=== PATIENT | female | born 1950 | race African-American/Black ===

== ENCOUNTER → 2016-09-21 | Outpatient (CLI) | payer OTHER ==
[2015-02-05 14:45] VITALS: BP 131/74
[~2016-09-21] MED LIST: AMIT75TA PO; AMLO10TA2 PO; ASPI-482 PO; CHOL10003 PO; CIPR250T30 PO; CYCL5TAB PO; DICL50TA4 PO; DICL75TA PO; ESTR1TAB5 PO; LOSA1TAB17 PO; MV,1TABL3 PO; POTA20TA12 PO; TAMS0.4C2 PO; TIZA4TAB PO; TRAM50TA PO; VALS80TA3 PO
--- NOTE | 2016-09-22 08:07 | KCIC ---
Bilateral digital screening mammograms with CAD: HISTORY Routine screening. COMPARISON Comparison is made to previous studies dated 11/26/2013 and 10/14/2009. FINDINGS Breast density category B. The skin and nipples show no abnormalities. No abnormal lymph nodes are seen in the axilla. The breast parenchyma shows scattered fibroglandular density. There are no dominant masses, suspicious calcifications or architectural distortions. IMPRESSION No evidence of malignancy. Recommend routine annual mammographic screening. This study was interpreted with the benefit of Computerized Aided Detection (CAD). Mammography is not 100% sensitive in detecting breast cancer. Therefore, a self breast exam and a clinical breast exam are very important. A negative mammogram does not negate a clinically suspicious finding and should not result in a delay in biopsying a clinically suspicious abnormality. BI-RADS category 1. Negative. This patient's information has been entered into a reminder system for the patient to be notified with the results of this examination and a target date for her next mammograms. Electronically signed by: Teresa Cordon MD (Sep 22, 2016 08:06:44)
== END | disposition home or self-care (01) ==
LOC: KCIC MAMMO 13:28
PROVIDERS: ATTEND Nurse Practitioner Family
DX: Z12.31 Encounter for screening mammogram for malignant neoplasm of breast (principal)
CPT/HCPCS: G0202; 77067

== ENCOUNTER → 2017-07-27 | Outpatient (CLI) | payer MEDICARE, OTHER | END | disposition home or self-care (01) | LOC: KCIC MRI 12:07 | DX: M48.02 Spinal stenosis, cervical region (principal); M47.896 Other spondylosis, lumbar region; M54.5 Low back pain; M40.292 Other kyphosis, cervical region; M25.511 Pain in right shoulder; M25.78 Osteophyte, vertebrae; R51 Headache; G89.29 Other chronic pain | CPT/HCPCS: 72141; 72148 ==

== ENCOUNTER 2017-09-05 01:51 | Emergency (ER) | payer MEDICARE ==
[2017-09-05] MEDS ORDERED: fentaNYL PF VIAL 100 MCG/2 ML VIAL IV (02:45)
[2017-09-05 03:01] LABS: ADD MAN DIFF? NO
[2017-09-05 03:06] LABS: BASO # 0.1 x10^3/uL (0.0-0.2); BASO % 1 % (0-3); EOS # 0.1 x10^3/uL (0.0-0.7); EOS % 2 % (0-3); HEMATOCRIT 35.1 % (36.0-47.0); HEMOGLOBIN 11.7 g/dL (12.0-15.5); LYMPH # 2.6 x10^3/uL (1.0-4.8); LYMPH % 49 % (24-48); MEAN CORPUSCULAR HEMOGLOBIN 29 pg (25-35); MEAN CORPUSCULAR HGB CONC 33 g/dL (31-37); MEAN CORPUSCULAR VOLUME 86 fL (79-100); MONO # 0.4 x10^3/uL (0.0-1.1); MONO % 7 % (0-9); NEUT # 2.2 x10^3uL (1.8-7.7); NEUT % 42 % (31-73); PLATELET COUNT 294 x10^3/uL (140-400); RED BLOOD COUNT 4.08 x10^6/uL (3.50-5.40); RED CELL DISTRIBUTION WIDTH 15.3 % (11.5-14.5); WHITE BLOOD COUNT 5.3 x10^3/uL (4.0-11.0)
[2017-09-05 03:20] LABS: ANION GAP 9 (6-14); BLOOD UREA NITROGEN 22 mg/dL (7-20); CALCIUM 8.7 mg/dL (8.5-10.1); CARBON DIOXIDE 28 mmol/L (21-32); CHLORIDE 103 mmol/L (98-107); CREATININE 1.1 mg/dL (0.6-1.0); GFR 60.1; GLUCOSE 101 mg/dL (70-99); POTASSIUM 3.4 mmol/L (3.5-5.1); SODIUM 140 mmol/L (136-145)
[2017-09-05 03:29] LABS: D-DIMER 0.39 ug/mlFEU (0.00-0.50)
[2017-09-05 03:30] LABS: TROPONINI < 0.017 ng/mL (0.000-0.055)
[2017-09-05 03:33] LABS: ALBUMIN 3.4 g/dL (3.4-5.0); ALK PHOS 65 U/L (46-116); ALT (SGPT) 24 U/L (14-59); AST (SGOT) 16 U/L (15-37); DIRECT BILIRUBIN 0.1 mg/dL (0.0-0.2); LIPASE 54 U/L (73-393); TOTAL BILIRUBIN 0.3 mg/dL (0.2-1.0); TOTAL PROTEIN 7.3 g/dL (6.4-8.2)
[2017-09-05] MEDS ORDERED: IPRATRPIUM/ALBUTEROL 0.5/2.5MG 3 ML NEBU. (04:17)
[2017-09-05] MEDS: IPRATRPIUM/ALBUTEROL 0.5/2.5MG 3 ML NEBU. NEB (04:19)
== END 2017-09-05 04:30 | disposition home or self-care (01) ==
LOC: ER 01:51
DX: M54.89 Other dorsalgia (principal); R05 Cough; I10 Essential (primary) hypertension; Z90.710 Acquired absence of both cervix and uterus; Z98.890 Other specified postprocedural states; Z87.891 Personal history of nicotine dependence
CPT/HCPCS: 36415; 71045; 80048; 80076; 83690; 84484; 85025; 85379; 93005; 94640; 99285-25; J7620

== ENCOUNTER → 2017-09-27 | Outpatient (CLI) | payer MEDICARE | END | disposition home or self-care (01) | LOC: KCIC MAMMO 13:00 | DX: Z12.31 Encounter for screening mammogram for malignant neoplasm of breast (principal); N63.10 Unspecified lump in the right breast, unspecified quadrant | CPT/HCPCS: 77063; 77067 ==

== ENCOUNTER → 2017-09-29 | Outpatient (CLI) | payer MEDICARE | END | disposition home or self-care (01) | LOC: KCIC US 13:08 | DX: R92.8 Other abnormal and inconclusive findings on diagnostic imaging of breast (principal) | CPT/HCPCS: 76641 ==

== ENCOUNTER 2018-06-19 23:26 | Emergency (ER) | payer MEDICARE ==
[~2018-06-19] VITALS: Ht 162.6 cm; Wt 69.9 kg
[~2018-06-19 23:26] MED LIST changes: -AMLO10TA2 PO; +AMLO10TA6 PO; -LOSA1TAB17 PO; +LOSA1TAB22 PO
[2018-06-19 23:55] LABS: BASO % 1 % (0-3); EOS # 0.1 x10^3/uL (0.0-0.7); EOS % 1 % (0-3); HEMATOCRIT 36.9 % (36.0-47.0); HEMOGLOBIN 12.7 g/dL (12.0-15.5); LYMPH # 2.5 x10^3/uL (1.0-4.8); LYMPH % 36 % (24-48); MEAN CORPUSCULAR HEMOGLOBIN 30 pg (25-35); MEAN CORPUSCULAR HGB CONC 34 g/dL (31-37); MEAN CORPUSCULAR VOLUME 88 fL (79-100); MONO # 0.5 x10^3/uL (0.0-1.1); MONO % 7 % (0-9); NEUT # 3.8 x10^3uL (1.8-7.7); NEUT % 56 % (31-73); PLATELET COUNT 296 x10^3/uL (140-400); RED BLOOD COUNT 4.17 x10^6/uL (3.50-5.40); RED CELL DISTRIBUTION WIDTH 14.9 % (11.5-14.5); WHITE BLOOD COUNT 6.9 x10^3/uL (4.0-11.0)
[2018-06-20] MEDS: ASPIRIN CHEWABLE 81 MG TABLET. PO ONE (00:01)
[2018-06-20 00:45] LABS: ALBUMIN 3.6 g/dL (3.4-5.0); CREATININE 0.9 mg/dL (0.6-1.0); GFR 75.6; MAGNESIUM 1.7 mg/dL (1.8-2.4); TOTAL BILIRUBIN 0.3 mg/dL (0.2-1.0); TOTAL PROTEIN 7.3 g/dL (6.4-8.2)
[2018-06-20 00:48] LABS: POTASSIUM 2.7 mmol/L (3.5-5.1)
[2018-06-20 01:03] LABS: BILIRUBIN,URINE NEGATIVE (NEG); CLARITY,URINE CLEAR; COLOR,URINE YELLOW; NITRITE,URINE NEGATIVE (NEG); PROTEIN,URINE NEGATIVE (NEG-TRACE); UROBILINOGEN,URINE 0.2 mg/dL (0.2 mg/dL)
[2018-06-20 01:10] LABS: BACTERIA,URINE MODERATE /HPF (0-FEW); RBC,URINE OCC /HPF (0-2); SQUAMOUS EPITHELIAL CELL,UR MOD /LPF
[2018-06-20] MEDS: POTASSIUM CHLORIDE 20 MEQ TABLET.ER. PO ONE (01:23)
--- NOTE | 2018-06-20 01:52 | PHYS DOC ---
Past Medical History Past Medical History: CAD, CVA, Hypertension, Other Additional Past Medical Histor: PLEURISY Past Surgical History: Hysterectomy, Tonsillectomy Additional Past Surgical Histo: rectocele, hernia repair Alcohol Use: None Drug Use: None Adult General Chief Complaint Chief Complaint: CHEST PAIN HPI HPI Patient is a 68-year-old female who presents with numerous complaints. Patient indicates that she has had some chest tightness and mild shortness of breath and dizziness that she states that started about 3 hours ago but admits that she has about a 2-3 year history of the symptoms that seem to be quite frequent. She rates her pain as being mild at this time at about a 3 out of 10. She describes the pain in her chest as tightness. She states that her symptoms of dizziness are worsened when she stands up and walks. She denies any headache. She also denies any nausea or vomiting. Patient states that nothing improves her symptoms. Review of Systems Review of Systems Constitutional: Denies fever or chills [] Respiratory: Denies cough. Complains of mild shortness of breath [] Cardiovascular: No additional information not addressed in HPI [] GI: Denies abdominal pain, nausea, vomiting or diarrhea [] Integument: Denies rash or skin lesions [] Neurologic: Denies headache. Complains of chronic dizziness [] All other systems were reviewed and found to be within normal limits, except as documented in this note. Current Medications Current Medications Current Medications Medications (Trade) Dose Ordered Sig/[facility] Start Time Stop Time Status Last Admin Dose Admin Aspirin (Children'S Aspirin) 324 mg 1X ONCE 06/20/18 00:30 06/20/18 00:31 DC 06/20/18 00:01 324 MG Potassium Chloride (Klor-Con) 40 meq 1X ONCE 06/20/18 01:30 06/20/18 01:31 DC 06/20/18 01:23 40 MEQ Allergies Allergies Allergies Coded Allergies Type Severity Reaction Last Updated Verified No Known Drug Allergies 02/05/15 No Physical Exam Physical Exam Constitutional: Well developed, well nourished, no acute distress, non-toxic appearance. [] HENT: Normocephalic, atraumatic, bilateral external ears normal, oropharynx moist, no oral exudates, nose normal. [] Eyes: PERRLA, EOMI, conjunctiva normal, no discharge. [] Neck: Normal range of motion, no tenderness, supple, no stridor. [] Cardiovascular: Regular rate and rhythm[] Lungs & Thorax: Bilateral breath sounds clear to auscultation [] Abdomen: Bowel sounds normal, soft, no tenderness. [] Skin: Warm, dry, no erythema, no rash. [] Extremities: No tenderness, no cyanosis, no clubbing, ROM intact, no edema. [] Neurologic: Alert and oriented X 3, normal motor function, normal sensory function, no focal deficits noted. [] Current Patient Data Vital Signs Vital Signs Date Time Temp Pulse Resp B/P (MAP) Pulse Ox O2 Delivery O2 Flow Rate FiO2 06/19/18 23:37 98.5 81 20 184/98 (126) 96 Room Air 98.5 Lab Values Laboratory Tests Test 06/19/18 23:40 06/20/18 00:00 06/20/18 00:17 06/20/18 00:50 White Blood Count 6.9 x10^3/uL (4.0-11.0) Red Blood Count 4.17 x10^6/uL (3.50-5.40) Hemoglobin 12.7 g/dL (12.0-15.5) Hematocrit 36.9 % (36.0-47.0) Mean Corpuscular Volume 88 fL (79-100) Mean Corpuscular Hemoglobin 30 pg (25-35) Mean Corpuscular Hemoglobin Concent 34 g/dL (31-37) Red Cell Distribution Width 14.9 % (11.5-14.5) H Platelet Count 296 x10^3/uL (140-400) Neutrophils (%) (Auto) 56 % (31-73) Lymphocytes (%) (Auto) 36 % (24-48) Monocytes (%) (Auto) 7 % (0-9) Eosinophils (%) (Auto) 1 % (0-3) Basophils (%) (Auto) 1 % (0-3) Neutrophils # (Auto) 3.8 x10^3uL (1.8-7.7) Lymphocytes # (Auto) 2.5 x10^3/uL (1.0-4.8) Monocytes # (Auto) 0.5 x10^3/uL (0.0-1.1) Eosinophils # (Auto) 0.1 x10^3/uL (0.0-0.7) Basophils # (Auto) 0.0 x10^3/uL (0.0-0.2) POC Troponin I 0.00 ng/ml (<0.08) Sodium Level 143 mmol/L (136-145) Potassium Level 2.7 mmol/L (3.5-5.1) *L Chloride Level 103 mmol/L (98-107) Carbon Dioxide Level 30 mmol/L (21-32) Anion Gap 10 (6-14) Blood Urea Nitrogen 17 mg/dL (7-20) Creatinine 0.9 mg/dL (0.6-1.0) Estimated GFR (Cockcroft-Gault) 75.6 BUN/Creatinine Ratio 19 (6-20) Glucose Level 110 mg/dL (70-99) H Calcium Level 9.0 mg/dL (8.5-10.1) Magnesium Level 1.7 mg/dL (1.8-2.4) L Total Bilirubin 0.3 mg/dL (0.2-1.0) Aspartate Amino Transferase (AST) 12 U/L (15-37) L Alanine Aminotransferase (ALT) 22 U/L (14-59) Alkaline Phosphatase 74 U/L (46-116) Troponin I Quantitative < 0.017 ng/mL (0.000-0.055) Total Protein 7.3 g/dL (6.4-8.2) Albumin 3.6 g/dL (3.4-5.0) Albumin/Globulin Ratio 1.0 (1.0-1.7) Thyroid Stimulating Hormone (TSH) 2.034 uIU/mL (0.358-3.74) Urine Collection Type Unknown Urine Color Yellow Urine Clarity Clear Urine pH 7.0 Urine Specific [place] 1.020 Urine Protein Negative mg/dL (NEG-TRACE) Urine Glucose (UA) Negative mg/dL (NEG) Urine Ketones (Stick) Negative mg/dL (NEG) Urine Blood Negative (NEG) Urine Nitrite Negative (NEG) Urine Bilirubin Negative (NEG) Urine Urobilinogen Dipstick 0.2 mg/dL (0.2 mg/dL) Urine Leukocyte Esterase Moderate (NEG) Urine RBC Occ /HPF (0-2) Urine WBC 11-20 /HPF (0-4) Urine Squamous Epithelial Cells Mod /LPF Urine Bacteria Moderate /HPF (0-FEW) Urine Mucus Slight /LPF Laboratory Tests 12/10/18 23:40 Laboratory Tests 06/20/18 00:17 EKG EKG [] Interpretation Time: EKG demonstrates normal sinus rhythm with rate of 81. Radiology/Procedures Radiology/Procedures [] Impressions: Chest x-ray demonstrates no acute process. Course & Med Decision Making Course & Med Decision Making Pertinent Labs and Imaging studies reviewed. (See chart for details) A cardiac workup has been completed on this patient which was essentially negative. Patient's potassium level was found to be low at 2.7. Patient does indicate that she has a history of low potassium and states that she has a prescription at home. I did discuss admission to further evaluate the ongoing dizziness in her chest pain but patient states that she has prior engagements and so does not wish to be admitted. Dragon Disclaimer Dragon Disclaimer This electronic medical record was generated, in whole or in part, using a voice recognition dictation system. Departure Departure Impression: Primary Impression: Atypical chest pain Additional Impressions: Dizziness Hypokalemia Disposition: 01 HOME, SELF-CARE Condition: STABLE Referrals: DISHA JACKSON MD (PCP) Patient Instructions: Chest Pain (Nonspecific), Dizziness, Hypokalemia Problem Qualifiers VALENTÍN NUNEZ Jr. DO Jun 20, 2018 01:52
[2018-06-20 01:53] VITALS: BP 161/84
--- NOTE | 2018-06-20 06:16 | EKG ---
[facility] [address] [place] [address] Test Date: 2018-06-19 Test Time: 23:33:40 Pat Name: AMOL CHRISTINA Department: Room: Gender: F [employer]inter Machine: : 1950 Requested By: VALENTÍN NUNEZ Order Number: [id number] Reading MD: Measurements Intervals [place] Rate: 81 P: 36 [place]: 142 QRS: -10 QRSD: 102 T: 23 QT: 360 QTc: 419 Interpretive Statements SINUS RHYTHM LEFTWARD AXIS QRS(T) CONTOUR ABNORMALITY CONSIDER INFERIOR MYOCARDIAL DAMAGE POSSIBLY ABNORMAL ECG RI6.01 No previous ECG available for comparison
--- NOTE | 2018-06-20 08:30 | RAD ---
PORTABLE CHEST 1V Clinical indications: DIZZINESS, CHEST PAIN HX OF COPD, ASTHMA COMPARISON: September 05, 2017. Findings: No acute lung infiltrate or pleural effusion or pulmonary edema or lung mass or pneumothorax is seen. The heart size, pulmonary vasculature, mediastinum and both steve are unremarkable. Impression: No acute radiographic abnormality is seen. Electronically signed by: Jeremy Reeves MD (06/20/2018 8:25 AM) [facility]
== END 2018-06-20 02:11 | disposition home or self-care (01) ==
LOC: ER 23:26
DX: R07.89 Other chest pain (principal); R42 Dizziness and giddiness; E87.6 Hypokalemia; I25.10 Atherosclerotic heart disease of native coronary artery without angina pectoris; I10 Essential (primary) hypertension; Z86.73 Personal history of transient ischemic attack (TIA), and cerebral infarction without residual deficits
CPT/HCPCS: 36415; 71045; 80053; 81001; 83735; 84443; 84484; 85025; 87086; 93005; 99284

== ENCOUNTER → 2018-07-26 | Outpatient (CLI) | payer MEDICARE ==
--- NOTE | 2018-07-31 15:12 | KCIC ---
BREAST RIGHT Clinical Indication: Six-month follow-up. Comparison: Right breast ultrasound September 29, 2017. Findings: Real-time ultrasound imaging of the right breast is performed. Prominent duct right breast 4:00 position is stable. There is a cyst at the 6:00 position 3 cm from the nipple that is now partially collapsed. Hyperechogenicity of the right breast 2:00 position 2 cm from the nipple is no longer seen. At the 3:00 position, 7 cm from the nipple there is a well-circumscribed hypoechoic lesion that measures up to 6 mm, stable. A complicated cyst or fibroadenoma are considerations. IMPRESSION: 1. 6 mm probable complicated cyst or fibroadenoma at the 3:00 position 7 cm from the nipple is stable. 2. Hyperechogenicity at the 2:00 position is no longer seen. 3. Cyst at the 6:00 position 3 cm from the nipple is now partially collapsed. 4. Recommend patient return to routine mammogram screening. 5. BI-RADS Category 2, benign findings. Electronically signed by: Juan Collazo MD (07/26/2018 1:55 PM) [id number]
== END | disposition home or self-care (01) ==
LOC: KCIC US 12:42
DX: N60.01 Solitary cyst of right breast (principal)
CPT/HCPCS: 76641

== ENCOUNTER 2018-10-25 07:17 | Day surgery (SDC) | payer MEDICARE ==
[~2018-10-25] VITALS: Ht 157.5 cm; Wt 70.3 kg
[~2018-10-25 07:17] MED LIST changes: -AMLO10TA6 PO; +AMLO10TA8 PO; +AMOX500T PO; +CHOL2000 PO; +CYAN10005 PO; +ESTR0.5T PO; +FERR325T14 PO; +FISH1CAP PO; +GUAI120L35 PO; +HYDROmorphone 2 MG/ML VIAL IV PRN; +LIDOCAINE 1% PF 2 ML VIAL. ID PRN; +MORPHINE SULFATE 2 MG/ML VIAL. IV PRN; +OMEG1CAP38 PO; +ONDANSETRON PF 4 MG/2 ML VIAL. IV PRN; +OSEL75CA PO; +POLY255P11 PO; +PROCHLORPERAZINE 10 MG/2 ML VIAL. IV PRN; +fentaNYL PF VIAL 100 MCG/2 ML VIAL IV PRN
[2018-10-25] MEDS ORDERED: ROPIVacaine 0.5% PF 20 ML VIAL. ONE ×2 (07:19→07:57)
[2018-10-25] MEDS ORDERED: MIDAZOLAM HCL/PF 2 MG/2 ML VIAL. ONE (07:35)
[2018-10-25] MEDS ORDERED: ALBU2.5V8 INH (07:53)
[2018-10-25] MEDS ORDERED: fentaNYL PF VIAL 100 MCG/2 ML VIAL ONE ×2 (07:57→08:27)
[2018-10-25] MEDS ORDERED: LIDOCAINE 2% PF 5 ML VIAL. ONE (07:57)
[2018-10-25] MEDS ORDERED: SUCCINYLCHOLINE 200 MG/10 ML VIAL. ONE (07:57)
[2018-10-25] MEDS ORDERED: ROCURONIUM 50 MG/5 ML VIAL. ONE (07:57)
[2018-10-25] MEDS ORDERED: PROPOFOL 20 ML IV ONE (07:57)
[2018-10-25] MEDS ORDERED: EPINEPHrine VIAL 30 MG/30 ML VIAL ONE (08:00)
[2018-10-25] MEDS ORDERED: LIDOCAINE 1% PF 30 ML VIAL. ONE (08:00)
[2018-10-25] MEDS ORDERED: BUPIVACAINE MPF 0.5% 30 ML VIAL. ONE (08:01)
[2018-10-25] MEDS: IV RINGERS,LACTATED 1000ML 1,000 ML IV SCH ×2 (08:04→11:19)
--- NOTE | 2018-10-25 08:41 | DISCH ---
DISCHARGE INSTRUCTIONS Condition on Discharge Condition on Discharge: Stable Activity After Discharge Activity Instructions for Disc: No restrictions, Other ROM activity Other activity instructions: arm to remain in sling Bathing Instructions: Shower-keep dressing dry Driving Instructions after Dis: Do not drive today Weight Bearing Status after Di: Non weight bearing Diet after Discharge Diet after Discharge: Regular Wound Incision Care Wound/Incision Care: Ice to area for comfort, Keep wound/cast CDI, Change dressing, No wound care needed Other wound/incision instructi: ok to change dressin [address] after DC Call your doctor for: If your condition worsens Follow-Up Follow up with: Abdoulaye in 2 wks ROGER DEGROOT II, MD Oct 25, 2018 08:41
[2018-10-25] MEDS ORDERED: fentaNYL PF VIAL 100 MCG/2 ML VIAL IV ONE (08:45)
[2018-10-25] MEDS ORDERED: DEXAMETHASONE SOD PHOS 20 MG/5 ML VIAL. ONE (09:26)
[2018-10-25] MEDS ORDERED: DESFLURANE 61 TO 120 MINUTES IH ONE (09:26)
[2018-10-25] MEDS ORDERED: ONDANSETRON PF 4 MG/2 ML VIAL. ONE (09:27)
[2018-10-25] MEDS ORDERED: PHENYLEPHRINE in 0.9% NACL PF 1 MG/10 ML SYRINGE. IV ONE (09:38)
[2018-10-25] MEDS ORDERED: ePHEDrine PF IN SALINE 50 MG/10 ML SYRINGE. IV ONE (09:46)
[2018-10-25] MEDS ORDERED: VASOPRESSIN 20 UNIT/ML VIAL. ONE (09:48)
[2018-10-25] MEDS ORDERED: NEOSTIGMINE METHYLSULFATE 5 MG/5 ML SYRINGE. ONE (09:53)
[2018-10-25] MEDS ORDERED: GLYCOPYRROLATE 1 MG/5 ML VIAL. ONE (09:53)
--- NOTE | 2018-10-25 10:24 | PDOC4 ---
Operative Note Operative Note Date of procedure: 10/25/2018 Surgeon: Vega Degroot Sales Representative Graphic Art: Preoperative diagnosis: #1 Right shoulder rotator cuff tear Postoperative diagnosis: Same Procedure performed: Arthroscopic right shoulder rotator cuff repair Anesthesia: Gen. plus regional nerve block Findings: #1 Complete supraspinatus and infraspinatus tears, retracted #2 fairly well-preserved glenohumeral cartilage, small area, less than a centimeter of full-thickness cartilage loss with overlying fibrotic tissue at its base next line #3 intact labrum circumferentially #3 some inflammation and biceps tendon, no tears #4 No loose bodies Blood loss: 10mL Components inserted: [employer] Helacoil anchors, 2, for rotator cuff repair , footprint for lateral row fixation Reason for procedure: Patient is a very pleasant female who has had long- standing shoulder pain and dysfunction. She had been seen and evaluated in my outpatient orthopedic surgery clinic, please see this note for full details. She had tried and failed conservative therapies. Clinical and radiographic examination, including MRI, were consistent with the preoperative diagnosis. We had a discussion of the risks, benefits, alternatives the above surgery and he wished to proceed. Description of procedure: Patient was greeted in the preoperative holding area where the correct extremity was verified and marked. They were taken to the preoperative holding area where the anesthesiology team placed a regional nerve block. The patient was then taken back to the operative suite and antibiotics were started as they were brought back. Once in the operative room, the patient was transferred gently supine to the operating room table after successful induction of a general anesthetic. After this, she was sat up in a beachchair position maintaining his C-spine in neutral position, large pad under her legs, she was secured to the bed. We then prepped and draped her right upper extremity and shoulder girdle in our usual sterile fashion, we conducted our standard preoperative timeout. I palpated and marked surface anatomy for my planned portal sites. I then used a spinal needle to localize a posterior superior portal and incised skin in accordance with this. After this, I introduced the blunt arthroscopic trocar into the glenohumeral joint followed by the camera. I used a spinal needle to localize an anterosuperior portal and incised skin in accordance with this. I then introduced my arthroscopic probe and conducted my diagnostic arthroscopy with the above-noted findings. I then inspected her rotator cuff and noted the retracted tear. I created a lateral portal and debrided the leading edge, the tissue was quite friable, I also debrided the footprint, taking care not to decorticate. I then used a grasper to test mobility, it was a little bit limited anteriorly and therefore I used my electrocautery device to work above and below the rotator cuff tendon to try to release it as much as I was able. After this, I repositioned the camera into the subacromial space and performed a bursectomy with combination of shaver and electrocautery device. I then screwed into position my cannula laterally. I then created an accessory anterolateral and posterolateral portals for suture management. I then placed my helacoil anchors and shuttled limbs through in a simple configuration. I tied these down with arthroscopic knot- tying techniques. I cut a single limb from each suture, I used the remaining limb through the footprint device which was inserted laterally using an awl to start. Overall her bone was quite soft at her proximal humerus. I then impacted the footprint into her proximal humerus after setting my tension on the suture. The tear was stable to probing and to gentle rotation of the arm. I then removed all loose bony debris and the excess arthroscopic fluid. I took my final pictures prior to this. After this, all the excess fluid and instrumentation was removed. The portals were closed with simple interrupted 3- 0 nylon. The axillary incision was closed with inverted interrupted 2-0 Vicryl followed by running 4-0 Monocryl. Steri-Strips were applied. Sterile dressing was applied followed by an abduction pillow sling. Patient tolerated surgery well. No complications. All counts correct 2 prior to wound closure. At the conclusion, she was laid supine and transferred gently supine to the recovery room cart and taken to the PACU in a stable and extubated condition. Postoperative plan is discharge him home, nonweightbearing for 6 weeks. Well get her started on physical therapy. She will follow up with me in 2 weeks, sooner should a problem arise. VEGA DEGROOT II, MD Oct 25, 2018 10:24
[2018-10-25] MEDS ORDERED: NALOXONE 0.4 MG/ML VIAL. ONE (10:33)
[2018-10-25] MEDS ORDERED: oxyCODONE/APAP 5/325 1 TAB TABLET PO ONE (11:30)
[2018-10-25] MEDS ORDERED: DOCU-109 PO (11:38)
[2018-10-25] MEDS ORDERED: ONDA8TAB9 SL (11:40)
[2018-10-25] MEDS ORDERED: OXYC-325 PO (11:40)
[2018-10-25 13:00] VITALS: BP 133/77
== END 2018-10-25 13:34 | disposition home or self-care (01) ==
LOC: SURG 07:17
PROVIDERS: ATTEND Orthopaedic Surgery Sports Medicine
DX: S46.011A Strain of muscle(s) and tendon(s) of the rotator cuff of right shoulder, initial encounter (principal); G47.30 Sleep apnea, unspecified; Z90.710 Acquired absence of both cervix and uterus; Z98.890 Other specified postprocedural states; Z79.899 Other long term (current) drug therapy; M65.811 Other synovitis and tenosynovitis, right shoulder; Z88.8 Allergy status to other drugs, medicaments and biological substances; X58.XXXA Exposure to other specified factors, initial encounter; Y93.89 Activity, other specified; Y92.89 Other specified places as the place of occurrence of the external cause; Y99.8 Other external cause status
CPT/HCPCS: 29827; A7015; C1713; C1782; J0171; J0330; J0780; J1100; J2001; J2250; J2310; J2370; J2405; J2704; J2710; J2795; J3010; J3490; J7120

== ENCOUNTER 2018-11-18 23:48 | Emergency (ER) | payer MEDICARE ==
[~2018-11-18] VITALS: Ht 157.5 cm; Wt 68.0 kg
[~2018-11-18 23:48] MED LIST changes: +ALBU2.5V8 INH; +DOCU-109 PO; -HYDROmorphone 2 MG/ML VIAL IV PRN; -LIDOCAINE 1% PF 2 ML VIAL. ID PRN; -MORPHINE SULFATE 2 MG/ML VIAL. IV PRN; +ONDA8TAB9 SL; -ONDANSETRON PF 4 MG/2 ML VIAL. IV PRN; +OXYC-325 PO; -PROCHLORPERAZINE 10 MG/2 ML VIAL. IV PRN; -fentaNYL PF VIAL 100 MCG/2 ML VIAL IV PRN
--- NOTE | 2018-11-19 00:52 | PHYS DOC ---
Past Medical History Past Medical History: CAD, CVA, Hypertension, Other Additional Past Medical Histor: PLEURISY Past Surgical History: Hysterectomy, Tonsillectomy Additional Past Surgical Histo: rectocele, hernia repair Alcohol Use: None Drug Use: None Adult General Chief Complaint Chief Complaint: HEADACHE HPI HPI Patient is a 68 year old female presents with multiple medical complaints. Patient presents with nasal congestion, rhinorrhea, persistent h eadache for the past 24 hours. Patient's currently taking prescription pain medication for treatment of right rotator cuff following surgery 3 weeks ago. Patient states headache started improve despite treatment. Patient also reports increased shortness breath, and wheezing. History of asthma, CHF and CAD. Patient noted be hypertensive 160s over 100. Denies increased leg pain or swelling. No history of DVT or PE. Denies fever chills, nausea vomiting or sweats. No chest pain or palpitations. No other acute symptoms or complaints.[] Review of Systems Review of Systems Review symptoms as per history of present illness. All other review symptoms are negative. All other systems were reviewed and found to be within normal limits, except as documented in this note. Current Medications Current Medications Current Medications Medications (Trade) Dose Ordered Sig/Carlos Start Time Stop Time Status Last Admin Dose Admin Albuterol/ Ipratropium (Duoneb) 3 ml 1X ONCE 11/19/18 01:00 11/19/18 01:01 DC 11/19/18 01:12 3 ML Methylprednisolone Sodium Succinate (SOLU-Medrol 40MG VIAL) 40 mg 1X ONCE 11/19/18 01:00 11/19/18 01:01 DC 11/19/18 01:10 40 MG Morphine Sulfate (Morphine Sulfate) 4 mg 1X ONCE 11/19/18 01:00 11/19/18 01:01 DC 11/19/18 01:11 4 MG Ondansetron HCl (Zofran) 4 mg 1X ONCE 11/19/18 01:00 11/19/18 01:01 DC 11/19/18 01:11 4 MG Allergies Allergies Allergies Coded Allergies Type Severity Reaction Last Updated Verified alendronate sodium Allergy Severe Swelling 10/25/18 Yes methocarbamol Allergy Intermediate 10/25/18 Yes Physical Exam Physical Exam Constitutional: Well developed, well nourished, moderate discomfort secondary to pain.. [] HENT: Normocephalic, maxillary sinus tenderness,, bilateral external ears normal, oropharynx moist, his of congestion with clear rhinorrhea[] Eyes: PERRLA, EOMI, conjunctiva normal, no discharge. [] Neck: Normal range of motion, supple, no stridor. [] Cardiovascular:Heart rate regular rhythm, no murmur, trace peripheral edema [] Lungs & Thorax: Respirations nonlabored, coarse expiratory and expiratory wheezes bilaterally.[] Abdomen: Bowel sounds normal, soft, no tenderness, no masses, no pulsatile masses. [] Skin: Warm, dry, no erythema, no rash. [] Back: No tenderness, no CVA tenderness. [] Extremities: Right upper extremity and shoulder immobilizer, distal pulses intact. [] Neurologic: Alert and oriented X 3, normal motor function, normal sensory function, no focal deficits noted. [] Psychologic: Affect, anxious.. [] Current Patient Data Vital Signs Vital Signs Date Time Temp Pulse Resp B/P (MAP) Pulse Ox O2 Delivery O2 Flow Rate FiO2 11/19/18 01:11 95 Room Air 11/19/18 00:30 98.8 88 21 156/103 (120) 98.8 Lab Values Laboratory Tests Test 11/19/18 01:10 White Blood Count 3.6 x10^3/uL (4.0-11.0) L Red Blood Count 4.41 x10^6/uL (3.50-5.40) Hemoglobin 12.4 g/dL (12.0-15.5) Hematocrit 38.4 % (36.0-47.0) Mean Corpuscular Volume 87 fL (79-100) Mean Corpuscular Hemoglobin 28 pg (25-35) Mean Corpuscular Hemoglobin Concent 32 g/dL (31-37) Red Cell Distribution Width 14.8 % (11.5-14.5) H Platelet Count 278 x10^3/uL (140-400) Neutrophils (%) (Auto) 56 % (31-73) Lymphocytes (%) (Auto) 30 % (24-48) Monocytes (%) (Auto) 10 % (0-9) H Eosinophils (%) (Auto) 2 % (0-3) Basophils (%) (Auto) 1 % (0-3) Neutrophils # (Auto) 2.0 x10^3uL (1.8-7.7) Lymphocytes # (Auto) 1.1 x10^3/uL (1.0-4.8) Monocytes # (Auto) 0.4 x10^3/uL (0.0-1.1) Eosinophils # (Auto) 0.1 x10^3/uL (0.0-0.7) Basophils # (Auto) 0.0 x10^3/uL (0.0-0.2) Sodium Level 140 mmol/L (136-145) Potassium Level 3.6 mmol/L (3.5-5.1) Chloride Level 103 mmol/L (98-107) Carbon Dioxide Level 24 mmol/L (21-32) Anion Gap 13 (6-14) Blood Urea Nitrogen 15 mg/dL (7-20) Creatinine 1.0 mg/dL (0.6-1.0) Estimated GFR (Cockcroft-Gault) 66.9 BUN/Creatinine Ratio 15 (6-20) Glucose Level 99 mg/dL (70-99) Calcium Level 9.1 mg/dL (8.5-10.1) Total Bilirubin 0.2 mg/dL (0.2-1.0) Aspartate Amino Transferase (AST) 21 U/L (15-37) Alanine Aminotransferase (ALT) 22 U/L (14-59) Alkaline Phosphatase 70 U/L (46-116) Troponin I Quantitative < 0.017 ng/mL (0.000-0.055) ZH-Rvt-G-Type Natriuretic Peptide 301 pg/mL (0-124) H Total Protein 7.3 g/dL (6.4-8.2) Albumin 3.6 g/dL (3.4-5.0) Albumin/Globulin Ratio 1.0 (1.0-1.7) Laboratory Tests 11/19/18 01:10 Laboratory Tests 11/19/18 01:10 EKG EKG [EKG: Reviewed] Radiology/Procedures Radiology/Procedures [Chest x-ray: No acute cardiopulmonary disease] Course & Med Decision Making Course & Med Decision Making Pertinent Labs and Imaging studies reviewed. (See chart for details) [Patient with sinus headache pain with asthma exacerbation. Breathing treatment given, pain addressed. The pressure improved with treatment. Chest x-ray, basic cardiac labs obtained and nondiagnostic. Will treat supportively with PCP follow-up. Return precautions reviewed.] Dragon Disclaimer Dragon Disclaimer This electronic medical record was generated, in whole or in part, using a voice recognition dictation system. Departure Departure Referrals: MELLY QUINONEZ MD (PCP) OZIEL JACKSON DO November 19, 2018 00:51
[2018-11-19] MEDS ORDERED: ONDANSETRON PF 4 MG/2 ML VIAL. IV ONE (01:00)
[2018-11-19] MEDS ORDERED: MORPHINE SULFATE 4 MG/ML VIAL. IV ONE (01:00)
[2018-11-19] MEDS ORDERED: methylPREDNISolone SOD SUCC PF 40 MG/ML VIAL. IV ONE (01:00)
[2018-11-19] MEDS ORDERED: IPRATRPIUM/ALBUTEROL 0.5/2.5MG 3 ML NEBU. NEB ONE (01:00)
[2018-11-19 01:20] LABS: BASO % 1 % (0-3); EOS # 0.1 x10^3/uL (0.0-0.7); EOS % 2 % (0-3); HEMATOCRIT 38.4 % (36.0-47.0); HEMOGLOBIN 12.4 g/dL (12.0-15.5); LYMPH # 1.1 x10^3/uL (1.0-4.8); LYMPH % 30 % (24-48); MEAN CORPUSCULAR HEMOGLOBIN 28 pg (25-35); MEAN CORPUSCULAR HGB CONC 32 g/dL (31-37); MEAN CORPUSCULAR VOLUME 87 fL (79-100); MONO # 0.4 x10^3/uL (0.0-1.1); MONO % 10 % (0-9); NEUT % 56 % (31-73); PLATELET COUNT 278 x10^3/uL (140-400); RED BLOOD COUNT 4.41 x10^6/uL (3.50-5.40); RED CELL DISTRIBUTION WIDTH 14.8 % (11.5-14.5); WHITE BLOOD COUNT 3.6 x10^3/uL (4.0-11.0)
[2018-11-19 01:26] LABS: CALCIUM 9.1 mg/dL (8.5-10.1); GFR 66.9; POTASSIUM 3.6 mmol/L (3.5-5.1)
[2018-11-19 01:32] LABS: ALBUMIN 3.6 g/dL (3.4-5.0); TOTAL BILIRUBIN 0.2 mg/dL (0.2-1.0); TOTAL PROTEIN 7.3 g/dL (6.4-8.2)
[2018-11-19] MEDS ORDERED: HYDR-2759 PO (02:37)
[2018-11-19] MEDS ORDERED: AMOX875T PO (02:37)
[2018-11-19] MEDS ORDERED: PRED50TA PO (02:37)
[2018-11-19] MEDS ORDERED: ALBU2.5V8 INH (02:37)
[2018-11-19 02:39] VITALS: BP 159/94
--- NOTE | 2018-11-19 08:39 | RAD ---
AP portable chest radiograph 11/19/2018 Clinical History: Shortness of breath. An AP erect portable digital radiograph of the chest was obtained. Comparison study is dated 08/28/2018. The cardiac silhouette is borderline enlarged. The thoracic aorta is tortuous. Atherosclerotic calcification of the thoracic aorta is seen. No acute pulmonary infiltrate is noted. No pneumothorax or pleural effusion is seen. The osseous structures are unchanged. Impression: No acute abnormality is seen. Electronically signed by: Allen Ryan MD (11/19/2018 8:37 AM) [facility]
--- NOTE | 2018-11-19 15:58 | EKG ---
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
== END 2018-11-19 03:07 | disposition home or self-care (01) ==
LOC: ER 23:48
DX: J45.901 Unspecified asthma with (acute) exacerbation (principal); I25.10 Atherosclerotic heart disease of native coronary artery without angina pectoris; I10 Essential (primary) hypertension; Z86.73 Personal history of transient ischemic attack (TIA), and cerebral infarction without residual deficits; Z88.8 Allergy status to other drugs, medicaments and biological substances
CPT/HCPCS: 36415; 71045; 80053; 83880; 84484; 85025; 93005; 94640; 96374; 96375; 99285; J2270; J2405; J2920; J7620

== ENCOUNTER 2019-08-16 11:01 | Emergency (ER) | payer MEDICARE ==
[~2019-08-16] VITALS: Ht 157.5 cm; Wt 72.0 kg
[~2019-08-16 11:01] MED LIST changes: +AMOX875T PO; +CYAN-25 PO; -CYAN10005 PO; +HYDR-2759 PO; +PRED50TA PO; -TIZA4TAB PO; +TIZA4TAB2 PO
--- NOTE | 2019-08-16 12:10 | RAD ---
EXAM: Right ankle, 3 views. HISTORY: Fall. Pain. COMPARISON: None. FINDINGS: 3 views of the right ankle are obtained. There is a mildly displaced oblique fracture of the distal fibular metaphysis with approximately 1 cortical width displacement along the main fracture line. There is a tiny ossicle inferior to the medial malleolus which may be due to a tiny avulsion fracture fragment of uncertain chronicity. The ankle mortise is intact. There is no osteochondral lesion. There is lateral ankle soft tissue swelling. IMPRESSION: 1. Mildly displaced distal fibular metaphyseal fracture with overlying soft tissue swelling. 2. Tiny ossicle inferior to the medial malleolus, possibly due to an avulsion fracture of uncertain chronicity. Electronically signed by: Jerri Granger MD (08/16/2019 12:07 PM) [facility]
--- NOTE | 2019-08-16 12:38 | RAD ---
EXAM: Head and cervical spine CT without contrast. HISTORY: Syncope. Fall. TECHNIQUE: Computed tomographic images of the head and cervical spine were obtained without contrast. *One or more of the following individualized dose reduction techniques were utilized for this examination: 1. Automated exposure control. 2. Adjustment of the mA and/or kV according to patient size. 3. Use of iterative reconstruction technique. COMPARISON: None. FINDINGS: Head: There is no hemorrhage. There is no mass effect or midline shift. There is no hydrocephalus. There is decreased attenuation within the cerebral white matter, likely due to chronic small vessel disease. There is mild age-appropriate cerebral volume loss. The orbits, paranasal sinuses mastoid air cells are unremarkable. No calvarial lesion is seen. Cervical spine: There is cervical kyphosis. There is mild anterolisthesis of C4 on C5 and C3 on C4. There is degenerative endplate remodeling with disc space narrowing and osteophytosis at C4-T1. There is chronic mild anterior wedging of C5 due to degenerative change. There are multiple endplate Schmorl's nodes. There is multilevel facet arthropathy. No displaced fracture is seen. The combination of degenerative changes results in mild right foraminal stenosis at C2-C3, severe bilateral foraminal and mild central canal stenosis at C3-C4, severe left foraminal and mild central canal stenosis at C4-C5, mild central canal stenosis at C5-C6, mild bilateral foraminal and moderate central canal stenosis at C6-C7, and moderate right and severe left foraminal stenosis at C7-T1. IMPRESSION: 1. No acute intracranial finding or evidence of acute cervical spine trauma. 2. Bilateral cerebral white matter changes, likely due to chronic small vessel disease. 3. Multilevel advanced degenerative change involving the cervical spine, resulting in significant stenosis at the aforementioned levels. Electronically signed by: Jerri Granger MD (08/16/2019 12:35 PM) [facility] [place]
--- NOTE | 2019-08-16 12:40 | PHYS DOC ---
Past Medical History Past Medical History: CAD, CVA, Hypertension, Other Additional Past Medical Histor: PLEURISY Past Surgical History: Hip Replacement, Hysterectomy, Oophorectomy, Tonsillectomy Additional Past Surgical Histo: rectocele, hernia repair, rt rotator, bilat hip rx Smoking Status: Never Smoker Alcohol Use: Rarely Drug Use: None Adult General Chief Complaint Chief Complaint: MECHANICAL FALL HPI HPI Patient is a 69 year old female with history of hypertension, coronary artery disease, CVA, bilateral hip replacement and walking with a walker who presents with complaint of a fall and right ankle pain. Patient states she became dizzy and lost her balance 3 days ago and had a fall from several stairs and hit her head and her found her awake after one or 2 minutes. Patient states she was able to ambulate with a walker but had more pain in right ankle. Patient states she has had episodes of syncope previously and was told that she had decrease of blood to her brain. Review of Systems Review of Systems Constitutional: Denies fever or chills [] Eyes: Denies change in visual acuity, redness, or eye pain [] HENT: Denies nasal congestion or sore throat [] Respiratory: Denies cough or shortness of breath [] Cardiovascular: No additional information not addressed in HPI [] GI: Denies abdominal pain, nausea, vomiting, bloody stools or diarrhea [] : Denies dysuria or hematuria [] Musculoskeletal: Denies back pain, reports joint pain [] Integument: Denies rash or skin lesions [] Neurologic: Denies headache, focal weakness or sensory changes [] Endocrine: Denies polyuria or polydipsia [] All other systems were reviewed and found to be within normal limits, except as documented in this note. Allergies Allergies Allergies Coded Allergies Type Severity Reaction Last Updated Verified alendronate sodium Allergy Severe Swelling 10/25/18 Yes methocarbamol Allergy Intermediate 10/25/18 Yes Physical Exam Physical Exam Constitutional: Well developed, well nourished, mild distress, non-toxic appearance. [] HENT: Normocephalic, atraumatic. Eyes: PERRLA, EOMI, conjunctiva normal, no discharge. [] Neck: Normal range of motion, no tenderness, supple, no stridor. [] Cardiovascular:Heart rate regular rhythm, no murmur [] Lungs & Thorax: Bilateral breath sounds clear to auscultation [] Abdomen: Bowel sounds normal, soft, no tenderness, no masses, no pulsatile masses. [] Skin: Warm, dry, no erythema, no rash. [] Back: No tenderness, no CVA tenderness. [] Extremities: Right ankle with moderate edema and mild tenderness in lateral malleolus, painful range of motion, no neurovascular deficit . Neurologic: Alert and oriented X 3, no focal deficits noted. [] Psychologic: Affect normal, judgement normal, mood normal. [] Current Patient Data Vital Signs Vital Signs Date Time Temp Pulse Resp B/P (MAP) Pulse Ox O2 Delivery O2 Flow Rate FiO2 08/16/19 13:13 76 14 95 08/16/19 11:16 98.1 112/65 (81) Room Air 98.1 EKG EKG [] Radiology/Procedures Radiology/Procedures [address] [place] [address] IMAGING REPORT Signed PATIENT: AMOL CHRISTINA JACCOUNT: [id number] : 1950 LOCATION: ER AGE: 69 SEX: F EXAM STATUS: REG ER ORD. PHYSICIAN: TOM JEROME MD REASON: fall and pain PROCEDURE: ANKLE RIGHT 3V EXAM: Right ankle, 3 views. HISTORY: Fall. Pain. COMPARISON: None. FINDINGS: 3 views of the right ankle are obtained. There is a mildly displaced oblique fracture of the distal fibular metaphysis with approximately 1 cortical width displacement along the main fracture line. There is a tiny ossicle inferior to the medial malleolus which may be due to a tiny avulsion fracture fragment of uncertain chronicity. The ankle mortise is intact. There is no osteochondral lesion. There is lateral ankle soft tissue swelling. IMPRESSION: 1. Mildly displaced distal fibular metaphyseal fracture with overlying soft tissue swelling. 2. Tiny ossicle inferior to the medial malleolus, possibly due to an avulsion fracture of uncertain chronicity. Electronically signed by: Jerri Arboleda MD (08/16/2019 12:07 PM) [facility] [place] DICTATED and SIGNED BY: JERRI ARBOLEDA MD DATE: 08/16/19 6505 Course & Med Decision Making Course & Med Decision Making Pertinent Imaging studies reviewed. (See chart for details) Evaluation of patient in ER showed 69-year-old female patient with a fall 3 days ago and injury to right ankle. Patient had history of chronic syncope and had a syncopal episode before her fall. Patient had unremarkable physical exam except for right ankle edema and tenderness. X-ray showed distal fibular fracture. Strap splint was applied with good neurovascular exam after splint physician. Patient has crutches and pain medication at home and was advised to follow-up with orthopedic physician. Dragon Disclaimer Dragon Disclaimer This electronic medical record was generated, in whole or in part, using a voice recognition dictation system. Departure Departure Impression: Primary Impression: Closed right ankle fracture Additional Impression: Fall down stairs Disposition: 01 HOME, SELF-CARE (at 1327) Condition: IMPROVED Referrals: MELLY QUINONEZ MD (PCP) JEFF ROMO MD Patient Instructions: Ankle Fracture, Fall Prevention and Home Safety Additional Instructions: Apply ice right ankle Use home crutches all the time Follow-up with your primary care physician in 3-5 days Return to ER if not getting better Follow-up with orthopedic physician in 2 or 3 days Continue home pain medication Problem Qualifiers Primary Impression: Closed right ankle fracture Encounter type: initial encounter Qualified Codes: S82.891A - Other fracture of right lower leg, initial encounter for closed fracture Additional Impression: Fall down stairs Encounter type: subsequent encounter Qualified Codes: W10.8XXD - Fall (on) (from) other stairs and steps, subsequent encounter TOM JEROME MD Aug 16, 2019 12:40
[2019-08-16 13:13] VITALS: BP 121/66
[2019-08-17] MEDS ORDERED: LEVO5TAB29 PO (19:58)
[2019-08-17] MEDS ORDERED: VALS1TAB14 PO (19:58)
[2019-08-17] MEDS ORDERED: POTA10TA12 PO (19:58)
[2019-08-17] MEDS ORDERED: CALC-178 PO (19:58)
[2019-08-17] MEDS ORDERED: PSEU120T9 PO (19:58)
[2019-08-17] MEDS ORDERED: PANT40TA77 PO (19:58)
[2019-08-17] MEDS ORDERED: ISOS60TA2 PO (19:58)
== END 2019-08-16 13:50 | disposition home or self-care (01) ==
LOC: ER 11:01
DX: S82.891A Other fracture of right lower leg, initial encounter for closed fracture (principal); I25.10 Atherosclerotic heart disease of native coronary artery without angina pectoris; R55 Syncope and collapse; I10 Essential (primary) hypertension; Z86.73 Personal history of transient ischemic attack (TIA), and cerebral infarction without residual deficits; Z88.8 Allergy status to other drugs, medicaments and biological substances; W10.8XXA Fall (on) (from) other stairs and steps, initial encounter; Y93.89 Activity, other specified; Y92.89 Other specified places as the place of occurrence of the external cause; Y99.8 Other external cause status
CPT/HCPCS: 29515; 70450; 72125; 73610; 99284-25

== ENCOUNTER 2019-08-17 10:06 | Observation (INO) | payer MEDICARE ==
[~2019-08-17] VITALS: Ht 157.5 cm; Wt 74.0 kg
[2019-08-17] MEDS ORDERED: NITROGLYCERIN SUBLINGUAL 0.4 MG BOTTLE OF 25. SL PRN ×2 (10:30→12:30)
[2019-08-17] MEDS ORDERED: ASPIRIN CHEWABLE 81 MG TABLET. PO ONE (10:30)
--- NOTE | 2019-08-17 10:38 | PHYS DOC ---
Past Medical History Past Medical History: CAD, CVA, Hypertension, Other Additional Past Medical Histor: PLEURISY Past Surgical History: Hip Replacement, Hysterectomy, Oophorectomy, Tonsillectomy Additional Past Surgical Histo: rectocele, hernia repair, rt rotator, bilat hip rx Smoking Status: Never Smoker Alcohol Use: Rarely Drug Use: None Adult General Chief Complaint Chief Complaint: CHEST PAIN HPI HPI Patient is a 69 year old with history of hypertension, coronary artery disease, CVA, syncope who presents with complaint of chest pain. Patient states she woke up around 0730 because of bilateral chest tightness with radiation to bilateral arms and her back and associated with shortness of breath and dizziness. Patient states she had a near syncope when she tried to get out of the bed. Patient rated her pain 10 over 10 and states her pain dropped to 7/10 after she took tramadol for her. Pain. Patient was seen in this emergency room yesterday because of a fall that happened 4 days ago and fracture of lateral malleolus of right foot with applying a splint. Patient states she had history of chest pain previously nose of coronary artery disease without angioplasty or CABG. Review of Systems Review of Systems Constitutional: Denies fever or chills [] Eyes: Denies change in visual acuity, redness, or eye pain [] HENT: Denies nasal congestion or sore throat [] Respiratory: Denies cough, reports shortness of breath [] Cardiovascular: No additional information not addressed in HPI [] GI: Denies abdominal pain, nausea, vomiting, bloody stools or diarrhea [] : Denies dysuria or hematuria [] Musculoskeletal: Denies back pain or joint pain [] Integument: Denies rash or skin lesions [] Neurologic: Denies headache, focal weakness or sensory changes [] Endocrine: Denies polyuria or polydipsia [] All other systems were reviewed and found to be within normal limits, except as documented in this note. Current Medications Current Medications Current Medications Medications (Trade) Dose Ordered Sig/Carlos Start Time Stop Time Status Last Admin Dose Admin Acetaminophen (Tylenol) 650 mg PRN Q6HRS PRN 08/17/19 12:30 Al Hydroxide/Mg Hydroxide (Mylanta Plus Xs) 30 ml PRN Q4HRS PRN 08/17/19 12:30 Aspirin (Children'S Aspirin) 324 mg 1X ONCE 08/17/19 10:30 08/17/19 10:32 DC 08/17/19 10:58 324 MG Lactulose (Lactulose) 20 gm PRN Q12HR PRN 08/17/19 12:30 Morphine Sulfate (Morphine Sulfate) 1 mg PRN Q10MIN PRN 08/17/19 12:30 Nitroglycerin (Nitrostat) 0.4 mg PRN Q5MIN PRN 08/17/19 12:30 Ondansetron HCl (Zofran) 4 mg PRN Q6HRS PRN 08/17/19 12:30 Sodium Chloride (Normal Saline Flush) 3 ml QSHIFT PRN 08/17/19 12:30 Allergies Allergies Allergies Coded Allergies Type Severity Reaction Last Updated Verified alendronate sodium Allergy Severe Swelling 10/25/18 Yes methocarbamol Allergy Intermediate 10/25/18 Yes Physical Exam Physical Exam Constitutional: Well nourished, mild distress, non-toxic appearance. [] HENT: Normocephalic, atraumatic. Eyes: PERRLA, EOMI, conjunctiva normal, no discharge. [] Neck: Normal range of motion, no tenderness, supple, no stridor. [] Cardiovascular:Heart rate regular rhythm, no murmur [] Lungs & Thorax: Bilateral breath sounds clear to auscultation [] Abdomen: Bowel sounds normal, soft, no tenderness, no masses, no pulsatile masses. [] Skin: Warm, dry, no erythema, no rash. [] Back: No tenderness, no CVA tenderness. [] Extremities: Right lower extremity in splint Neurologic: Alert and oriented X 3, no focal deficits noted. [] Psychologic: Affect normal, judgement normal, mood normal. [] Current Patient Data Vital Signs Vital Signs Date Time Temp Pulse Resp B/P (MAP) Pulse Ox O2 Delivery O2 Flow Rate FiO2 08/17/19 12:30 74 18 129/73 (91) 95 Room Air 08/17/19 10:25 98.2 98.2 Lab Values Laboratory Tests Test 08/17/19 10:34 White Blood Count 3.7 x10^3/uL (4.0-11.0) L Red Blood Count 4.40 x10^6/uL (3.50-5.40) Hemoglobin 12.4 g/dL (12.0-15.5) Hematocrit 37.9 % (36.0-47.0) Mean Corpuscular Volume 86 fL (79-100) Mean Corpuscular Hemoglobin 28 pg (25-35) Mean Corpuscular Hemoglobin Concent 33 g/dL (31-37) Red Cell Distribution Width 14.9 % (11.5-14.5) H Platelet Count 283 x10^3/uL (140-400) Neutrophils (%) (Auto) 43 % (31-73) Lymphocytes (%) (Auto) 47 % (24-48) Monocytes (%) (Auto) 7 % (0-9) Eosinophils (%) (Auto) 2 % (0-3) Basophils (%) (Auto) 1 % (0-3) Neutrophils # (Auto) 1.6 x10^3/uL (1.8-7.7) L Lymphocytes # (Auto) 1.8 x10^3/uL (1.0-4.8) Monocytes # (Auto) 0.3 x10^3/uL (0.0-1.1) Eosinophils # (Auto) 0.1 x10^3/uL (0.0-0.7) Basophils # (Auto) 0.0 x10^3/uL (0.0-0.2) Prothrombin Time 12.6 SEC (11.7-14.0) Prothrombin Time INR 1.0 (0.8-1.1) D-Dimer (Leslie) 0.68 ug/mlFEU (0.00-0.50) H Sodium Level 140 mmol/L (136-145) Potassium Level 3.5 mmol/L (3.5-5.1) Chloride Level 102 mmol/L (98-107) Carbon Dioxide Level 27 mmol/L (21-32) Anion Gap 11 (6-14) Blood Urea Nitrogen 16 mg/dL (7-20) Creatinine 1.0 mg/dL (0.6-1.0) Estimated GFR (Cockcroft-Gault) 66.7 BUN/Creatinine Ratio 16 (6-20) Glucose Level 107 mg/dL (70-99) H Calcium Level 9.1 mg/dL (8.5-10.1) Magnesium Level 1.8 mg/dL (1.8-2.4) Total Bilirubin 0.4 mg/dL (0.2-1.0) Aspartate Amino Transferase (AST) 13 U/L (15-37) L Alanine Aminotransferase (ALT) 14 U/L (14-59) Alkaline Phosphatase 65 U/L (46-116) Creatine Kinase 105 U/L (26-192) Troponin I Quantitative < 0.017 ng/mL (0.000-0.055) ZP-Pds-S-Type Natriuretic Peptide 101 pg/mL (0-124) Total Protein 7.3 g/dL (6.4-8.2) Albumin 3.3 g/dL (3.4-5.0) L Albumin/Globulin Ratio 0.8 (1.0-1.7) L Lipase 63 U/L (73-393) L Laboratory Tests 08/17/19 10:34 Laboratory Tests 08/17/19 10:34 EKG EKG EKG interpreted by me. EKG at 1019 showed normal sinus rhythm at rate of 86, left fourth axis, T-wave abnormality in lateral leads, prolonged QT at 434, no acute ST and T-wave elevation. Radiology/Procedures Radiology/Procedures [facility] [address] [place] [address] IMAGING REPORT Signed PATIENT: AMOL CHRISTINA JACCOUNT: [id number] : 1950 LOCATION: ER AGE: 69 SEX: F EXAM STATUS: PRE ER ORD. PHYSICIAN: TOM JEROME MD REASON: chest pain since this AM. PROCEDURE: PORTABLE CHEST 1V EXAM: PORTABLE CHEST 1V INDICATION: Chest pain since this morning.. TECHNIQUE: Portable upright AP single view chest COMPARISON: 11/19/2018 chest x-ray FINDINGS: The heart size is normal. The great vessels appear unremarkable. There is no hilar or mediastinal mass. The lungs are clear. There is no pleural effusion or pneumothorax. There are no significant osseous abnormalities. IMPRESSION: No active cardiopulmonary disease. Electronically signed by: Tomas Hammond MD (08/17/2019 10:58 AM) [facility] DICTATED and SIGNED BY: TOMAS HAMMOND MD DATE: 08/17/19 1058 Course & Med Decision Making Course & Med Decision Making Pertinent Labs and Imaging studies reviewed. (See chart for details) Evaluation of patient in ER showed 69-year-old female patient with heart score of 6 in complaining of chest pain since this morning. Cardiac enzymes was negative. Patient had a recent right distal fibula fracture. D-dimer was 0.68 with low concern for PE.Patient requiring admission for further evaluation and treatment. Discussed with Dr. Craft who is in agreement with admission. Discussed findings and plan with patient and family, who acknowledge understanding and agreement. Dragon Disclaimer Dragon Disclaimer This electronic medical record was generated, in whole or in part, using a voice recognition dictation system. Departure Departure Impression: Primary Impression: Acute chest pain Additional Impressions: Leukopenia Hypoalbuminemia Disposition: ADMITTED INPATIENT (at 1134) Admitting Physician: MARIELOS (Dr. Craft accepted admission at 1134) Condition: IMPROVED Referrals: MELLY QUINONEZ MD (PCP) The HEART Score for CP Pts HEART Score for Chest Pain: HEART Score for Chest Pain Response (Comments) Value History Moderately Suspicious 1 ECG Nonspecific Repolarizatio 1 Age > 65 2 Risk Factors >3 Risk Factors or Hx CAD 2 Troponin < Normal Limit 0 Total 6 Risk Factors: Risk Factors: DM, Current or recent (<one month) smoker, HTN, HLP, family history of CAD, obesity. Risk Scores: Score 0 - 3: 2.5% MACE over next 6 weeks - Discharge Home Score 4 - 6: 20.3% MACE over next 6 weeks - Admit for Clinical Observation Score 7 - 10: 72.7% MACE over next 6 weeks - Early Invasive Strategies Problem Qualifiers Additional Impressions: Leukopenia Leukopenia type: unspecified Qualified Codes: D72.819 - Decreased white blood cell count, unspecified TOM JEROME MD Aug 17, 2019 10:38
[2019-08-17 10:53] LABS: BASO % 1 % (0-3); EOS # 0.1 x10^3/uL (0.0-0.7); EOS % 2 % (0-3); HEMATOCRIT 37.9 % (36.0-47.0); HEMOGLOBIN 12.4 g/dL (12.0-15.5); LYMPH # 1.8 x10^3/uL (1.0-4.8); LYMPH % 47 % (24-48); MEAN CORPUSCULAR HEMOGLOBIN 28 pg (25-35); MEAN CORPUSCULAR HGB CONC 33 g/dL (31-37); MEAN CORPUSCULAR VOLUME 86 fL (79-100); MONO # 0.3 x10^3/uL (0.0-1.1); MONO % 7 % (0-9); NEUT # 1.6 x10^3/uL (1.8-7.7); NEUT % 43 % (31-73); PLATELET COUNT 283 x10^3/uL (140-400); RED CELL DISTRIBUTION WIDTH 14.9 % (11.5-14.5); WHITE BLOOD COUNT 3.7 x10^3/uL (4.0-11.0)
--- NOTE | 2019-08-17 11:01 | RAD ---
EXAM: PORTABLE CHEST 1V INDICATION: Chest pain since this morning.. TECHNIQUE: Portable upright AP single view chest COMPARISON: 11/19/2018 chest x-ray FINDINGS: The heart size is normal. The great vessels appear unremarkable. There is no hilar or mediastinal mass. The lungs are clear. There is no pleural effusion or pneumothorax. There are no significant osseous abnormalities. IMPRESSION: No active cardiopulmonary disease. Electronically signed by: Chelsea Hammond MD (08/17/2019 10:58 AM) [facility]
[2019-08-17 11:03] LABS: PROTHROMBIN TIME PATIENT 12.6 SEC (11.7-14.0)
[2019-08-17 11:11] LABS: CALCIUM 9.1 mg/dL (8.5-10.1); GFR 66.7; POTASSIUM 3.5 mmol/L (3.5-5.1)
[2019-08-17 11:17] LABS: ALBUMIN 3.3 g/dL (3.4-5.0); ALBUMIN/GLOBULIN RATIO 0.8 (1.0-1.7); MAGNESIUM 1.8 mg/dL (1.8-2.4); TOTAL BILIRUBIN 0.4 mg/dL (0.2-1.0); TOTAL PROTEIN 7.3 g/dL (6.4-8.2)
[2019-08-17 11:33] LABS: D-DIMER 0.68 ug/mlFEU (0.00-0.50)
[2019-08-17] MEDS ORDERED: 0.9 % SODIUM CHLORIDE 10 ML DISP.SYRIN. IV PRN (12:30)
[2019-08-17] MEDS ORDERED: ACETAMINOPHEN 325 MG TABLET. PO PRN (12:30)
[2019-08-17] MEDS ORDERED: LACTULOSE 20 GM/30 ML SOLUTION. PO PRN (12:30)
[2019-08-17] MEDS ORDERED: ONDANSETRON PF 4 MG/2 ML VIAL. IV PRN (12:30)
[2019-08-17] MEDS ORDERED: MORPHINE SULFATE 2 MG/ML VIAL. IV PRN (12:30)
[2019-08-17] MEDS ORDERED: MAG HYDROX/ALUMINUM HYD/SIMETH 30 ML ORAL.SUSP PO PRN (12:30)
[2019-08-17 14:20] VITALS: BP 114/76
--- NOTE | 2019-08-17 14:52 | EKG ---
[facility] [address] [place] [address] Test Date: 2019-08-17 Test Time: 10:19:26 Pat Name: AMOL CHRISTINA Department: Room: Gender: F [employer]: : 1950 Requested By: TOM JEROME Order Number: [id number] Reading MD: Measurements Intervals Kirk Rate: 86 P: 37 AK: 162 QRS: -13 QRSD: 100 T: -49 QT: 434 QTc: 522 Interpretive Statements SINUS RHYTHM LEFTWARD AXIS T ABNORMALITY IN HIGH LATERAL LEADS INFERIOR LEADS PROLONGED QT ABNORMAL ECG No previous ECG available for comparison
--- NOTE | 2019-08-17 14:58 | PDOC2 ---
CARDIAC CONSULT DATE OF CONSULT Date of Consult DATE: 08/17/19 TIME: 14:46 REASON FOR CONSULT Reason for Consult: Chest pain REFERRING PHYSICIAN Referring Physician: Nirmal SOURCE Source: Chart review, Patient HISTORY OF PRESENT ILLNESS HISTORY OF PRESENT ILLNESS This is a pleasant 69 yo female admitted for complains of passing out and chest pain. Reports that Tuesday she was at the top of the stairs on her way to let ting her dog out to pee but she passed out and fell down the stairs. Her right ankle was painful at that time but did not go to ED till yesterday with swelling and noted a fracture to her right ankle and was splinted. and sent home. When she p[assed out everything just went black. This occurred again this morning briefly to which she fell backwards in bed. Again she just felt likely dizzy. No vertigo. She did have some chest tightness with radiating sensation to her upper arms like someone was grabbing it. No nausea but did have some SOA. Presently denies any of these symptoms. She could not tell me if she was having palpitations. She sees Dr. Sierra as her billing and insurance coordinator. No definitive hx of CAD but told that one of her arteries may have been "straighten out" several yrs back but no stents. No statin and takes ASA PRN. Her dizziness and passing out have not happened for a long time. No past history of arrhythmia. No VTE. When she was having these symptoms this morning she actually took her BP meds and her tightness got better. PAST MEDICAL HISTORY Past Medical History Cardiovascular: HTN, CAD? Pulmonary: Asthma, COPD CENTRAL NERVOUS SYSTEM: CVA GI: GERD Heme/Onc: Anemia NOS Hepatobiliary: No pertinent hx Psych: Anxiety, Depression Musculoskeletal: low back pain, Osteoarthritis Rheumatologic: No pertinent hx, Rheumatoid arthritis Infectious disease: No pertinent hx ENT: No pertinent hx Renal/: Other (urinary retention) Endocrine: Osteoporosis Dermatology: No pertinent hx PAST SURGICAL HISTORY Past Surgical History Tonsillectomy, Hysterectomy, , RTC repair, rectocele repair. FAMILY HISTORY Family History: Hypertension SOCIAL HISTORY Smoke: No ALCOHOL: occassional Drugs: None Lives: with Family CURRENT MEDICATIONS CURRENT MEDICATIONS Current Medications Medications (Trade) Dose Ordered Sig/Carlos Route PRN Reason Start Time Stop Time Status Last Admin Dose Admin Aspirin (Children'S Aspirin) 324 mg 1X ONCE PO 08/17/19 10:30 2/7/20 10:32 DC 08/17/19 10:58 Nitroglycerin (Nitrostat) 0.4 mg PRN Q5MIN PRN SL CP RATING > 1/10 08/17/19 10:30 08/18/19 10:29 08/17/19 10:59 ALLERGIES ALLERGIES: Coded Allergies: alendronate sodium (Verified Allergy, Severe, Swelling, 10/25/18) methocarbamol (Verified Allergy, Intermediate, 10/25/18) ROS Review of System 14 point ROS evaluated with pertinent positives noted per HPI PHYSICAL EXAM General: Alert, Oriented X3, Cooperative, No acute distress HEENT: Atraumatic, Mucous membr. moist/pink Lungs: Clear to auscultation, Normal air movement Heart: Regular rate (SR), Normal S1, Normal S2, No murmurs Abdomen: Soft, No tenderness Extremities: No cyanosis, No edema Skin: No breakdown, No significant lesion Neuro: Normal speech, Sensation intact Psych/Mental Status: Mental status NL, Mood NL MUSCULOSKELETAL: Osteoarthritic changes both hands VITALS/I&O VITALS/I&O: Vital Signs Date Time Temp Pulse Resp B/P (MAP) Pulse Ox O2 Delivery O2 Flow Rate FiO2 08/17/19 14:00 86 13 115/72 (86) 94 Room Air 08/17/19 10:25 98.2 98.2 LABS Lab: Laboratory Tests Test 08/17/19 10:34 White Blood Count 3.7 x10^3/uL (4.0-11.0) L Red Blood Count 4.40 x10^6/uL (3.50-5.40) Hemoglobin 12.4 g/dL (12.0-15.5) Hematocrit 37.9 % (36.0-47.0) Mean Corpuscular Volume 86 fL (79-100) Mean Corpuscular Hemoglobin 28 pg (25-35) Mean Corpuscular Hemoglobin Concent 33 g/dL (31-37) Red Cell Distribution Width 14.9 % (11.5-14.5) H Platelet Count 283 x10^3/uL (140-400) Neutrophils (%) (Auto) 43 % (31-73) Lymphocytes (%) (Auto) 47 % (24-48) Monocytes (%) (Auto) 7 % (0-9) Eosinophils (%) (Auto) 2 % (0-3) Basophils (%) (Auto) 1 % (0-3) Neutrophils # (Auto) 1.6 x10^3/uL (1.8-7.7) L Lymphocytes # (Auto) 1.8 x10^3/uL (1.0-4.8) Monocytes # (Auto) 0.3 x10^3/uL (0.0-1.1) Eosinophils # (Auto) 0.1 x10^3/uL (0.0-0.7) Basophils # (Auto) 0.0 x10^3/uL (0.0-0.2) Prothrombin Time 12.6 SEC (11.7-14.0) Prothrombin Time INR 1.0 (0.8-1.1) D-Dimer (Leslie) 0.68 ug/mlFEU (0.00-0.50) H Sodium Level 140 mmol/L (136-145) Potassium Level 3.5 mmol/L (3.5-5.1) Chloride Level 102 mmol/L (98-107) Carbon Dioxide Level 27 mmol/L (21-32) Anion Gap 11 (6-14) Blood Urea Nitrogen 16 mg/dL (7-20) Creatinine 1.0 mg/dL (0.6-1.0) Estimated GFR (Cockcroft-Gault) 66.7 BUN/Creatinine Ratio 16 (6-20) Glucose Level 107 mg/dL (70-99) H Calcium Level 9.1 mg/dL (8.5-10.1) Magnesium Level 1.8 mg/dL (1.8-2.4) Total Bilirubin 0.4 mg/dL (0.2-1.0) Aspartate Amino Transferase (AST) 13 U/L (15-37) L Alanine Aminotransferase (ALT) 14 U/L (14-59) Alkaline Phosphatase 65 U/L (46-116) Creatine Kinase 105 U/L (26-192) Troponin I Quantitative < 0.017 ng/mL (0.000-0.055) XD-Awp-A-Type Natriuretic Peptide 101 pg/mL (0-124) Total Protein 7.3 g/dL (6.4-8.2) Albumin 3.3 g/dL (3.4-5.0) L Albumin/Globulin Ratio 0.8 (1.0-1.7) L Lipase 63 U/L (73-393) L Laboratory Tests 08/17/19 10:34 Laboratory Tests 08/17/19 10:34 ECHOCARDIOGRAM ECHOCARDIOGRAM <Conclusion> The left ventricular systolic function is low normal. The Ejection Fraction is 50-55% There is normal LV segmental wall motion. DATE: 08/29/18 1621 ASSESSMENT/PLAN ASSESSMENT/PLAN 1. Chest pain: with typical features occurred prior to syncope. 2. Syncope with traumatic fall with right ankle fracture: 4 days ago but syncope recurred briefly again this morning. Splint in place 3. HTN: controlled 4. Hx of COPD 5. Hx of CVA Recommendations 1. Trops nml EKG SR without acute changes. TTE, TSH and lipids 2. I would suspect that BP meds may have cause hypotensive episode leading to syncope but could not differentiate arrhythmia as well. Will obtain orthostatic readings with assist and will need outpt event monitor tele does not show any concerning arrhythmias. 3. She sees Dr. Sierra as her billing and insurance coordinator and event moniutor could be arrange through him. 4. ASA for secondary prevention. Will place on statin pending her lipids. 5. Her CP could potentially related to arrhythmia. Will consider for outpt stress test given her risk factors. 6. Given her elevated DDIMER, symptomatology with HRT will obtain CTA chest to rule out PE. RNEATO BOLANOS APRN Aug 17, 2019 14:58
[2019-08-17] MEDS: HEPARIN for SUB-Q USE 5,000 UNIT/ML VIAL. SQ SCH ×2 (15:14→21:23)
--- NOTE | 2019-08-17 15:55 | EKG ---
[facility] [address] [place] [address] Test Date: 2019-08-17 Test Time: 15:47:16 Pat Name: AMOL CHRISTINA Department: Room: 204 1 Gender: F [employer] Operator: MARU : 1950 Requested By: RENATO BOLANOS Order Number: [id number] Reading MD: Measurements Intervals [place] Rate: 74 P: 38 CT: 164 QRS: -16 QRSD: 104 T: 49 QT: 320 QTc: 356 Interpretive Statements SINUS RHYTHM LEFTWARD AXIS OTHERWISE NORMAL ECG RI6.02 Compared to ECG 11/19/2018 01:04:03 Left-axis deviation now present
[2019-08-17 16:00] VITALS: BP 121/83
[2019-08-17 16:05] VITALS: BP 127/80
[2019-08-17 16:10] VITALS: BP 112/80
[2019-08-17] MEDS ORDERED: CONTRAST GIVEN. MC PRN (17:15)
[2019-08-17] MEDS ORDERED: IOHEXOL 350 MG/ML 100 ML VIAL. IV ONE (17:15)
--- NOTE | 2019-08-17 17:31 | PDOC1 ---
History and Physical Identification/Chief Complaint Chief Complaint My chest hurts History of Present Illness History of Present Illness Patient is a 69-year-old female with past medical history of hypertension and COPD who was in her usual state of health until this morning when she woke up and she experienced lightheadedness during this is as per the patient without sensation of room spinning almost fainted she did not lose consciousness but she had to have stepped back and fell on to her bed. The patient subsequently developed chest discomfort that she described as a pressure sensation. The patient refers that the discomfort lasted 5-10 minutes. No radiation to the neck no radiation to the back no tingly sensation in her arms either. The patient tells me that a few days back the patient was trying to walk her dog and apparently she lost consciousness and fell down the stairs. She injured her right lower extremity and was diagnosed with a fracture of the right ankle on Tuesday. The patient denies fever no cough or sputum production no pleurisy no recent sick contacts have been reported. The patient denies nausea vomiting no sensation of impending doom with the event that led to her presyncopal episode. No palpitations no lower extremity edema no paroxysmal nocturnal dyspnea either. The patient is being admitted the request of the ER for chest pain rule out Past Medical History Cardiovascular: HTN Pulmonary: Asthma, COPD CENTRAL NERVOUS SYSTEM: CVA GI: GERD Heme/Onc: Anemia NOS Hepatobiliary: No pertinent hx Psych: Anxiety, Depression Rheumatologic: No pertinent hx, Rheumatoid arthritis Infectious disease: No pertinent hx Renal/: Other Endocrine: No pertinent hx Past Surgical History Past Surgical History: Tonsillectomy, Hysterectomy Family History Family History: Hypertension Social History Smoke: No ALCOHOL: occassional Drugs: None Current Problem List Problem List Problems Medical Problems: (1) Acute chest pain Status: Acute (2) Hypoalbuminemia Status: Acute (3) Leukopenia Status: Acute Current Medications Current Medications Current Medications Medications (Trade) Dose Ordered Sig/Carlos Start Time Stop Time Status Last Admin Dose Admin Acetaminophen (Tylenol) 650 mg PRN Q6HRS PRN 08/17/19 12:30 Al Hydroxide/Mg Hydroxide (Mylanta Plus Xs) 30 ml PRN Q4HRS PRN 08/17/19 12:30 Aspirin (Children'S Aspirin) 81 mg DAILYWBKFT 08/18/19 08:00 2/7/20 16:46 DC Aspirin (Ecotrin) 81 mg DAILYWBKFT 08/18/19 08:00 Heparin Sodium (Porcine) (Heparin Sodium) 5,000 unit Q8HRS 08/17/19 14:00 08/17/19 15:14 5,000 UNIT Info (CONTRAST GIVEN -- Rx MONITORING) 1 each PRN DAILY PRN 08/17/19 17:15 08/19/19 17:14 Iohexol (Omnipaque 350 Mg/ml) 90 ml 1X ONCE 08/17/19 17:15 08/17/19 17:16 DC Lactulose (Lactulose) 20 gm PRN Q12HR PRN 08/17/19 12:30 Morphine Sulfate (Morphine Sulfate) 1 mg PRN Q10MIN PRN 08/17/19 12:30 Nitroglycerin (Nitrostat) 0.4 mg PRN Q5MIN PRN 08/17/19 12:30 Ondansetron HCl (Zofran) 4 mg PRN Q6HRS PRN 08/17/19 12:30 Sodium Chloride (Normal Saline Flush) 3 ml QSHIFT PRN 08/17/19 12:30 Allergies Allergies Allergies Coded Allergies Type Severity Reaction Last Updated Verified alendronate sodium Allergy Severe Swelling 10/25/18 Yes methocarbamol Allergy Intermediate 10/25/18 Yes ROS Review of System CONSTITUTIONAL: No fever or chills EYES: No recent changes SKIN: No rash or itching CARDIOVASCULAR: No chest pain, syncope, palpitations, or edema RESPIRATORY: No SOB or cough GASTROINTESTINAL: No nausea, vomiting or abdominal pain NEUROLOGICAL: No headaches or weakness ENDOCRINE: No cold or heat intolerance GENITOURINARY: No urgency or frequency of urination MUSCULOSKELETAL: No back pain or joint pain LYMPHATICS: No enlarged lymph nodes PSYCHIATRIC: No anxiety or depression Physical Exam Physical Exam Gen.: well-developed well-nourished in no apparent distress Head: Normal shape atraumatic Eyes: Pupils equal reactive to light and accommodation, normal conjunctivae and lids Ears: Normal shape Nose: Normal shape no trauma Mouth: No exudates of the back of throat no thrush no lesions Neck: Supple no JVD no carotid bruit or lymphadenopathy no thyromegaly Chest: Lungs clear to auscultation with good inspiratory effort no crackles rales or rhonchi Cardiovascular: S1-S2 regular rhythm no murmurs gallops or rubs Abdomen: Bowel sounds present soft nontender no hepatosplenomegaly appreciated sign Extremities: No clubbing no cyanosis no edema peripheral pulses palpated bilaterally Neurological: Alert awake oriented in person time place and situation, cranial nerves II through XII intact, no motor or sensory deficits appreciated Psych: Appropriate mood, cooperative Vitals Vitals Vital Signs Date Time Temp Pulse Resp B/P (MAP) Pulse Ox O2 Delivery O2 Flow Rate FiO2 08/17/19 16:17 Room Air 08/17/19 16:10 74 112/80 (91) 08/17/19 14:20 97.7 16 99 97.7 Labs Labs Laboratory Tests Test 08/17/19 10:34 08/17/19 14:50 White Blood Count 3.7 x10^3/uL (4.0-11.0) Red Blood Count 4.40 x10^6/uL (3.50-5.40) Hemoglobin 12.4 g/dL (12.0-15.5) Hematocrit 37.9 % (36.0-47.0) Mean Corpuscular Volume 86 fL (79-100) Mean Corpuscular Hemoglobin 28 pg (25-35) Mean Corpuscular Hemoglobin Concent 33 g/dL (31-37) Red Cell Distribution Width 14.9 % (11.5-14.5) Platelet Count 283 x10^3/uL (140-400) Neutrophils (%) (Auto) 43 % (31-73) Lymphocytes (%) (Auto) 47 % (24-48) Monocytes (%) (Auto) 7 % (0-9) Eosinophils (%) (Auto) 2 % (0-3) Basophils (%) (Auto) 1 % (0-3) Neutrophils # (Auto) 1.6 x10^3/uL (1.8-7.7) Lymphocytes # (Auto) 1.8 x10^3/uL (1.0-4.8) Monocytes # (Auto) 0.3 x10^3/uL (0.0-1.1) Eosinophils # (Auto) 0.1 x10^3/uL (0.0-0.7) Basophils # (Auto) 0.0 x10^3/uL (0.0-0.2) Prothrombin Time 12.6 SEC (11.7-14.0) Prothromb Time International Ratio 1.0 (0.8-1.1) D-Dimer (Leslie) 0.68 ug/mlFEU (0.00-0.50) Sodium Level 140 mmol/L (136-145) Potassium Level 3.5 mmol/L (3.5-5.1) Chloride Level 102 mmol/L (98-107) Carbon Dioxide Level 27 mmol/L (21-32) Anion Gap 11 (6-14) Blood Urea Nitrogen 16 mg/dL (7-20) Creatinine 1.0 mg/dL (0.6-1.0) Estimated GFR (Cockcroft-Gault) 66.7 BUN/Creatinine Ratio 16 (6-20) Glucose Level 107 mg/dL (70-99) Calcium Level 9.1 mg/dL (8.5-10.1) Magnesium Level 1.8 mg/dL (1.8-2.4) Total Bilirubin 0.4 mg/dL (0.2-1.0) Aspartate Amino Transf (AST/SGOT) 13 U/L (15-37) Alanine Aminotransferase (ALT/SGPT) 14 U/L (14-59) Alkaline Phosphatase 65 U/L (46-116) Creatine Kinase 105 U/L (26-192) Troponin I Quantitative < 0.017 ng/mL (0.000-0.055) < 0.017 ng/mL (0.000-0.055) QG-Bvp-I-Type Natriuretic Peptide 101 pg/mL (0-124) Total Protein 7.3 g/dL (6.4-8.2) Albumin 3.3 g/dL (3.4-5.0) Albumin/Globulin Ratio 0.8 (1.0-1.7) Lipase 63 U/L (73-393) Thyroid Stimulating Hormone (TSH) 2.925 uIU/mL (0.358-3.74) Laboratory Tests Test 08/17/19 10:34 08/17/19 14:50 White Blood Count 3.7 x10^3/uL (4.0-11.0) Red Blood Count 4.40 x10^6/uL (3.50-5.40) Hemoglobin 12.4 g/dL (12.0-15.5) Hematocrit 37.9 % (36.0-47.0) Mean Corpuscular Volume 86 fL (79-100) Mean Corpuscular Hemoglobin 28 pg (25-35) Mean Corpuscular Hemoglobin Concent 33 g/dL (31-37) Red Cell Distribution Width 14.9 % (11.5-14.5) Platelet Count 283 x10^3/uL (140-400) Neutrophils (%) (Auto) 43 % (31-73) Lymphocytes (%) (Auto) 47 % (24-48) Monocytes (%) (Auto) 7 % (0-9) Eosinophils (%) (Auto) 2 % (0-3) Basophils (%) (Auto) 1 % (0-3) Neutrophils # (Auto) 1.6 x10^3/uL (1.8-7.7) Lymphocytes # (Auto) 1.8 x10^3/uL (1.0-4.8) Monocytes # (Auto) 0.3 x10^3/uL (0.0-1.1) Eosinophils # (Auto) 0.1 x10^3/uL (0.0-0.7) Basophils # (Auto) 0.0 x10^3/uL (0.0-0.2) Prothrombin Time 12.6 SEC (11.7-14.0) Prothromb Time International Ratio 1.0 (0.8-1.1) D-Dimer (Leslie) 0.68 ug/mlFEU (0.00-0.50) Sodium Level 140 mmol/L (136-145) Potassium Level 3.5 mmol/L (3.5-5.1) Chloride Level 102 mmol/L (98-107) Carbon Dioxide Level 27 mmol/L (21-32) Anion Gap 11 (6-14) Blood Urea Nitrogen 16 mg/dL (7-20) Creatinine 1.0 mg/dL (0.6-1.0) Estimated GFR (Cockcroft-Gault) 66.7 BUN/Creatinine Ratio 16 (6-20) Glucose Level 107 mg/dL (70-99) Calcium Level 9.1 mg/dL (8.5-10.1) Magnesium Level 1.8 mg/dL (1.8-2.4) Total Bilirubin 0.4 mg/dL (0.2-1.0) Aspartate Amino Transf (AST/SGOT) 13 U/L (15-37) Alanine Aminotransferase (ALT/SGPT) 14 U/L (14-59) Alkaline Phosphatase 65 U/L (46-116) Creatine Kinase 105 U/L (26-192) Troponin I Quantitative < 0.017 ng/mL (0.000-0.055) < 0.017 ng/mL (0.000-0.055) WP-Ayq-A-Type Natriuretic Peptide 101 pg/mL (0-124) Total Protein 7.3 g/dL (6.4-8.2) Albumin 3.3 g/dL (3.4-5.0) Albumin/Globulin Ratio 0.8 (1.0-1.7) Lipase 63 U/L (73-393) Thyroid Stimulating Hormone (TSH) 2.925 uIU/mL (0.358-3.74) VTE Prophylaxis Ordered VTE Prophylaxis Devices: Yes VTE Pharmacological Prophylaxi: No Assessment/Plan Assessment/Plan Presyncopal episode. Chest pain associated with the presyncopal episode History of syncopal episode 2 days prior to her admission with subsequent fall and fracture of her right ankle History of essential hypertension History of COPD History of CVA with no residual deficits as per the patient. Plan: Patient had a mildly elevated d-dimer adjusted for age seems to be normal but nevertheless with her symptoms of syncopal episodes and chest discomfort we will rule out PE with a CTA. We'll have cardiology evaluate the patient We'll trend the troponins Aspirin and has been given and will continue in the a.m. Nitroglycerin sublingual when necessary for pain DVT prophylaxis with heparin MARIBEL SHIELDS MD Aug 17, 2019 17:31
--- NOTE | 2019-08-17 17:49 | RAD ---
EXAM: CT chest with contrast - pulmonary embolus protocol CLINICAL HISTORY: Syncope, CP, dyspnea. rule out PE. COMPARISON: None. TECHNIQUE: CT of the chest following the administration of intravenous contrast during the pulmonary arterial phase. Axial, coronal and sagittal reformatted images were generated including MIP images. ---PQRS compliance statement - One or more of the following individualized dose reduction techniques were utilized for this study: 1. Automated exposure control 2. Adjustment of the mA and/or kV according to patient size 3. Use of iterative reconstruction technique--- FINDINGS: CHEST: Diagnostic quality: Adequate. Pulmonary emboli: None seen Right heart strain: None Pulmonary arteries: Normal in caliber. Heart is not enlarged. No pericardial effusion. No pleural effusion. No pneumothorax. Linear and patchy subpleural opacities likely atelectasis. No lobar consolidation. No suspicious lung nodule or mass is seen. No mediastinal or hilar lymphadenopathy. No axillary lymphadenopathy. Visualized Upper abdomen: Unremarkable Bones: Osseous structures are grossly unremarkable. IMPRESSION: No definite pulmonary embolus is identified. Electronically signed by: Cristopher Cohen MD (08/17/2019 5:46 PM) [id number]
[2019-08-17 19:25] VITALS: BP 141/89
[2019-08-17] MEDS ORDERED: CALC-178 PO (19:58)
[2019-08-17] MEDS ORDERED: ISOS60TA2 PO (19:58)
[2019-08-17] MEDS ORDERED: LEVO5TAB29 PO (19:58)
[2019-08-17] MEDS ORDERED: VALS1TAB14 PO (19:58)
[2019-08-17] MEDS ORDERED: PANT40TA77 PO (19:58)
[2019-08-17] MEDS ORDERED: POTA10TA12 PO (19:58)
[2019-08-17] MEDS ORDERED: PSEU120T9 PO (19:58)
[2019-08-17] MEDS ORDERED: PSEUDOEPHEDRINE ER 120 MG TABLET.ER. PO PRN (20:15)
[2019-08-17] MEDS ORDERED: AMITRIPTYLINE HCL 25 MG TABLET. PO SCH (21:00)
[2019-08-17] MEDS: FERROUS SULFATE 325 MG TABLET. PO SCH (21:00)
[2019-08-17] MEDS: POTASSIUM CHLORIDE 10 MEQ TABLET.ER. PO SCH (21:18)
[2019-08-17] MEDS: DICLOFENAC SODIUM 25 MG TABLET.DR PO SCH (21:21)
[2019-08-17] MEDS: traMADol 50 MG TABLET PO PRN (21:22)
[2019-08-17 23:49] VITALS: BP 157/94
[2019-08-18 03:25] VITALS: BP 139/81
[2019-08-18 05:06] LABS: CALCIUM 8.8 mg/dL (8.5-10.1); GFR 66.7; POTASSIUM 3.4 mmol/L (3.5-5.1)
[2019-08-18 05:12] LABS: CHOLESTEROL/HDL RATIO 3.3
[2019-08-18] MEDS: HEPARIN for SUB-Q USE 5,000 UNIT/ML VIAL. SQ SCH ×2 (06:39→14:00)
[2019-08-18 07:00] VITALS: BP 161/93
[2019-08-18] MEDS ORDERED: PANTOPRAZOLE 40 MG TABLET.DR. PO SCH (07:30)
[2019-08-18] MEDS ORDERED: CALCIUM CARB/VIT D3 500/200 TABLET. PO SCH (08:00)
[2019-08-18] MEDS ORDERED: ASPIRIN ENTERIC COATED 81 MG TABLET.DR. PO SCH (08:00)
[2019-08-18] MEDS ORDERED: ASPIRIN CHEWABLE 81 MG TABLET. PO SCH (08:00)
[2019-08-18] MEDS: POTASSIUM CHLORIDE 10 MEQ TABLET.ER. PO SCH (08:08)
[2019-08-18] MEDS: traMADol 50 MG TABLET PO PRN (08:08)
[2019-08-18] MEDS: DICLOFENAC SODIUM 25 MG TABLET.DR PO SCH (08:11)
[2019-08-18] MEDS: FERROUS SULFATE 325 MG TABLET. PO SCH (08:13)
[2019-08-18] MEDS ORDERED: TAMSULOSIN 0.4 MG CAP.ER.24H. PO SCH (09:00)
[2019-08-18] MEDS ORDERED: CYANOCOBALAMIN (VITAMIN B-12) 1,000 MCG TABLET. PO SCH (09:00)
[2019-08-18] MEDS ORDERED: LOSARTAN POTASSIUM 50 MG TABLET. PO SCH (09:00)
[2019-08-18] MEDS ORDERED: ISOSORBIDE MONONITRATE ER 30 MG TAB.ER.24H PO SCH (09:00)
[2019-08-18] MEDS ORDERED: hydroCHLOROthiazide 25 MG TABLET PO SCH (09:00)
[2019-08-18] MEDS ORDERED: CETIRIZINE HCL 10 MG TABLET. PO SCH (09:00)
[2019-08-18] MEDS ORDERED: ESTRADIOL 1 MG TABLET. PO SCH (09:00)
[2019-08-18] MEDS ORDERED: traMADol 50 MG TABLET PO ONE (10:30)
[2019-08-18 11:00] VITALS: BP 150/92
--- NOTE | 2019-08-18 12:41 | PDOC ---
PROGRESS NOTES Subjective Subjective Patient seen and examined Objective Objective Vital Signs Date Time Temp Pulse Resp B/P (MAP) Pulse Ox O2 Delivery O2 Flow Rate FiO2 08/18/19 11:14 16 Room Air 08/18/19 11:00 98.0 84 150/92 (111) 97 98.0 Intake and Output 08/18/19 07:00 Intake Total 580 ml Balance 580 ml Intake Oral 580 ml # Voids 2 Physical Exam Abdomen: Normal bowel sounds Heart: Regular rate General: mild distress Lungs: Clear to auscultation Assessment Assessment Problems Medical Problems: (1) Acute chest pain Status: Acute (2) Hypoalbuminemia Status: Acute (3) Leukopenia Status: Acute Chest discomfort. Resolved. Troponin normal 3. No acute EKG changes. Patient's chief complaint today is tooth pain. Continue treatment. We will follow-up as an outpatient. Syncope. Rhythm is stable. Chest discomfort. Ruled out. Feeling better. Outpt follow up. Elevated d-dimer. CTA with no evidence of a PE. Status post right ankle fracture secondary to syncopal episode 4 days ago. A splint is in place. Comment Review of Relevant I have reviewed the following items stephon (where applicable) has been applied. Labs Laboratory Tests Test 08/17/19 10:34 08/17/19 14:50 08/17/19 17:50 08/18/19 02:50 White Blood Count 3.7 x10^3/uL (4.0-11.0) Red Blood Count 4.40 x10^6/uL (3.50-5.40) Hemoglobin 12.4 g/dL (12.0-15.5) Hematocrit 37.9 % (36.0-47.0) Mean Corpuscular Volume 86 fL (79-100) Mean Corpuscular Hemoglobin 28 pg (25-35) Mean Corpuscular Hemoglobin Concent 33 g/dL (31-37) Red Cell Distribution Width 14.9 % (11.5-14.5) Platelet Count 283 x10^3/uL (140-400) Neutrophils (%) (Auto) 43 % (31-73) Lymphocytes (%) (Auto) 47 % (24-48) Monocytes (%) (Auto) 7 % (0-9) Eosinophils (%) (Auto) 2 % (0-3) Basophils (%) (Auto) 1 % (0-3) Neutrophils # (Auto) 1.6 x10^3/uL (1.8-7.7) Lymphocytes # (Auto) 1.8 x10^3/uL (1.0-4.8) Monocytes # (Auto) 0.3 x10^3/uL (0.0-1.1) Eosinophils # (Auto) 0.1 x10^3/uL (0.0-0.7) Basophils # (Auto) 0.0 x10^3/uL (0.0-0.2) Prothrombin Time 12.6 SEC (11.7-14.0) Prothromb Time International Ratio 1.0 (0.8-1.1) D-Dimer (Leslie) 0.68 ug/mlFEU (0.00-0.50) Sodium Level 140 mmol/L (136-145) 142 mmol/L (136-145) Potassium Level 3.5 mmol/L (3.5-5.1) 3.4 mmol/L (3.5-5.1) Chloride Level 102 mmol/L (98-107) 105 mmol/L (98-107) Carbon Dioxide Level 27 mmol/L (21-32) 26 mmol/L (21-32) Anion Gap 11 (6-14) 11 (6-14) Blood Urea Nitrogen 16 mg/dL (7-20) 16 mg/dL (7-20) Creatinine 1.0 mg/dL (0.6-1.0) 1.0 mg/dL (0.6-1.0) Estimated GFR (Cockcroft-Gault) 66.7 66.7 BUN/Creatinine Ratio 16 (6-20) Glucose Level 107 mg/dL (70-99) 89 mg/dL (70-99) Calcium Level 9.1 mg/dL (8.5-10.1) 8.8 mg/dL (8.5-10.1) Magnesium Level 1.8 mg/dL (1.8-2.4) Total Bilirubin 0.4 mg/dL (0.2-1.0) Aspartate Amino Transf (AST/SGOT) 13 U/L (15-37) Alanine Aminotransferase (ALT/SGPT) 14 U/L (14-59) Alkaline Phosphatase 65 U/L (46-116) Creatine Kinase 105 U/L (26-192) Troponin I Quantitative < 0.017 ng/mL (0.000-0.055) < 0.017 ng/mL (0.000-0.055) < 0.017 ng/mL (0.000-0.055) KP-Lwb-R-Type Natriuretic Peptide 101 pg/mL (0-124) Total Protein 7.3 g/dL (6.4-8.2) Albumin 3.3 g/dL (3.4-5.0) Albumin/Globulin Ratio 0.8 (1.0-1.7) Lipase 63 U/L (73-393) Thyroid Stimulating Hormone (TSH) 2.925 uIU/mL (0.358-3.74) Triglycerides Level 154 mg/dL (0-150) Cholesterol Level 161 mg/dL (0-200) LDL Cholesterol, Calculated 81 mg/dL (0-100) VLDL Cholesterol, Calculated 31 mg/dL (0-40) Non-HDL Cholesterol Calculated 112 mg/dL (0-129) HDL Cholesterol 49 mg/dL (40-60) Cholesterol/HDL Ratio 3.3 Laboratory Tests Test 08/17/19 14:50 08/17/19 17:50 08/18/19 02:50 Troponin I Quantitative < 0.017 ng/mL (0.000-0.055) < 0.017 ng/mL (0.000-0.055) Thyroid Stimulating Hormone (TSH) 2.925 uIU/mL (0.358-3.74) Sodium Level 142 mmol/L (136-145) Potassium Level 3.4 mmol/L (3.5-5.1) Chloride Level 105 mmol/L (98-107) Carbon Dioxide Level 26 mmol/L (21-32) Anion Gap 11 (6-14) Blood Urea Nitrogen 16 mg/dL (7-20) Creatinine 1.0 mg/dL (0.6-1.0) Estimated GFR (Cockcroft-Gault) 66.7 Glucose Level 89 mg/dL (70-99) Calcium Level 8.8 mg/dL (8.5-10.1) Triglycerides Level 154 mg/dL (0-150) Cholesterol Level 161 mg/dL (0-200) LDL Cholesterol, Calculated 81 mg/dL (0-100) VLDL Cholesterol, Calculated 31 mg/dL (0-40) Non-HDL Cholesterol Calculated 112 mg/dL (0-129) HDL Cholesterol 49 mg/dL (40-60) Cholesterol/HDL Ratio 3.3 Medications Current Medications Aspirin (Children'S Aspirin) 324 mg 1X ONCE PO Last administered on 08/17/19at 10:58; Start 08/17/19 at 10:30; Stop 08/17/19 at 10:32; Status DC Nitroglycerin (Nitrostat) 0.4 mg PRN Q5MIN PRN SL CP RATING > 1/10 Last administered on 08/17/19at 10:59; Start 08/17/19 at 10:30; Stop 08/18/19 at 07:43; Status DC Aspirin (Children'S Aspirin) 81 mg DAILYWBKFT PO ; Start 08/18/19 at 08:00; Stop 08/17/19 at 16:46; Status DC Nitroglycerin (Nitrostat) 0.4 mg PRN Q5MIN PRN SL CHEST PAIN; Start 08/17/19 at 12:30 Morphine Sulfate (Morphine Sulfate) 1 mg PRN Q10MIN PRN IV CHEST PAIN; Start 08/17/19 at 12:30 Acetaminophen (Tylenol) 650 mg PRN Q6HRS PRN PO MILD PAIN / TEMP; Start 08/17/19 at 12:30 Al Hydroxide/Mg Hydroxide (Mylanta Plus Xs) 30 ml PRN Q4HRS PRN PO HEARTBURN / GAS; Start 08/17/19 at 12:30 Ondansetron HCl (Zofran) 4 mg PRN Q6HRS PRN IV NAUSEA/VOMITING; Start 08/17/19 at 12:30 Heparin Sodium (Porcine) (Heparin Sodium) 5,000 unit Q8HRS SQ Last administered on 08/18/19at 06:39; Start 08/17/19 at 14:00 Sodium Chloride (Normal Saline Flush) 3 ml QSHIFT PRN IV AFTER MEDS AND BLOOD DRAWS; Start 08/17/19 at 12:30 Lactulose (Lactulose) 20 gm PRN Q12HR PRN PO CONSTIPATION; Start 08/17/19 at 12:30 Aspirin (Ecotrin) 81 mg DAILYWBKFT PO Last administered on 08/18/19at 08:12; Start 08/18/19 at 08:00 Iohexol (Omnipaque 350 Mg/ml) 90 ml 1X ONCE IV Last administered on 08/17/19 17:27; Start 08/17/19 at 17:15; Stop 08/17/19 at 17:16; Status DC Info (CONTRAST GIVEN -- Rx MONITORING) 1 each PRN DAILY PRN MC SEE COMMENTS; Start 08/17/19 at 17:15; Stop 08/19/19 at 17:14 Cyanocobalamin (Vitamin B-12) 1,000 mcg DAILY PO Last administered on 08/18/19at 08:13; Start 08/18/19 at 09:00 Ferrous Sulfate (Feosol) 325 mg BIDWMEALS PO Last administered on 08/18/19 08:13; Start 08/17/19 at 21:00 Pantoprazole Sodium (Protonix) 40 mg DAILYAC PO Last administered on 08/18/19at 08:13; Start 08/18/19 at 07:30 Potassium Chloride (Klor-Con) 20 meq BIDWMEALS PO Last administered on 08/18/19at 08:08; Start 08/17/19 at 21:00 Pseudoephedrine HCl (Sudafed 12-Hour) 120 mg PRN Q12HR PRN PO ; Start 08/17/19 at 20:15 Tamsulosin HCl (Flomax) 0.4 mg DAILY PO Last administered on 08/18/19 08:13; Start 08/18/19 at 09:00 Tramadol HCl (Ultram) 50 mg PRN Q12HR PRN PO MODERATE - SEVERE PAIN Last administered on 08/18/19 08:08; Start 08/17/19 at 20:15; Stop 08/18/19 at 10:02; Status DC Amitriptyline HCl (Elavil) 75 mg QHS PO Last administered on 08/17/19 21:18; Start 08/17/19 at 21:00 Calcium/Vitamin D (Oscal D 500mg/ 200uts) 1 tab DAILYWBKFT PO Last administered on 08/18/19at 08:12; Start 08/18/19 at 08:00 Diclofenac Sodium (Voltaren) 75 mg BID PO Last administered on 08/18/19 08:11; Start 08/17/19 at 21:00 Estradiol (Estrace) 0.5 mg DAILY PO Last administered on 2/8/20at 08:12; Start 08/18/19 at 09:00 Isosorbide Mononitrate (Imdur) 60 mg DAILY PO Last administered on 08/18/19at 08:14; Start 08/18/19 at 09:00 Cetirizine HCl (ZyrTEC) 10 mg DAILY PO Last administered on 08/18/19at 08:08; Start 08/18/19 at 09:00 Losartan Potassium (Cozaar) 100 mg DAILY PO Last administered on 08/18/19at 08:12; Start 08/18/19 at 09:00 Hydrochlorothiazide (Hydrodiuril) 25 mg DAILY PO Last administered on 08/18/19at 08:11; Start 08/18/19 at 09:00 Tramadol HCl (Ultram) 100 mg BID PO ; Start 08/18/19 at 21:00 Tramadol HCl (Ultram) 50 mg 1X ONCE PO Last administered on 08/18/19at 10:12; Start 08/18/19 at 10:30; Stop 08/18/19 at 10:31; Status DC Active Scripts Active Reported Sudafed 12-Hour (Pseudoephedrine Hcl) 120 Mg Tablet.er 120 Mg PO PRN Q12HR PRN Calcium 1,000 + D3 Caplet (Calcium Carbonate/Vitamin D3) 1 Each Tablet 1 Each PO DAILY Xyzal (Levocetirizine Dihydrochloride) 5 Mg Tablet 1 Tab PO DAILY 30 Days Isosorbide Mononitrate Er (Isosorbide Mononitrate) 60 Mg Tab.er.24h 60 Mg PO DAILY Protonix (Pantoprazole Sodium) 40 Mg Tablet.dr 40 Mg PO DAILYAC Diovan Hct 160-25 Mg Tablet (Valsartan/Hydrochlorothiazide) 1 Each Tablet 1 Tab PO DAILY Klor-Con 10 (Potassium Chloride) 10 Meq Tablet.er 20 Meq PO DAILY Ferrous Sulfate 325 Mg Tablet 1 Tab PO BID Estradiol 0.5 Mg Tablet 1 Tab PO DAILY Vitamin B-12 (Cyanocobalamin (Vitamin B-12)) 1,000 Mcg Tablet 1 Tab PO DAILY Diclofenac Sodium 75 Mg Tablet.dr 75 Mg PO BID Tramadol Hcl 50 Mg Tablet 50 Mg PO PRN Q12HR Amitriptyline Hcl 75 Mg Tablet 1 Tab PO QHS Tamsulosin Hcl 0.4 Mg Cap.er.24h 1 Cap PO DAILY Vitals/I & O Vital Sign - Last 24 Hours 08/17/19 08/17/19 08/17/19 08/17/19 13:30 14:00 14:20 16:00 Temp 97.7 97.7 Pulse 80 86 79 74 Resp 22 13 16 B/P (MAP) 119/80 (93) 115/72 (86) 114/76 (89) 121/83 (96) Pulse Ox 95 94 99 O2 Delivery Room Air Room Air Room Air 08/17/19 08/17/19 08/17/19 08/17/19 16:05 16:10 16:17 19:25 Temp 98.1 98.1 Pulse 72 74 80 Resp 20 B/P (MAP) 127/80 (96) 112/80 (91) 141/89 (106) Pulse Ox 97 O2 Delivery Room Air Room Air 08/17/19 08/17/19 08/17/19 08/17/19 20:00 21:22 22:22 23:49 Temp 98.0 98.0 Pulse 75 Resp 16 16 21 B/P (MAP) 157/94 (115) Pulse Ox 97 96 96 O2 Delivery Room Air Room Air Room Air Room Air 08/18/19 08/18/19 08/18/19 08/18/19 03:25 07:00 08:00 08:08 Temp 99.4 97.9 99.4 97.9 Pulse 64 63 Resp 22 18 16 B/P (MAP) 139/81 (100) 161/93 (115) Pulse Ox 99 98 O2 Delivery Room Air Room Air Room Air Room Air 08/18/19 08/18/19 08/18/19 08/18/19 08:12 08:14 09:08 10:12 Pulse 66 67 Resp 16 16 B/P (MAP) 161/93 161/93 O2 Delivery Room Air Room Air 08/18/19 08/18/19 11:00 11:14 Temp 98.0 98.0 Pulse 84 Resp 18 16 B/P (MAP) 150/92 (111) Pulse Ox 97 O2 Delivery Room Air Room Air Intake and Output 08/17/19 08/17/19 08/18/19 15:00 23:00 07:00 Intake Total 480 ml 100 ml Balance 480 ml 100 ml ESSENCE COX MD Aug 18, 2019 12:41
[2019-08-18 13:05] LABS: ALBUMIN 3.3 g/dL (3.4-5.0); ALBUMIN/GLOBULIN RATIO 0.8 (1.0-1.7); CALCIUM 8.8 mg/dL (8.5-10.1); CREATININE 0.9 mg/dL (0.6-1.0); GFR 75.3; POTASSIUM 3.5 mmol/L (3.5-5.1); TOTAL BILIRUBIN 0.5 mg/dL (0.2-1.0); TOTAL PROTEIN 7.6 g/dL (6.4-8.2)
[2019-08-18 15:00] VITALS: BP 105/82
--- NOTE | 2019-08-18 15:12 | PDOC3 ---
Discharge Summary Visit Information Date of Admission: Aug 17, 2019 Date of Discharge: Aug 18, 2019 Admitting Diagnosis Comment: Chest pain syncopal episode Final Diagnosis Problems Medical Problems: (1) Acute chest pain Status: Acute (2) Hypoalbuminemia Status: Acute (3) Leukopenia Status: Acute Brief Hospital Course Allergies Allergies Coded Allergies Type Severity Reaction Last Updated Verified alendronate sodium Allergy Severe Swelling 10/25/18 Yes methocarbamol Allergy Intermediate 10/25/18 Yes Vital Signs Vital Signs Date Time Temp Pulse Resp B/P (MAP) Pulse Ox O2 Delivery O2 Flow Rate FiO2 08/18/19 11:14 16 Room Air 08/18/19 11:00 98.0 84 150/92 (111) 97 98.0 Lab Results Laboratory Tests Test 08/17/19 10:34 08/17/19 14:50 08/17/19 17:50 08/18/19 02:50 White Blood Count 3.7 x10^3/uL (4.0-11.0) Red Blood Count 4.40 x10^6/uL (3.50-5.40) Hemoglobin 12.4 g/dL (12.0-15.5) Hematocrit 37.9 % (36.0-47.0) Mean Corpuscular Volume 86 fL (79-100) Mean Corpuscular Hemoglobin 28 pg (25-35) Mean Corpuscular Hemoglobin Concent 33 g/dL (31-37) Red Cell Distribution Width 14.9 % (11.5-14.5) Platelet Count 283 x10^3/uL (140-400) Neutrophils (%) (Auto) 43 % (31-73) Lymphocytes (%) (Auto) 47 % (24-48) Monocytes (%) (Auto) 7 % (0-9) Eosinophils (%) (Auto) 2 % (0-3) Basophils (%) (Auto) 1 % (0-3) Neutrophils # (Auto) 1.6 x10^3/uL (1.8-7.7) Lymphocytes # (Auto) 1.8 x10^3/uL (1.0-4.8) Monocytes # (Auto) 0.3 x10^3/uL (0.0-1.1) Eosinophils # (Auto) 0.1 x10^3/uL (0.0-0.7) Basophils # (Auto) 0.0 x10^3/uL (0.0-0.2) Prothrombin Time 12.6 SEC (11.7-14.0) Prothromb Time International Ratio 1.0 (0.8-1.1) D-Dimer (Leslie) 0.68 ug/mlFEU (0.00-0.50) Sodium Level 140 mmol/L (136-145) 142 mmol/L (136-145) Potassium Level 3.5 mmol/L (3.5-5.1) 3.4 mmol/L (3.5-5.1) Chloride Level 102 mmol/L (98-107) 105 mmol/L (98-107) Carbon Dioxide Level 27 mmol/L (21-32) 26 mmol/L (21-32) Anion Gap 11 (6-14) 11 (6-14) Blood Urea Nitrogen 16 mg/dL (7-20) 16 mg/dL (7-20) Creatinine 1.0 mg/dL (0.6-1.0) 1.0 mg/dL (0.6-1.0) Estimated GFR (Cockcroft-Gault) 66.7 66.7 BUN/Creatinine Ratio 16 (6-20) Glucose Level 107 mg/dL (70-99) 89 mg/dL (70-99) Calcium Level 9.1 mg/dL (8.5-10.1) 8.8 mg/dL (8.5-10.1) Magnesium Level 1.8 mg/dL (1.8-2.4) Total Bilirubin 0.4 mg/dL (0.2-1.0) Aspartate Amino Transf (AST/SGOT) 13 U/L (15-37) Alanine Aminotransferase (ALT/SGPT) 14 U/L (14-59) Alkaline Phosphatase 65 U/L (46-116) Creatine Kinase 105 U/L (26-192) Troponin I Quantitative < 0.017 ng/mL (0.000-0.055) < 0.017 ng/mL (0.000-0.055) < 0.017 ng/mL (0.000-0.055) CZ-Hyj-X-Type Natriuretic Peptide 101 pg/mL (0-124) Total Protein 7.3 g/dL (6.4-8.2) Albumin 3.3 g/dL (3.4-5.0) Albumin/Globulin Ratio 0.8 (1.0-1.7) Lipase 63 U/L (73-393) Thyroid Stimulating Hormone (TSH) 2.925 uIU/mL (0.358-3.74) Triglycerides Level 154 mg/dL (0-150) Cholesterol Level 161 mg/dL (0-200) LDL Cholesterol, Calculated 81 mg/dL (0-100) VLDL Cholesterol, Calculated 31 mg/dL (0-40) Non-HDL Cholesterol Calculated 112 mg/dL (0-129) HDL Cholesterol 49 mg/dL (40-60) Cholesterol/HDL Ratio 3.3 Test 08/18/19 12:25 Sodium Level 139 mmol/L (136-145) Potassium Level 3.5 mmol/L (3.5-5.1) Chloride Level 102 mmol/L (98-107) Carbon Dioxide Level 28 mmol/L (21-32) Anion Gap 9 (6-14) Blood Urea Nitrogen 14 mg/dL (7-20) Creatinine 0.9 mg/dL (0.6-1.0) Estimated GFR (Cockcroft-Gault) 75.3 BUN/Creatinine Ratio 16 (6-20) Glucose Level 111 mg/dL (70-99) Calcium Level 8.8 mg/dL (8.5-10.1) Total Bilirubin 0.5 mg/dL (0.2-1.0) Aspartate Amino Transf (AST/SGOT) 14 U/L (15-37) Alanine Aminotransferase (ALT/SGPT) 14 U/L (14-59) Alkaline Phosphatase 64 U/L (46-116) Total Protein 7.6 g/dL (6.4-8.2) Albumin 3.3 g/dL (3.4-5.0) Albumin/Globulin Ratio 0.8 (1.0-1.7) Laboratory Tests Test 08/17/19 17:50 08/18/19 02:50 08/18/19 12:25 Troponin I Quantitative < 0.017 ng/mL (0.000-0.055) Sodium Level 142 mmol/L (136-145) 139 mmol/L (136-145) Potassium Level 3.4 mmol/L (3.5-5.1) 3.5 mmol/L (3.5-5.1) Chloride Level 105 mmol/L (98-107) 102 mmol/L (98-107) Carbon Dioxide Level 26 mmol/L (21-32) 28 mmol/L (21-32) Anion Gap 11 (6-14) 9 (6-14) Blood Urea Nitrogen 16 mg/dL (7-20) 14 mg/dL (7-20) Creatinine 1.0 mg/dL (0.6-1.0) 0.9 mg/dL (0.6-1.0) Estimated GFR (Cockcroft-Gault) 66.7 75.3 Glucose Level 89 mg/dL (70-99) 111 mg/dL (70-99) Calcium Level 8.8 mg/dL (8.5-10.1) 8.8 mg/dL (8.5-10.1) Triglycerides Level 154 mg/dL (0-150) Cholesterol Level 161 mg/dL (0-200) LDL Cholesterol, Calculated 81 mg/dL (0-100) VLDL Cholesterol, Calculated 31 mg/dL (0-40) Non-HDL Cholesterol Calculated 112 mg/dL (0-129) HDL Cholesterol 49 mg/dL (40-60) Cholesterol/HDL Ratio 3.3 BUN/Creatinine Ratio 16 (6-20) Total Bilirubin 0.5 mg/dL (0.2-1.0) Aspartate Amino Transf (AST/SGOT) 14 U/L (15-37) Alanine Aminotransferase (ALT/SGPT) 14 U/L (14-59) Alkaline Phosphatase 64 U/L (46-116) Total Protein 7.6 g/dL (6.4-8.2) Albumin 3.3 g/dL (3.4-5.0) Albumin/Globulin Ratio 0.8 (1.0-1.7) Brief Hospital Course Mrs. Dale Garcia was admitted to the hospital for the presyncopal episode that she suffered on the day of admission and also because of a syncopal episode that happened several days before prompting a fracture off her right lower extremity. The patient had a elevated d-dimer which prompted a CT [place] for chest to be done. No evidence of pulmonary emboli were found on the imaging studies. 3 sets of cardiac enzymes were reviewed with negative findings no acute changes on telemetry nor on EKG. The patient was seen in consultation by cardiology who deemed the patient appropriate for dismissal on today's date. Her main complaint at the time of discharge was a crown that was placed recently and is giving her quite and exquisite pain. Advised to follow-up with her primary care physician and also with a dentist in the outpatient setting. Signs and symptoms of alarm were discussed with the patient prior to dismissal no changes were made to her medications either. Please send a copy of this report to her primary ground instructor basic and primary care physician Dr. Sierra and Dr. Rivera Thank you Assessment Assessment Gen.: well-developed well-nourished in no apparent distress Head: Normal shape atraumatic Eyes: Pupils equal reactive to light and accommodation, normal conjunctivae and lids Ears: Normal shape Nose: Normal shape no trauma Mouth: No exudates of the back of throat no thrush no lesions Neck: Supple no JVD no carotid bruit or lymphadenopathy no thyromegaly Chest: Lungs clear to auscultation with good inspiratory effort no crackles rales or rhonchi Cardiovascular: S1-S2 regular rhythm no murmurs gallops or rubs Abdomen: Bowel sounds present soft nontender no hepatosplenomegaly appreciated sign Extremities: No clubbing no cyanosis no edema peripheral pulses palpated bilaterally Neurological: Alert awake oriented in person time place and situation, cranial nerves II through XII intact, no motor or sensory deficits appreciated Psych: Appropriate mood, cooperative Discharge Information Condition at Discharge: Improved Follow Up: Weeks Disposition/Orders: D/C to Home Scheduled Amitriptyline Hcl (Amitriptyline Hcl) 75 Mg Tablet, 1 TAB PO QHS, #30 Ref 3 (Reported) Entered as Reported by: BARBI RICHARDSON on 02/05/15 1141 Last Action: Converted on 08/17/192008 by KIERRA AMES RN Calcium Carbonate/Vitamin D3 (Calcium 1,000 + D3 Caplet) 1 Each Tablet, 1 EACH PO DAILY for , (Reported) Entered as Reported by: KIERRA AMES RN on 08/17/191957 Last Action: Converted on 08/17/192009 by KIERRA AMES RN Cyanocobalamin (Vitamin B-12) (Vitamin B-12) 1,000 Mcg Tablet, 1 TAB PO DAILY for def, #30 Ref 2 (Reported) Entered as Reported by: WHITNEY BENITEZ on 08/28/181928 Last Action: Continued on 08/17/192008 by KIERRA AMES RN Diclofenac Sodium (Diclofenac Sodium) 75 Mg Tablet.dr, 75 MG PO BID, (Reported) Entered as Reported by: RUBEN MANSFIELD on 10/07/15 1207 Last Action: Converted on 08/17/192008 by KIERRA AMES RN Estradiol (Estradiol) 0.5 Mg Tablet, 1 TAB PO DAILY for na, #30 Ref 11 (Reported) Entered as Reported by: WHITNEY BENITEZ on 08/28/181929 Last Action: Converted on 08/17/192008 by KIERRA AMES RN Ferrous Sulfate (Ferrous Sulfate) 325 Mg Tablet, 1 TAB PO BID for na, #60 Ref 3 (Reported) Entered as Reported by: WHITNEY BENITEZ on 08/28/181930 Last Action: Continued on 08/17/192008 by KIERRA AMES RN Isosorbide Mononitrate (Isosorbide Mononitrate Er) 60 Mg Tab.er.24h, 60 MG PO DAILY for , (Reported) Entered as Reported by: KIERRA AMES RN on 08/17/191957 Last Action: Converted on 08/17/192009 by KIERRA AMES RN Levocetirizine Dihydrochloride (Xyzal) 5 Mg Tablet, 1 TAB PO DAILY for for 30 Days, #30 Ref 0 (Reported) Entered as Reported by: KIERRA AMES RN on 08/17/191957 Last Action: Converted on 08/17/192009 by KIERRA AMES RN Pantoprazole Sodium (Protonix ) 40 Mg Tablet.dr, 40 MG PO DAILYAC for GERD, (Reported) Entered as Reported by: KIERRA AMES RN on 08/17/191957 Last Action: Continued on 08/17/192009 by KIERRA AMES RN Potassium Chloride (Klor-Con 10) 10 Meq Tablet.er, 20 MEQ PO DAILY for , (Reported) Entered as Reported by: KIERRA AMES RN on 08/17/191957 Last Action: Continued on 08/17/192008 by KIERRA AMES RN Tamsulosin Hcl (Tamsulosin Hcl) 0.4 Mg Cap.er.24h, 1 CAP PO DAILY, #30 Ref 5 (Reported) Entered as Reported by: BARBI RICHARDSON on 02/05/15 1141 Last Action: Continued on 08/17/192008 by KIERRA AMES RN Tramadol Hcl (Tramadol Hcl) 50 Mg Tablet, 50 MG PO PRN Q12HR for , (Reported) Entered as Reported by: BARBI RICHARDSON on 02/05/15 1143 Last Action: Continued on 08/17/192008 by KIERRA AMES RN Valsartan/Hydrochlorothiazide (Diovan Hct 160-25 Mg Tablet) 1 Each Tablet, 1 TAB PO DAILY for , #30 Ref 5 (Reported) Entered as Reported by: KIERRA AMES RN on 08/17/191957 Last Action: Converted on 08/17/192009 by KIERRA AMES RN Scheduled PRN Pseudoephedrine Hcl (Sudafed 12-Hour) 120 Mg Tablet.er, 120 MG PO PRN Q12HR PRN for , (Reported) Entered as Reported by: KIERRA AMES RN on 08/17/191957 Last Action: Continued on 08/17/192009 by KIERRA AMES RN Discontinued Medications Potassium Chloride (Potassium Chloride) 20 Meq Tab.er.prt, 1 TAB PO BID for supplement, #30 Ref 5 (Reported) Discontinued Reason: Prescription changed Entered as Reported by: BARBI RICHARDSON on 02/05/15 114 MARIBEL SHIELDS MD Aug 18, 2019 15:12
--- NOTE | 2019-08-18 16:06 | NUR ---
Discharge Note: AMOL CHRISTINA Discharge instructions and discharge home medications reviewed with Patient and a copy given. All questions have been answered and understanding verbalized. Discontinued lines and drains: 20L AC Patient discharged to home with self care
[2019-08-18] MEDS ORDERED: traMADol 50 MG TABLET PO SCH (21:00)
== END 2019-08-18 16:07 | disposition home or self-care (01) ==
LOC: ER 10:06 → ED HOLD 12:55 → 2 NORTH 14:51
PROVIDERS: ADMIT Internal Medicine; ATTEND Internal Medicine
DX: R07.89 Other chest pain (principal); E88.09 Other disorders of plasma-protein metabolism, not elsewhere classified; D72.819 Decreased white blood cell count, unspecified; R42 Dizziness and giddiness; I25.10 Atherosclerotic heart disease of native coronary artery without angina pectoris; I10 Essential (primary) hypertension; J44.9 Chronic obstructive pulmonary disease, unspecified; D64.9 Anemia, unspecified; Z90.49 Acquired absence of other specified parts of digestive tract; Z90.710 Acquired absence of both cervix and uterus; Z86.73 Personal history of transient ischemic attack (TIA), and cerebral infarction without residual deficits; Z96.649 Presence of unspecified artificial hip joint
CPT/HCPCS: 36415; 71045; 71275; 80048; 80053; 80061; 82550; 83690; 83735; 83880; 84443; 84484; 85025; 85379; 85610; 93005; 96372; 99284; G0378; J1644; Q9967; G0379

== ENCOUNTER 2019-10-30 09:04 | Observation (INO) | payer MEDICARE ==
[~2019-10-30] VITALS: Ht 157.5 cm; Wt 68.0 kg
[2019-10-30] VITALS (12 sets, daily range): BP systolic 90–132; BP diastolic 56–71
[~2019-10-30 09:04] MED LIST changes: +ACET500T68 PO; +ALBU2.5V8 NEB; +AMLO5TAB10 PO; +AMOX1TAB11 PO; +ASPI-612 PO; +ATOR20TA58 PO; +BUDE10.2 IH; +CALC-178 PO; +CYAN500011 PO; +DOCU-153 PO; +DOXY100C2 PO; +GUAI100L12 PO; +ISOS60TA2 PO; +LACT1CAP19 PO; +LEVO5TAB29 PO; +NITR0.4T24 SL; +PANT40TA77 PO; +POTA10TA12 PO; +PSEU120T9 PO; +VALS1TAB14 PO
--- NOTE | 2019-10-30 09:58 | EKG ---
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
--- NOTE | 2019-10-30 10:06 | CARD ---
MR#: [id number] Date of Study: 10/30/2019 Ordering Physician: KIMMY MOMIN, Referring Physician: KIMMY MOMIN, Tech: Cristiane East [facility] APPROVED REPORT EXAM: Two-dimensional and M-mode echocardiogram with Doppler and color Doppler. Other Information Quality : Good INDICATION Pre-Op Pacemaker-Complete Heart Block 2D DIMENSIONS RVDd2.5 (2.9-3.5cm)Left Atrium(2D)3.3 (1.6-4.0cm) IVSd0.7 (0.7-1.1cm)Aortic Root(2D)2.9 (2.0-3.7cm) LVDd5.3 (3.9-5.9cm)LVOT Diameter2.2 (1.8-2.4cm) PWd0.8 (0.7-1.1cm)LVDs3.7 (2.5-4.0cm) FS (%) 30.4 %SV77.6 ml LVEF(%)57.3 (>50%) Aortic Valve AoV Peak Sanjay.141.0cm/sAoV VTI24.1cm AO Peak GR.8.0mmHgLVOT Peak Sanajy.90.1cm/s AO Mean GR.5mmHgAVA (VMAX)2.36cm2 IDANIA (VTI)2.70cm2 Mitral Valve MV E Ktlthuvi31.4cm/sMV DECEL PMRH523lt MV A Qanziuhp890.5cm/sE/A Ratio0.7 Tricuspid Valve TR P. Gorporgn407uj/sRAP [id number] TR Peak Gr.94uxCmTVPA02dsRb Pulmonary Vein S1 Mhqtfukt72.5cm/sD2 Iexdlbtv01.1cm/s LEFT VENTRICLE The left ventricle is normal size. There is normal left ventricular wall thickness. The left ventricu lar systolic function is normal and the ejection fraction is within normal range. The Ejection Fracti on is 55-60%. There is normal LV segmental wall motion. Transmitral Doppler flow pattern is Grade I-a bnormal relaxation pattern. RIGHT VENTRICLE The right ventricle is normal size. The right ventricular systolic function is normal. ATRIA The left atrium size is normal. The right atrium size is normal. The interatrial septum is intact wit h no evidence for an atrial septal defect or patent foramen ovale as noted on 2-D or Doppler imaging. AORTIC VALVE The aortic valve is calcified but opens well. Doppler and Color Flow revealed no significant aortic r egurgitation. There is no significant aortic valvular stenosis. MITRAL VALVE The mitral valve is calcified but opens well. Mitral annular calcification is mild. There is no evide nce of mitral valve prolapse. There is no mitral valve stenosis. Doppler and Color-flow revealed trac e to mild mitral regurgitation. TRICUSPID VALVE The tricuspid valve is normal in structure and function. Doppler and Color Flow revealed trace to mil d tricuspid regurgitation. The PA pressure was estimated at 32 mmHg. There is no tricuspid valve sten osis. PULMONIC VALVE Doppler and Color Flow revealed trace pulmonic valvular regurgitation. There is no pulmonic valvular stenosis. GREAT VESSELS The aortic root is normal in size. The ascending aorta is normal in size. The IVC is normal in size a nd collapses >50% with inspiration. PERICARDIAL EFFUSION There is no evidence of significant pericardial effusion. Critical Notification Critical Value: No <Conclusion> The left ventricular systolic function is normal and the ejection fraction is within normal range. Th e Ejection Fraction is 55-60%. There is normal LV segmental wall motion. Signed by : Kimmy Momin, Electronically Approved : 10/30/2019 10:05:49
[2019-10-30 10:19] LABS: HEMATOCRIT 35.3 % (36.0-47.0); HEMOGLOBIN 11.5 g/dL (12.0-15.5); RED BLOOD COUNT 4.14 x10^6/uL (3.50-5.40); RED CELL DISTRIBUTION WIDTH 14.9 % (11.5-14.5); WHITE BLOOD COUNT 4.1 x10^3/uL (4.0-11.0)
[2019-10-30 10:20] LABS: CALCIUM 9.2 mg/dL (8.5-10.1); CREATININE 0.9 mg/dL (0.6-1.0); GFR 75.3; POTASSIUM 3.9 mmol/L (3.5-5.1)
[2019-10-30] MEDS ORDERED: MIDAZOLAM HCL/PF 5 MG/5 ML VIAL. ONE (10:28)
[2019-10-30] MEDS ORDERED: fentaNYL PF VIAL 250 MCG/5 ML VIAL ONE (10:28)
[2019-10-30] MEDS ORDERED: LIDOCAINE 2%/EPI 1:100,000 20 ML VIAL. ONE (10:28)
[2019-10-30] MEDS ORDERED: ceFAZolin SODIUM IV Push 1 GM VIAL. IVP ONE ×2 (10:29→18:00)
[2019-10-30 10:32] LABS: PROTHROMBIN TIME PATIENT 13.1 SEC (11.7-14.0)
[2019-10-30] MEDS ORDERED: BACITRACIN 50,000 UNIT in IV NORMAL SALINE 250ML 250 ML IRR ONE (11:00)
[2019-10-30] MEDS ORDERED: IOHEXOL 300 MG/ML 100ML VIAL. ONE (11:10)
[2019-10-30] MEDS ORDERED: fentaNYL PF VIAL 250 MCG/5 ML VIAL IV ONE (11:30)
[2019-10-30] MEDS ORDERED: LIDOCAINE 2%/EPI 1:100,000 20 ML VIAL. IJ ONE (11:30)
[2019-10-30] MEDS ORDERED: CONTRAST GIVEN. MC PRN (11:30)
[2019-10-30] MEDS ORDERED: IOHEXOL 300 MG/ML 100ML VIAL. IART ONE (11:30)
[2019-10-30] MEDS ORDERED: MIDAZOLAM HCL/PF 5 MG/5 ML VIAL. IV ONE (11:30)
[2019-10-30] MEDS ORDERED: NO ANTICOAGULANT THERAPY. MC PRN (13:15)
[2019-10-30] MEDS ORDERED: ONDANSETRON PF 4 MG/2 ML VIAL. IVP PRN (13:15)
--- NOTE | 2019-10-30 13:25 | RAD ---
Study: CR PORTABLE CHEST 1V Indication: Status post pacemaker placement. Comparison: 09/04/2019 Findings: Dual-lead pacer device has been placed on the left. The leads are intact. Unchanged cardiomediastinal silhouette and steve. No pneumothorax is identified. No airspace consolidation or pleural effusion. Impression: Status post left chest wall dual-lead pacer device. No pneumothorax. Electronically signed by: ABDON OLIVAREZ MD (10/30/2019 1:21 PM) [id number]
--- NOTE | 2019-10-30 14:51 | CARD ---
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 A n incision was made over the left infraclavicular fossa and using blunt dissection and cautery a pock et was created. Venous access was obtained in the left subclavian vein and 6 Burkinan sheaths were ins erted. Subsequently, a Biotronik bipolar active fixation right ventricular lead model Solia S 53, SN [id number] was advanced under fluoroscopic guidance and the tip was positioned in the right ventricular apex. Following this, a Biotronik bipolar active fixation right atrial lead model Solia S 45, SN [id number] was placed in the right atrial appendage under fluoroscopy guidance. The leads were secured into verenice ce and were attached to a Biotronik dual-chamber permanent pacemaker generator model Edora 8 DR-T, SN [id number]. This was placed in the pocket that was subsequently closed in 3 layers. Hemostasis was se cured. At the end of procedure, the right ventricular lead showed sensing amplitude of 8 mV, impedance of 60 0 ohms and a threshold of 0.5 volts at 0.4 ms. The right atrial lead showed a sensing amplitude of 3 .0 millivolts, impedance of 505 ohms and a threshold of 0.6 volts at 0.4 ms. Patient tolerated the pr ocedure well. There were no immediate complications. DDD, 60-130 PROCEDURES FL TIME: 15.9 MINS DOSE: 31 GYCM2 CONTRAST: 25 ML MODERATE SEDATION: 84 MINS CONCLUSION 1. 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 Signed by : Kimmy Momin, Electronically Approved : 10/30/2019 14:50:30
[2019-10-30] MEDS: oxyCODONE/APAP 5/325 1 TAB TABLET PO PRN ×2 (15:28→21:37)
[2019-10-31] MEDS: oxyCODONE/APAP 5/325 1 TAB TABLET PO PRN (01:35)
[2019-10-31 03:26] VITALS: BP 127/71
[2019-10-31] MEDS ORDERED: ceFAZolin SODIUM IV Push 1 GM VIAL. IVP ONE (06:00)
[2019-10-31 07:15] VITALS: BP 113/64
[2019-10-31] MEDS ORDERED: traMADol 50 MG TABLET PO PRN (07:45)
[2019-10-31] MEDS ORDERED: DOCUSATE SODIUM 100 MG CAPSULE. PO PRN (07:45)
[2019-10-31] MEDS ORDERED: ASPIRIN ENTERIC COATED 81 MG TABLET.DR. PO SCH (08:00)
[2019-10-31] MEDS ORDERED: POTASSIUM CHLORIDE 20 MEQ TABLET.ER. PO SCH (08:00)
[2019-10-31] MEDS ORDERED: PANTOPRAZOLE 40 MG TABLET.DR. PO SCH (08:15)
[2019-10-31] MEDS ORDERED: LOSARTAN POTASSIUM 50 MG TABLET. PO SCH (09:00)
[2019-10-31] MEDS ORDERED: amLODIPine BESYLATE 5 MG TABLET PO SCH (09:00)
[2019-10-31] MEDS ORDERED: TAMSULOSIN 0.4 MG CAP.ER.24H. PO SCH (09:00)
[2019-10-31] MEDS ORDERED: FERROUS SULFATE 325 MG TABLET. PO SCH (09:00)
[2019-10-31] MEDS ORDERED: ISOSORBIDE MONONITRATE ER 30 MG TAB.ER.24H PO SCH (09:00)
[2019-10-31] MEDS ORDERED: hydroCHLOROthiazide 25 MG TABLET PO SCH (09:00)
[2019-10-31] MEDS ORDERED: CETIRIZINE HCL 10 MG TABLET. PO SCH (09:00)
[2019-10-31 10:50] VITALS: BP 108/60
--- NOTE | 2019-10-31 11:07 | RAD ---
PA and lateral views of the chest. Comparison: 10/30/2019. Indication: Postop pacemaker implantation Findings: Left subclavian pacemaker is unchanged. The heart size is normal. No pneumothorax or effusion. No air space or interstitial disease. The bony structures are intact. Impression: 1. No acute cardiopulmonary process. Electronically signed by: Joe Engel MD (10/31/2019 11:05 AM) [id number]
--- NOTE | 2019-10-31 11:33 | PDOC3 ---
RENATO BOLANOS RETAIL ATTENDANT 10/31/19 1133: Discharge Summary Visit Information Date of Admission: Oct 30, 2019 Date of Discharge: Oct 31, 2019 Admitting Diagnosis: Tachy laine syndrome, syncope Final Diagnosis Tachy laine syndrome, syncope, S/P PPM Brief Hospital Course Allergies Allergies Coded Allergies Type Severity Reaction Last Updated Verified alendronate sodium Allergy Severe Swelling 10/25/18 Yes methocarbamol Allergy Intermediate 10/25/18 Yes Vital Signs Vital Signs Date Time Temp Pulse Resp B/P (MAP) Pulse Ox O2 Delivery O2 Flow Rate FiO2 10/31/19 10:50 98.5 78 20 108/60 (76) 95 Room Air 98.5 10/31/19 08:00 4.0 Lab Results Laboratory Tests Test 10/30/19 10:05 White Blood Count 4.1 x10^3/uL (4.0-11.0) Red Blood Count 4.14 x10^6/uL (3.50-5.40) Hemoglobin 11.5 g/dL (12.0-15.5) Hematocrit 35.3 % (36.0-47.0) Mean Corpuscular Volume 85 fL (79-100) Mean Corpuscular Hemoglobin 28 pg (25-35) Mean Corpuscular Hemoglobin Concent 33 g/dL (31-37) Red Cell Distribution Width 14.9 % (11.5-14.5) Platelet Count 282 x10^3/uL (140-400) Prothrombin Time 13.1 SEC (11.7-14.0) Prothromb Time International Ratio 1.0 (0.8-1.1) Sodium Level 140 mmol/L (136-145) Potassium Level 3.9 mmol/L (3.5-5.1) Chloride Level 103 mmol/L (98-107) Carbon Dioxide Level 25 mmol/L (21-32) Anion Gap 12 (6-14) Blood Urea Nitrogen 18 mg/dL (7-20) Creatinine 0.9 mg/dL (0.6-1.0) Estimated GFR (Cockcroft-Gault) 75.3 Glucose Level 104 mg/dL (70-99) Calcium Level 9.2 mg/dL (8.5-10.1) Brief Hospital Course Ms. Mcdonnell is a 69 yo AA female admitted for planned PPM placement. She is significant for NICM, stressed induce type which has significantly improved with normalizing at 55% per TTE. She has been having persyncopal/syncopal spells and noted with high grade blocks, tachy-laine syndrome. Successful insertion of a Biotronik dual chamber pacemaker. Left chest surgical incision is intact without erythema, swelling without drain. 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 She tolerated procedure well. No chest pain, SOA, surgical pain is well controlled and no significant arrhythmias so far overnight. Neurovascular status to LUE intact, VSS, ambulatory with left arm on sling. No immediate complications and repeat interrogation revealed normal functioning device. Post op instructions reviewed and no changes to her home medications. Follow up in office in 2 weeks for wound check. Discharge Information Condition at Discharge: Stable Follow Up: Weeks (2) Disposition/Orders: D/C to Home Scheduled Amlodipine Besylate (Amlodipine Besylate) 5 Mg Tablet, 2.5 MG PO DAILY for BLOOD PRESSURE for 30 Days, #15 Prescribed by: RICKEY CASANOVA MD on 09/09/191547 Last Taken: 5mg on 10/30/19 Last Action: Continued on 10/31/19 0748 by Jesus Jennings Aspirin (Aspirin Ec) 81 Mg Tablet.dr, 81 MG PO DAILYWBK for HEART HEALTH for 30 Days, #30 Prescribed by: RICKEY CASANOVA MD on 09/09/191547 Last Taken: Unknown Dose on 10/29/19 Last Action: Continued on 10/31/19 0748 by Jesus Jennings Atorvastatin Calcium (Atorvastatin Calcium) 20 Mg Tablet, 20 MG PO QHS for HEART, CHOLESTEROL for 30 Days, #30 Prescribed by: RICKEY CASANOVA MD on 09/09/191547 Last Taken: Unknown Dose on 10/29/19 Last Action: Last Taken Edited on 10/30/19 100 by GILL RIVAS Budesonide/Formoterol Fumarate (Symbicort 160-4.5 Mcg Inhaler) 10.2 Gm Hfa.aer.ad, 2 PUFF IH BID for BREATHING, #10.6 Ref 3 (Reported) Entered as Reported by: DAYANA PALOMO on 09/04/191837 Last Taken: Unknown Dose on 10/29/19 Last Action: Last Taken Edited on 10/30/19 1004 by GILL RIVAS Calcium Carbonate/Vitamin D3 (Calcium 1,000 + D3 Caplet) 1 Each Tablet, 1 EACH PO DAILY for , (Reported) Entered as Reported by: KIERRA AMES RN on 08/17/191957 Last Taken: Unknown Dose on 10/30/19 Last Action: Last Taken Edited on 10/30/19 100 by GILL RIVAS Cyanocobalamin (Vitamin B-12) (Vitamin B-12) 5,000 Mcg Capsule, 5,000 MCG PO DAILY for SUPPLEMENT, (Reported) Entered as Reported by: DAYANA PALOMO on 09/04/191837 Last Taken: Unknown Dose on 10/30/19 Last Action: Last Taken Edited on 10/30/19 100 by GILL RIVAS Diclofenac Sodium (Diclofenac Sodium) 75 Mg Tablet.dr, 75 MG PO BID, (Reported) Entered as Reported by: RUBEN MANSFIELD on 10/07/15 1207 Last Taken: Unknown Dose on 10/29/19 Last Action: Last Taken Edited on 10/30/19 100 by GILL RIVAS Estradiol (Estradiol) 0.5 Mg Tablet, 1 TAB PO DAILY for na, #30 Ref 11 (Reported) Entered as Reported by: WHITNEY BENITEZ on 08/28/181929 Last Taken: Unknown Dose on 10/30/19 Last Action: Last Taken Edited on 10/30/191003 by GILL RIVAS Ferrous Sulfate (Ferrous Sulfate) 325 Mg Tablet, 1 TAB PO BID for na, #60 Ref 3 (Reported) Entered as Reported by: WHITNEY BENITEZ on 08/28/181930 Last Taken: Unknown Dose on 10/29/19 Last Action: Continued on 10/31/19 0748 by Jesus Jennings Isosorbide Mononitrate (Isosorbide Mononitrate Er) 60 Mg Tab.er.24h, 60 MG PO DAILY for , (Reported) Entered as Reported by: KIERRA AMES RN on 08/17/191957 Last Taken: Unknown Dose on 10/30/19 Last Action: Converted on 10/31/19 0748 by Jesus Jennings Levocetirizine Dihydrochloride (Xyzal) 5 Mg Tablet, 1 TAB PO DAILY for for 30 Days, #30 Ref 0 (Reported) Entered as Reported by: KIERRA AMES RN on 08/17/191957 Last Taken: Unknown Dose on 10/30/19 Last Action: Con[facility] on 10/31/1918 [facility] Pantoprazole Sodium (Protonix ) 40 Mg Tablet.dr, 40 MG PO DAILYAC for GERD, (Reported) Entered as Reported by: KIERRA AMES RN on 08/17/191957 Last Taken: Unknown Dose on 10/30/19 Last Action: Continued on 10/31/1948 [facility] Potassium Chloride (Klor-Con 10) 10 Meq Tablet.er, 20 MEQ PO DAILY for , (Reported) Entered as Reported by: KIERRA AMES RN on 08/17/191957 Last Taken: Unknown Dose on 10/30/19 Last Action: Continued on 10/31/19747 by Jesus Michaela Tamsulosin Hcl (Tamsulosin Hcl) 0.4 Mg Cap.er.24h, 1 CAP PO DAILY, #30 Ref 5 (Reported) Entered as Reported by: BARBI RICHARDSON on 02/05/15 1141 Last Taken: Unknown Dose on 10/30/19 Last Action: Continued on 10/31/1948 [facility] Tramadol Hcl (Tramadol Hcl) 50 Mg Tablet, 100 MG PO PRN Q12HR for , (Reported) Entered as Reported by: BARBI RICHARDSON on 02/05/15 1143 Last Taken: Unknown Dose on 10/30/19 Last Action: Continued on 10/31/1948 by Jesus Michaela Valsartan/Hydrochlorothiazide (Diovan Hct 160-25 Mg Tablet) 1 Each Tablet, 1 TAB PO DAILY for , #30 Ref 5 (Reported) Entered as Reported by: KIERRA AMES RN on 08/17/191957 Last Taken: Unknown Dose on 10/30/19 Last Action: Converted on 10/31/19747 by Jesus Jennings Scheduled PRN Acetaminophen (Acetaminophen) 500 Mg Tablet, 2 TAB PO PRN Q6HRS PRN for pain or fever for 15 Days, #60 Ref 0 (Reported) Entered as Reported by: DAYANA PALOMO on 09/04/191837 Last Taken: Unknown Dose on 10/29/19 Last Action: Last Taken Edited on 10/30/19 1004 by GILL RIVAS Albuterol Sulfate (Proair Hfa) 8.5 Gm Hfa.aer.ad, 2.5 MG NEB PRN Q4HRS PRN for SHORTNESS OF BREATH for 14 Days, #1 Prescribed by: RICKEY CASANOVA MD on 09/09/191547 Last Taken: Unknown Dose on 10/29/19 Last Action: Last Taken Edited on 10/30/19 1004 by GILL RIVAS Docusate Sodium (Dok) 100 Mg Capsule, 100 MG PO PRN BID PRN for CONSTIPATION for 30 Days, #60 Prescribed by: RICKEY CASANOVA MD on 09/09/191547 Last Taken: UNKNOWN on Unknown Date & Time Last Action: Continued on 10/31/19 0748 by Jesus Jennings Nitroglycerin (Nitrostat) 0.4 Mg Tab.subl, 0.4 MG SL PRN Q5MIN PRN for CHEST PAIN for 30 Days, #90 Prescribed by: RICKEY CASANOVA MD on 09/09/191547 Patient Instructions Patient Instructions Must know & what to expect after device implant: 1. Your surgical dressing should be removed prior to discharge from the hospital, but allow the steri- strips to fall off naturally. 2. Activity restrictions: DO NOT raise arm above shoulder level, lift anything heavier than a gallon of milk, and no push or pull motions such as vacuuming/lawn mowing, no swinging motions (golf), etc for 4 weeks. 3. It is OK to use a cell phone or other electronic devices just be sure you do not store it in a breast pocket on the side where the device was placed. 4. Device will be interrogated prior to your discharge from the hospital and then every 3 months for defibrillators and every 6 months for pacemakers. You may be asked to have your device checked remotely from home as well, but this will depend on your particular physicians preference. 5. You may remove the arm immobilizer the day after device placement. Wear the arm immobilizer/splint at night (during sleep times) for 2 week to prevent unintended arm movement that can cause lead dislodgement. 6. Do not drive for one week as the task of driving may lead to unintended arm motion that may cause lead dislodgement. The seatbelt will also rub against the incision site & cause irritation. 7. It is our recommendation that you utilize Tylenol at home for pain control. You need to call our office if you are having uncontrollable pain at the incision site. 8. Keep your incision clean and dry. It is OK to shower. DO NOT submerge in bath, pool, or hot tub, until cleared by your doctor, as this could lead to increase risk of infection.. It is OK to use regular soap just do not scrub the incision site. Water spray from shower should not directly hit the incision. Be sure to blot dry not rub. 9. Inspect your incision daily. If you notice any increased redness, swelling, or drainage, or if you start running a fever, call the office imme diately. The number is [phone]. 10. For women, if you need to protect against irritation from the bra straps, you can place a piece of gauze over the incision site for cushion. Please be sure to tape it loosely to allow air to the site & remove the gauze when you remove the bra. 11. Be sure to carry your device identification information card in your wallet/purse at all times. 12. It is OK to go through security at the airport with your device, but be sure to let the TSA know prior to proceeding as the security settings change depending on varying factors. Please do whatever is requested by security at that time. 13. Some of the newer devices may be MRI compatible but, currently, the use of these devices is not widespread, so you likely will not be able to have an MRI. Please clarify this with your physician. If at any time, you feel lightheaded or dizzy/faint, stop what you are doing & lie down immediately. If you are driving, get to the side of the road quickly, turn your car off & call 911 on your cell phone. DO NOT continue to drive as this may cause an accident that seriously injures yourself &/or others. Call the office at [phone] for any questions or concerns. KIMMY MOMIN MD 10/31/19 3558: Discharge Summary Brief Hospital Course Brief Hospital Course Patient seen and examined. Agree with above nurse practitioner note. Chest x-ray, device interrogation and wound site are looking appropriate. Agree was discharged to home today. Discharge Information Scheduled Amlodipine Besylate (Amlodipine Besylate) 5 Mg Tablet, 2.5 MG PO DAILY for BLOOD PRESSURE for 30 Days, #15 Prescribed by: RICKEY CASANOVA MD on 09/09/191547 Last Taken: 5mg on 10/30/19 Last Action: Continued on 10/31/19 0748 by Jesus Jennings Aspirin (Aspirin Ec) 81 Mg Tablet.dr, 81 MG PO DAILYWBKFT for HEART HEALTH for 30 Days, #30 Prescribed by: RICKEY CASANOVA MD on 09/09/191547 Last Taken: Unknown Dose on 10/29/19 Last Action: Continued on 10/31/19 0748 by Jesus Jennings Atorvastatin Calcium (Atorvastatin Calcium) 20 Mg Tablet, 20 MG PO QHS for HEART, CHOLESTEROL for 30 Days, #30 Prescribed by: RICKEY CASANOVA MD on 09/09/191547 Last Taken: Unknown Dose on 10/29/19 Last Action: Last Taken Edited on 10/30/191003 by GILL RIVAS Budesonide/Formoterol Fumarate (Symbicort 160-4.5 Mcg Inhaler) 10.2 Gm Hfa.aer.ad, 2 PUFF IH BID for BREATHING, #10.6 Ref 3 (Reported) Entered as Reported by: DAYANA PALOMO on 09/04/191837 Last Taken: Unknown Dose on 10/29/19 Last Action: Last Taken Edited on 10/30/191003 by GILL RIVAS Calcium Carbonate/Vitamin D3 (Calcium 1,000 + D3 Caplet) 1 Each Tablet, 1 EACH PO DAILY for , (Reported) Entered as Reported by: KIERRA AMES RN on 08/17/191957 Last Taken: Unknown Dose on 10/30/19 Last Action: Last Taken Edited on 10/30/191003 by GILL RIVAS Cyanocobalamin (Vitamin B-12) (Vitamin B-12) 5,000 Mcg Capsule, 5,000 MCG PO DAILY for SUPPLEMENT, (Reported) Entered as Reported by: DAYANA PALOMO on 09/04/191837 Last Taken: Unknown Dose on 10/30/19 Last Action: Last Taken Edited on 10/30/191003 by GILL RIVAS Diclofenac Sodium (Diclofenac Sodium) 75 Mg Tablet., 75 MG PO BID, (Reported) Entered as Reported by: RUBEN MANSFIELD on 10/07/15 1207 Last Taken: Unknown Dose on 10/29/19 Last Action: Last Taken Edited on 10/30/19 1004 by GILL RIVAS Estradiol (Estradiol) 0.5 Mg Tablet, 1 TAB PO DAILY for na, #30 Ref 11 (Reported) Entered as Reported by: WHITNEY BENITEZ on 08/28/181929 Last Taken: Unknown Dose on 10/30/19 Last Action: Last Taken Edited on 10/30/19 1004 by GILL RIVAS Ferrous Sulfate (Ferrous Sulfate) 325 Mg Tablet, 1 TAB PO BID for na, #60 Ref 3 (Reported) Entered as Reported by: WHITNEY BENITEZ on 08/28/181930 Last Taken: Unknown Dose on 10/29/19 Last Action: Continued on 10/31/19 0748 by Jesus Jennings Isosorbide Mononitrate (Isosorbide Mononitrate Er) 60 Mg Tab.er.24h, 60 MG PO DAILY for , (Reported) Entered as Reported by: KIERRA AMES RN on 08/17/191957 Last Taken: Unknown Dose on 10/30/19 Last Action: Converted on 10/31/1948 by Jesus Jennings Levocetirizine Dihydrochloride (Xyzal) 5 Mg Tablet, 1 TAB PO DAILY for for 30 Days, #30 Ref 0 (Reported) Entered as Reported by: KIERRA AMES RN on 08/17/191957 Last Taken: Unknown Dose on 10/30/19 Last Action: Converted on 10/31/19 0818 by Jesus Jennings Pantoprazole Sodium (Protonix ) 40 Mg Tablet.dr, 40 MG PO DAILYAC for GERD, (Reported) Entered as Reported by: KIERRA AMES RN on 08/17/191957 Last Taken: Unknown Dose on 10/30/19 Last Action: Continued on 10/31/19 0748 by Jesus Jennings Potassium Chloride (Klor-Con 10) 10 Meq Tablet.er, 20 MEQ PO DAILY for , (Reported) Entered as Reported by: KIERRA AMES RN on 08/17/191957 Last Taken: Unknown Dose on 10/30/19 Last Action: Continued on 10/31/19 0748 by Jesus Jennings Tamsulosin Hcl (Tamsulosin Hcl) 0.4 Mg Cap.er.24h, 1 CAP PO DAILY, #30 Ref 5 (Reported) Entered as Reported by: BARBI RICHARDSON on 02/05/15 1141 Last Taken: Unknown Dose on 10/30/19 Last Action: Continued on 10/31/1948 by Jesus Jennings Tramadol Hcl (Tramadol Hcl) 50 Mg Tablet, 100 MG PO PRN Q12HR for , (Reported) Entered as Reported by: BARBI RICHARDSON on 02/05/15 1143 Last Taken: Unknown Dose on 10/30/19 Last Action: Continued on 10/31/1948 by Jesus Jennings Valsartan/Hydrochlorothiazide (Diovan Hct 160-25 Mg Tablet) 1 Each Tablet, 1 TAB PO DAILY for , #30 Ref 5 (Reported) Entered as Reported by: KIERRA AMES RN on 08/17/191957 Last Taken: Unknown Dose on 10/30/19 Last Action: Converted on 10/31/19747 by Jesus Jennings Scheduled PRN Acetaminophen (Acetaminophen) 500 Mg Tablet, 2 TAB PO PRN Q6HRS PRN for pain or fever for 15 Days, #60 Ref 0 (Reported) Entered as Reported by: DAYANA PALOMO on 09/04/191837 Last Taken: Unknown Dose on 10/29/19 Last Action: Last Taken Edited on 10/30/191003 by GILL RIVAS Albuterol Sulfate (Proair Hfa) 8.5 Gm Hfa.aer.ad, 2.5 MG NEB PRN Q4HRS PRN for SHORTNESS OF BREATH for 14 Days, #1 Prescribed by: RICKEY CASANOVA MD on 09/09/191547 Last Taken: Unknown Dose on 10/29/19 Last Action: Last Taken Edited on 10/30/191003 by GILL RIVAS Docusate Sodium (Dok) 100 Mg Capsule, 100 MG PO PRN BID PRN for CONSTIPATION for 30 Days, #60 Prescribed by: RICKEY CASANOVA MD on 09/09/191547 Last Taken: UNKNOWN on Unknown Date & Time Last Action: Continued on 10/31/1948 by Jesus Jennings Nitroglycerin (Nitrostat) 0.4 Mg Tab.subl, 0.4 MG SL PRN Q5MIN PRN for CHEST PAIN for 30 Days, #90 Prescribed by: RICKEY CASANOVA MD on 09/09/191547 RENATO BOLANOS APRN Oct 31, 2019 11:33 KIMMY MOMIN MD Oct 31, 2019 17:25
--- NOTE | 2019-10-31 12:25 | NUR ---
Discharged patient to home. PIV and heart monitor removed. Escorted patient per wheelchair into a private vehicle.
--- NOTE | 2019-10-31 12:38 | NUR ---
SW following. Discussed with RN, pt from home, on services with [facility] (ph: [phone], fax: [phone]). KARIE contacted [facility] to determine if resumption of care orders needed as pt was on observation, not admitted. Beatrice advised they have orders, and only need a discharge summary. KARIE faxed discharge summary to [facility]. Pt has discharged home.
[2019-11-01] MEDS ORDERED: PANTOPRAZOLE 40 MG TABLET.DR. PO SCH (07:30)
== END 2019-10-31 12:20 | disposition home or self-care (01) ==
LOC: ECHO 09:04 → 2 NORTH 11:46
PROVIDERS: ADMIT Internal Medicine Cardiovascular Disease; ATTEND Internal Medicine Cardiovascular Disease
DX: I49.5 Sick sinus syndrome (principal); R55 Syncope and collapse; Z79.82 Long term (current) use of aspirin
CPT/HCPCS: 33208; 36415; 71045; 71046; 80048; 85027; 85610; 93005; 93306; 96374; 96375; 96376; C1785; C1898; G0378; G0379; J0690; J2250; J3010; J3490; J7050; Q9967; 99152; 99153; J7030

== ENCOUNTER 2019-11-21 17:51 | Emergency (ER) | payer MEDICARE ==
[~2019-11-21] VITALS: Ht 157.5 cm; Wt 68.0 kg
--- NOTE | 2019-11-21 18:35 | PHYS DOC ---
Past Medical History Past Medical History: CAD, CVA, Hypertension, Other Additional Past Medical Histor: PLEURISY Past Surgical History: Hip Replacement, Hysterectomy, Oophorectomy, Tonsillectomy Additional Past Surgical Histo: rectocele, hernia repair, rt rotator, bilat hip rx, PACEMAKER Smoking Status: Never Smoker Alcohol Use: None Drug Use: None General Adult EDM: Chief Complaint: DIZZY/LIGHT HEADED HPI: HPI: Patient is a 69 year old female who presents with dry cough for the last 2 days. Patient states that she had been treated for pneumonia back in August and when she woke up today, she had been sweating. She states that she became concerned, thinking that her pneumonia may have come back again. Patient denies any shortness of breath has had no chest pain, abdominal pain, nausea, vomiting or diarrhea. She also denies any fever. [] Review of Systems: Review of Systems: Constitutional: Denies fever or chills. [] Respiratory: Complains of cough without shortness of breath. [] Cardiovascular: Denies chest pain or edema. [] GI: Denies abdominal pain, nausea, vomiting, bloody stools or diarrhea. [] Neurologic: Denies headache, focal weakness or sensory changes. [] A full 10 point review of systems has been reviewed and is otherwise negative. Heart Score: Risk Factors: Risk Factors: DM, Current or recent (<one month) smoker, HTN, HLP, family history of CAD, obesity. Risk Scores: Score 0 - 3: 2.5% MACE over next 6 weeks - Discharge Home Score 4 - 6: 20.3% MACE over next 6 weeks - Admit for Clinical Observation Score 7 - 10: 72.7% MACE over next 6 weeks - Early Invasive Strategies Allergies: Allergies: Allergies Coded Allergies Type Severity Reaction Last Updated Verified alendronate sodium Allergy Severe Swelling 10/25/18 Yes methocarbamol Allergy Intermediate 10/25/18 Yes Physical Exam: PE: Constitutional: Well developed, well nourished, no acute distress, non-toxic appearance. [] HENT: Normocephalic, atraumatic, bilateral external ears normal, oropharynx moist, no oral exudates, nose normal. [] Eyes: PERRLA, EOMI, conjunctiva normal, no discharge. [] Neck: Normal range of motion, no tenderness, supple, no stridor. [] Cardiovascular: Regular rate and rhythm [] Lungs & Thorax: Bilateral breath sounds clear to auscultation [] Abdomen: Bowel sounds normal, soft, no tenderness. [] Skin: Warm, dry, no erythema, no rash. [] Extremities: No tenderness, no cyanosis, no clubbing, ROM intact. [] Neurologic: Alert and oriented X 3, no focal deficits noted. [] Current Patient Data: Vital Signs: Vital Signs Date Time Temp Pulse Resp B/P (MAP) Pulse Ox O2 Delivery O2 Flow Rate FiO2 11/21/19 17:55 98.6 72 18 148/65 (92) 96 Room Air 98.6 EKG: EKG: [] Radiology/Procedures: Radiology/Procedures: [] Impression: PROCEDURE: PORTABLE CHEST 1V INDICATION: Cough COMPARISON: October 31, 2019 FINDINGS: Single view of chest obtained. 2-lead pacemaker is again identified with cardiac silhouette similar to prior. No definite new region of focal airspace consolidation. Degenerative changes the right shoulder. IMPRESSION: * No focal airspace consolidation or edema. Electronically signed by: Reji Harris MD (11/21/2019 6:42 PM) [id number] Course & Med Decision Making: Course & Med Decision Making Pertinent Labs and Imaging studies reviewed. (See chart for details) [] Dragon Disclaimer: Dragon Disclaimer: This electronic medical record was generated, in whole or in part, using a voice recognition dictation system. Departure Departure Impression: Primary Impression: Bronchitis Disposition: 01 HOME, SELF-CARE Condition: STABLE Referrals: MELLY QUINONEZ MD (PCP) Patient Instructions: Bronchitis Scripts Azithromycin (ZITHROMAX) 250 Mg Tablet 1 PKG PO UD, #6 TAB Prov: VALENTÍN NUNEZ Jr. DO 11/21/19 VALENTÍN NUNEZ Jr. DO November 21, 2019 18:35
--- NOTE | 2019-11-21 18:45 | RAD ---
INDICATION: Cough COMPARISON: October 31, 2019 FINDINGS: Single view of chest obtained. 2-lead pacemaker is again identified with cardiac silhouette similar to prior. No definite new region of focal airspace consolidation. Degenerative changes the right shoulder. IMPRESSION: * No focal airspace consolidation or edema. Electronically signed by: Reji Harris MD (11/21/2019 6:42 PM) [id number]
[2019-11-21 19:45] LABS: CALCIUM 9.1 mg/dL (8.5-10.1); CREATININE 0.8 mg/dL (0.6-1.0); GFR 86.3; POTASSIUM 3.8 mmol/L (3.5-5.1)
[2019-11-21 19:48] LABS: BASO % 1 % (0-3); EOS # 0.1 x10^3/uL (0.0-0.7); EOS % 2 % (0-3); HEMATOCRIT 34.4 % (36.0-47.0); HEMOGLOBIN 11.1 g/dL (12.0-15.5); LYMPH % 58 % (24-48); MEAN CORPUSCULAR HEMOGLOBIN 27 pg (25-35); MEAN CORPUSCULAR HGB CONC 32 g/dL (31-37); MEAN CORPUSCULAR VOLUME 85 fL (79-100); MONO # 0.3 x10^3/uL (0.0-1.1); MONO % 7 % (0-9); NEUT # 1.1 x10^3/uL (1.8-7.7); NEUT % 32 % (31-73); PLATELET COUNT 289 x10^3/uL (140-400); RED BLOOD COUNT 4.06 x10^6/uL (3.50-5.40); RED CELL DISTRIBUTION WIDTH 14.8 % (11.5-14.5); WHITE BLOOD COUNT 3.5 x10^3/uL (4.0-11.0)
[2019-11-21 19:51] LABS: ALBUMIN 3.6 g/dL (3.4-5.0); ALBUMIN/GLOBULIN RATIO 0.9 (1.0-1.7); TOTAL BILIRUBIN 0.5 mg/dL (0.2-1.0); TOTAL PROTEIN 7.5 g/dL (6.4-8.2)
[2019-11-21 20:02] VITALS: BP 137/80
[2019-11-21] MEDS ORDERED: AZIT250T PO (20:05)
== END 2019-11-21 20:10 | disposition home or self-care (01) ==
LOC: ER 17:51
DX: J40 Bronchitis, not specified as acute or chronic (principal); R05 Cough; I11.9 Hypertensive heart disease without heart failure; I63.9 Cerebral infarction, unspecified; Z88.8 Allergy status to other drugs, medicaments and biological substances; Z90.710 Acquired absence of both cervix and uterus; Z90.89 Acquired absence of other organs; Z95.0 Presence of cardiac pacemaker; Z98.890 Other specified postprocedural states; Z86.73 Personal history of transient ischemic attack (TIA), and cerebral infarction without residual deficits
CPT/HCPCS: 36415; 71045; 80053; 83880; 84484; 85025; 99285

== ENCOUNTER 2020-01-10 11:10 | Inpatient (IN) | payer MEDICARE ==
[~2020-01-10] VITALS: Ht 157.5 cm; Wt 66.3 kg
[~2020-01-10 11:10] MED LIST changes: -ASPI-612 PO; +ASPI-886 PO; +AZIT250T PO
--- NOTE | 2020-01-10 12:14 | PHYS DOC ---
Past Medical History Past Medical History: CAD, CVA, Hypertension, Other Additional Past Medical Histor: PLEURISY Past Surgical History: Hip Replacement, Hysterectomy, Oophorectomy, Tonsillectomy Additional Past Surgical Histo: rectocele, hernia repair, rt rotator, bilat hip rx, PACEMAKER Smoking Status: Never Smoker Alcohol Use: None Drug Use: None General Adult EDM: Chief Complaint: MECHANICAL FALL HPI: HPI: Patient is a 69 year old female who presents with states she has been falling every day this week. She states that time she loses her balance for the left leg will not move when she goes to try to walk. States she has right sharp jacki oting side of the neck pain that goes up into her head. She states she has had this pain before she is on amitriptyline for it. States she has been diagnosed with a pinched nerve. Patient is ambulatory with a steady gait in the emergency room. Review of Systems: Review of Systems: Constitutional: Denies fever or chills. [] Eyes: Denies change in visual acuity. [] HENT: Denies nasal congestion or sore throat. [] Respiratory: Denies cough or shortness of breath. [] Cardiovascular: Denies chest pain or edema. [] GI: Denies abdominal pain, nausea, vomiting, bloody stools or diarrhea. [] : Denies dysuria. [] Musculoskeletal: Denies back pain or joint pain. [] Integument: Denies rash. [] Neurologic: Denies headache, focal weakness or sensory changes. [] Endocrine: Denies polyuria or polydipsia. [] Lymphatic: Denies swollen glands. [] Psychiatric: Denies depression or anxiety. [] Heart Score: Risk Factors: Risk Factors: DM, Current or recent (<one month) smoker, HTN, HLP, family history of CAD, obesity. Risk Scores: Score 0 - 3: 2.5% MACE over next 6 weeks - Discharge Home Score 4 - 6: 20.3% MACE over next 6 weeks - Admit for Clinical Observation Score 7 - 10: 72.7% MACE over next 6 weeks - Early Invasive Strategies Allergies: Allergies: Allergies Coded Allergies Type Severity Reaction Last Updated Verified alendronate sodium Allergy Severe Swelling 10/25/18 Yes methocarbamol Allergy Intermediate 10/25/18 Yes Physical Exam: PE: Constitutional: Well developed, well nourished, no acute distress, non-toxic appearance. [] HENT: Normocephalic, atraumatic, bilateral external ears normal, oropharynx moist, no oral exudates, nose normal. [] Eyes: PERRLA, EOMI, conjunctiva normal, no discharge. [] Neck: Normal range of motion, no tenderness, supple, no stridor. [] Cardiovascular:Heart rate regular rhythm, no murmur [] Lungs & Thorax: Bilateral breath sounds clear to auscultation [] Abdomen: Bowel sounds normal, soft, no tenderness, no masses, no pulsatile masses. [] Skin: Warm, dry, no erythema, no rash. [] Back: No tenderness, no CVA tenderness. [] Extremities: No tenderness, no cyanosis, no clubbing, ROM intact, no edema. [] Neurologic: Alert and oriented X 3, normal motor function, normal sensory function, no focal deficits noted. [] Psychologic: Affect normal, judgement normal, mood normal. [] EKG: EK and read by Dr Burton as Sinus Rhythm and no STEMI[] Radiology/Procedures: Radiology/Procedures: [] Impression: [facility] [address] [facility] [place], [place] [id number] IMAGING REPORT Signed PATIENT: AMOL CHRISTINA JACCOUNT: [id number] : 1950 LOCATION: ER AGE: 69 SEX: F EXAM STATUS: REG ER ORD. PHYSICIAN: RENNY BAILON APRN REASON: fall, HEAD AND NECK INJURY PROCEDURE: CT HEAD AND CERVICAL SPINE WO Examination: CT HEAD AND CERVICAL SPINE WO History: Reason: fall, HEAD AND NECK INJURY / Spl. Instructions: / History: Comparison/Correlation: 08/16/2019 CT head and cervical spine without contrast Findings: Axial images of the head and cervical spine were obtained without contrast. Sagittal and coronal reformatted images of the cervical spine were provided. Ventricles are normal size. Mild atrophy present. Chronic ischemic changes in white matter noted. No intracranial hemorrhage, midline shift, or mass effect. No depressed skull fracture. Patchy opacification of ethmoid air cells noted. There is cervical kyphosis again seen. There is mild anterolisthesis of C4 on C5 and C3 on C4. There is degenerative endplate remodeling with disc space narrowing and osteophytosis at C4-T1. There is chronic mild anterior wedging of C5 due to degenerative change. There are multiple endplate Schmorl's nodes. There is multilevel facet arthropathy. No displaced fracture is seen. The combination of degenerative changes results in mild right foraminal stenosis at C2-C3, severe bilateral foraminal and mild central canal stenosis at C3-C4, severe left foraminal and mild central canal stenosis at C4-C5, mild central canal stenosis at C5-C6, mild bilateral foraminal and moderate central canal stenosis at C6-C7, and moderate right and severe left foraminal stenosis at C7-T1. Impression: No intracranial hemorrhage. Severe degenerative changes including spinal canal stenoses and kyphosis of the cervical spine again noted. No change in alignment or fracture in the interval. PQRS Compliance Statement: One or more of the following individualized dose reduction techniques were utilized for this examination: 1. Automated exposure control 2. Adjustment of the mA and/or kV according to patient size 3. Use of iterative reconstruction technique Electronically signed by: Mateo Eid MD (01/10/2020 1:10 PM) [id number] DICTATED and SIGNED BY: MATEO EID MD DATE: 01/10/20 1310 [facility] [address] [place] [address] IMAGING REPORT Signed PATIENT: AMOL CHRISTINA JACCOUNT: [id number] : 1950 LOCATION: ER AGE: 69 SEX: F EXAM STATUS: REG ER ORD. PHYSICIAN: RENNY BAILON APRN REASON: fall, BACK INJURY PROCEDURE: CT LUMBAR SPINE WO CONTRAST Examination: CT LUMBAR SPINE WO CONTRAST History: Reason: fall, BACK INJURY / Spl. Instructions: / History: Comparison/Correlation: MRI lumbar spine 07/27/2017 Findings: Axial images of the lumbar spine obtained. Sagittal and coronal reformatted images were provided. Moderately exaggerated lordosis of lumbar spine is present. Alignment is normal. Vertebral body heights and disc spaces are adequate. No fracture or bone destruction. Slight L3-4 and L4-5 concentric disc bulge are present with thecal sac effacement. Neural foramina are patent. Partially visualized retroperitoneum is unremarkable. Impression: Slight concentric disc bulge at L3-4 and L4-5. No acute process. No significant degenerative change for the patient's age. PQRS Compliance Statement: One or more of the following individualized dose reduction techniques were utilized for this examination: 1. Automated exposure control 2. Adjustment of the mA and/or kV according to patient size 3. Use of iterative reconstruction technique Electronically signed by: Mateo Eid MD (01/10/2020 1:13 PM) [id number] DICTATED and SIGNED BY: MATEO EID MD DATE: 01/10/20 1313 Course & Med Decision Making: Course & Med Decision Making Pertinent Labs and Imaging studies reviewed. (See chart for details) Speaks in full complete sentences. She is ambulatory but unsteady. Denies any numbness or tingling. She has had a previous stroke in the past before. She denies any current dizziness. Lungs are clear to all lobes. CT head, cervical spine and lumbar show no acute findings. Patient likely has sciatic pain. The concern is why she continues to fall and why she keeps losing her balance. She states she is falling every day. Patient also complains that worsening of pain in the right side of her neck up into her head. I have spoken to Dr. Barcenas for admission he states to consult neurology. [] Magan Disclaimer: Magan Disclaimer: This electronic medical record was generated, in whole or in part, using a voice recognition dictation system. NIHSS Stroke Scale NIH Stroke Scale: NIH Stroke Scale Response (Comments) Value Level of Consciousness: 0 Alert/Responsive 0 LOC Questions: 0 Answers both correctly 0 LOC Commands: 0 Performs both tasks 0 Visual: 0 No visual loss 0 Facial Palsy: 0 Normal, symmetrical 0 Motor - Left Arm 0 No drift 0 Motor - Right Arm 0 No drift 0 Motor - Left Leg 0 No drift 0 Motor: Right Leg 0 No drift 0 Limb Ataxia: 0 Absent 0 Sensory: 0 No loss 0 Best Language: 0 Normal 0 Dysathria: 0 Normal 0 Extinction and Inattention: 0 Normal 0 Total 0 Departure Departure Impression: Primary Impression: Frequent falls Disposition: ADMITTED INPATIENT Admitting Physician: HIMS Condition: STABLE Referrals: MELLY QUINONEZ MD (PCP) Justicifation of Admission Dx: Justifications for Admission: Justification of Admission Dx: Yes Comments: frequent falls RENNY BAILON RUBBER MOULDING MACHINE OPERATOR Jan 10, 2020 12:14
[2020-01-10 13:02] LABS: BILIRUBIN,URINE NEGATIVE (NEG); CLARITY,URINE CLEAR; COLOR,URINE YELLOW; NITRITE,URINE NEGATIVE (NEG); PROTEIN,URINE NEGATIVE (NEG-TRACE); UROBILINOGEN,URINE 0.2 mg/dL (0.2 mg/dL)
[2020-01-10 13:10] LABS: BACTERIA,URINE 0 /HPF (0-FEW); RBC,URINE 0 /HPF (0-2); SQUAMOUS EPITHELIAL CELL,UR MOD /LPF; WBC,URINE 0 /HPF (0-4)
--- NOTE | 2020-01-10 13:13 | RAD ---
Examination: CT HEAD AND CERVICAL SPINE WO History: Reason: fall, HEAD AND NECK INJURY / Spl. Instructions: / History: Comparison/Correlation: 08/16/2019 CT head and cervical spine without contrast Findings: Axial images of the head and cervical spine were obtained without contrast. Sagittal and coronal reformatted images of the cervical spine were provided. Ventricles are normal size. Mild atrophy present. Chronic ischemic changes in white matter noted. No intracranial hemorrhage, midline shift, or mass effect. No depressed skull fracture. Patchy opacification of ethmoid air cells noted. There is cervical kyphosis again seen. There is mild anterolisthesis of C4 on C5 and C3 on C4. There is degenerative endplate remodeling with disc space narrowing and osteophytosis at C4-T1. There is chronic mild anterior wedging of C5 due to degenerative change. There are multiple endplate Schmorl's nodes. There is multilevel facet arthropathy. No displaced fracture is seen. The combination of degenerative changes results in mild right foraminal stenosis at C2-C3, severe bilateral foraminal and mild central canal stenosis at C3-C4, severe left foraminal and mild central canal stenosis at C4-C5, mild central canal stenosis at C5-C6, mild bilateral foraminal and moderate central canal stenosis at C6-C7, and moderate right and severe left foraminal stenosis at C7-T1. Impression: No intracranial hemorrhage. Severe degenerative changes including spinal canal stenoses and kyphosis of the cervical spine again noted. No change in alignment or fracture in the interval. PQRS Compliance Statement: One or more of the following individualized dose reduction techniques were utilized for this examination: 1. Automated exposure control 2. Adjustment of the mA and/or kV according to patient size 3. Use of iterative reconstruction technique Electronically signed by: Mateo Sanchez MD (01/10/2020 1:10 PM) [id number]
--- NOTE | 2020-01-10 13:16 | RAD ---
Examination: CT LUMBAR SPINE WO CONTRAST History: Reason: fall, BACK INJURY / Spl. Instructions: / History: Comparison/Correlation: MRI lumbar spine 07/27/2017 Findings: Axial images of the lumbar spine obtained. Sagittal and coronal reformatted images were provided. Moderately exaggerated lordosis of lumbar spine is present. Alignment is normal. Vertebral body heights and disc spaces are adequate. No fracture or bone destruction. Slight L3-4 and L4-5 concentric disc bulge are present with thecal sac effacement. Neural foramina are patent. Partially visualized retroperitoneum is unremarkable. Impression: Slight concentric disc bulge at L3-4 and L4-5. No acute process. No significant degenerative change for the patient's age. PQRS Compliance Statement: One or more of the following individualized dose reduction techniques were utilized for this examination: 1. Automated exposure control 2. Adjustment of the mA and/or kV according to patient size 3. Use of iterative reconstruction technique Electronically signed by: Mateo Sanchez MD (01/10/2020 1:13 PM) [id number]
[2020-01-10 13:29] LABS: BASO % 1 % (0-3); EOS # 0.1 x10^3/uL (0.0-0.7); EOS % 2 % (0-3); HEMATOCRIT 37.2 % (36.0-47.0); HEMOGLOBIN 12.2 g/dL (12.0-15.5); LYMPH # 1.4 x10^3/uL (1.0-4.8); LYMPH % 35 % (24-48); MEAN CORPUSCULAR HEMOGLOBIN 28 pg (25-35); MEAN CORPUSCULAR HGB CONC 33 g/dL (31-37); MEAN CORPUSCULAR VOLUME 84 fL (79-100); MONO # 0.3 x10^3/uL (0.0-1.1); MONO % 7 % (0-9); NEUT # 2.3 x10^3/uL (1.8-7.7); NEUT % 56 % (31-73); PLATELET COUNT 250 x10^3/uL (140-400); RED BLOOD COUNT 4.44 x10^6/uL (3.50-5.40); RED CELL DISTRIBUTION WIDTH 15.7 % (11.5-14.5); WHITE BLOOD COUNT 4.2 x10^3/uL (4.0-11.0)
[2020-01-10 13:35] LABS: PROTHROMBIN TIME PATIENT 12.7 SEC (11.7-14.0)
[2020-01-10 13:41] LABS: CALCIUM 9.3 mg/dL (8.5-10.1); CREATININE 1.1 mg/dL (0.6-1.0); GFR 59.8; POTASSIUM 4.3 mmol/L (3.5-5.1)
[2020-01-10 13:46] LABS: ALBUMIN/GLOBULIN RATIO 1.1 (1.0-1.7); TOTAL BILIRUBIN 0.4 mg/dL (0.2-1.0); TOTAL PROTEIN 7.8 g/dL (6.4-8.2)
[2020-01-10] MEDS ORDERED: methylPREDNISolone SOD SUCC PF 40 MG/ML VIAL. IV ONE (15:30)
[2020-01-10] MEDS: fentaNYL PF VIAL 100 MCG/2 ML VIAL IV PRN (16:49)
--- NOTE | 2020-01-10 18:05 | HP ---
ADMIT DATE: 01/10/2020 CHIEF COMPLAINT: Falls. HISTORY OF PRESENT ILLNESS: The patient is a pleasant 69-year-old female, who has been falling a lot. She has fallen every day this week. She states her balance is off and her left leg would not move when she tries to walk. She states she has sharp, shooting pain down her neck as well. I discussed the case with emergency room physician. We are going to admit the patient and consult Neurology and Neurosurgery. PAST MEDICAL/SURGICAL HISTORY: Coronary artery disease, stroke, hypertension, pleurisy, hip replacement, hysterectomy, oophorectomy, tonsillectomy, rectocele, hernia repair, right rotator cuff, bilateral hip surgeries, and pacemaker. ALLERGIES: ALENDRONATE AND METHOCARBAMOL. FAMILY HISTORY: Coronary artery disease. SOCIAL HISTORY: She does not drink, smoke, or take drugs. MEDICATIONS: Reviewed, please refer to the MRAD. REVIEW OF SYSTEMS: GENERAL: No history of weight change, weakness, or fever. SKIN: No bruising, hair changes, or rashes. EYES: No blurred, double, or loss of vision. NOSE AND THROAT: No history of nosebleeds, hoarseness, or sore throat. HEART: No history of palpitations, chest pain, or shortness of breath on exertion. LUNGS: Denies cough, hemoptysis, wheezing, or shortness of breath. GASTROINTESTINAL: Denies changes in appetite, nausea, vomiting, diarrhea, or constipation. GENITOURINARY: No history of frequency, urgency, hesitancy, or nocturia. NEUROLOGIC: She complains of weakness and falls. PSYCHIATRIC: No history of panic, anxiety, or depression. ENDOCRINE: No history of heat or cold intolerance, polyuria, or polydipsia. EXTREMITIES: Denies muscle weakness, joint pain, pain on walking, or stiffness. PHYSICAL EXAMINATION: VITALS: Within normal limits and are stable. GENERAL: No apparent distress; alert and oriented. HEENT: Normocephalic, atraumatic. External auditory canals are patent. EYES: Extraocular muscles are intact. Pupils are equally round and reactive to light and accommodation. MUSCULOSKELETAL: Well developed, well nourished, good range of motion. ENDOCRINE: No thyromegaly was palpated. LYMPHATICS: No cervical chain or axillary nodes were noted. HEMATOPOIETIC: No bruising. NECK: Supple, no JVD, no thyromegaly was noted. LUNGS: Clear to auscultation in all lung rae without rhonchi or wheezing. HEART: RRR, S1, S2 present. Peripheral pulses intact. No obvious murmurs were noted. ABDOMEN: Soft, nontender. Positive bowel sounds. No organomegaly. Normal bowel sounds. EXTREMITIES: Without any cyanosis, clubbing, or edema. Pedal pulses intact. Homans sign is negative. NEUROLOGIC: Normal speech, normal tone; A and O x3; moves all extremities; no obvious focal deficits. PSYCHIATRIC: Normal affect, normal mood, stable. SKIN: No ulcerations or rashes, good skin turgor, no jaundice. VASCULAR: Good capillary refill. Neurovascular bundle appears to be intact. IMAGING: CT of the head, no intracranial hemorrhage was noted. Lumbar spine CT, there is slight concentric disk bulge at L3, L4, and L5, no acute process. ASSESSMENT AND PLAN: Falls. The patient has been admitted. We will consult Neurology and Neurosurgery; home medications, deep vein thrombosis prophylaxis, physical therapy, occupational therapy, and intravenous fluids. ARLEN RENTERIA DO DR: SERGIO/les JOB#: [id number] / [id number]
--- NOTE | 2020-01-10 19:15 | NUR ---
The patient, AMOL CHRISTINA, 69 y/o, F admitted by ARLEN RENTERIA III, DO, was given written information regarding hospital policies, unit procedures and contact persons. Valuables were checked and refused to have anything locked up. Pt. denies any current needs. Notified pt she is a fall risk and a bed alarm would be placed for safety. Verbalized understanding. Consult to be called to Dr. Chavez.
[2020-01-10 20:06] VITALS: BP 125/85
[2020-01-10] MEDS ORDERED: POLY17PO29 PO (21:06)
[2020-01-10] MEDS ORDERED: HYDR28.337 TP (21:33)
[2020-01-10] MEDS ORDERED: AMIT75TA PO (21:33)
[2020-01-10 23:42] VITALS: BP 118/80
[2020-01-11] VITALS (7 sets, daily range): BP systolic 86–153; BP diastolic 52–87
[2020-01-11] MEDS: fentaNYL PF VIAL 100 MCG/2 ML VIAL IV PRN (00:09)
[2020-01-11] MEDS ORDERED: NITROGLYCERIN SUBLINGUAL 0.4 MG BOTTLE OF 25. SL PRN (06:00)
[2020-01-11] MEDS ORDERED: ACETAMINOPHEN 500 MG TABLET PO PRN (06:00)
[2020-01-11] MEDS ORDERED: traMADol 50 MG TABLET PO PRN (06:00)
[2020-01-11] MEDS ORDERED: HYDROCORTISONE 2.5% RECTAL CREAM 30GM TUBE. TP PRN (06:00)
[2020-01-11] MEDS ORDERED: ALBUTEROL SULFATE 2.5 MG/3 ML NEBU. NEB PRN (06:00)
[2020-01-11] MEDS ORDERED: DOCUSATE SODIUM 100 MG CAPSULE. PO PRN (06:00)
[2020-01-11] MEDS: ALBUTEROL SULFATE 2.5 MG/3 ML NEBU. NEB SCH ×4 (07:26→19:41)
[2020-01-11] MEDS: BUDESONIDE 0.5 MG/2 ML NEBU. NEB SCH ×2 (07:27→19:42)
[2020-01-11] MEDS: POLYETHYLENE GLYCOL 3350 17 GM PACKET. PO SCH (08:21)
[2020-01-11] MEDS: LOSARTAN POTASSIUM 50 MG TABLET. PO SCH (08:22)
[2020-01-11] MEDS: CYANOCOBALAMIN (VITAMIN B-12) 1,000 MCG TABLET. PO SCH (08:23)
[2020-01-11] MEDS: CALCIUM CARB/VIT D3 500/200 TABLET. PO SCH (08:24)
[2020-01-11] MEDS: TAMSULOSIN 0.4 MG CAP.ER.24H. PO SCH (08:24)
[2020-01-11] MEDS: ESTRADIOL 1 MG TABLET. PO SCH (08:24)
[2020-01-11] MEDS: ASPIRIN ENTERIC COATED 81 MG TABLET.DR. PO SCH (08:24)
[2020-01-11] MEDS: hydroCHLOROthiazide 25 MG TABLET PO SCH (08:24)
[2020-01-11] MEDS: FERROUS SULFATE 325 MG TABLET. PO SCH (08:25)
[2020-01-11] MEDS: POTASSIUM CHLORIDE 20 MEQ TABLET.ER. PO SCH (08:25)
[2020-01-11] MEDS: amLODIPine BESYLATE 5 MG TABLET PO SCH (08:25)
[2020-01-11] MEDS: CETIRIZINE HCL 10 MG TABLET. PO SCH (08:25)
[2020-01-11] MEDS: ISOSORBIDE MONONITRATE ER 30 MG TAB.ER.24H PO SCH (08:26)
--- NOTE | 2020-01-11 11:49 | PDOC ---
[facility] [facility] PROGRESS NOTE Chief Complaint Chief Complaint Falls History of asthma History of mild CHF Coronary artery disease, stroke, hypertension, pleurisy, hip replacement, hysterectomy, oophorectomy, tonsillectomy, rectocele, hernia repair, right rotator cuff, bilateral hip surgeries, and recent pacemaker. 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 Mariscal by phone Neurology and neurosurgery consults pending Discussed with RN Chart reviewed Vitals/I&O Vitals/I&O: Vital Signs Date Time Temp Pulse Resp B/P (MAP) Pulse Ox O2 Delivery O2 Flow Rate FiO2 01/11/20 11:01 98.5 105 16 115/70 (85) 95 Room Air 98.5 I & O 01/10/20 01/10/20 01/11/20 15:00 23:00 07:00 Intake Total 240 ml 240 ml Balance 240 ml 240 ml Physical Exam General: Alert, Other (Very anxious somewhat shaky) Heart: Regular rate Lungs: Wheezing Abdomen: Normal bowel sounds Extremities: No clubbing Skin: No rashes Labs Labs: Laboratory Tests Test 01/10/20 12:49 01/10/20 13:20 Urine Collection Type Unknown Urine Color Yellow Urine Clarity Clear Urine pH 7.0 (<5.0-8.0) Urine Specific [place] <=1.005 (1.000-1.030) Urine Protein Negative mg/dL (NEG-TRACE) Urine Glucose (UA) Negative mg/dL (NEG) Urine Ketones (Stick) Negative mg/dL (NEG) Urine Blood Negative (NEG) Urine Nitrite Negative (NEG) Urine Bilirubin Negative (NEG) Urine Urobilinogen Dipstick 0.2 mg/dL (0.2 mg/dL) Urine Leukocyte Esterase Negative (NEG) Urine RBC 0 /HPF (0-2) Urine WBC 0 /HPF (0-4) Urine Squamous Epithelial Cells Mod /LPF Urine Bacteria 0 /HPF (0-FEW) White Blood Count 4.2 x10^3/uL (4.0-11.0) Red Blood Count 4.44 x10^6/uL (3.50-5.40) Hemoglobin 12.2 g/dL (12.0-15.5) Hematocrit 37.2 % (36.0-47.0) Mean Corpuscular Volume 84 fL (79-100) Mean Corpuscular Hemoglobin 28 pg (25-35) Mean Corpuscular Hemoglobin Concent 33 g/dL (31-37) Red Cell Distribution Width 15.7 % (11.5-14.5) Platelet Count 250 x10^3/uL (140-400) Neutrophils (%) (Auto) 56 % (31-73) Lymphocytes (%) (Auto) 35 % (24-48) Monocytes (%) (Auto) 7 % (0-9) Eosinophils (%) (Auto) 2 % (0-3) Basophils (%) (Auto) 1 % (0-3) Neutrophils # (Auto) 2.3 x10^3/uL (1.8-7.7) Lymphocytes # (Auto) 1.4 x10^3/uL (1.0-4.8) Monocytes # (Auto) 0.3 x10^3/uL (0.0-1.1) Eosinophils # (Auto) 0.1 x10^3/uL (0.0-0.7) Basophils # (Auto) 0.0 x10^3/uL (0.0-0.2) Prothrombin Time 12.7 SEC (11.7-14.0) Prothromb Time International Ratio 1.0 (0.8-1.1) Sodium Level 139 mmol/L (136-145) Potassium Level 4.3 mmol/L (3.5-5.1) Chloride Level 102 mmol/L (98-107) Carbon Dioxide Level 29 mmol/L (21-32) Anion Gap 8 (6-14) Blood Urea Nitrogen 15 mg/dL (7-20) Creatinine 1.1 mg/dL (0.6-1.0) Estimated GFR (Cockcroft-Gault) 59.8 BUN/Creatinine Ratio 14 (6-20) Glucose Level 102 mg/dL (70-99) Calcium Level 9.3 mg/dL (8.5-10.1) Total Bilirubin 0.4 mg/dL (0.2-1.0) Aspartate Amino Transf (AST/SGOT) 30 U/L (15-37) Alanine Aminotransferase (ALT/SGPT) 41 U/L (14-59) Alkaline Phosphatase 81 U/L (46-116) Troponin I Quantitative < 0.017 ng/mL (0.000-0.055) Total Protein 7.8 g/dL (6.4-8.2) Albumin 4.0 g/dL (3.4-5.0) Albumin/Globulin Ratio 1.1 (1.0-1.7) Assessment and Plan Assessmemt and Plan Problems Medical Problems: (1) Frequent falls Status: Acute Falls History of asthma History of mild CHF Coronary artery disease, stroke, hypertension, pleurisy, hip replacement, hysterectomy, oophorectomy, tonsillectomy, rectocele, hernia repair, right rotator cuff, bilateral hip surgeries, and recent pacemaker. Plan Await neurology and neurosurgery input regarding the falls Home meds DVT prophylaxis Full code PT and OT She might need longterm? Comment Review of Relevant I have reviewed the following items stephon (where applicable) has been applied. Medications: Current Medications Medications (Trade) Dose Ordered Sig/Carlos Route PRN Reason Start Time Stop Time Status Last Admin Dose Admin Fentanyl Citrate (Fentanyl 2ml Vial) 50 mcg PRN Q1HR PRN IV PAIN 01/10/20 15:15 01/11/20 15:14 01/11/20 00:09 Methylprednisolone Sodium Succinate (SOLU-Medrol 40MG VIAL) 60 mg 1X ONCE IV 01/10/20 15:30 01/10/20 15:31 DC 01/10/20 16:49 Amlodipine Besylate (Norvasc) 2.5 mg DAILY PO 01/11/20 09:00 01/11/20 08:25 Aspirin (Ecotrin) 81 mg DAILYWBKFT PO 01/11/20 08:00 01/11/20 08:24 Ferrous Sulfate (Feosol) 325 mg DAILY PO 01/11/20 09:00 01/11/20 08:25 Polyethylene Glycol (miraLAX PACKET) 17 gm DAILY PO 01/11/20 09:00 01/11/20 08:21 Potassium Chloride (Klor-Con) 20 meq DAILYWBKFT PO 01/11/20 08:00 01/11/20 08:25 Tamsulosin HCl (Flomax) 0.4 mg DAILY PO 01/11/20 09:00 01/11/20 08:24 Budesonide (Pulmicort) 0.5 mg RTBID NEB 01/11/20 08:00 01/11/20 07:27 Calcium/Vitamin D (Oscal D 500mg/ 200uts) 1 tab DAILYWBKFT PO 01/11/20 08:00 01/11/20 08:24 Cyanocobalamin (Vitamin B-12) 5,000 mcg DAILY PO 01/11/20 09:00 01/11/20 08:23 Estradiol (Estrace) 0.5 mg DAILY PO 01/11/20 09:00 01/11/20 08:24 Isosorbide Mononitrate (Imdur) 60 mg DAILY PO 01/11/20 09:00 01/11/20 08:26 Cetirizine HCl (ZyrTEC) 10 mg DAILY PO 01/11/20 09:00 01/11/20 08:25 Losartan Potassium (Cozaar) 100 mg DAILY PO 01/11/20 09:00 01/11/20 08:22 Hydrochlorothiazide (Hydrodiuril) 25 mg DAILY PO 01/11/20 09:00 01/11/20 08:24 Albuterol Sulfate (Ventolin Neb Soln) 2.5 mg RTQID [facility] [place] 01/11/20 08:00 01/11/20 07:26 Justicifation of Admission Dx: Justifications for Admission: Justification of Admission Dx: Yes ARLEN RENTERIA III DO Jan 11, 2020 11:49
--- NOTE | 2020-01-11 16:23 | NUR ---
PT BEING TRANSFERRED TO ROOM 438. REPORT CALLED TO NURSE MERCHANT.
--- NOTE | 2020-01-11 17:19 | NUR ---
Patient transferred around 1630 from 6S. Report obtained from MEL Knight. Patient arrived with her . BP has been up and down today according to previous RN. BP low upon admission with no complaints of dizziness noted. MRI to be done per radiology. IV working properly. Oriented to new unit and staff. Will continue to monitor.
--- NOTE | 2020-01-11 20:41 | PDOC ---
Provider Note Provider Note patient seen and examined at 1245 consulted for spinal pain c/o left hip and some back pain, reports that left hip can give out and he can fall on exam rotation of hip is normal, strength in LE is normal recommend MRI and consult Dr. Brad Santosfation of Admission Dx: Justifications for Admission: Justification of Admission Dx: Yes SIMON DAVIES MD Jan 11, 2020 20:41
[2020-01-11] MEDS ORDERED: AMITRIPTYLINE HCL 25 MG TABLET. PO SCH (21:00)
[2020-01-11] MEDS ORDERED: ATORVASTATIN CALCIUM 20 MG TABLET PO SCH (21:00)
[2020-01-12 03:00] VITALS: BP 112/81
[2020-01-12] MEDS: BUDESONIDE 0.5 MG/2 ML NEBU. NEB SCH (07:28)
[2020-01-12] MEDS: ALBUTEROL SULFATE 2.5 MG/3 ML NEBU. NEB SCH ×2 (07:28→11:05)
[2020-01-12 07:59] VITALS: BP 140/74
[2020-01-12] MEDS: TAMSULOSIN 0.4 MG CAP.ER.24H. PO SCH (08:13)
[2020-01-12] MEDS: CALCIUM CARB/VIT D3 500/200 TABLET. PO SCH (08:13)
[2020-01-12] MEDS: hydroCHLOROthiazide 25 MG TABLET PO SCH (08:13)
[2020-01-12] MEDS: POLYETHYLENE GLYCOL 3350 17 GM PACKET. PO SCH (08:14)
[2020-01-12] MEDS: CETIRIZINE HCL 10 MG TABLET. PO SCH (08:15)
[2020-01-12] MEDS: ASPIRIN ENTERIC COATED 81 MG TABLET.DR. PO SCH (08:15)
[2020-01-12] MEDS: POTASSIUM CHLORIDE 20 MEQ TABLET.ER. PO SCH (08:15)
[2020-01-12] MEDS: amLODIPine BESYLATE 5 MG TABLET PO SCH (08:16)
[2020-01-12] MEDS: CYANOCOBALAMIN (VITAMIN B-12) 1,000 MCG TABLET. PO SCH (08:18)
[2020-01-12] MEDS: ISOSORBIDE MONONITRATE ER 30 MG TAB.ER.24H PO SCH (08:18)
[2020-01-12] MEDS: ESTRADIOL 1 MG TABLET. PO SCH (08:19)
[2020-01-12] MEDS: FERROUS SULFATE 325 MG TABLET. PO SCH (08:19)
[2020-01-12] MEDS: LOSARTAN POTASSIUM 50 MG TABLET. PO SCH (08:20)
--- NOTE | 2020-01-12 11:30 | PDOC2 ---
CONSULT Date of Consult Date of Consult DATE: 01/12/20 TIME: 11:30 Reason for Consult Reason for Consult: Back pain Identification/Chief Complaint Chief Complaint Back pain History of Present Illness Reason for Visit: This patient has past medical history of chronic neck back pain. Patient was having some worsening of low back pain. Denies any pain radiating to lower extremities denies any loss of better bowel control. Patient denies any complaint of headache nausea or vomiting chest pain shortness of breath.Images studies reviewed discussed with patient at length. Patient does not have any clinical worsening of radicular symptoms. Images results as noted abovePatient is being evaluated by neurosurgery,, physical therapy. Continue medical management plan discussed at lengthShe is interested in getting further workup as outpatient. Past Medical History Cardiovascular: HTN Pulmonary: Asthma, COPD CENTRAL NERVOUS SYSTEM: CVA GI: GERD Heme/Onc: Anemia NOS Hepatobiliary: No pertinent hx Psych: Anxiety, Depression Musculoskeletal: low back pain, Osteoarthritis Rheumatologic: No pertinent hx, Rheumatoid arthritis Infectious disease: No pertinent hx Renal/: Other Endocrine: No pertinent hx Past Surgical History Past Surgical History: Tonsillectomy, Hysterectomy Family History Family History: Hypertension Social History ALCOHOL: none Drugs: None Lives: with Family Current Problem List Problem List Problems Medical Problems: (1) Frequent falls Status: Acute Current Medications Current Medications Current Medications Fentanyl Citrate (Fentanyl 2ml Vial) 50 mcg PRN Q1HR PRN IV PAIN Last administered on 01/11/20at 00:09; Start 01/10/20 at 15:15; Stop 01/11/20 at 15:14; Status DC Methylprednisolone Sodium Succinate (SOLU-Medrol 40MG VIAL) 60 mg 1X ONCE IV Last administered on 01/10/20at 16:49; Start 01/10/20 at 15:30; Stop 01/10/20 at 15:31; Status DC Acetaminophen (Tylenol) 1,000 mg PRN Q6HRS PRN PO MILD pain or fever; Start 01/11/20 at 06:00 Albuterol Sulfate (Ventolin Neb Soln) 2.5 mg PRN Q4HRS PRN NEB SHORTNESS OF BREATH; Start 01/11/20 at 06:00 Amlodipine Besylate (Norvasc) 2.5 mg DAILY PO Last administered on 01/12/20at 08:16; Start 01/11/20 at 09:00 Aspirin (Ecotrin) 81 mg DAILYWBKFT PO Last administered on 01/12/20 08:15; Start 01/11/20 at 08:00 Atorvastatin Calcium (Lipitor) 20 mg QHS PO Last administered on 01/11/20 21:11; Start 01/11/20 at 21:00 Docusate Sodium (Colace) 100 mg PRN BID PRN PO CONSTIPATION 1ST CHOICE; Start 01/11/20 at 06:00 Ferrous Sulfate (Feosol) 325 mg DAILY PO Last administered on 01/12/20 08:19; Start 01/11/20 at 09:00 Hydrocortisone (Proctosol-Hc) 1 allyssa PRN BID PRN TP RECTAL PAIN; Start 01/11/20 at 06:00 Nitroglycerin (Nitrostat) 0.4 mg PRN Q5MIN PRN SL CHEST PAIN; Start 01/11/20 at 06:00 Polyethylene Glycol (miraLAX PACKET) 17 gm DAILY PO Last administered on 01/12/20 08:14; Start 01/11/20 at 09:00 Potassium Chloride (Klor-Con) 20 meq DAILYWBKFT PO Last administered on 01/12/20 08:15; Start 01/11/20 at 08:00 Tamsulosin HCl (Flomax) 0.4 mg DAILY PO Last administered on 01/12/20 08:13; Start 01/11/20 at 09:00 Tramadol HCl (Ultram) 100 mg PRN Q12HR PRN PO MODERATE PAIN 4-6; Start 01/11/20 at 06:00 Amitriptyline HCl (Elavil) 75 mg QHS PO Last administered on 01/11/20 21:11; Start 01/11/20 at 21:00 Budesonide (Pulmicort) 0.5 mg RTBID NEB Last administered on 01/12/20 07:28; Start 01/11/20 at 08:00 Calcium/Vitamin D (Oscal D 500mg/ 200uts) 1 tab DAILYWBKFT PO Last administered on 01/12/20 08:13; Start 01/11/20 at 08:00 Cyanocobalamin (Vitamin B-12) 5,000 mcg DAILY PO Last administered on 01/12/20 08:18; Start 01/11/20 at 09:00 Estradiol (Estrace) 0.5 mg DAILY PO Last administered on 01/12/20 08:19; Start 01/11/20 at 09:00 Isosorbide Mononitrate (Imdur) 60 mg DAILY PO Last administered on 01/12/20at 08:18; Start 01/11/20 at 09:00 Cetirizine HCl (ZyrTEC) 10 mg DAILY PO Last administered on 01/12/20 08:15; Start 01/11/20 at 09:00 Losartan Potassium (Cozaar) 100 mg DAILY PO Last administered on 01/12/20at 08:20; Start 01/11/20 at 09:00 Hydrochlorothiazide (Hydrodiuril) 25 mg DAILY PO Last administered on 01/12/20at 08:13; Start 01/11/20 at 09:00 Albuterol Sulfate (Ventolin Neb Soln) 2.5 mg RTQID NEB Last administered on 01/12/20at 07:28; Start 01/11/20 at 08:00 Active Scripts Active Dok (Docusate Sodium) 100 Mg Capsule 100 Mg PO PRN BID PRN 30 Days Aspirin Ec (Aspirin) 81 Mg Tablet.dr 81 Mg PO DAILYWBKFT 30 Days Amlodipine Besylate 5 Mg Tablet 2.5 Mg PO DAILY 30 Days Nitrostat (Nitroglycerin) 0.4 Mg Tab.subl 0.4 Mg SL PRN Q5MIN PRN 30 Days Atorvastatin Calcium 20 Mg Tablet 20 Mg PO QHS 30 Days Proair Hfa (Albuterol Sulfate) 8.5 Gm Hfa.aer.ad 2.5 Mg NEB PRN Q4HRS PRN 14 Days Reported Proctosol-Hc (Hydrocortisone) 28.35 Gm Cream..g. 1 Allysas TP BID PRN 15 Days Amitriptyline Hcl 75 Mg Tablet 1 Tab PO QHS Miralax (Polyethylene Glycol 3350) 17 Gm Powd.pack 1 Packet PO DAILY 2 Days dissolve in water Acetaminophen 500 Mg Tablet 2 Tab PO PRN Q6HRS PRN 15 Days Symbicort 160-4.5 Mcg Inhaler (Budesonide/Formoterol Fumarate) 10.2 Gm Hfa.aer.ad 2 Puff IH BID Vitamin B-12 (Cyanocobalamin (Vitamin B-12)) 5,000 Mcg Capsule 5,000 Mcg PO DAILY Calcium 1,000 + D3 Caplet (Calcium Carbonate/Vitamin D3) 1 Each Tablet 1 Each PO DAILY Xyzal (Levocetirizine Dihydrochloride) 5 Mg Tablet 1 Tab PO DAILY 30 Days Isosorbide Mononitrate Er (Isosorbide Mononitrate) 60 Mg Tab.er.24h 60 Mg PO DAILY Diovan Hct 160-25 Mg Tablet (Valsartan/Hydrochlorothiazide) 1 Each Tablet 1 Tab PO DAILY Klor-Con 10 (Potassium Chloride) 10 Meq Tablet.er 20 Meq PO DAILY Ferrous Sulfate 325 Mg Tablet 1 Tab PO DAILY Estradiol 0.5 Mg Tablet 1 Tab PO DAILY Tramadol Hcl 50 Mg Tablet 100 Mg PO PRN Q12HR Tamsulosin Hcl 0.4 Mg Cap.er.24h 1 Cap PO DAILY Allergies Allergies: Coded Allergies: alendronate sodium (Verified Allergy, Severe, Swelling, 10/25/18) methocarbamol (Verified Allergy, Intermediate, 10/25/18) Physical Exam Physical Exam General no acute distress. HEENT: Normocephalic and atraumatic. NECK: Supple without bruit Respiratory: Clear to auscultation bilaterally Heart: Regular rate and rhythm, S1S2 normal NEUROLOGIC: Mental status Alert oriented. Cranial nerve equally reactive pupils, and intact extraocular movements. No facial asymmetry. Palate elevates and tongue protrudes in midline. Reflexes are 1-2 with flexor plantar responses. Coordination no dysmetria Strength able to move all exts equally. Sensory exam is intact for light touch and pinprick. Gait in bed. Vitals VITALS Vital Signs Date Time Temp Pulse Resp B/P (MAP) Pulse Ox O2 Delivery O2 Flow Rate FiO2 01/12/20 08:20 78 140/74 01/12/20 08:00 Room Air 01/12/20 07:59 98.0 18 100 98.0 Labs Labs Laboratory Tests Test 01/10/20 12:49 01/10/20 13:20 Urine Collection Type Unknown Urine Color Yellow Urine Clarity Clear Urine pH 7.0 (<5.0-8.0) Urine Specific [place] <=1.005 (1.000-1.030) Urine Protein Negative mg/dL (NEG-TRACE) Urine Glucose (UA) Negative mg/dL (NEG) Urine Ketones (Stick) Negative mg/dL (NEG) Urine Blood Negative (NEG) Urine Nitrite Negative (NEG) Urine Bilirubin Negative (NEG) Urine Urobilinogen Dipstick 0.2 mg/dL (0.2 mg/dL) Urine Leukocyte Esterase Negative (NEG) Urine RBC 0 /HPF (0-2) Urine WBC 0 /HPF (0-4) Urine Squamous Epithelial Cells Mod /LPF Urine Bacteria 0 /HPF (0-FEW) White Blood Count 4.2 x10^3/uL (4.0-11.0) Red Blood Count 4.44 x10^6/uL (3.50-5.40) Hemoglobin 12.2 g/dL (12.0-15.5) Hematocrit 37.2 % (36.0-47.0) Mean Corpuscular Volume 84 fL (79-100) Mean Corpuscular Hemoglobin 28 pg (25-35) Mean Corpuscular Hemoglobin Concent 33 g/dL (31-37) Red Cell Distribution Width 15.7 % (11.5-14.5) Platelet Count 250 x10^3/uL (140-400) Neutrophils (%) (Auto) 56 % (31-73) Lymphocytes (%) (Auto) 35 % (24-48) Monocytes (%) (Auto) 7 % (0-9) Eosinophils (%) (Auto) 2 % (0-3) Basophils (%) (Auto) 1 % (0-3) Neutrophils # (Auto) 2.3 x10^3/uL (1.8-7.7) Lymphocytes # (Auto) 1.4 x10^3/uL (1.0-4.8) Monocytes # (Auto) 0.3 x10^3/uL (0.0-1.1) Eosinophils # (Auto) 0.1 x10^3/uL (0.0-0.7) Basophils # (Auto) 0.0 x10^3/uL (0.0-0.2) Prothrombin Time 12.7 SEC (11.7-14.0) Prothromb Time International Ratio 1.0 (0.8-1.1) Sodium Level 139 mmol/L (136-145) Potassium Level 4.3 mmol/L (3.5-5.1) Chloride Level 102 mmol/L (98-107) Carbon Dioxide Level 29 mmol/L (21-32) Anion Gap 8 (6-14) Blood Urea Nitrogen 15 mg/dL (7-20) Creatinine 1.1 mg/dL (0.6-1.0) Estimated GFR (Cockcroft-Gault) 59.8 BUN/Creatinine Ratio 14 (6-20) Glucose Level 102 mg/dL (70-99) Calcium Level 9.3 mg/dL (8.5-10.1) Total Bilirubin 0.4 mg/dL (0.2-1.0) Aspartate Amino Transf (AST/SGOT) 30 U/L (15-37) Alanine Aminotransferase (ALT/SGPT) 41 U/L (14-59) Alkaline Phosphatase 81 U/L (46-116) Troponin I Quantitative < 0.017 ng/mL (0.000-0.055) Total Protein 7.8 g/dL (6.4-8.2) Albumin 4.0 g/dL (3.4-5.0) Albumin/Globulin Ratio 1.1 (1.0-1.7) Assessment/Plan Assessment/Plan This patient has past medical history of chronic neck back pain. Patient was having some worsening of low back pain. Denies any pain radiating to lower extremities denies any loss of better bowel control. Patient denies any complaint of headache nausea or vomiting chest pain shortness of breath. Images studies reviewed discussed with patient at length. Patient does not have any clinical worsening of radicular symptoms. Images results as noted abovePatient is being evaluated by neurosurgery,, physical therapy. Continue medical management plan discussed at lengthShe is interested in getting further workup as outpatient. ZENIA JONES MD Jan 12, 2020 11:30
--- NOTE | 2020-01-12 11:39 | CONS ---
DATE OF CONSULTATION: 01/12/2020 ATTENDING PHYSICIAN: Dr. Barcenas. REASON FOR CONSULTATION: The patient was seen at the request of Dr. Chavez for rehab evaluation. HISTORY OF PRESENT ILLNESS: This is a 69-year-old female known to me in the past. The patient with chronic neck and lower back pain from degenerative disk disease and degenerative joint disease of cervical and lumbar vertebrae with cervical and lumbar radiculitis, but no clinical evidence of cervical or lumbar radiculopathy. The patient was admitted through the Emergency Room on 01/10/2020 with frequent falls. She admits her left leg gives away with pain. The patient also admits neck and upper back pain. The patient with known coronary artery disease, status post permanent pacemaker placement earlier this year at this medical center, also history of old cerebrovascular accident, hypertension, pleurisy, bilateral hip replacement, hysterectomy, oophorectomy, tonsillectomy, rectocele repair, hernia repair, right rotator cuff repair, bilateral, of course, hip arthroplasty , known allergic to METHOCARBAMOL AND ALENDRONATE, family history of coronary artery disease. The patient lives with her who also had some chronic pain problems and she had a cane and walker at home. She had stairs with railing on one side to manage. The patient had gone through epidural injections in the past without any lasting help. The patient admits no trouble with her bowel or bladder control. She had been taking tramadol for pain. The patient since admission had radiological studies including CT scan of the brain, cervical and lumbar spine, which revealed severe degenerative changes with cervical kyphosis in the cervical spine with severe bilateral neural foraminal and mild central canal stenosis at several levels and in the lumbar spine area, slight concentric disk bulge at L3-L4 and L4-L5, no significant change since MRI scan done of 07/[address] of brain failed to reveal any acute abnormalities. PHYSICAL EXAMINATION: The patient on physical examination today revealed a middle-aged female. She is alert and oriented to time, place, person and circumstance and follows commands appropriately, moves all 4 extremities voluntarily where she had 4+/5 grade muscle strength and she had equal perception of touch and pinprick sensation bilaterally. Deep tendon reflexes are 1-2+ and symmetrical. The patient had painful range of motion of both hip and knee joints. She had mild crepitus on range of motion of her knee joints with some laxity of knee joint collateral ligaments. She had significant tenderness to palpation over cervical and upper thoracic paraspinal and posterior shoulder girdle muscles and over left sacroiliac joint area and trochanteric bursa. Straight leg raising test is negative bilaterally. She is independent with bed mobility and transfers and up walking using a roller walker. Her skin is intact at this time. ASSESSMENT: A middle-aged female with chronic neck and lower back pain from degenerative disk disease and degenerative joint disease of cervical and lumbar vertebrae with cervical and lumbar radiculitis, but no clinical evidence of ongoing cervical or lumbar radiculopathy or cervical or lumbar spinal stenosis on clinical examination. She presents with cervical paraspinal, posterior shoulder girdle muscle strain and also left trochanteric bursitis, degenerative joint disease of both knees. The patient with known coronary artery disease, old cerebrovascular accident, hypertension, bilateral hip arthroplasty, right rotator cuff repair and permanent pacemaker placement. RECOMMENDATIONS: Home with outpatient physical therapy followup. I have instructed in a home program of physical modalities, trigger point massage and relax, stretching exercise to her neck and back muscles and reviewed with her proper body mechanics. I have arranged for outpatient physical therapy. Home when medically stable with outpatient followup. Dr. Barcenas, I appreciate asking me to participate in the care of this interesting patient. I will be glad to see her for followup with you on as needed basis. JENNIFER MACK MD DR: ARJUN/les JOB#: [id number] / [id number]
[2020-01-12 11:59] VITALS: BP 116/80
--- NOTE | 2020-01-12 13:49 | DS ---
DATE OF DISCHARGE: 01/12/2020 ADMISSION DIAGNOSES: Frequent falls. DISCHARGE DIAGNOSES: 1. Resolving frequent falls. 2. History of coronary artery disease. 3. Stroke. 4. Hypertension. 5. Pleurisy. 6. Hip pain. 7. Hysterectomy. 8. Oophorectomy. 9. Tonsillectomy. 10. Rectocele. 11. Hernia repair. 12. Rotator cuff repair. 13. Bilateral hip surgeries. 14. Pacemaker. CONSULTS: Dr. Salinas, Dr. Mccall and Dr. Chavez. PROCEDURES: None. HOSPITAL COURSE: The patient is a pleasant middle-aged female who presented with multiple falls. She has multiple issues too. The above consults were obtained and basically the workup was benign. She is doing better today. She was up walking. Heart tones are normal. Lungs are clear. I discussed the case with Dr. Salinas. we are going to discharge her to home with outpatient physical therapy. DISPOSITION: Home. ACTIVITY: As tolerated. DIET: Low sodium. MEDICATIONS: Please see the MRAD. TOTAL TIME: 31 minutes. ARLEN RENTERIA DO DR: SERGIO/les JOB#: [id number] / [id number]
--- NOTE | 2020-01-14 15:48 | EKG ---
[facility] [address] [place] [address] Test Date: 2020-01-10 Test Time: 12:21:47 Pat Name: AMOL CHRISTINA Department: Room: Gender: F Serology Teacher: : 1950 Requested By: RENNY BAILON Order Number: [id number] Reading MD: Measurements Intervals [place] Rate: 78 P: 30 WI: 172 QRS: -13 QRSD: 112 T: 11 QT: 390 QTc: 448 Interpretive Statements SINUS RHYTHM LEFTWARD AXIS OTHERWISE NORMAL ECG RI6.02 Compared to ECG 01/10/2020 12:20:39 Left-axis deviation now present
== END 2020-01-12 12:30 | disposition home or self-care (01) | DRG 552 ==
LOC: ER 11:10 → ED HOLD 15:09 → 6 SOUTH 19:02 → 4 NORTH 01-11 16:28
PROVIDERS: ADMIT Internal Medicine; ATTEND Internal Medicine
DX: M51.16 Intervertebral disc disorders with radiculopathy, lumbar region (principal); M47.812 Spondylosis without myelopathy or radiculopathy, cervical region; G58.9 Mononeuropathy, unspecified; G89.29 Other chronic pain; I11.0 Hypertensive heart disease with heart failure; I25.10 Atherosclerotic heart disease of native coronary artery without angina pectoris; I50.9 Heart failure, unspecified; J44.9 Chronic obstructive pulmonary disease, unspecified; M17.0 Bilateral primary osteoarthritis of knee; M40.202 Unspecified kyphosis, cervical region; M70.62 Trochanteric bursitis, left hip; N81.6 Rectocele; R09.1 Pleurisy; R29.6 Repeated falls; Z82.49 Family history of ischemic heart disease and other diseases of the circulatory system; Z86.73 Personal history of transient ischemic attack (TIA), and cerebral infarction without residual deficits; Z90.710 Acquired absence of both cervix and uterus; Z95.0 Presence of cardiac pacemaker; Z96.643 Presence of artificial hip joint, bilateral; F32.9 Major depressive disorder, single episode, unspecified; F41.9 Anxiety disorder, unspecified; K21.9 Gastro-esophageal reflux disease without esophagitis; W18.39XA Other fall on same level, initial encounter; Y93.89 Activity, other specified; Y92.89 Other specified places as the place of occurrence of the external cause; Y99.8 Other external cause status
CPT/HCPCS: 36415; 70450; 72125; 72131; 80053; 81001; 84484; 85025; 85610; 93005; 94640; 94760; 96374; 99285; J2920; J3010; G0378; J7613; J7626

== ENCOUNTER 2020-01-13 20:49 | Emergency (ER) | payer MEDICARE ==
[~2020-01-13] VITALS: Ht 157.5 cm; Wt 68.1 kg
[~2020-01-13 20:49] MED LIST changes: +ASPI-612 PO; -ASPI-886 PO; +HYDR28.337 TP; +POLY17PO29 PO
--- NOTE | 2020-01-13 21:30 | PHYS DOC ---
Past Medical History Past Medical History: CAD, CVA, Hypertension, Other Additional Past Medical Histor: PLEURISY Past Surgical History: Hip Replacement, Hysterectomy, Oophorectomy, Tonsillectomy Additional Past Surgical Histo: rectocele, hernia repair, rt rotator, bilat hip rx, PACEMAKER Smoking Status: Former Smoker Alcohol Use: None Drug Use: None General Adult EDM: Chief Complaint: SKIN PROBLEM HPI: HPI: Patient is a 69 year old female presenting to the ED with a chief complaint of small blister to her right hand. Patient states that she was in the hospital discharge yesterday and had a pacemaker placed. Patient states that her IV site has a small blister in place. There is no erythema or tenderness. Review of Systems: Review of Systems: Constitutional: Denies fever or chills. [] Eyes: Denies change in visual acuity. [] HENT: Denies nasal congestion or sore throat. [] Respiratory: Denies cough or shortness of breath. [] Cardiovascular: Denies chest pain or edema. [] Integument: Small blister on her right hand Heart Score: Risk Factors: Risk Factors: DM, Current or recent (<one month) smoker, HTN, HLP, family history of CAD, obesity. Risk Scores: Score 0 - 3: 2.5% MACE over next 6 weeks - Discharge Home Score 4 - 6: 20.3% MACE over next 6 weeks - Admit for Clinical Observation Score 7 - 10: 72.7% MACE over next 6 weeks - Early Invasive Strategies Allergies: Allergies: Allergies Coded Allergies Type Severity Reaction Last Updated Verified alendronate sodium Allergy Severe Swelling 10/25/18 Yes methocarbamol Allergy Intermediate 10/25/18 Yes Physical Exam: PE: Constitutional: Well developed, well nourished, no acute distress, non-toxic appearance. [] HENT: Normocephalic, atraumatic Eyes: EOMI Neck: Normal range of motion, Respiratory: No respiratory distress Extremities: Small pustule present on the right hand. No erythema or swelling. Neurologic: Alert and oriented X 3 EKG: EKG: [] Radiology/Procedures: Radiology/Procedures: [] Course & Med Decision Making: Course & Med Decision Making Wound cleaned out with alcohol wipes. No need for antibiotics currently. Patient be discharged home for outpatient follow-up with her PCP. Magan Disclaimer: Magan Disclaimer: This electronic medical record was generated, in whole or in part, using a voice recognition dictation system. Departure Departure Impression: Primary Impression: IV site infection Disposition: 01 HOME, SELF-CARE Condition: STABLE Referrals: MELLY QUINONEZ MD (PCP) Patient Instructions: Infiltration, IV, [id number] Additional Instructions: Discussed plan of care with patient. Patient is instructed to follow up with PCP in one to 2 days. Appropriate discharge instructions given to patient to return to the ED or to seek immediate medical evaluation. Patient is instructed to return to the ED if symptoms worsen or if any concerns. Justicifation of Admission Dx: Justifications for Admission: Justification of Admission Dx: ARIE Holley DO Jan 13, 2020 21:30
[2020-01-13 21:42] VITALS: BP 119/74
== END 2020-01-13 21:46 | disposition home or self-care (01) ==
LOC: ER 20:49
DX: T80.29XA Infection following other infusion, transfusion and therapeutic injection, initial encounter (principal); S60.521A Blister (nonthermal) of right hand, initial encounter; I10 Essential (primary) hypertension; I25.10 Atherosclerotic heart disease of native coronary artery without angina pectoris; Z86.73 Personal history of transient ischemic attack (TIA), and cerebral infarction without residual deficits; Z87.891 Personal history of nicotine dependence; Z95.0 Presence of cardiac pacemaker; Z88.8 Allergy status to other drugs, medicaments and biological substances; Y93.89 Activity, other specified; X58.XXXA Exposure to other specified factors, initial encounter; Y92.89 Other specified places as the place of occurrence of the external cause; Y99.8 Other external cause status
CPT/HCPCS: 99281

== ENCOUNTER → 2020-02-11 | Outpatient (CLI) | payer MEDICARE ==
[2020-01-13 21:42] VITALS: BP 119/74
[~2020-02-11] MED LIST changes: -ASPI-612 PO; +ASPI-886 PO
--- NOTE | 2020-02-11 14:24 | RAD ---
EXAM: CT Chest without IV contrast INDICATION: Reason: pulmonary infiltrates / Spl. Instructions: / History: TECHNIQUE: Multi-detector row CT images were acquired from the thoracic inlet through the upper abdomen without the use of IV contrast. Sagittal and coronal images were acquired from the transaxial data. All CT scans performed at this facility utilize dose optimization techniques as appropriate to the exam, including the following: Automated exposure control and adjustment of the mA and/or KV according to patient size (this includes techniques or standardized protocols for targeted exams where dose is indication/reason for exam). COMPARISON: Single view chest x-ray of 11/21/2019 FINDINGS: The absence of IV contrast limits evaluation of soft tissue pathology. CARDIOVASCULAR: Left chest dual-chamber pacemaker is again evident. MEDIASTINUM & JARED: No adenopathy or masses. LUNGS: No pulmonary infiltrate, nodule, or other focal abnormality. PLEURAL SPACE: No pleural effusions or pneumothorax. OSSEOUS & SOFT TISSUE: Mild levoscoliosis of the upper thoracic spine, apex at T2-T3. ABDOMEN: The visualized portions of the upper abdomen are unremarkable. IMPRESSION: Normal CT of the chest, status post left chest pacemaker.. No residual or recurrent pulmonary infiltrate. Electronically signed by: Chelsea Hammond MD (02/11/2020 2:20 PM) [id number]
== END | disposition home or self-care (01) ==
LOC: CT 08:54
PROVIDERS: ATTEND Internal Medicine Pulmonary Disease
DX: R91.8 Other nonspecific abnormal finding of lung field (principal); M41.84 Other forms of scoliosis, thoracic region; Z95.0 Presence of cardiac pacemaker
CPT/HCPCS: 71250

== ENCOUNTER → 2020-04-15 | Outpatient (CLI) | payer MEDICARE ==
--- NOTE | 2020-04-15 13:28 | CARD ---
MR#: [id number] Date of Study: 04/15/2020 Ordering Physician: ESSENCE COX, Referring Physician: ESSENCE COX, Tech: Cristiane East [facility] APPROVED REPORT EXAM: Two-dimensional and M-mode echocardiogram with Doppler and color Doppler. Other Information Quality : Good INDICATION Non-Ischemic Cardiomyopathy, History Tachy/Shashank Syndrome Surgery/Intervention Pacemaker: Date: 10/30/19 2D DIMENSIONS RVDd3.2 (2.9-3.5cm)Left Atrium(2D)3.7 (1.6-4.0cm) IVSd0.9 (0.7-1.1cm)Aortic Root(2D)3.1 (2.0-3.7cm) LVDd3.9 (3.9-5.9cm)LVOT Diameter2.2 (1.8-2.4cm) PWd0.9 (0.7-1.1cm)LVDs2.6 (2.5-4.0cm) FS (%) 32.1 %SV40.1 ml LVEF(%)60.9 (>50%) Aortic Valve AoV Peak Sanjay.146.4cm/sAoV VTI26.7cm AO Peak GR.8.6mmHgLVOT Peak Sanjay.100.6cm/s AO Mean GR.5mmHgAVA (VMAX)2.66cm2 IDANIA (VTI)2.80cm2 Mitral Valve MV E Meyigjln61.1cm/sMV DECEL FPWO392yf MV A Yivxqtrm522.1cm/sE/A Ratio0.8 Tricuspid Valve TR P. Qrfrycdi239po/sRAP MZURJOGF1zzZp TR Peak Gr.75dbRqBNZH76clNi Pulmonary Vein S1 Myedcher54.0cm/sD2 Pkmhoqcr28.7cm/s LEFT VENTRICLE The left ventricle is normal size. There is normal left ventricular wall thickness. The left ventricu lar systolic function is normal. The Ejection Fraction is 60%. Apical motion consistent with pacemake r activation. Transmitral Doppler flow pattern is Grade I-abnormal relaxation pattern. RIGHT VENTRICLE The right ventricle is normal size. The right ventricular systolic function is normal. There is a pac emaker lead in the right ventricle. ATRIA The left atrium size is normal. The right atrium size is normal. A pacemaker is seen in the right atr ium consistent with history. The interatrial septum is intact with no evidence for an atrial septal d efect or patent foramen ovale as noted on 2-D or Doppler imaging. AORTIC VALVE The aortic valve is calcified but opens well. Doppler and Color Flow revealed no significant aortic r egurgitation. There is no significant aortic valvular stenosis. MITRAL VALVE The mitral valve is calcified but opens well. Mitral annular calcification is mild. There is no evide nce of mitral valve prolapse. There is no mitral valve stenosis. Doppler and Color-flow revealed trac e mitral regurgitation. TRICUSPID VALVE The tricuspid valve is normal in structure and function. Doppler and Color Flow revealed mild to mode rate tricuspid regurgitation. There is mild to moderate pulmonary hypertension. The PA pressure was e stimated at 41 mmHg. There is no tricuspid valve stenosis. PULMONIC VALVE The pulmonic valve is not well visualized. Doppler and Color Flow revealed no pulmonic valvular regur gitation. There is no pulmonic valvular stenosis. GREAT VESSELS The aortic root is normal in size. The ascending aorta is normal in size. The IVC is normal in size a nd collapses >50% with inspiration. PERICARDIAL EFFUSION There is no evidence of significant pericardial effusion. Critical Notification Critical Value: No <Conclusion> The left ventricular systolic function is normal. The Ejection Fraction is 60%. Transmitral Doppler flow pattern is Grade I-abnormal relaxation pattern. Pacer lead noted RA/RV. Trace mitral regurgitation. Mild to moderate tricuspid regurgitation. The PA pressure was estimated at 41 mmHg. There is no evidence of significant pericardial effusion. Signed by : Víctor Alfonso, Electronically Approved : 04/15/2020 13:27:43
== END | disposition home or self-care (01) ==
LOC: ECHO 10:56
PROVIDERS: ATTEND Internal Medicine Cardiovascular Disease
DX: I08.3 Combined rheumatic disorders of mitral, aortic and tricuspid valves (principal); I27.20 Pulmonary hypertension, unspecified; I42.8 Other cardiomyopathies
CPT/HCPCS: 93306

== ENCOUNTER 2021-04-25 19:17 | Emergency (ER) | payer MEDICARE ==
[~2021-04-25] VITALS: Ht 157.5 cm; Wt 74.6 kg
[~2021-04-25 19:17] MED LIST changes: +AMLO-186 PO; +AMLO-187 PO; -AMLO10TA8 PO; -AMLO5TAB10 PO; +DOCU-148 PO; -DOCU-153 PO; -DOXY100C2 PO; +DOXY100C3 PO; -ISOS60TA2 PO; +ISOS60TA55 PO; +TIZA-75 PO; -TIZA4TAB2 PO
[2021-04-25 19:43] LABS: BASO # 0.1 x10^3/uL (0.0-0.2); BASO % 1 % (0-3); EOS # 0.1 x10^3/uL (0.0-0.7); EOS % 3 % (0-3); HEMATOCRIT 34.1 % (36.0-47.0); HEMOGLOBIN 11.2 g/dL (12.0-15.5); LYMPH # 2.3 x10^3/uL (1.0-4.8); LYMPH % 51 % (24-48); MEAN CORPUSCULAR HEMOGLOBIN 27 pg (25-35); MEAN CORPUSCULAR HGB CONC 33 g/dL (31-37); MEAN CORPUSCULAR VOLUME 82 fL (79-100); MONO # 0.4 x10^3/uL (0.0-1.1); MONO % 10 % (0-9); NEUT # 1.5 x10^3/uL (1.8-7.7); NEUT % 34 % (31-73); PLATELET COUNT 249 x10^3/uL (140-400); RED BLOOD COUNT 4.17 x10^6/uL (3.50-5.40); RED CELL DISTRIBUTION WIDTH 15.1 % (11.5-14.5); WHITE BLOOD COUNT 4.4 x10^3/uL (4.0-11.0)
[2021-04-25 19:54] LABS: CALCIUM 8.8 mg/dL (8.5-10.1); GFR 66.5; POTASSIUM 3.5 mmol/L (3.5-5.1)
[2021-04-25 20:01] LABS: ALBUMIN 3.5 g/dL (3.4-5.0); TOTAL BILIRUBIN 0.3 mg/dL (0.2-1.0); TOTAL PROTEIN 7.1 g/dL (6.4-8.2)
--- NOTE | 2021-04-25 20:02 | PHYS DOC ---
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 Patient states she has been trying to use xomh-fyg-[id number] remedies with no relief. Patient is also complaining of 8 out of 10 frontal headache that began 3 days ago. Patient states the headache is intermittent. Denies anything specifically exacerbating or relieving her headache. Denies any abdominal pain or diarrhea. Patient is vaccinated against COVID-19 (JOHNATHAN PATE [employer]ODUCTION WORKER) Review of Systems: Review of Systems: Constitutional: Denies fever or chills. [] Eyes: Denies change in visual acuity. [] HENT: Denies nasal congestion or sore throat. [] Respiratory: Reports cough and shortness of breath. [] Cardiovascular: Denies chest pain or edema. [] GI: Reports nausea and vomiting. Denies abdominal pain, bloody stools or diarrhea. [] : Denies dysuria. [] Musculoskeletal: Denies back pain or joint pain. [] Integument: Denies rash. [] Neurologic: Reports headache, denies focal weakness or sensory changes. [] Psychiatric: Denies depression or anxiety. [] (JOHNATHAN PATE Nona [employer]ODUCTION WORKER) Heart Score: C/O Chest Pain: N/A Risk Factors: Risk Factors: DM, Current or recent (<one month) smoker, HTN, HLP, family history of CAD, obesity. Risk Scores: Score 0 - 3: 2.5% MACE over next 6 weeks - Discharge Home Score 4 - 6: 20.3% MACE over next 6 weeks - Admit for Clinical Observation Score 7 - 10: 72.7% MACE over next 6 weeks - Early Invasive Strategies (JOHNATHAN PATE [employer] WORKER) Current Medications: Current Medications Medications (Trade) Dose Ordered Sig/Carlos Start Time Stop Time Status Last Admin Dose Admin Dexamethasone Sodium Phosphate (Decadron) 10 mg 1X ONCE 04/25/21 20:15 04/25/21 20:16 04/25/21 19:40 10 MG (JOHNATHAN PATE [employer]ODUCTION WORKER) Allergies: Allergies: Allergies Coded Allergies Type Severity Reaction Last Updated Verified alendronate sodium Allergy Severe Swelling 10/25/18 Yes methocarbamol Allergy Intermediate 10/25/18 Yes (JOHNATHAN PATE [employer] WORKER) Physical Exam: PE: Constitutional: Well developed, well nourished, no acute distress, non-toxic appearance. [] HENT: Normocephalic, atraumatic, bilateral external ears normal, oropharynx moist, no oral exudates, nose normal. [] Eyes: PERRLA, EOMI, conjunctiva normal, no discharge. [] Neck: Normal range of motion, no tenderness, supple, no stridor. [] Cardiovascular:Heart rate regular rhythm, pacemaker present Lungs & Thorax: Bilateral breath sounds clear to auscultation [] Abdomen: Bowel sounds normal, soft, no tenderness, no masses, no pulsatile masses. [] Skin: Warm, dry, no erythema, no rash. [] Back: No tenderness, no CVA tenderness. [] Extremities: No tenderness, no cyanosis, no clubbing, ROM intact, no edema. [] Neurologic: Alert and oriented X 3, normal motor function, normal sensory function, no focal deficits noted. [] Psychologic: Affect normal, judgement normal, mood normal. [] (JOHNATHAN PATE [employer] WORKER) Current Patient Data: Labs: Laboratory Tests Test 04/25/21 19:27 White Blood Count 4.4 x10^3/uL (4.0-11.0) Red Blood Count 4.17 x10^6/uL (3.50-5.40) Hemoglobin 11.2 g/dL (12.0-15.5) L Hematocrit 34.1 % (36.0-47.0) L Mean Corpuscular Volume 82 fL (79-100) Mean Corpuscular Hemoglobin 27 pg (25-35) Mean Corpuscular Hemoglobin Concent 33 g/dL (31-37) Red Cell Distribution Width 15.1 % (11.5-14.5) H Platelet Count 249 x10^3/uL (140-400) Neutrophils (%) (Auto) 34 % (31-73) Lymphocytes (%) (Auto) 51 % (24-48) H Monocytes (%) (Auto) 10 % (0-9) H Eosinophils (%) (Auto) 3 % (0-3) Basophils (%) (Auto) 1 % (0-3) Neutrophils # (Auto) 1.5 x10^3/uL (1.8-7.7) L Lymphocytes # (Auto) 2.3 x10^3/uL (1.0-4.8) Monocytes # (Auto) 0.4 x10^3/uL (0.0-1.1) Eosinophils # (Auto) 0.1 x10^3/uL (0.0-0.7) Basophils # (Auto) 0.1 x10^3/uL (0.0-0.2) Sodium Level 142 mmol/L (136-145) Potassium Level 3.5 mmol/L (3.5-5.1) Chloride Level 103 mmol/L (98-107) Carbon Dioxide Level 27 mmol/L (21-32) Anion Gap 12 (6-14) Blood Urea Nitrogen 10 mg/dL (7-20) Creatinine 1.0 mg/dL (0.6-1.0) Estimated GFR (Cockcroft-Gault) 66.5 BUN/Creatinine Ratio 10 (6-20) Glucose Level 95 mg/dL (70-99) Calcium Level 8.8 mg/dL (8.5-10.1) Magnesium Level Pending Total Bilirubin Pending Aspartate Amino Transferase (AST) Pending Alanine Aminotransferase (ALT) Pending Alkaline Phosphatase Pending Total Protein Pending Albumin Pending Albumin/Globulin Ratio Pending Laboratory Tests 04/25/21 19:27 Laboratory Tests 04/25/21 19:27 (JOHNATHAN PATE APRN) Vital Signs: Vital Signs Date Time Temp Pulse Resp B/P (MAP) Pulse Ox O2 Delivery O2 Flow Rate FiO2 04/25/21 21:09 82 21 132/87 (102) 98 Room Air 04/25/21 20:54 84 30 135/83 (100) 98 Room Air 04/25/21 20:39 78 21 134/79 (97) 95 Room Air 04/25/21 20:24 80 20 134/80 (98) 96 Room Air 04/25/21 20:09 84 23 135/82 (99) 97 Room Air 04/25/21 19:54 82 20 132/82 (99) 97 Room Air 04/25/21 19:39 86 20 127/78 (94) 98 Room Air 04/25/21 19:22 98.6 87 16 116/72 (87) 99 Room Air 98.6 (ANABEL EAST DO) EKG: EK interpreted by Dr. East sinus rhythm heart rate 81 no STEMI [] (JOHNATHAN PATE [employer]ODUCTION WORKER) Radiology/Procedures: Radiology/Procedures: []PROCEDURE: PORTABLE CHEST 1V EXAM: AP View of the chest DATE: 04/25/2021 8:42 PM INDICATION: Reason: cough COMPARISON: 09/09/2020 FINDINGS: Cardiac generator pack obscures a portion of the left chest with leads in stable position. The heart is not enlarged. Mediastinal and hilar contours are normal. Patchy opacities peripheral bilateral lung bases. No pleural effusion or pneumothorax. IMPRESSION: 1. Patchy opacities peripheral bilateral lung bases to represent atelectasis although atypical infectious or inflammatory process could have this appearance as well. Electronically signed by: Cristopher Ball MD (04/25/2021 9:00 PM) [facility] CENTERLIZZY DICTATED and SIGNED BY: CRISTOPHER BALL MD DATE: 04/25/[id number] 0 (JOHNATHAN PATE [employer]ODUCTION WORKER) Course & Med Decision Making: Course & Med Decision Making Pertinent Labs and Imaging studies reviewed. (See chart for details) This is a 70-year-old female patient presented to the ED today with cough, nausea, vomiting symptoms for 4 weeks, patient is also complaining of a h eadache intermittently for 3 days. Patient is actively coughing in the ED. Vitals on arrival to the ED temperature 98.6, heart rate 87, respirations 16 on room air, O2 sats 99%, blood pressure 116/72. CBC CMP troponin EKG with no acute findings. Negative rapid Covid test, negative influenza A or B. Chest x-ray noted for patchy opacities peripheral bilateral lung bases to represent atelectasis although atypical infectious or inflammatory process could have this appearance as well. Discharged on doxycycline, prednisone, albuterol inhaler, and guaifenesin with codeine. (JOHNATHAN PATE APRN) Course & Med Decision Making I have participated in the care of this patient and I have reviewed and agree with all pertinent clinical information above including history, exam, and recommendations. (ANABEL EAST DO) Dragon Disclaimer: Dragon Disclaimer: This electronic medical record was generated, in whole or in part, using a voice recognition dictation system. (JOHNATHAN PATE APRN) Departure Departure Impression: Primary Impression: Atypical pneumonia Additional Impressions: Headache Qualified Codes: R51.9 - Headache, unspecified Nausea and vomiting Qualified Codes: R11.2 - Nausea with vomiting, unspecified Disposition: 01 HOME / SELF CARE / HOMELESS Condition: STABLE Referrals: MELLY QUINONEZ MD (PCP) Follow-up with your doctor next Patient Instructions: Headache, FAQs, Pneumonia, Adult Additional Instructions: Your chest x-ray shows he could have possible pneumonia. We will put you on antibiotics, ensure you take them as prescribed. Please follow-up with your doctor next week. Come back to the ED at any point symptoms worsen Scripts Guaifenesin/Codeine Phosphate (GUAIFENESIN-CODEINE SYRUP) 118 Ml Liquid 5 ML PO Q6HRS, #120 ML Prov: JOHNATHAN PATE APRN 04/25/21 Promethazine Hcl (PROMETHAZINE HCL) 25 Mg Tablet 1 TAB PO PRN Q6HRS, #24 TAB Prov: JOHNATHAN PATE APRN 04/25/21 Doxycycline Hyclate (DOXYCYCLINE HYCLATE) 100 Mg Tablet 1 TAB PO BID, #14 TAB Prov: JOHNATHAN PATE APRN 04/25/21 JOHNATHAN PATE APRN Apr 25, 2021 20:02 ANABEL EAST DO Apr 25, 2021 21:54
[2021-04-25 20:13] LABS: INFLUENZA A PATIENT NEGATIVE (NEGATIVE); INFLUENZA B PATIENT NEGATIVE (NEGATIVE)
[2021-04-25] MEDS ORDERED: DEXAMETHASONE SOD PHOS 20 MG/5 ML VIAL. IV ONE (20:15)
[2021-04-25] MEDS ORDERED: guaiFENesin/CODEINE 100mg/10mg 5 ML LIQUID PO STA (20:55)
[2021-04-25] MEDS ORDERED: BENZONATATE 100 MG CAPSULE. PO ONE (21:00)
--- NOTE | 2021-04-25 21:02 | RAD ---
EXAM: AP View of the chest DATE: 04/25/2021 8:42 PM INDICATION: Reason: cough COMPARISON: 09/09/2020 FINDINGS: Cardiac generator pack obscures a portion of the left chest with leads in stable position. The heart is not enlarged. Mediastinal and hilar contours are normal. Patchy opacities peripheral bilateral lung bases. No pleural effusion or pneumothorax. IMPRESSION: 1. Patchy opacities peripheral bilateral lung bases to represent atelectasis although atypical infec tious or inflammatory process could have this appearance as well. Electronically signed by: Cristopher Cohen MD (04/25/2021 9:00 PM) JUAN PABLO
[2021-04-25] MEDS ORDERED: cefTRIAXone IV Push 1 GM VIAL. IVP ONE (21:15)
[2021-04-25] MEDS ORDERED: PROM25TA10 PO (21:22)
[2021-04-25] MEDS ORDERED: GUAI118L13 PO ×2 (21:22→21:25)
[2021-04-25] MEDS ORDERED: DOXY100T PO (21:22)
[2021-04-25 21:37] LABS: BILIRUBIN,URINE NEGATIVE (NEG); CLARITY,URINE CLEAR; COLOR,URINE YELLOW; NITRITE,URINE NEGATIVE (NEG); PH,URINE 6.5 (<5.0-8.0); PROTEIN,URINE NEGATIVE (NEG-TRACE); UROBILINOGEN,URINE 0.2 mg/dL (0.2 mg/dL)
[2021-04-25 21:46] VITALS: BP 131/66
[2021-04-25 21:47] LABS: BACTERIA,URINE 0 /HPF (0-FEW); RBC,URINE 0 /HPF (0-2); WBC,URINE RARE /HPF (0-4)
--- NOTE | 2021-04-27 10:03 | NUR ---
IP: Informed pt of negative covid test. Pt verbalized understanding.
== END 2021-04-25 22:00 | disposition home or self-care (01) ==
LOC: ER 19:17
DX: J18.9 Pneumonia, unspecified organism (principal); Z20.822 Contact with and (suspected) exposure to COVID-19; R51.9 Headache, unspecified; R11.2 Nausea with vomiting, unspecified; I10 Essential (primary) hypertension; Z86.73 Personal history of transient ischemic attack (TIA), and cerebral infarction without residual deficits; Z87.891 Personal history of nicotine dependence; Z95.0 Presence of cardiac pacemaker; I25.10 Atherosclerotic heart disease of native coronary artery without angina pectoris; Z88.8 Allergy status to other drugs, medicaments and biological substances
CPT/HCPCS: 36415; 71045; 80053; 81001; 83735; 83880; 84484; 85025; 87426; 87804; 96374; 96375; 99285; J0696; J1100; U0003; U0005

== ENCOUNTER 2021-05-24 10:35 | Inpatient (IN) | payer MEDICARE ==
[~2021-05-24] VITALS: Ht 160 cm; Wt 75.2 kg
[2021-05-24] VITALS (20 sets, daily range): BP systolic 76–181; BP diastolic 42–100
[~2021-05-24 10:35] MED LIST changes: +AMIODARONE 150 MG/3 ML VIAL ONE; +CALCIUM CHLORIDE 1,000 MG/10 ML DISP.SYRIN ONE; +DOXY100T PO; +EPINEPHrine SYRINGE 1 MG/10 ML SYRINGE ONE; +GUAI118L13 PO; +MIDAZOLAM HCL/PF 5 MG/5 ML VIAL. ONE; +PROM25TA10 PO; +SODIUM BICARB ADULT 8.4% 50 MEQ/50 ML DISP.SYRIN. ONE
[2021-05-24] MEDS ORDERED: PIPERACILLIN/TAZOBACTAM 4.5 GM in IV NORMAL SALINE 100ML 100 ML IV ONE (11:00)
[2021-05-24] MEDS ORDERED: VANCOMYCIN PER PHARMACY MC PRN (11:00)
[2021-05-24] MEDS ORDERED: NOREPINEPHRINE VIAL 8 MG in IV DEXTROSE 5% 250 ML IV ONE (11:00)
[2021-05-24] MEDS ORDERED: IV NORMAL SALINE 1000ML BAG 1,000 ML IV ONE ×2 (11:00→12:30)
[2021-05-24] MEDS ORDERED: AMIODARONE 450 MG in IV DEXTROSE 5% 250 ML IV ONE (11:00)
--- NOTE | 2021-05-24 11:11 | PHYS DOC ---
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 ATLS protocol started upon ED arrival. Per , pt c/o chest pain prior to ed arrival. 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 H/o cardiac cath August 2019 that showed 30% stenosis of RCA. CTA chest with no pe or aorta abnormalities in September 2019. Review of Systems: Review of Systems: ROS obtainable due to cardiac arrest with ROSC Heart Score: C/O Chest Pain: N/A Risk Factors: Risk Factors: DM, Current or recent (<one month) smoker, HTN, HLP, family hi story of CAD, obesity. Risk Scores: Score 0 - 3: 2.5% MACE over next 6 weeks - Discharge Home Score 4 - 6: 20.3% MACE over next 6 weeks - Admit for Clinical Observation Score 7 - 10: 72.7% MACE over next 6 weeks - Early Invasive Strategies Current Medications: Current Medications Medications (Trade) Dose Ordered Sig/Carlos Start Time Stop Time Status Last Admin Dose Admin Amiodarone HCl 450 mg/Dextrose 259 ml @ 33 mls/hr 1X ONCE 05/24/21 11:00 05/24/21 18:50 Norepinephrine Bitartrate 8 mg/ Dextrose 258 ml @ 14.435 mls/ hr 1X ONCE 05/24/21 11:00 05/24/21 11:01 DC Piperacillin Sod/ Tazobactam Sod 4.5 gm/Sodium Chloride 100 ml @ 200 mls/hr 1X ONCE 05/24/21 11:00 05/24/21 11:29 Sodium Chloride 1,000 ml @ 1,000 mls/hr 1X ONCE 05/24/21 11:00 05/24/21 11:59 Vancomycin HCl (Vanco Per Pharmacy) 1 each PRN DAILY PRN 05/24/21 11:00 Vancomycin HCl 1.75 gm/Sodium Chloride 500 ml @ 250 mls/hr 1X ONCE 05/24/21 11:15 05/24/21 13:14 Allergies: Allergies: Allergies Coded Allergies Type Severity Reaction Last Updated Verified alendronate sodium Allergy Severe Swelling 10/25/18 Yes methocarbamol Allergy Intermediate 10/25/18 Yes Physical Exam: PE: Constitutional: cpr started in waiting room/pulled from vehicle, afebrile HENT: Normocephalic, atraumatic, Eyes: conjunctiva normal, no discharge. Neck: Normal range of motion, supple, Cardiovascular: in vfib on monitor, pulseless on arrival Lungs & Thorax: Agonal respirations, bilateral breath sounds with Ambu bag and Abdomen: soft, no tenderness, Skin: Warm, dry, Extremities: no cyanosis, no lower extremity edema Neurologic: GCS3, unresponsive Current Patient Data: Labs: Laboratory Tests Test 05/24/21 10:51 Glucose (Fingerstick) 125 mg/dL (70-99) H EKG: EK sinus tachycardia, left axis deviation, normal intervals, no short affected EKG, cannot appreciate any obvious ST elevations 1102 sinus tach cardia 1 3 bpm, left axis deviation, QTC 463, no T wave inversion, no ST elevation or ST depression Radiology/Procedures: Radiology/Procedures: []Indication: Respiratory failure Consent: Unable to give consent due to emergent nature. Medications Used: see nursing note Procedure: The patient was placed in the appropriate position. Intubation was p erformed via MAC blade 3, 7-0 endotracheal tube secured with RT device, 20 at the lip. Initial confirmation of placement included adequate colorimetry bilateral breath sounds, tube fogging, adequate chest rise, adequate pulse oximetry reading. A chest x-ray to verify correct placement of the tube showed appropriate tube position. The patient tolerated the procedure well. Complications: none. Indication: Vascular access Consent: The patient provided consent for this procedure. Procedure: The patient was positioned appropriately and the skin over the left internal jugular vein was prepped and draped in a sterile fashion. Ultrasound guidance utilized. A large bore needle was used to identify the vein. A guide wire was then inserted into the vein through the needle but unable to advance guidewire. The patient tolerated the procedure well. Complications: Unable to advance guidewire Indication: Vascular access Consent: The patient provided consent for this procedure. Procedure: The patient was positioned appropriately and the skin over the right femoral vein was prepped and draped in a sterile fashion. Ultrasound guidance utilized. A large bore needle was used to identify the vein. A guide wire was then inserted into the vein through the needle. A triple lumen catheter was then inserted into the vessel over the guide wire using the Seldinger technique. All ports showed good, free flowing blood return and were flushed with saline solution. The catheter was then securely fastened to the skin with sutures and covered with a sterile dressing. A post procedure X-ray was ordered. The patient tolerated the procedure well. Complications: none IMAGING REPORT Signed PATIENT: AMOL CHRISTINACOUNT: [id number] : 1950 LOCATION: ER AGE: 71 SEX: F EXAM STATUS: REG ER ORD. PHYSICIAN: ANNA MARIE LOREDO DO REASON: cardaic arrest PROCEDURE: PORTABLE CHEST 1V AP chest. HISTORY: Cardiac arrest AP view was taken of the chest. Endotracheal tube extends to the top of the aortic arch. NG tube extends just into the stomach. Left pacemaker is unchanged. There is haziness in the lungs most consistent with pulmonary edema although aspiration could have this pattern. Heart is normal in size. IMPRESSION: 1. Haziness in the lungs most consistent with pulmonary edema. 2. Endotracheal tube in good position. 3. NG tube extends just into the stomach. Electronically signed by: Osmin Nunes MD (05/24/2021 11:23 AM) [facility] DICTATED and SIGNED BY: OSMIN NUNES MD DATE: 05/24/21 [id number] 0 IMAGING REPORT Signed PATIENT: AMOL CHRISTINA JACCOUNT: [id number] : 1950 LOCATION: ER AGE: 71 SEX: F EXAM STATUS: DEP ER ORD. PHYSICIAN: ANNA MARIE LOREDO DO REASON: Central line placement, OG tube adjustment PROCEDURE: PORTABLE CHEST 1V AP chest. HISTORY: Central line placement, G-tube adjustment AP view was taken of the chest. Comparison is made with a study from earlier this morning. Endotracheal tube is in good position. NG tube is better position in the stomach. There is increased right perihilar infiltrate from edema or aspiration. If there is a central line is in the neck and not in good position. IMPRESSION: 1. Central line may be identified in the neck at the top of the film not in good position. 2. Endotracheal tube and NG tube in good position. 3. Mild increased right parahilar edema or infiltrates. The nurse in the ICU was called and notified the findings at the time of the dictation. Electronically signed by: Osmin Nunes MD (05/24/2021 12:43 PM) [facility] DICTATED and SIGNED BY: OSMIN NUNES MD DATE: 05/24/21 [id number] IMAGING REPORT Signed PATIENT: AMOL CHRISTINA JACCOUNT: [id number] : 1950 LOCATION: ER AGE: 71 SEX: F EXAM STATUS: DEP ER ORD. PHYSICIAN: ANNA MARIE LOREDO DO REASON: cardiac arrest PROCEDURE: CT HEAD WO CONTRAST CT HEAD/BRAIN WO dated 05/24/2021 12:26 PM. Comparison: CT 01/10/2020. Clinical Indication: Reason: cardiac arrest / Spl. Instructions: / History: Technical factors: Contiguous 5 mm axial images of the head were obtained from the skullbase to the vertex. No contrast was administered. Findings: There is no apparent intracranial mass, hemorrhage or abnormal extra-axial fluid collection. No new area of abnormal density is seen. The ventricles and basilar cisterns are normally positioned. Impression: No evidence of acute intracranial abnormality. Electronically signed by: Essence Cutler Jr., MD (05/24/2021 12:44 PM) [id number] DICTATED and SIGNED BY: ESSENCE CUTLER Jr, MD DATE: 05/24/21 [id number] 0 Course & Med Decision Making: Course & Med Decision Making Pertinent Labs and Imaging studies reviewed. (See chart for details) Concern for cardiac arrest with refractory V. fib, started on amiodarone drip. ACLS protocol was initiated on arrival. Patient received multiple defibrillations, lidocaine, amiodarone, sodium bicarb, calcium gluconate and magnesium (see nursing documentation so specific of medications and dosing time.). RN palced right tibial IO, I placed 20G right EJ. Patient obtained ROSC. Code freeze initiated with central line placed. OG tube advanced and repeat chest x-ray after performed after left IJ central line placement was unsuccessful (radiologist commented about poor position of central line-I suspect he's referring to the right external jugular vein I placed). Tronic pacemaker interrogation initiated. I spoke to Dr. Adams regarding this patient's care-no STEMI on EKG. Will admit to ICU for further medical management. Patients' notified and in agreement with this plan. I have spoken with the patient and/or caregivers. I have explained the patient's condition, diagnosis and treatment plan based on the information available to me at this time. I have answered the patient's and/or caregivers questions and answered any concerns. The patient and/or caregivers have as good an understanding of the patient's diagnosis, condition and treatment plan as ca n be expected at this point. The patient has been stabilized within the capability of the emergency department. The patient will be transported for further care and management or will be moved to an observation or inpatient service. I have communicated with the staff or medical practitioner taking over this patient's care. Critical Care: Authorized and Performed by: Anna Marie Loredo DO Total critical care time: approximately 60 minutes Due to a high probability of clinically significant, life threatening d eterioration, the patient required my highest level of preparedness to intervene emergently and I personally spent this critical care time directly and personally managing the patient. This critical care time included obtaining a history; examining the patient; pulse oximetry; ventilator management if necessary; ordering and review of studies; arranging urgent treatment with development of a management plan; evaluation of patient's response to treatment; frequent reassessment; discussion with patient/family; and, discussions with other providers. This critical care time was performed to assess and manage the high probability of imminent, life-threatening deterioration that could result in multi-organ failure. It was exclusive of separately billable procedures and treating other patients and teaching time. Please see MDM section and the rest of the note for further information on harshil ent assessment and treatment. Dragon Disclaimer: Dragon Disclaimer: This electronic medical record was generated, in whole or in part, using a voice recognition dictation system. Departure Departure Impression: Primary Impression: Cardiac arrest with ventricular fibrillation Additional Impressions: Hypokalemia Hypermagnesemia Lactic acidosis Transaminitis Disposition: ADMITTED INPATIENT Admitting Physician: MARIELOS (Dr. Weaver) Condition: CRITICAL Referrals: MELLY QUINONEZ MD (PCP) ANNA MARIE HUYNH DO May 24, 2021 11:11
[2021-05-24] MEDS ORDERED: IV RINGERS,LACTATED 1000ML 1,000 ML IV ONE (11:15)
[2021-05-24] MEDS ORDERED: VANCOMYCIN 1.75 GM in IV NORMAL SALINE 500ML BAG 500 ML IV ONE (11:15)
[2021-05-24] MEDS ORDERED: PROPOFOL 100 ML IV PRN ×3 (11:15→12:45)
--- NOTE | 2021-05-24 11:26 | RAD ---
AP chest. HISTORY: Cardiac arrest AP view was taken of the chest. Endotracheal tube extends to the top of the aortic arch. NG tube exte nds just into the stomach. Left pacemaker is unchanged. There is haziness in the lungs most consisten t with pulmonary edema although aspiration could have this pattern. Heart is normal in size. IMPRESSION: 1. Haziness in the lungs most consistent with pulmonary edema. 2. Endotracheal tube in good position. 3. NG tube extends just into the stomach. Electronically signed by: Osmin Nunes MD (05/24/2021 11:23 AM) [facility]
[2021-05-24 11:27] LABS: BASO # 0.1 x10^3/uL (0.0-0.2); BASO % 1 % (0-3); EOS # 0.1 x10^3/uL (0.0-0.7); EOS % 1 % (0-3); HEMATOCRIT 37.3 % (36.0-47.0); HEMOGLOBIN 11.9 g/dL (12.0-15.5); LYMPH # 6.4 x10^3/uL (1.0-4.8); LYMPH % 74 % (24-48); MEAN CORPUSCULAR HEMOGLOBIN 26 pg (25-35); MEAN CORPUSCULAR HGB CONC 32 g/dL (31-37); MEAN CORPUSCULAR VOLUME 83 fL (79-100); MONO # 0.2 x10^3/uL (0.0-1.1); MONO % 2 % (0-9); NEUT # 1.9 x10^3/uL (1.8-7.7); NEUT % 22 % (31-73); PLATELET COUNT 188 x10^3/uL (140-400); RED BLOOD COUNT 4.51 x10^6/uL (3.50-5.40); RED CELL DISTRIBUTION WIDTH 16.6 % (11.5-14.5); WHITE BLOOD COUNT 8.6 x10^3/uL (4.0-11.0)
[2021-05-24 11:27] LABS: BASE EXCESS ABG -5 mmol/L (-3-3); HCO3 ABG 20 mmol/L (21-28); PCO2 ABG 40 mmHg (35-46); PO2 ABG 374 mmHg (65-108); SAT O2 ABG 99 % (92-99)
[2021-05-24 11:30] LABS: FIO2 ABG 100
[2021-05-24] MEDS ORDERED: MAGNESIUM SULFATE 1GM 100 ML IV ONE (11:30)
[2021-05-24] MEDS ORDERED: LIDOCAINE 2% 100 MG/5 ML SYRINGE. IV ONE (11:30)
[2021-05-24] MEDS ORDERED: MIDAZOLAM 100mg/100ml NS BAG 100 ML IV PRN ×2 (11:30→11:45)
[2021-05-24] MEDS ORDERED: MIDAZOLAM HCL/PF 5 MG/5 ML VIAL. NS ONE (11:30)
[2021-05-24 11:32] LABS: ACETAMIN 2.4 mcg/ml (10-30); ETHANOL < 10 mg/dL (0-10)
[2021-05-24 11:35] LABS: ALBUMIN 2.6 g/dL (3.4-5.0); CALCIUM 9.5 mg/dL (8.5-10.1); CREATININE 1.2 mg/dL (0.6-1.0); DIRECT BILIRUBIN 0.2 mg/dL (0.0-0.2); GFR 53.7; PHOSPHORUS 4.7 mg/dL (2.6-4.7); TOTAL BILIRUBIN 0.4 mg/dL (0.2-1.0); TOTAL PROTEIN 6.1 g/dL (6.4-8.2)
[2021-05-24 11:36] LABS: PROTHROMBIN TIME PATIENT 14.2 SEC (11.7-14.0)
[2021-05-24 11:38] LABS: POTASSIUM 2.3 mmol/L (3.5-5.1)
[2021-05-24] MEDS ORDERED: fentaNYL PF VIAL 100 MCG/2 ML VIAL ONE (11:43)
[2021-05-24] MEDS ORDERED: fentaNYL PF VIAL 100 MCG/2 ML VIAL IVP ONE (11:45)
[2021-05-24] MEDS ORDERED: fentaNYL PF VIAL 100 MCG/2 ML VIAL IV ONE (11:45)
[2021-05-24] MEDS ORDERED: POLYVINYL ALCOHOL 1.4% OPHTH SOLUTION 15ML BOTTLE. OU PRN (11:45)
[2021-05-24 11:46] LABS: BILIRUBIN,URINE NEGATIVE (NEG); CLARITY,URINE CLEAR; COLOR,URINE YELLOW; NITRITE,URINE NEGATIVE (NEG); PH,URINE 7.5 (<5.0-8.0); PROTEIN,URINE >=300 mg/dL (NEG-TRACE); UROBILINOGEN,URINE 0.2 mg/dL (0.2 mg/dL)
[2021-05-24 11:53] LABS: BARBITURATES NEG (NEG); BENZODIAZEPINES POS (NEG); CANNABINOIDS NEG (NEG); COCAINE NEG (NEG); METHADONE NEG (NEG); OPIATES NEG (NEG); PHENCYCLIDINE NEG (NEG)
[2021-05-24 11:54] LABS: BACTERIA,URINE 0 /HPF (0-FEW)
[2021-05-24 11:57] LABS: AMPHETAMINE/METHAMPHETAMINE NEG (NEG)
[2021-05-24] MEDS: MIDAZOLAM 100mg/100ml NS BAG 100 ML IV PRN ×2 (12:30→22:29)
[2021-05-24] MEDS: POTASSIUM CHLORIDE 20MEQ 100 ML IV SCH ×5 (12:45→17:36)
--- NOTE | 2021-05-24 12:45 | RAD ---
AP chest. HISTORY: Central line placement, G-tube adjustment AP view was taken of the chest. Comparison is made with a study from earlier this morning. Endotrache al tube is in good position. NG tube is better position in the stomach. There is increased right ant hilar infiltrate from edema or aspiration. If there is a central line is in the neck and not in good position. IMPRESSION: 1. Central line may be identified in the neck at the top of the film not in good position. 2. Endotracheal tube and NG tube in good position. 3. Mild increased right parahilar edema or infiltrates. The nurse in the ICU was called and notified the findings at the time of the dictation. Electronically signed by: Osmin Nunes MD (05/24/2021 12:43 PM) [facility]
--- NOTE | 2021-05-24 12:46 | RAD ---
CT HEAD/BRAIN WO dated 05/24/2021 12:26 PM. Comparison: CT 01/10/2020. Clinical Indication: Reason: cardiac arrest / Spl. Instructions: / History: Technical factors: Contiguous 5 mm axial images of the head were obtained from the skullbase to the vertex. No contrast was administered. Findings: There is no apparent intracranial mass, hemorrhage or abnormal extra-axial fluid collection. No new a michelle of abnormal density is seen. The ventricles and basilar cisterns are normally positioned. Impression: No evidence of acute intracranial abnormality. Electronically signed by: Alexis Cutler Jr., MD (05/24/2021 12:44 PM) [id number]
[2021-05-24] MEDS: VECURONIUM BOLUS 10 MG VIAL. IV PRN ×2 (13:48→18:38)
[2021-05-24] MEDS: PANTOPRAZOLE IV PUSH 40 MG VIAL. IVP SCH (14:21)
[2021-05-24] MEDS: ACETAMINOPHEN 650 MG/20.3 ML SOLUTION. NG SCH ×4 (14:21→23:37)
[2021-05-24] MEDS: busPIRone 10 MG TABLET. NG SCH ×2 (14:22→19:53)
[2021-05-24] MEDS: HEPARIN for SUB-Q USE 5,000 UNIT/ML VIAL. SQ SCH ×2 (14:22→19:54)
[2021-05-24] MEDS: POLYVINYL ALCOHOL 1.4% OPHTH SOLUTION 15ML BOTTLE. OU SCH ×3 (14:23→23:38)
--- NOTE | 2021-05-24 14:26 | PDOC2 ---
CONSULT Date of Consult Date of Consult DATE: 05/24/21 TIME: 14:15 Reason for Consult Reason for Consult: Ventricular fibrillation, cardiac arrest Referring Physician Referring Physician: Dr. Weaver Identification/Chief Complaint Chief Complaint Shortness of breath Source Source: Caregiver, Chart review History of Present Illness Reason for Visit: The patient is a 71-year-old female who reported episodes of shortness of breath and some chest pressure earlier today. Paramedics were called and in route to the hospital the patient had a cardiac arrest. As per the ER doctor's note above the patient is found to be in ventricular fibrillation. She received multiple rounds of ACLS resuscitation efforts. This included multiple attempts at defibrillation as well as IV amiodarone. The patient did resume a sinus rhythm and has remained in it since the time of her cardiac arrest. Additionally she required intubation during the arrest and is now sedated on a ventilator. Initial labs showed a troponin of 15, a lactic acid of 8.1, creatinine of 1.1 and potassium of 2.3. Of note the patient had a potassium level of 3.5 on 04/25/2021. EKG showed no acute ST segment elevation. Chest x- ray showed pulmonary edema. CT head scan showed no acute intracranial abnormalities. The patient is now sedated on a ventilator. Previous cardiac history included a CODE BLUE on 09/05/2019. The patient was successfully resuscitated. A catheterization the following day showed no significant coronary artery disease with the tightest lesion being a 30% right coronary artery lesion as well as a ejection fraction of 55%. An echocardiogram following this showed some apical hypokinesis but after treatment her ejection fraction and LV function normalized by 04/15/2020 with an ejection fraction of 60%, mild to moderate tricuspid vegetation with a pulmonary artery pressure 41 mmHg. She had a Biotronik dual-chamber pacemaker placed on 10/30/2019. Routine follow-up of her device is shown normal function and no significant arrhythmias. Past Medical History Cardiovascular: CAD, CHF, HTN Pulmonary: Asthma, COPD CENTRAL NERVOUS SYSTEM: CVA GI: GERD Heme/Onc: Anemia NOS Hepatobiliary: No pertinent hx Psych: Anxiety, Depression Musculoskeletal: low back pain, Osteoarthritis Rheumatologic: No pertinent hx, Rheumatoid arthritis Infectious disease: No pertinent hx Renal/: Other Endocrine: No pertinent hx Past Surgical History Past Surgical History: Pacemaker, Total hip replacement, Tonsillectomy, Hysterectomy Family History Family History: Hypertension Social History Quit ALCOHOL: none Drugs: None Lives: with Family Current Problem List Problem List Problems Medical Problems: (1) Cardiac arrest with ventricular fibrillation Status: Acute (2) Cardiac arrest with ventricular fibrillation Status: Acute (3) Hypermagnesemia Status: Acute (4) Hypermagnesemia Status: Acute (5) Hypokalemia Status: Acute (6) Lactic acidosis Status: Acute (7) Transaminitis Status: Acute Current Medications Current Medications Current Medications Amiodarone HCl 450 mg/Dextrose 259 ml @ 33 mls/hr 1X ONCE IV Last administered on 05/24/21at 10:53; Start 05/24/21 at 11:00; Stop 05/24/21 at 18:50 Norepinephrine Bitartrate 8 mg/ Dextrose 258 ml @ 14.435 mls/ hr 1X ONCE IV Last administered on 05/24/21at 11:03; Start 05/24/21 at 11:00; Stop 05/24/21 at 11:01; Status DC Sodium Chloride 1,000 ml @ 1,000 mls/hr 1X ONCE IV Last administered on 05/24/21at 10:45; Start 05/24/21 at 11:00; Stop 05/24/21 at 12:05; Status DC Piperacillin Sod/ Tazobactam Sod 4.5 gm/Sodium Chloride 100 ml @ 200 mls/hr 1X ONCE IV Last administered on 05/24/21at 11:58; Start 05/24/21 at 11:00; Stop 05/24/21 at 11:29; Status DC Vancomycin HCl (Vanco Per Pharmacy) 1 each PRN DAILY PRN MC SEE COMMENTS; St art 05/24/21 at 11:00 Vancomycin HCl 1.75 gm/Sodium Chloride 500 ml @ 250 mls/hr 1X ONCE IV Last administered on 05/24/21at 13:00; Start 05/24/21 at 11:15; Stop 05/24/21 at 13:34; Status DC Fentanyl Citrate 30 ml @ 0 mls/hr CONT PRN IV SEE PROTOCOL; Start 05/24/21 at 11:15; Stop 05/24/21 at 13:36; Status DC Propofol 100 ml @ 2.22 mls/hr CONT PRN IV PER PROTOCOL; Start 05/24/21 at 11:15; Stop 05/24/21 at 13:37; Status DC Ringer's Solution 1,000 ml @ 75 mls/hr 1X ONCE IV ; Start 05/24/21 at 11:15; Stop 05/25/21 at 00:34 Midazolam HCl 100 ml @ 1 mls/hr CONT PRN IV SEE PROTOCOL Last administered on 05/24/21at 11:37; Start 05/24/21 at 11:30; Stop 05/24/21 at 13:37; Status DC Midazolam HCl (Versed) 5 mg 1X ONCE NS Last administered on 05/24/21at 11:03; Start 05/24/21 at 11:30; Stop 05/24/21 at 11:34; Status DC Lidocaine HCl (Lidocaine HCl 2% Abboject) 100 mg 1X ONCE IV Last administered on 05/24/21at 10:46; Start 05/24/21 at 11:30; Stop 05/24/21 at 11:34; Status DC Magnesium Sulfate/ Dextrose 100 ml @ 100 mls/hr 1X ONCE IV Last administered on 05/24/21at 10:48; Start 05/24/21 at 11:30; Stop 05/24/21 at 12:29; Status DC Fentanyl Citrate (Fentanyl 2ml Vial) 100 mcg STK-MED ONCE .ROUTE ; Start 05/24/21 at 11:43; Stop 05/24/21 at 11:43; Status DC Fentanyl Citrate (Fentanyl 2ml Vial) 100 mcg 1X ONCE IVP Last administered on 05/24/21at 11:49; Start 05/24/21 at 11:45; Stop 05/24/21 at 11:47; Status DC Potassium Chloride/Water 100 ml @ 100 mls/hr Q1H IV Last administered on at 13:46; Start 05/24/21 at 12:00; Stop 05/24/21 at 14:59 Fentanyl Citrate (Fentanyl 2ml Vial) 100 mcg 1X ONCE IV ; Start 05/24/21 at 11:45; Stop 05/24/21 at 12:05; Status DC Buspirone HCl (Buspar) 30 mg Q8H NG ; Start 05/24/21 at 12:00; Stop 05/26/21 at 04:01 Acetaminophen (Tylenol) 650 mg Q4H NG ; Start 05/24/21 at 11:45 Glycerin/ Hypromellose/ Polyethylene (Artificial Tears) 1 drop Q6HRS OU ; Start 05/24/21 at 12:00 Glycerin/ Hypromellose/ Polyethylene (Artificial Tears) 1 drop PRN Q15MIN PRN OU DRY EYE; Start 05/24/21 at 11:45 Heparin Sodium (Porcine) (Heparin Sodium) 5,000 unit BID SQ ; Start 05/24/21 at 12:00 Pantoprazole Sodium (PROTONIX VIAL for IV PUSH) 40 mg DAILY IVP ; Start 05/24/21 at 12:00 Fentanyl Citrate 30 ml @ 0 mls/hr CONT PRN IV PER PROTOCOL.; Start 05/24/21 at 11:45; Stop 05/24/21 at 12:38; Status DC Propofol 100 ml @ 0 mls/hr CONT PRN IV PER PROTOCOL; Start 05/24/21 at 11:45; Stop 05/24/21 at 12:38; Status DC Midazolam HCl 100 ml @ 0 mls/hr CONT PRN IV PER PROTOCOL; Start 05/24/21 at 11:45; Stop 05/24/21 at 12:38; Status DC Vecuronium Sumas (Norcuron Bolus) 10 mg PRN Q1HR PRN IV VENTILATOR COMPLIANCE Last administered on 05/24/21at 13:48; Start 05/24/21 at 11:45 Sodium Chloride 1,000 ml @ 1,000 mls/hr 1X ONCE IV Last administered on 05/24/21at 12:00; Start 05/24/21 at 12:30; Stop 05/24/21 at 13:34; Status DC Propofol 100 ml @ 2.22 mls/hr CONT PRN IV PER PROTOCOL; Start 05/24/21 at 12:45 Midazolam HCl 100 ml @ 1 mls/hr CONT PRN IV PER PROTOCOL Last administered on 05/24/21at 12:30; Start 05/24/21 at 12:45 Fentanyl Citrate 30 ml @ 2.5 mls/hr CONT PRN IV PER PROTOCOL. Last administered on 05/24/21at 13:51; Start 05/24/21 at 12:45 Active Scripts Active Guaifenesin-Codeine Syrup (Guaifenesin/Codeine Phosphate) 118 Ml Liquid 5 Ml PO Q6HRS Promethazine Hcl 25 Mg Tablet 1 Tab PO PRN Q6HRS Doxycycline Hyclate 100 Mg Tablet 1 Tab PO BID Dok (Docusate Sodium) 100 Mg Capsule 100 Mg PO PRN BID PRN 30 Days Aspirin Ec (Aspirin) 81 Mg Tablet.dr 81 Mg PO DAILYWBKFT 30 Days Amlodipine Besylate 5 Mg Tablet 2.5 Mg PO DAILY 30 Days Nitrostat (Nitroglycerin) 0.4 Mg Tab.subl 0.4 Mg SL PRN Q5MIN PRN 30 Days Atorvastatin Calcium 20 Mg Tablet 20 Mg PO QHS 30 Days Proair Hfa (Albuterol Sulfate) 8.5 Gm Hfa.aer.ad 2.5 Mg NEB PRN Q4HRS PRN 14 Days Reported Proctosol-Hc (Hydrocortisone) 28.35 Gm Cream..g. 1 Allyssa TP BID PRN 15 Days Amitriptyline Hcl 75 Mg Tablet 1 Tab PO QHS last dose 09/10 8:38pm next dose 09/11 9:00pm Miralax (Polyethylene Glycol 3350) 17 Gm Powd.pack 1 Packet PO DAILY 2 Days dissolve in water Acetaminophen 500 Mg Tablet 2 Tab PO PRN Q6HRS PRN 15 Days last dose 09/11 9:19am Symbicort 160-4.5 Mcg Inhaler (Budesonide/Formoterol Fumarate) 10.2 Gm Hfa.aer.ad 2 Puff IH BID Vitamin B-12 (Cyanocobalamin (Vitamin B-12)) 5,000 Mcg Capsule 5,000 Mcg PO DAILY Calcium 1,000 + D3 Caplet (Calcium Carbonate/Vitamin D3) 1 Each Tablet 1 Each PO DAILY Xyzal (Levocetirizine Dihydrochloride) 5 Mg Tablet 1 Tab PO DAILY 30 Days Isosorbide Mononitrate Er (Isosorbide Mononitrate) 60 Mg Tab.er.24h 60 Mg PO DAILY Klor-Con 10 (Potassium Chloride) 10 Meq Tablet.er 20 Meq PO DAILY Ferrous Sulfate 325 Mg Tablet 1 Tab PO DAILY Estradiol 0.5 Mg Tablet 1 Tab PO DAILY Tramadol Hcl 50 Mg Tablet 100 Mg PO PRN Q12HR Tamsulosin Hcl 0.4 Mg Cap.er.24h 1 Cap PO DAILY Allergies Allergies: Coded Allergies: alendronate sodium (Verified Allergy, Severe, Swelling, 10/25/18) methocarbamol (Verified Allergy, Intermediate, 10/25/18) ROS Review of System The patient is on a ventilator. Physical Exam General: Other (Sedated on a ventilator) Lungs: Other (Mildly decreased breath sounds) Heart: Other (Regular rhythm rate 110) Abdomen: Normal bowel sounds Vitals VITALS Vital Signs Date Time Temp Pulse Resp B/P (MAP) Pulse Ox O2 Delivery O2 Flow Rate FiO2 05/24/21 13:23 97 Ventilator 05/24/21 12:17 94 144/92 (109) Labs Labs Laboratory Tests Test 05/24/21 10:51 05/24/21 11:10 05/24/21 11:25 05/24/21 11:40 Glucose (Fingerstick) 125 mg/dL (70-99) White Blood Count 8.6 x10^3/uL (4.0-11.0) Red Blood Count 4.51 x10^6/uL (3.50-5.40) Hemoglobin 11.9 g/dL (12.0-15.5) Hematocrit 37.3 % (36.0-47.0) Mean Corpuscular Volume 83 fL (79-100) Mean Corpuscular Hemoglobin 26 pg (25-35) Mean Corpuscular Hemoglobin Concent 32 g/dL (31-37) Red Cell Distribution Width 16.6 % (11.5-14.5) Platelet Count 188 x10^3/uL (140-400) Neutrophils (%) (Auto) 22 % (31-73) Lymphocytes (%) (Auto) 74 % (24-48) Monocytes (%) (Auto) 2 % (0-9) Eosinophils (%) (Auto) 1 % (0-3) Basophils (%) (Auto) 1 % (0-3) Neutrophils # (Auto) 1.9 x10^3/uL (1.8-7.7) Lymphocytes # (Auto) 6.4 x10^3/uL (1.0-4.8) Monocytes # (Auto) 0.2 x10^3/uL (0.0-1.1) Eosinophils # (Auto) 0.1 x10^3/uL (0.0-0.7) Basophils # (Auto) 0.1 x10^3/uL (0.0-0.2) Prothrombin Time 14.2 SEC (11.7-14.0) Prothromb Time International Ratio 1.1 (0.8-1.1) Activated Partial Thromboplast Time 35 SEC (24-38) Sodium Level 145 mmol/L (136-145) Potassium Level 2.3 mmol/L (3.5-5.1) Chloride Level 107 mmol/L (98-107) Carbon Dioxide Level 25 mmol/L (21-32) Anion Gap 13 (6-14) Blood Urea Nitrogen 13 mg/dL (7-20) Creatinine 1.2 mg/dL (0.6-1.0) Estimated GFR (Cockcroft-Gault) 53.7 Glucose Level 275 mg/dL (70-99) Lactic Acid Level 8.1 mmol/L (0.4-2.0) Calcium Level 9.5 mg/dL (8.5-10.1) Phosphorus Level 4.7 mg/dL (2.6-4.7) Magnesium Level 3.0 mg/dL (1.8-2.4) Total Bilirubin 0.4 mg/dL (0.2-1.0) Direct Bilirubin 0.2 mg/dL (0.0-0.2) Aspartate Amino Transf (AST/SGOT) 667 U/L (15-37) Alanine Aminotransferase (ALT/SGPT) 560 U/L (14-59) Alkaline Phosphatase 71 U/L (46-116) Creatine Kinase 112 U/L (26-192) Troponin I High Sensitivity 15 ng/L (4-50) GE-Bpy-M-Type Natriuretic Peptide 113 pg/mL (0-124) Total Protein 6.1 g/dL (6.4-8.2) Albumin 2.6 g/dL (3.4-5.0) Salicylates Level 1.0 mg/dL (2.8-20.0) Salicylate Last Dose Date Unknown Salicylate Last Dose Time Unknown Acetaminophen Level 2.4 mcg/ml (10-30) Acetaminophen Last Dose Date Unknown Acetaminophen Last Dose Time Unknown Ethyl Alcohol Level < 10 mg/dL (0-10) O2 Saturation 99 % (92-99) Arterial Blood pH 7.32 (7.35-7.45) Arterial Blood pCO2 at Patient Temp 40 mmHg (35-46) Arterial Blood pO2 at Patient Temp 374 mmHg (65-108) Arterial Blood HCO3 20 mmol/L (21-28) Arterial Blood Base Excess -5 mmol/L (-3-3) FiO2 100 Urine Collection Type U cath Urine Color Yellow Urine Clarity Clear Urine pH 7.5 (<5.0-8.0) Urine Specific Randolph 1.015 (1.000-1.030) Urine Protein >=300 mg/dL (NEG-TRACE) Urine Glucose (UA) 500 mg/dL (NEG) Urine Ketones (Stick) Negative mg/dL (NEG) Urine Blood Moderate (NEG) Urine Nitrite Negative (NEG) Urine Bilirubin Negative (NEG) Urine Urobilinogen Dipstick 0.2 mg/dL (0.2 mg/dL) Urine Leukocyte Esterase Negative (NEG) Urine RBC 3-5 /HPF (0-2) Urine WBC 1-4 /HPF (0-4) Urine Squamous Epithelial Cells Occ /LPF Urine Bacteria 0 /HPF (0-FEW) Urine Mucus Slight /LPF Urine Opiates Screen Neg (NEG) Urine Methadone Screen Neg (NEG) Urine Barbiturates Neg (NEG) Urine Phencyclidine Screen Neg (NEG) Urine Amphetamine/Methamphetamine Neg (NEG) Urine Benzodiazepines Screen Pos (NEG) Urine Cocaine Screen Neg (NEG) Urine Cannabinoids Screen Neg (NEG) Urine Ethyl Alcohol Neg (NEG) Test 05/24/21 14:03 Glucose (Fingerstick) 252 mg/dL (70-99) Laboratory Tests Test 05/24/21 10:51 05/24/21 11:10 05/24/21 11:25 05/24/21 11:40 Glucose (Fingerstick) 125 mg/dL (70-99) White Blood Count 8.6 x10^3/uL (4.0-11.0) Red Blood Count 4.51 x10^6/uL (3.50-5.40) Hemoglobin 11.9 g/dL (12.0-15.5) Hematocrit 37.3 % (36.0-47.0) Mean Corpuscular Volume 83 fL (79-100) Mean Corpuscular Hemoglobin 26 pg (25-35) Mean Corpuscular Hemoglobin Concent 32 g/dL (31-37) Red Cell Distribution Width 16.6 % (11.5-14.5) Platelet Count 188 x10^3/uL (140-400) Neutrophils (%) (Auto) 22 % (31-73) Lymphocytes (%) (Auto) 74 % (24-48) Monocytes (%) (Auto) 2 % (0-9) Eosinophils (%) (Auto) 1 % (0-3) Basophils (%) (Auto) 1 % (0-3) Neutrophils # (Auto) 1.9 x10^3/uL (1.8-7.7) Lymphocytes # (Auto) 6.4 x10^3/uL (1.0-4.8) Monocytes # (Auto) 0.2 x10^3/uL (0.0-1.1) Eosinophils # (Auto) 0.1 x10^3/uL (0.0-0.7) Basophils # (Auto) 0.1 x10^3/uL (0.0-0.2) Prothrombin Time 14.2 SEC (11.7-14.0) Prothromb Time International Ratio 1.1 (0.8-1.1) Activated Partial Thromboplast Time 35 SEC (24-38) Sodium Level 145 mmol/L (136-145) Potassium Level 2.3 mmol/L (3.5-5.1) Chloride Level 107 mmol/L (98-107) Carbon Dioxide Level 25 mmol/L (21-32) Anion Gap 13 (6-14) Blood Urea Nitrogen 13 mg/dL (7-20) Creatinine 1.2 mg/dL (0.6-1.0) Estimated GFR (Cockcroft-Gault) 53.7 Glucose Level 275 mg/dL (70-99) Lactic Acid Level 8.1 mmol/L (0.4-2.0) Calcium Level 9.5 mg/dL (8.5-10.1) Phosphorus Level 4.7 mg/dL (2.6-4.7) Magnesium Level 3.0 mg/dL (1.8-2.4) Total Bilirubin 0.4 mg/dL (0.2-1.0) Direct Bilirubin 0.2 mg/dL (0.0-0.2) Aspartate Amino Transf (AST/SGOT) 667 U/L (15-37) Alanine Aminotransferase (ALT/SGPT) 560 U/L (14-59) Alkaline Phosphatase 71 U/L (46-116) Creatine Kinase 112 U/L (26-192) Troponin I High Sensitivity 15 ng/L (4-50) JT-Aub-J-Type Natriuretic Peptide 113 pg/mL (0-124) Total Protein 6.1 g/dL (6.4-8.2) Albumin 2.6 g/dL (3.4-5.0) Salicylates Level 1.0 mg/dL (2.8-20.0) Salicylate Last Dose Date Unknown Salicylate Last Dose Time Unknown Acetaminophen Level 2.4 mcg/ml (10-30) Acetaminophen Last Dose Date Unknown Acetaminophen Last Dose Time Unknown Ethyl Alcohol Level < 10 mg/dL (0-10) O2 Saturation 99 % (92-99) Arterial Blood pH 7.32 (7.35-7.45) Arterial Blood pCO2 at Patient Temp 40 mmHg (35-46) Arterial Blood pO2 at Patient Temp 374 mmHg (65-108) Arterial Blood HCO3 20 mmol/L (21-28) Arterial Blood Base Excess -5 mmol/L (-3-3) FiO2 100 Urine Collection Type U cath Urine Color Yellow Urine Clarity Clear Urine pH 7.5 (<5.0-8.0) Urine Specific Randolph 1.015 (1.000-1.030) Urine Protein >=300 mg/dL (NEG-TRACE) Urine Glucose (UA) 500 mg/dL (NEG) Urine Ketones (Stick) Negative mg/dL (NEG) Urine Blood Moderate (NEG) Urine Nitrite Negative (NEG) Urine Bilirubin Negative (NEG) Urine Urobilinogen Dipstick 0.2 mg/dL (0.2 mg/dL) Urine Leukocyte Esterase Negative (NEG) Urine RBC 3-5 /HPF (0-2) Urine WBC 1-4 /HPF (0-4) Urine Squamous Epithelial Cells Occ /LPF Urine Bacteria 0 /HPF (0-FEW) Urine Mucus Slight /LPF Urine Opiates Screen Neg (NEG) Urine Methadone Screen Neg (NEG) Urine Barbiturates Neg (NEG) Urine Phencyclidine Screen Neg (NEG) Urine Amphetamine/Methamphetamine Neg (NEG) Urine Benzodiazepines Screen Pos (NEG) Urine Cocaine Screen Neg (NEG) Urine Cannabinoids Screen Neg (NEG) Urine Ethyl Alcohol Neg (NEG) Test 05/24/21 14:03 Glucose (Fingerstick) 252 mg/dL (70-99) Images Images Chest x-ray consistent with pulmonary edema. CT head scan with no acute intracranial abnormalities. Assessment/Plan Assessment/Plan 1. Ventricular fibrillation arrest. Code as above. Patient is now in a sinus rhythm on IV amiodarone. We will recheck baseline lab. We will check an echocardiogram today. No evidence of acute ST elevated myocardial infarction. Continue baseline treatment as per protocols. 2. Acute respiratory failure secondary to cardiac arrest. Continue on a ventilator. Will request a pulmonary consult. 3. History of mild coronary disease as noted above. Will rule out for infarction. 4. Permanent pacemaker. Previous interrogations have normal functioning. We will have the device interrogated today. 5. Potassium level at initially at 2.3. It has been replaced. Will monitor and recheck. Of note a potassium level on 04/25/2021 was 3.5. I discussed the patient's status with her family while still in the emergency room. ESSENCE COX MD May 24, 2021 14:26
[2021-05-24] MEDS: INSULIN REGULAR VIAL 100 UNIT in IV NORMAL SALINE 100ML 100 ML IV PRN ×2 (14:35→22:30)
--- NOTE | 2021-05-24 15:08 | CARD ---
MR#: [id number] Date of Study: 05/24/2021 Ordering Physician: ESSENCE ALLEN, Referring Physician: ESSENCE ALLEN, Tech: Vanessa Guo Luigifelicity, [facility] APPROVED REPORT EXAM: Two-dimensional and M-mode echocardiogram with Doppler and color Doppler. Other Information Quality : AverageHR: 80bpm INDICATION Dizziness and Vertigo Dyspnea Chest Pain Cardiac Arrest 2D DIMENSIONS Left Atrium(2D)2.3 (1.6-4.0cm)IVSd1.0 (0.7-1.1cm) Aortic Root(2D)3.2 (2.0-3.7cm)LVDd4.4 (3.9-5.9cm) LVOT Diameter2.1 (1.8-2.4cm)PWd0.8 (0.7-1.1cm) LVDs2.8 (2.5-4.0cm)FS (%) 36.9 % SV58.0 ml Aortic Valve AoV Peak Sanjay.106.4cm/sAoV VTI23.6cm AO Peak GR.4.5mmHgLVOT VTI 17.76cm AO Mean GR.3mmHg Mitral Valve MV E Jakfozdc13.0cm/sMV E Peak Gr.134mmHg MV DECEL [id number] A Dpcmjpmq58.8cm/s MV E Mean Gr.2mmHgE/A Ratio0.8 TDI Lateral E' P. V10.17cm/sMedial E' P. V6.50cm/s E/Lateral E'7.3E/Medial E'11.4 Tricuspid Valve TR P. Jfcoakkr729oj/sRAP [id number] TR Peak Gr.13qkAbIXND83cqQi Pulmonary Vein S1 Okkihfcc31.3cm/sS2 Pucriowv06.40cm/s D2 Lvidnndj48.4cm/s LEFT VENTRICLE The left ventricle is normal size. There is normal left ventricular wall thickness. The left ventricu lar systolic function intact with an ejection fraction of 50 to 55%. A small area of mild apical hyp okinesis is present. Transmitral Doppler flow pattern is Grade I-abnormal relaxation pattern. RIGHT VENTRICLE The right ventricle is normal size. There is normal right ventricular wall thickness. The right ventr icular systolic function is normal. There is a pacemaker lead in the right ventricle. ATRIA The left atrium size is normal. The right atrium size is normal. The interatrial septum is intact wit h no evidence for an atrial septal defect or patent foramen ovale as noted on 2-D or Doppler imaging. AORTIC VALVE The aortic valve is normal in structure and function. Doppler and Color Flow revealed no significant aortic regurgitation. There is no significant aortic valvular stenosis. Calculated aortic valve area is 2.73 cm2 with maximum pressure gradient of 6 mmHg and mean pressure gradient of 3 mmHg. MITRAL VALVE The mitral valve is normal in structure and function. There is no evidence of mitral valve prolapse. There is no mitral valve stenosis. Doppler and Color-flow revealed trace to mild mitral regurgitation . TRICUSPID VALVE The tricuspid valve is normal in structure and function. Doppler and Color Flow revealed mild tricusp id regurgitation with an estimated PAP of 39 mmHg. There is no tricuspid valve stenosis. PULMONIC VALVE The pulmonic valve is not well visualized. Doppler and Color Flow revealed trace pulmonic valvular re gurgitation. GREAT VESSELS The aortic root is normal in size. The IVC is normal in size and collapses >50% with inspiration. PERICARDIAL EFFUSION There is no evidence of significant pericardial effusion. Critical Notification Critical Value: No <Conclusion> The left ventricle is normal size. The left ventricular systolic function intact with an ejection fraction of 50 to 55%. A small area of mild apical hypokinesis is present. There is a pacemaker lead in the right ventricle. Doppler and Color Flow revealed no significant aortic regurgitation. There is no significant aortic valvular stenosis. Doppler and Color-flow revealed trace to mild mitral regurgitation. Doppler and Color Flow revealed mild tricuspid regurgitation with an estimated PAP of 39 mmHg. Signed by : Essence Allen MD Electronically Approved : 05/24/2021 15:07:57
[2021-05-24] MEDS ORDERED: PIP/TAZO PER PHARMACY MC PRN (15:30)
[2021-05-24] MEDS: VANCOMYCIN PER PHARMACY MC PRN (15:32)
--- NOTE | 2021-05-24 15:34 | NUR ---
Pharmacy Vancomycin Dosing Note S:Consulted to monitor and dose vancomycin started 05/24/21. O:AMOL CHRISTINA is a 71 year old F with empiric antibiotic coverage. Height: 5 feet, 3 inches Weight: 80.0 kg Dosing Weight: Actual Other Antibiotics: ZOSYN 3.375G IV Q6HRS LABS: Last BUN: 13 Last Creatinine: 1.2 Creatinine Clearance: 43 mL/min Last WBC: 8.6 Tmax (past 24 hours): hypothermia protocol Microbiology: BLOOD CX IN PROCESS I/O: -/1300 A: Patient requires vancomycin as empiric coverage, goal trough 15-20 mcg/ml. Her SCr is 1.2 with an eCrCl of 43 ml/min. Will watch renal function closely given VFib arrest this morning. Initiate the following: P: 1. Initiate Vancomycin 1750 mg IV x 1 dose, then 1250 mg IV q24h 2. Follow up Trough level on 05/26/21 at 1230 3. Pharmacy will continue to monitor, follow and adjust therapy as needed. ABBY SINHA FORMERLY [facility] [place], 05/24/21 [id number]
--- NOTE | 2021-05-24 15:41 | NUR ---
Patient arrived on unit at 1255. Patient sedated on the ventilator, VSS. Hypothermia protocol initiated. Patient's came to bedside, able to answer admission questions. He said last night the patient felt more tired than normal, woke up like usual this morning, was going to go to the store but was sitting on the side of the bed and felt like she was going to pass out. Patient's then took her to the ED, and upon arrival to the ED went unresponsive in the passenger seat of the vehicle. CPR was then initiated in the passenger seat of the car, was able to transport patient safely to the ED gurney and into the ED where ACLS protocol was initiated (see code blue sheet). Patient has received both Pfizer vaccines and a couple weeks ago got the booster vaccine as well as the flu shot. Patient not in isolation at this time.
[2021-05-24 16:10] LABS: CALCIUM 8.8 mg/dL (8.5-10.1); CREATININE 1.3 mg/dL (0.6-1.0); POTASSIUM 3.2 mmol/L (3.5-5.1)
--- NOTE | 2021-05-24 16:10 | PDOC1 ---
History and Physical Date of Admission Date of Admission DATE: 05/24/21 TIME: 16:04 Source Source: Chart review, Patient History of Present Illness History of Present Illness 71 yo Female that was brought to ER in private car for acute chest pain, worsened on the way, because less responsive, was pulseless when the ride stopped, was brought in and CPR started in the ER waiting room. Agressvie chest compression and shock, Vib, and PEA cardiac arrest. ATLS protocol started upon ED arrival. return of circulation was attained and pt intubated, and central line placed in the ER, i eval there and the ICU. Past Medical History Past Medical History has PACER, tachybrady syndrome, HTN, CVA, HTN, asthma, COPD, GERD, and RA Cardiovascular: CAD, CHF, HTN Pulmonary: Asthma, COPD CENTRAL NERVOUS SYSTEM: CVA GI: GERD Heme/Onc: Anemia NOS Hepatobiliary: No pertinent hx Psych: Anxiety, Depression Musculoskeletal: low back pain, Osteoarthritis Rheumatologic: No pertinent hx, Rheumatoid arthritis Infectious disease: No pertinent hx Renal/: Other Endocrine: No pertinent hx Past Surgical History Past Surgical History: Pacemaker, Total hip replacement, Tonsillectomy, Hysterectomy Family History Family History: Hypertension Social History Smoke: Quit ALCOHOL: none Drugs: None Current Problem List Problem List Problems Medical Problems: (1) Cardiac arrest with ventricular fibrillation Status: Acute (2) Cardiac arrest with ventricular fibrillation Status: Acute (3) Hypermagnesemia Status: Acute (4) Hypermagnesemia Status: Acute (5) Hypokalemia Status: Acute (6) Lactic acidosis Status: Acute (7) Transaminitis Status: Acute Current Medications Current Medications Current Medications Amiodarone HCl 450 mg/Dextrose 259 ml @ 33 mls/hr 1X ONCE IV Last administered on 05/24/21at 10:53; Start 05/24/21 at 11:00; Stop 05/24/21 at 18:50 Norepinephrine Bitartrate 8 mg/ Dextrose 258 ml @ 14.435 mls/ hr 1X ONCE IV Last administered on 05/24/21at 11:03; Start 05/24/21 at 11:00; Stop 05/24/21 at 11:01; Status DC Sodium Chloride 1,000 ml @ 1,000 mls/hr 1X ONCE IV Last administered on 05/24/21at 10:45; Start 05/24/21 at 11:00; Stop 05/24/21 at 12:05; Status DC Piperacillin Sod/ Tazobactam Sod 4.5 gm/Sodium Chloride 100 ml @ 200 mls/hr 1X ONCE IV Last administered on 05/24/21at 11:58; Start 05/24/21 at 11:00; Stop 05/24/21 at 11:29; Status DC Vancomycin HCl (Vanco Per Pharmacy) 1 each PRN DAILY PRN [facility] SEE COMMENTS; Start 05/24/21 at 11:00; Status Cancel Vancomycin HCl 1.75 gm/Sodium Chloride 500 ml @ 250 mls/hr 1X ONCE IV Last administered on 05/24/21at 13:00; Start 05/24/21 at 11:15; Stop 05/24/21 at 13:34; Status DC Fentanyl Citrate 30 ml @ 0 mls/hr CONT PRN IV SEE PROTOCOL; Start 05/24/21 at 11:15; Stop 05/24/21 at 13:36; Status DC Propofol 100 ml @ 2.22 mls/hr CONT PRN IV PER PROTOCOL; Start 05/24/21 at 11:15; Stop 05/24/21 at 13:37; Status DC Ringer's Solution 1,000 ml @ 75 mls/hr 1X ONCE IV ; Start 05/24/21 at 11:15; Stop 05/25/21 at 00:34 Midazolam HCl 100 ml @ 1 mls/hr CONT PRN IV SEE PROTOCOL Last administered on 05/24/21at 11:37; Start 05/24/21 at 11:30; Stop 05/24/21 at 13:37; Status DC Midazolam HCl (Versed) 5 mg 1X ONCE NS Last administered on 05/24/21at 11:03; Start 05/24/21 at 11:30; Stop 05/24/21 at 11:34; Status DC Lidocaine HCl (Lidocaine HCl 2% Abboject) 100 mg 1X ONCE IV Last administered on 05/24/21at 10:46; Start 05/24/21 at 11:30; Stop 05/24/21 at 11:34; Status DC Magnesium Sulfate/ Dextrose 100 ml @ 100 mls/hr 1X ONCE IV Last administered on 05/24/21at 10:48; Start 05/24/21 at 11:30; Stop 05/24/21 at 12:29; Status DC Fentanyl Citrate (Fentanyl 2ml Vial) 100 mcg STK-MED ONCE .ROUTE ; Start 05/24/21 at 11:43; Stop 05/24/21 at 11:43; Status DC Fentanyl Citrate (Fentanyl 2ml Vial) 100 mcg 1X ONCE IVP Last administered on 05/24/21at 11:49; Start 05/24/21 at 11:45; Stop 05/24/21 at 11:47; Status DC Potassium Chloride/Water 100 ml @ 100 mls/hr Q1H IV Last administered on 05/24/21at 14:44; Start 05/24/21 at 12:00; Stop 05/24/21 at 14:59; Status DC Fentanyl Citrate (Fentanyl 2ml Vial) 100 mcg 1X ONCE IV ; Start 05/24/21 at 11:45; Stop 05/24/21 at 12:05; Status DC Buspirone HCl (Buspar) 30 mg Q8H NG Last administered on 05/24/21at 14:22; Start 05/24/21 at 12:00; Stop 05/26/21 at 04:01 Acetaminophen (Tylenol) 650 mg Q4H NG Last administered on 05/24/21at 14:21; Start 05/24/21 at 11:45 Glycerin/ Hypromellose/ Polyethylene (Artificial Tears) 1 drop Q6HRS OU Last administered on 05/24/21at 14:23; Start 05/24/21 at 12:00 Glycerin/ Hypromellose/ Polyethylene (Artificial Tears) 1 drop PRN Q15MIN PRN OU DRY EYE; Start 05/24/21 at 11:45 Heparin Sodium (Porcine) (Heparin Sodium) 5,000 unit BID SQ Last administered on 05/24/21at 14:22; Start 05/24/21 at 12:00 Pantoprazole Sodium (PROTONIX VIAL for IV PUSH) 40 mg DAILY IVP Last administered on 05/24/21at 14:21; Start 05/24/21 at 12:00 Fentanyl Citrate 30 ml @ 0 mls/hr CONT PRN IV PER PROTOCOL.; Start 05/24/21 at 11:45; Stop 05/24/21 at 12:38; Status DC Propofol 100 ml @ 0 mls/hr CONT PRN IV PER PROTOCOL; Start 05/24/21 at 11:45; Stop 05/24/21 at 12:38; Status DC Midazolam HCl 100 ml @ 0 mls/hr CONT PRN IV PER PROTOCOL; Start 05/24/21 at 11:45; Stop 05/24/21 at 12:38; Status DC Vecuronium [place] (Norcuron Bolus) 10 mg PRN Q1HR PRN IV VENTILATOR COMPLIANCE Last administered on 05/24/21at 13:48; Start 05/24/21 at 11:45 Sodium Chloride 1,000 ml @ 1,000 mls/hr 1X ONCE IV Last administered on 05/24/21at 12:00; Start 05/24/21 at 12:30; Stop 05/24/21 at 13:34; Status DC Propofol 100 ml @ 2.22 mls/hr CONT PRN IV PER PROTOCOL; Start 05/24/21 at 12:45 Midazolam HCl 100 ml @ 1 mls/hr CONT PRN IV PER PROTOCOL Last administered on 05/24/21at 12:30; Start 05/24/21 at 12:45 Fentanyl Citrate 30 ml @ 2.5 mls/hr CONT PRN IV PER PROTOCOL. Last administered on 05/24/21at 13:51; Start 05/24/21 at 12:45 Insulin Human Regular 100 unit/ Sodium Chloride 101 ml @ 0 mls/hr CONT PRN IV PER PROTOCOL Last administered on 05/24/21at 14:35; Start 05/24/21 at 14:30 Vancomycin HCl (Vanco Per Pharmacy) 1 each PRN DAILY PRN [facility] SEE COMMENTS Last administered on 05/24/21at 15:32; Start 05/24/21 at 15:30 Piperacillin Sod/ Tazobactam Sod (Zosyn Per Pharmacy) 1 each PRN DAILY PRN MC SEE COMMENTS; Start 05/24/21 at 15:30 Vancomycin HCl 1.25 gm/Sodium Chloride 250 ml @ 167 mls/hr Q24H IV ; Start 05/25/21 at 13:00 Vancomycin HCl (Vancomycin Trough Level) 1 each 1X ONCE MC ; Start 05/26/21 at 12:30; Stop 05/26/21 at 12:31 Piperacillin Sod/ Tazobactam Sod 3.375 gm/Sodium Chloride 50 ml @ 100 mls/hr Q6HRS IV ; Start 05/24/21 at 18:00 Active Scripts Active Guaifenesin-Codeine Syrup (Guaifenesin/Codeine Phosphate) 118 Ml Liquid 5 Ml PO Q6HRS Promethazine Hcl 25 Mg Tablet 1 Tab PO PRN Q6HRS Doxycycline Hyclate 100 Mg Tablet 1 Tab PO BID Dok (Docusate Sodium) 100 Mg Capsule 100 Mg PO PRN BID PRN 30 Days Aspirin Ec (Aspirin) 81 Mg Tablet.dr 81 Mg PO DAILYWBKFT 30 Days Amlodipine Besylate 5 Mg Tablet 2.5 Mg PO DAILY 30 Days Nitrostat (Nitroglycerin) 0.4 Mg Tab.subl 0.4 Mg SL PRN Q5MIN PRN 30 Days Atorvastatin Calcium 20 Mg Tablet 20 Mg PO QHS 30 Days Proair Hfa (Albuterol Sulfate) 8.5 Gm Hfa.aer.ad 2.5 Mg NEB PRN Q4HRS PRN 14 Days Reported Proctosol-Hc (Hydrocortisone) 28.35 Gm Cream..g. 1 Allyssa TP BID PRN 15 Days Amitriptyline Hcl 75 Mg Tablet 1 Tab PO QHS last dose 09/10 8:38pm next dose 09/11 9:00pm Miralax (Polyethylene Glycol 3350) 17 Gm Powd.pack 1 Packet PO DAILY 2 Days dissolve in water Acetaminophen 500 Mg Tablet 2 Tab PO PRN Q6HRS PRN 15 Days last dose 09/11 9:19am Symbicort 160-4.5 Mcg Inhaler (Budesonide/Formoterol Fumarate) 10.2 Gm Hfa.aer.ad 2 Puff IH BID Vitamin B-12 (Cyanocobalamin (Vitamin B-12)) 5,000 Mcg Capsule 5,000 Mcg PO DAILY Calcium 1,000 + D3 Caplet (Calcium Carbonate/Vitamin D3) 1 Each Tablet 1 Each PO DAILY Xyzal (Levocetirizine Dihydrochloride) 5 Mg Tablet 1 Tab PO DAILY 30 Days Isosorbide Mononitrate Er (Isosorbide Mononitrate) 60 Mg Tab.er.24h 60 Mg PO DAILY Klor-Con 10 (Potassium Chloride) 10 Meq Tablet.er 20 Meq PO DAILY Ferrous Sulfate 325 Mg Tablet 1 Tab PO DAILY Estradiol 0.5 Mg Tablet 1 Tab PO DAILY Tramadol Hcl 50 Mg Tablet 100 Mg PO PRN Q12HR Tamsulosin Hcl 0.4 Mg Cap.er.24h 1 Cap PO DAILY Allergies Allergies: Coded Allergies: alendronate sodium (Verified Allergy, Severe, Swelling, 10/25/18) methocarbamol (Verified Allergy, Intermediate, 10/25/18) ROS Review of System unable before chest pain Physical Exam Physical Exam intubated, sedated HEENT: Atraumatic, PERRLA Lungs: Other (mech sounds, vent, no wheeze, ) Heart: no murmurs, irregularly irregular Abdomen: Soft Rectal Exam: not examined Extremities: No clubbing, Normal pulses Skin: No rashes, No breakdown, No significant lesion Neuro: Normal tone, Other Vitals Vitals Vital Signs Date Time Temp Pulse Resp B/P (MAP) Pulse Ox O2 Delivery O2 Flow Rate FiO2 05/24/21 15:46 Mechanical Ventilator 05/24/21 15:00 05/24/21 15:00 91.2 71 20 100 Labs Labs Laboratory Tests Test 05/24/21 10:51 05/24/21 11:10 05/24/21 11:25 05/24/21 11:40 Glucose (Fingerstick) 125 mg/dL (70-99) White Blood Count 8.6 x10^3/uL (4.0-11.0) Red Blood Count 4.51 x10^6/uL (3.50-5.40) Hemoglobin 11.9 g/dL (12.0-15.5) Hematocrit 37.3 % (36.0-47.0) Mean Corpuscular Volume 83 fL (79-100) Mean Corpuscular Hemoglobin 26 pg (25-35) Mean Corpuscular Hemoglobin Concent 32 g/dL (31-37) Red Cell Distribution Width 16.6 % (11.5-14.5) Platelet Count 188 x10^3/uL (140-400) Neutrophils (%) (Auto) 22 % (31-73) Lymphocytes (%) (Auto) 74 % (24-48) Monocytes (%) (Auto) 2 % (0-9) Eosinophils (%) (Auto) 1 % (0-3) Basophils (%) (Auto) 1 % (0-3) Neutrophils # (Auto) 1.9 x10^3/uL (1.8-7.7) Lymphocytes # (Auto) 6.4 x10^3/uL (1.0-4.8) Monocytes # (Auto) 0.2 x10^3/uL (0.0-1.1) Eosinophils # (Auto) 0.1 x10^3/uL (0.0-0.7) Basophils # (Auto) 0.1 x10^3/uL (0.0-0.2) Prothrombin Time 14.2 SEC (11.7-14.0) Prothromb Time International Ratio 1.1 (0.8-1.1) Activated Partial Thromboplast Time 35 SEC (24-38) Sodium Level 145 mmol/L (136-145) Potassium Level 2.3 mmol/L (3.5-5.1) Chloride Level 107 mmol/L (98-107) Carbon Dioxide Level 25 mmol/L (21-32) Anion Gap 13 (6-14) Blood Urea Nitrogen 13 mg/dL (7-20) Creatinine 1.2 mg/dL (0.6-1.0) Estimated GFR (Cockcroft-Gault) 53.7 Glucose Level 275 mg/dL (70-99) Lactic Acid Level 8.1 mmol/L (0.4-2.0) Calcium Level 9.5 mg/dL (8.5-10.1) Phosphorus Level 4.7 mg/dL (2.6-4.7) Magnesium Level 3.0 mg/dL (1.8-2.4) Total Bilirubin 0.4 mg/dL (0.2-1.0) Direct Bilirubin 0.2 mg/dL (0.0-0.2) Aspartate Amino Transf (AST/SGOT) 667 U/L (15-37) Alanine Aminotransferase (ALT/SGPT) 560 U/L (14-59) Alkaline Phosphatase 71 U/L (46-116) Creatine Kinase 112 U/L (26-192) Troponin I High Sensitivity 15 ng/L (4-50) BB-Lqt-[id number]-Type Natriuretic Peptide 113 pg/mL (0-124) Total Protein 6.1 g/dL (6.4-8.2) Albumin 2.6 g/dL (3.4-5.0) Salicylates Level 1.0 mg/dL (2.8-20.0) Salicylate Last Dose Date Unknown Salicylate Last Dose Time Unknown Acetaminophen Level 2.4 mcg/ml (10-30) Acetaminophen Last Dose Date Unknown Acetaminophen Last Dose Time Unknown Ethyl Alcohol Level < 10 mg/dL (0-10) O2 Saturation 99 % (92-99) Arterial Blood pH 7.32 (7.35-7.45) Arterial Blood pCO2 at Patient Temp 40 mmHg (35-46) Arterial Blood pO2 at Patient Temp 374 mmHg (65-108) Arterial Blood HCO3 20 mmol/L (21-28) Arterial Blood Base Excess -5 mmol/L (-3-3) FiO2 100 Urine Collection Type U cath Urine Color Yellow Urine Clarity Clear Urine pH 7.5 (<5.0-8.0) Urine Specific [place] 1.015 (1.000-1.030) Urine Protein >=300 mg/dL (NEG-TRACE) Urine Glucose (UA) 500 mg/dL (NEG) Urine Ketones (Stick) Negative mg/dL (NEG) Urine Blood Moderate (NEG) Urine Nitrite Negative (NEG) Urine Bilirubin Negative (NEG) Urine Urobilinogen Dipstick 0.2 mg/dL (0.2 mg/dL) Urine Leukocyte Esterase Negative (NEG) Urine RBC 3-5 /HPF (0-2) Urine WBC 1-4 /HPF (0-4) Urine Squamous Epithelial Cells Occ /LPF Urine Bacteria 0 /HPF (0-FEW) Urine Mucus Slight /LPF Urine Opiates Screen Neg (NEG) Urine Methadone Screen Neg (NEG) Urine Barbiturates Neg (NEG) Urine Phencyclidine Screen Neg (NEG) Urine Amphetamine/Methamphetamine Neg (NEG) Urine Benzodiazepines Screen Pos (NEG) Urine Cocaine Screen Neg (NEG) Urine Cannabinoids Screen Neg (NEG) Urine Ethyl Alcohol Neg (NEG) Test 05/24/21 14:03 05/24/21 14:13 05/24/21 15:57 Glucose (Fingerstick) 252 mg/dL (70-99) 260 mg/dL (70-99) Lactic Acid Level 4.5 mmol/L (0.4-2.0) Laboratory Tests Test 05/24/21 10:51 05/24/21 11:10 05/24/21 11:25 05/24/21 11:40 Glucose (Fingerstick) 125 mg/dL (70-99) White Blood Count 8.6 x10^3/uL (4.0-11.0) Red Blood Count 4.51 x10^6/uL (3.50-5.40) Hemoglobin 11.9 g/dL (12.0-15.5) Hematocrit 37.3 % (36.0-47.0) Mean Corpuscular Volume 83 fL (79-100) Mean Corpuscular Hemoglobin 26 pg (25-35) Mean Corpuscular Hemoglobin Concent 32 g/dL (31-37) Red Cell Distribution Width 16.6 % (11.5-14.5) Platelet Count 188 x10^3/uL (140-400) Neutrophils (%) (Auto) 22 % (31-73) Lymphocytes (%) (Auto) 74 % (24-48) Monocytes (%) (Auto) 2 % (0-9) Eosinophils (%) (Auto) 1 % (0-3) Basophils (%) (Auto) 1 % (0-3) Neutrophils # (Auto) 1.9 x10^3/uL (1.8-7.7) Lymphocytes # (Auto) 6.4 x10^3/uL (1.0-4.8) Monocytes # (Auto) 0.2 x10^3/uL (0.0-1.1) Eosinophils # (Auto) 0.1 x10^3/uL (0.0-0.7) Basophils # (Auto) 0.1 x10^3/uL (0.0-0.2) Prothrombin Time 14.2 SEC (11.7-14.0) Prothromb Time International Ratio 1.1 (0.8-1.1) Activated Partial Thromboplast Time 35 SEC (24-38) Sodium Level 145 mmol/L (136-145) Potassium Level 2.3 mmol/L (3.5-5.1) Chloride Level 107 mmol/L (98-107) Carbon Dioxide Level 25 mmol/L (21-32) Anion Gap 13 (6-14) Blood Urea Nitrogen 13 mg/dL (7-20) Creatinine 1.2 mg/dL (0.6-1.0) Estimated GFR (Cockcroft-Gault) 53.7 Glucose Level 275 mg/dL (70-99) Lactic Acid Level 8.1 mmol/L (0.4-2.0) Calcium Level 9.5 mg/dL (8.5-10.1) Phosphorus Level 4.7 mg/dL (2.6-4.7) Magnesium Level 3.0 mg/dL (1.8-2.4) Total Bilirubin 0.4 mg/dL (0.2-1.0) Direct Bilirubin 0.2 mg/dL (0.0-0.2) Aspartate Amino Transf (AST/SGOT) 667 U/L (15-37) Alanine Aminotransferase (ALT/SGPT) 560 U/L (14-59) Alkaline Phosphatase 71 U/L (46-116) Creatine Kinase 112 U/L (26-192) Troponin I High Sensitivity 15 ng/L (4-50) HO-Ttm-M-Type Natriuretic Peptide 113 pg/mL (0-124) Total Protein 6.1 g/dL (6.4-8.2) Albumin 2.6 g/dL (3.4-5.0) Salicylates Level 1.0 mg/dL (2.8-20.0) Salicylate Last Dose Date Unknown Salicylate Last Dose Time Unknown Acetaminophen Level 2.4 mcg/ml (10-30) Acetaminophen Last Dose Date Unknown Acetaminophen Last Dose Time Unknown Ethyl Alcohol Level < 10 mg/dL (0-10) O2 Saturation 99 % (92-99) Arterial Blood pH 7.32 (7.35-7.45) Arterial Blood pCO2 at Patient Temp 40 mmHg (35-46) Arterial Blood pO2 at Patient Temp 374 mmHg (65-108) Arterial Blood HCO3 20 mmol/L (21-28) Arterial Blood Base Excess -5 mmol/L (-3-3) FiO2 100 Urine Collection Type U cath Urine Color Yellow Urine Clarity Clear Urine pH 7.5 (<5.0-8.0) Urine Specific [place] 1.015 (1.000-1.030) Urine Protein >=300 mg/dL (NEG-TRACE) Urine Glucose (UA) 500 mg/dL (NEG) Urine Ketones (Stick) Negative mg/dL (NEG) Urine Blood Moderate (NEG) Urine Nitrite Negative (NEG) Urine Bilirubin Negative (NEG) Urine Urobilinogen Dipstick 0.2 mg/dL (0.2 mg/dL) Urine Leukocyte Esterase Negative (NEG) Urine RBC 3-5 /HPF (0-2) Urine WBC 1-4 /HPF (0-4) Urine Squamous Epithelial Cells Occ /LPF Urine Bacteria 0 /HPF (0-FEW) Urine Mucus Slight /LPF Urine Opiates Screen Neg (NEG) Urine Methadone Screen Neg (NEG) Urine Barbiturates Neg (NEG) Urine Phencyclidine Screen Neg (NEG) Urine Amphetamine/Methamphetamine Neg (NEG) Urine Benzodiazepines Screen Pos (NEG) Urine Cocaine Screen Neg (NEG) Urine Cannabinoids Screen Neg (NEG) Urine Ethyl Alcohol Neg (NEG) Test 05/24/21 14:03 05/24/21 14:13 05/24/21 15:57 Glucose (Fingerstick) 252 mg/dL (70-99) 260 mg/dL (70-99) Lactic Acid Level 4.5 mmol/L (0.4-2.0) VTE Prophylaxis Ordered VTE Prophylaxis Devices: No VTE Pharmacological Prophylaxi: Yes Assessment/Plan Assessment/Plan Cardiac arrest chest pain r/o ACS PEA arrest critical hypokalemia, replace acute hypoxia from arrest hx tachybrady syndrome, has pacer, HTN, CVA, HTN, asthma, COPD , GERD, rheumatoid arthritis, admit to ICU, 35 min 3 visits Justifications for Admission Other Justification VALENTINE TOWNSEND MD May 24, 2021 16:10
[2021-05-24] MEDS ORDERED: INSULIN GLARGINE SYRINGE. SQ SCH (16:15)
[2021-05-24] MEDS ORDERED: DEXTROSE 50% 25 GM / 50ML DISP.SYRIN. IV PRN (16:15)
[2021-05-24] MEDS ORDERED: POTASSIUM CHLORIDE 20MEQ 100 ML IV PRN (16:15)
--- NOTE | 2021-05-24 16:54 | PDOC ---
Provider Note Date of Service: DATE: 05/24/21 TIME: 16:50 Provider Note Anesthesia note: Requested for arterial line placement on pt s/p cardiopulmonary arrest placed in hypothermia protocol. #20 ga Arrow cath placed in left radial artery sterile technique chlorhexidene prep. Secured with tape, covered with op-site dressing. Good wave forms on monitor. Justifications for Admission Other Justification WILDA DELGADILLO CRNA May 24, 2021 16:54
[2021-05-24] MEDS: INSULIN LISPRO 300 UNITS/3 ML VIAL. SQ SCH (17:00)
[2021-05-24] MEDS: PIPERACILLIN/TAZOBACTAM 3.375 GM in IV NORMAL SALINE 50ML 50 ML IV SCH ×2 (17:36→23:37)
--- NOTE | 2021-05-24 18:22 | PDOC2 ---
CONSULT Date of Consult Date of Consult DATE: 05/24/21 TIME: 18:19 Reason for Consult Reason for Consult: AMS Identification/Chief Complaint Chief Complaint AMS History of Present Illness Reason for Visit: This patient is 71-year-old woman with past medical history of multiple medical problems patient presented to emergency room was less responsive. Patient was pulseless, patient had CPR, chest compressions, V. fib, pulseless electrical activity cardiac arrest, patient was intubated patient is currently intubated sedated. CT brain did not show any evidence of acute intracranial W no evidence of acute hemorrhage or mass. Past Medical History Cardiovascular: CAD, CHF, HTN Pulmonary: Asthma, COPD CENTRAL NERVOUS SYSTEM: CVA GI: GERD Heme/Onc: Anemia NOS Hepatobiliary: No pertinent hx Psych: Anxiety, Depression Musculoskeletal: low back pain, Osteoarthritis Rheumatologic: No pertinent hx, Rheumatoid arthritis Infectious disease: No pertinent hx Renal/: Other Endocrine: No pertinent hx Past Surgical History Past Surgical History: Pacemaker, Total hip replacement, Tonsillectomy, Hysterectomy Family History Family History: Hypertension Social History Quit ALCOHOL: none Drugs: None Lives: with Family Current Problem List Problem List Problems Medical Problems: (1) Cardiac arrest with ventricular fibrillation Status: Acute (2) Cardiac arrest with ventricular fibrillation Status: Acute (3) Hypermagnesemia Status: Acute (4) Hypermagnesemia Status: Acute (5) Hypokalemia Status: Acute (6) Lactic acidosis Status: Acute (7) Transaminitis Status: Acute Current Medications Current Medications Current Medications Amiodarone HCl 450 mg/Dextrose 259 ml @ 33 mls/hr 1X ONCE IV Last administered on 05/24/21at 10:53; Start 05/24/21 at 11:00; Stop 05/24/21 at 17:50; Status DC Norepinephrine Bitartrate 8 mg/ Dextrose 258 ml @ 14.435 mls/ hr 1X ONCE IV Last administered on 05/24/21at 11:03; Start 05/24/21 at 11:00; Stop 05/24/21 at 11:01; Status DC Sodium Chloride 1,000 ml @ 1,000 mls/hr 1X ONCE IV Last administered on 05/24/21at 10:45; Start 05/24/21 at 11:00; Stop 05/24/21 at 12:05; Status DC Piperacillin Sod/ Tazobactam Sod 4.5 gm/Sodium Chloride 100 ml @ 200 mls/hr 1X ONCE IV Last administered on 05/24/21at 11:58; Start 05/24/21 at 11:00; Stop 05/24/21 at 11:29; Status DC Vancomycin HCl (Vanco Per Pharmacy) 1 each PRN DAILY PRN MC SEE COMMENTS; Start 05/24/21 at 11:00; Status Cancel Vancomycin HCl 1.75 gm/Sodium Chloride 500 ml @ 250 mls/hr 1X ONCE IV Last administered on 05/24/21at 13:00; Start 05/24/21 at 11:15; Stop 05/24/21 at 13:34; Status DC Fentanyl Citrate 30 ml @ 0 mls/hr CONT PRN IV SEE PROTOCOL; Start 05/24/21 at 11:15; Stop 05/24/21 at 13:36; Status DC Propofol 100 ml @ 2.22 mls/hr CONT PRN IV PER PROTOCOL; Start 05/24/21 at 11:15; Stop 05/24/21 at 13:37; Status DC Ringer's Solution 1,000 ml @ 75 mls/hr 1X ONCE IV ; Start 05/24/21 at 11:15; Stop 05/25/21 at 00:34 Midazolam HCl 100 ml @ 1 mls/hr CONT PRN IV SEE PROTOCOL Last administered on 05/24/21at 11:37; Start 05/24/21 at 11:30; Stop 05/24/21 at 13:37; Status DC Midazolam HCl (Versed) 5 mg 1X ONCE NS Last administered on 05/24/21at 11:03; Start 05/24/21 at 11:30; Stop 05/24/21 at 11:34; Status DC Lidocaine HCl (Lidocaine HCl 2% Abboject) 100 mg 1X ONCE IV Last administered on 05/24/21at 10:46; Start 05/24/21 at 11:30; Stop 05/24/21 at 11:34; Status DC Magnesium Sulfate/ Dextrose 100 ml @ 100 mls/hr 1X ONCE IV Last administered on 05/24/21at 10:48; Start 05/24/21 at 11:30; Stop 05/24/21 at 12:29; Status DC Fentanyl Citrate (Fentanyl 2ml Vial) 100 mcg STK-MED ONCE .ROUTE ; Start 05/24/21 at 11:43; Stop 05/24/21 at 11:43; Status DC Fentanyl Citrate (Fentanyl 2ml Vial) 100 mcg 1X ONCE IVP Last administered on 05/24/21at 11:49; Start 05/24/21 at 11:45; Stop 05/24/21 at 11:47; Status DC Potassium Chloride/Water 100 ml @ 100 mls/hr Q1H IV Last administered on 05/24/21at 12:45; Start 05/24/21 at 12:00; Stop 05/24/21 at 14:59; Status DC Fentanyl Citrate (Fentanyl 2ml Vial) 100 mcg 1X ONCE IV ; Start 05/24/21 at 11:45; Stop 05/24/21 at 12:05; Status DC Buspirone HCl (Buspar) 30 mg Q8H NG Last administered on 05/24/21at 14:22; Start 05/24/21 at 12:00; Stop 05/26/21 at 04:01 Acetaminophen (Tylenol) 650 mg Q4H NG Last administered on 05/24/21at 14:21; Start 05/24/21 at 11:45 Glycerin/ Hypromellose/ Polyethylene (Artificial Tears) 1 drop Q6HRS OU Last administered on 05/24/21at 17:37; Start 05/24/21 at 12:00 Glycerin/ Hypromellose/ Polyethylene (Artificial Tears) 1 drop PRN Q15MIN PRN OU DRY EYE; Start 05/24/21 at 11:45 Heparin Sodium (Porcine) (Heparin Sodium) 5,000 unit BID SQ Last administered on 05/24/21at 14:22; Start 05/24/21 at 12:00 Pantoprazole Sodium (PROTONIX VIAL for IV PUSH) 40 mg DAILY IVP Last administered on 05/24/21at 14:21; Start 05/24/21 at 12:00 Fentanyl Citrate 30 ml @ 0 mls/hr CONT PRN IV PER PROTOCOL.; Start 05/24/21 at 11:45; Stop 05/24/21 at 12:38; Status DC Propofol 100 ml @ 0 mls/hr CONT PRN IV PER PROTOCOL; Start 05/24/21 at 11:45; Stop 05/24/21 at 12:38; Status DC Midazolam HCl 100 ml @ 0 mls/hr CONT PRN IV PER PROTOCOL; Start 05/24/21 at 11:45; Stop 05/24/21 at 12:38; Status DC Vecuronium [place] (Norcuron Bolus) 10 mg PRN Q1HR PRN IV VENTILATOR COMPLIANCE Last administered on 05/24/21at 13:48; Start 05/24/21 at 11:45 Sodium Chloride 1,000 ml @ 1,000 mls/hr 1X ONCE IV Last administered on 05/24/21at 12:00; Start 05/24/21 at 12:30; Stop 05/24/21 at 13:34; Status DC Propofol 100 ml @ 2.22 mls/hr CONT PRN IV PER PROTOCOL; Start 05/24/21 at 12:45 Midazolam HCl 100 ml @ 1 mls/hr CONT PRN IV PER PROTOCOL Last administered on 05/24/21at 12:30; Start 05/24/21 at 12:45 Fentanyl Citrate 30 ml @ 2.5 mls/hr CONT PRN IV PER PROTOCOL. Last administered on 05/24/21at 13:51; Start 05/24/21 at 12:45 Insulin Human Regular 100 unit/ Sodium Chloride 101 ml @ 0 mls/hr CONT PRN IV PER PROTOCOL Last administered on 05/24/21at 14:35; Start 05/24/21 at 14:30 Vancomycin HCl (Vanco Per Pharmacy) 1 each PRN DAILY PRN MC SEE COMMENTS Last administered on 05/24/21at 15:32; Start 05/24/21 at 15:30 Piperacillin Sod/ Tazobactam Sod (Zosyn Per Pharmacy) 1 each PRN DAILY PRN MC SEE COMMENTS; Start 05/24/21 at 15:30 Vancomycin HCl 1.25 gm/Sodium Chloride 250 ml @ 167 mls/hr Q24H IV ; Start 05/25/21 at 13:00 Vancomycin HCl (Vancomycin Trough Level) 1 each 1X ONCE MC ; Start 05/26/21 at 12:30; Stop 05/26/21 at 12:31 Piperacillin Sod/ Tazobactam Sod 3.375 gm/Sodium Chloride 50 ml @ 100 mls/hr Q6HRS IV Last administered on 05/24/21at 17:36; Start 05/24/21 at 18:00 Potassium Chloride/Water 100 ml @ 50 mls/hr Q2H IV Last administered on 05/24/21at 17:36; Start 05/24/21 at 17:00; Stop 05/24/21 at 20:59 Insulin Human Lispro (HumaLOG) 0-7 UNITS TIDWMEALS SQ ; Start 05/24/21 at 17:00 Dextrose (Dextrose 50%-Water Syringe) 12.5 gm PRN Q15MIN PRN IV SEE COMMENTS; Start 05/24/21 at 16:15 Potassium Chloride/Water 100 ml @ 100 mls/hr PRN Q1HR PRN IV SEE PROTOCOL; Start 05/24/21 at 16:15 Potassium Chloride/Water 100 ml @ 100 mls/hr PRN Q1HR PRN IV SEE PROTOCOL; Start 05/24/21 at 16:15 Insulin Glargine (Lantus Syringe) 6 unit DAILY16 SQ Last administered on 05/24/21at 16:34; Start 05/24/21 at 16:15 Amiodarone HCl 450 mg/Dextrose 259 ml @ 17 mls/hr CONT PRN IV SEE I/O RECORD; Start 05/24/21 at 18:00 Active Scripts Active Guaifenesin-Codeine Syrup (Guaifenesin/Codeine Phosphate) 118 Ml Liquid 5 Ml PO Q6HRS Promethazine Hcl 25 Mg Tablet 1 Tab PO PRN Q6HRS Doxycycline Hyclate 100 Mg Tablet 1 Tab PO BID Dok (Docusate Sodium) 100 Mg Capsule 100 Mg PO PRN BID PRN 30 Days Aspirin Ec (Aspirin) 81 Mg Tablet.dr 81 Mg PO DAILYWBKFT 30 Days Amlodipine Besylate 5 Mg Tablet 2.5 Mg PO DAILY 30 Days Nitrostat (Nitroglycerin) 0.4 Mg Tab.subl 0.4 Mg SL PRN Q5MIN PRN 30 Days Atorvastatin Calcium 20 Mg Tablet 20 Mg PO QHS 30 Days Proair Hfa (Albuterol Sulfate) 8.5 Gm Hfa.aer.ad 2.5 Mg NEB PRN Q4HRS PRN 14 Days Reported Proctosol-Hc (Hydrocortisone) 28.35 Gm Cream..g. 1 Allyssa TP BID PRN 15 Days Amitriptyline Hcl 75 Mg Tablet 1 Tab PO QHS last dose 09/10 8:38pm next dose 09/11 9:00pm Miralax (Polyethylene Glycol 3350) 17 Gm Powd.pack 1 Packet PO DAILY 2 Days dissolve in water Acetaminophen 500 Mg Tablet 2 Tab PO PRN Q6HRS PRN 15 Days last dose 09/11 9:19am Symbicort 160-4.5 Mcg Inhaler (Budesonide/Formoterol Fumarate) 10.2 Gm Hfa.aer.ad 2 Puff IH BID Vitamin B-12 (Cyanocobalamin (Vitamin B-12)) 5,000 Mcg Capsule 5,000 Mcg PO DAILY Calcium 1,000 + D3 Caplet (Calcium Carbonate/Vitamin D3) 1 Each Tablet 1 Each PO DAILY Xyzal (Levocetirizine Dihydrochloride) 5 Mg Tablet 1 Tab PO DAILY 30 Days Isosorbide Mononitrate Er (Isosorbide Mononitrate) 60 Mg Tab.er.24h 60 Mg PO DAILY Klor-Con 10 (Potassium Chloride) 10 Meq Tablet.er 20 Meq PO DAILY Ferrous Sulfate 325 Mg Tablet 1 Tab PO DAILY Estradiol 0.5 Mg Tablet 1 Tab PO DAILY Tramadol Hcl 50 Mg Tablet 100 Mg PO PRN Q12HR Tamsulosin Hcl 0.4 Mg Cap.er.24h 1 Cap PO DAILY Allergies Allergies: Coded Allergies: alendronate sodium (Verified Allergy, Severe, Swelling, 10/25/18) methocarbamol (Verified Allergy, Intermediate, 10/25/18) ROS Review of System Per HPI due to current medical condition Physical Exam Physical Exam PHYSICAL EXAMINATION: General: On vent. Unresponsive HEENT: Normal cephalic and non traumatic. Neck: No lymphadenopathy. No resistance. Cardiac: S1, S2, regular rate and rhythm. Pulmonary: On vent. Abdomen: Bowel sounds soft NEUROLOGICAL EXAMINATION: On vent. Unresponsive Sedation Pupils decreased reaction to light stimuli. EOMI not elicited. CN: No acute findings. Neck: No resistance Muscle Tone: decreased. Sensory Muscle Strength: no movements noted to stimuli sedationDTR: 0-1 Plantar Reflex: No response bilaterally Cerebellar Signs: Not able Gait: Not able Vitals VITALS Vital Signs Date Time Temp Pulse Resp B/P (MAP) Pulse Ox O2 Delivery O2 Flow Rate FiO2 05/24/21 17:36 100 Ventilator 05/24/21 17:00 90.8 67 20 113/64 Labs Labs Laboratory Tests Test 05/24/21 10:51 05/24/21 11:10 05/24/21 11:25 05/24/21 11:40 Glucose (Fingerstick) 125 mg/dL (70-99) White Blood Count 8.6 x10^3/uL (4.0-11.0) Red Blood Count 4.51 x10^6/uL (3.50-5.40) Hemoglobin 11.9 g/dL (12.0-15.5) Hematocrit 37.3 % (36.0-47.0) Mean Corpuscular Volume 83 fL (79-100) Mean Corpuscular Hemoglobin 26 pg (25-35) Mean Corpuscular Hemoglobin Concent 32 g/dL (31-37) Red Cell Distribution Width 16.6 % (11.5-14.5) Platelet Count 188 x10^3/uL (140-400) Neutrophils (%) (Auto) 22 % (31-73) Lymphocytes (%) (Auto) 74 % (24-48) Monocytes (%) (Auto) 2 % (0-9) Eosinophils (%) (Auto) 1 % (0-3) Basophils (%) (Auto) 1 % (0-3) Neutrophils # (Auto) 1.9 x10^3/uL (1.8-7.7) Lymphocytes # (Auto) 6.4 x10^3/uL (1.0-4.8) Monocytes # (Auto) 0.2 x10^3/uL (0.0-1.1) Eosinophils # (Auto) 0.1 x10^3/uL (0.0-0.7) Basophils # (Auto) 0.1 x10^3/uL (0.0-0.2) Prothrombin Time 14.2 SEC (11.7-14.0) Prothromb Time International Ratio 1.1 (0.8-1.1) Activated Partial Thromboplast Time 35 SEC (24-38) Sodium Level 145 mmol/L (136-145) Potassium Level 2.3 mmol/L (3.5-5.1) Chloride Level 107 mmol/L (98-107) Carbon Dioxide Level 25 mmol/L (21-32) Anion Gap 13 (6-14) Blood Urea Nitrogen 13 mg/dL (7-20) Creatinine 1.2 mg/dL (0.6-1.0) Estimated GFR (Cockcroft-Gault) 53.7 Glucose Level 275 mg/dL (70-99) Lactic Acid Level 8.1 mmol/L (0.4-2.0) Calcium Level 9.5 mg/dL (8.5-10.1) Phosphorus Level 4.7 mg/dL (2.6-4.7) Magnesium Level 3.0 mg/dL (1.8-2.4) Total Bilirubin 0.4 mg/dL (0.2-1.0) Direct Bilirubin 0.2 mg/dL (0.0-0.2) Aspartate Amino Transf (AST/SGOT) 667 U/L (15-37) Alanine Aminotransferase (ALT/SGPT) 560 U/L (14-59) Alkaline Phosphatase 71 U/L (46-116) Creatine Kinase 112 U/L (26-192) Troponin I High Sensitivity 15 ng/L (4-50) DP-Djb-L-Type Natriuretic Peptide 113 pg/mL (0-124) Total Protein 6.1 g/dL (6.4-8.2) Albumin 2.6 g/dL (3.4-5.0) Salicylates Level 1.0 mg/dL (2.8-20.0) Salicylate Last Dose Date Unknown Salicylate Last Dose Time Unknown Acetaminophen Level 2.4 mcg/ml (10-30) Acetaminophen Last Dose Date Unknown Acetaminophen Last Dose Time Unknown Ethyl Alcohol Level < 10 mg/dL (0-10) O2 Saturation 99 % (92-99) Arterial Blood pH 7.32 (7.35-7.45) Arterial Blood pCO2 at Patient Temp 40 mmHg (35-46) Arterial Blood pO2 at Patient Temp 374 mmHg (65-108) Arterial Blood HCO3 20 mmol/L (21-28) Arterial Blood Base Excess -5 mmol/L (-3-3) FiO2 100 Urine Collection Type U cath Urine Color Yellow Urine Clarity Clear Urine pH 7.5 (<5.0-8.0) Urine Specific [place] 1.015 (1.000-1.030) Urine Protein >=300 mg/dL (NEG-TRACE) Urine Glucose (UA) 500 mg/dL (NEG) Urine Ketones (Stick) Negative mg/dL (NEG) Urine Blood Moderate (NEG) Urine Nitrite Negative (NEG) Urine Bilirubin Negative (NEG) Urine Urobilinogen Dipstick 0.2 mg/dL (0.2 mg/dL) Urine Leukocyte Esterase Negative (NEG) Urine RBC 3-5 /HPF (0-2) Urine WBC 1-4 /HPF (0-4) Urine Squamous Epithelial Cells Occ /LPF Urine Bacteria 0 /HPF (0-FEW) Urine Mucus Slight /LPF Urine Opiates Screen Neg (NEG) Urine Methadone Screen Neg (NEG) Urine Barbiturates Neg (NEG) Urine Phencyclidine Screen Neg (NEG) Urine Amphetamine/Methamphetamine Neg (NEG) Urine Benzodiazepines Screen Pos (NEG) Urine Cocaine Screen Neg (NEG) Urine Cannabinoids Screen Neg (NEG) Urine Ethyl Alcohol Neg (NEG) Test 05/24/21 14:03 05/24/21 14:13 05/24/21 15:55 05/24/21 15:57 Glucose (Fingerstick) 252 mg/dL (70-99) 260 mg/dL (70-99) Lactic Acid Level 4.5 mmol/L (0.4-2.0) Sodium Level 142 mmol/L (136-145) Potassium Level 3.2 mmol/L (3.5-5.1) Chloride Level 104 mmol/L (98-107) Carbon Dioxide Level 23 mmol/L (21-32) Anion Gap 15 (6-14) Blood Urea Nitrogen 15 mg/dL (7-20) Creatinine 1.3 mg/dL (0.6-1.0) Estimated GFR (Cockcroft-Gault) 49.0 Glucose Level 267 mg/dL (70-99) Calcium Level 8.8 mg/dL (8.5-10.1) Test 05/24/21 17:05 05/24/21 18:06 Glucose (Fingerstick) 234 mg/dL (70-99) 187 mg/dL (70-99) Laboratory Tests Test 05/24/21 10:51 05/24/21 11:10 05/24/21 11:25 05/24/21 11:40 Glucose (Fingerstick) 125 mg/dL (70-99) White Blood Count 8.6 x10^3/uL (4.0-11.0) Red Blood Count 4.51 x10^6/uL (3.50-5.40) Hemoglobin 11.9 g/dL (12.0-15.5) Hematocrit 37.3 % (36.0-47.0) Mean Corpuscular Volume 83 fL (79-100) Mean Corpuscular Hemoglobin 26 pg (25-35) Mean Corpuscular Hemoglobin Concent 32 g/dL (31-37) Red Cell Distribution Width 16.6 % (11.5-14.5) Platelet Count 188 x10^3/uL (140-400) Neutrophils (%) (Auto) 22 % (31-73) Lymphocytes (%) (Auto) 74 % (24-48) Monocytes (%) (Auto) 2 % (0-9) Eosinophils (%) (Auto) 1 % (0-3) Basophils (%) (Auto) 1 % (0-3) Neutrophils # (Auto) 1.9 x10^3/uL (1.8-7.7) Lymphocytes # (Auto) 6.4 x10^3/uL (1.0-4.8) Monocytes # (Auto) 0.2 x10^3/uL (0.0-1.1) Eosinophils # (Auto) 0.1 x10^3/uL (0.0-0.7) Basophils # (Auto) 0.1 x10^3/uL (0.0-0.2) Prothrombin Time 14.2 SEC (11.7-14.0) Prothromb Time International Ratio 1.1 (0.8-1.1) Activated Partial Thromboplast Time 35 SEC (24-38) Sodium Level 145 mmol/L (136-145) Potassium Level 2.3 mmol/L (3.5-5.1) Chloride Level 107 mmol/L (98-107) Carbon Dioxide Level 25 mmol/L (21-32) Anion Gap 13 (6-14) Blood Urea Nitrogen 13 mg/dL (7-20) Creatinine 1.2 mg/dL (0.6-1.0) Estimated GFR (Cockcroft-Gault) 53.7 Glucose Level 275 mg/dL (70-99) Lactic Acid Level 8.1 mmol/L (0.4-2.0) Calcium Level 9.5 mg/dL (8.5-10.1) Phosphorus Level 4.7 mg/dL (2.6-4.7) Magnesium Level 3.0 mg/dL (1.8-2.4) Total Bilirubin 0.4 mg/dL (0.2-1.0) Direct Bilirubin 0.2 mg/dL (0.0-0.2) Aspartate Amino Transf (AST/SGOT) 667 U/L (15-37) Alanine Aminotransferase (ALT/SGPT) 560 U/L (14-59) Alkaline Phosphatase 71 U/L (46-116) Creatine Kinase 112 U/L (26-192) Troponin I High Sensitivity 15 ng/L (4-50) TF-Mjk-E-Type Natriuretic Peptide 113 pg/mL (0-124) Total Protein 6.1 g/dL (6.4-8.2) Albumin 2.6 g/dL (3.4-5.0) Salicylates Level 1.0 mg/dL (2.8-20.0) Salicylate Last Dose Date Unknown Salicylate Last Dose Time Unknown Acetaminophen Level 2.4 mcg/ml (10-30) Acetaminophen Last Dose Date Unknown Acetaminophen Last Dose Time Unknown Ethyl Alcohol Level < 10 mg/dL (0-10) O2 Saturation 99 % (92-99) Arterial Blood pH 7.32 (7.35-7.45) Arterial Blood pCO2 at Patient Temp 40 mmHg (35-46) Arterial Blood pO2 at Patient Temp 374 mmHg (65-108) Arterial Blood HCO3 20 mmol/L (21-28) Arterial Blood Base Excess -5 mmol/L (-3-3) FiO2 100 Urine Collection Type U cath Urine Color Yellow Urine Clarity Clear Urine pH 7.5 (<5.0-8.0) Urine Specific [place] 1.015 (1.000-1.030) Urine Protein >=300 mg/dL (NEG-TRACE) Urine Glucose (UA) 500 mg/dL (NEG) Urine Ketones (Stick) Negative mg/dL (NEG) Urine Blood Moderate (NEG) Urine Nitrite Negative (NEG) Urine Bilirubin Negative (NEG) Urine Urobilinogen Dipstick 0.2 mg/dL (0.2 mg/dL) Urine Leukocyte Esterase Negative (NEG) Urine RBC 3-5 /HPF (0-2) Urine WBC 1-4 /HPF (0-4) Urine Squamous Epithelial Cells Occ /LPF Urine Bacteria 0 /HPF (0-FEW) Urine Mucus Slight /LPF Urine Opiates Screen Neg (NEG) Urine Methadone Screen Neg (NEG) Urine Barbiturates Neg (NEG) Urine Phencyclidine Screen Neg (NEG) Urine Amphetamine/Methamphetamine Neg (NEG) Urine Benzodiazepines Screen Pos (NEG) Urine Cocaine Screen Neg (NEG) Urine Cannabinoids Screen Neg (NEG) Urine Ethyl Alcohol Neg (NEG) Test 05/24/21 14:03 05/24/21 14:13 05/24/21 15:55 05/24/21 15:57 Glucose (Fingerstick) 252 mg/dL (70-99) 260 mg/dL (70-99) Lactic Acid Level 4.5 mmol/L (0.4-2.0) Sodium Level 142 mmol/L (136-145) Potassium Level 3.2 mmol/L (3.5-5.1) Chloride Level 104 mmol/L (98-107) Carbon Dioxide Level 23 mmol/L (21-32) Anion Gap 15 (6-14) Blood Urea Nitrogen 15 mg/dL (7-20) Creatinine 1.3 mg/dL (0.6-1.0) Estimated GFR (Cockcroft-Gault) 49.0 Glucose Level 267 mg/dL (70-99) Calcium Level 8.8 mg/dL (8.5-10.1) Test 05/24/21 17:05 05/24/21 18:06 Glucose (Fingerstick) 234 mg/dL (70-99) 187 mg/dL (70-99) Assessment/Plan Assessment/Plan This patient is 71-year-old woman with past medical history of multiple medical problems patient presented to emergency room was less responsive. Patient was pulseless, patient had CPR, chest compressions, V. fib, pulseless electrical activity cardiac arrest, patient was intubated patient is currently intubated se dated. CT brain did not show any evidence of acute intracranial W no evidence of acute hemorrhage or mass. With cardiac arrest, chest pain, pulseless electric activity, hypokalemia, anoxic encephalopathy, patient has history of tachybradycardia syndrome, has pacemaker, hypertension, CVA, COPD, GERD, continue close monitoring, continue medical management. Plan discussed at length. Thank you for allowing me to take part in this patient's care. Please not hesitate to contact me with questions. Transcribed using dictation device. The dictation could contain irregularities inherent in the voice to text conversion software, which may not be detected during the document review process. Please contact our office in case of any confusion or for any clarification, as needed. ZENIA JONES MD May 24, 2021 18:22
[2021-05-24] MEDS: AMIODARONE 450 MG in IV DEXTROSE 5% 250 ML IV PRN (18:39)
[2021-05-24 20:39] LABS: BASO % 0 % (0-3); EOS % 0 % (0-3); HEMATOCRIT 39.7 % (36.0-47.0); HEMOGLOBIN 12.9 g/dL (12.0-15.5); LYMPH # 0.9 x10^3/uL (1.0-4.8); LYMPH % 8 % (24-48); MEAN CORPUSCULAR HEMOGLOBIN 27 pg (25-35); MEAN CORPUSCULAR HGB CONC 33 g/dL (31-37); MEAN CORPUSCULAR VOLUME 82 fL (79-100); MONO # 0.8 x10^3/uL (0.0-1.1); MONO % 7 % (0-9); NEUT % 85 % (31-73); PLATELET COUNT 204 x10^3/uL (140-400); RED BLOOD COUNT 4.87 x10^6/uL (3.50-5.40); RED CELL DISTRIBUTION WIDTH 16.2 % (11.5-14.5); WHITE BLOOD COUNT 11.7 x10^3/uL (4.0-11.0)
[2021-05-24 20:50] LABS: CREATININE 1.3 mg/dL (0.6-1.0); MAGNESIUM 2.1 mg/dL (1.8-2.4); PHOSPHORUS 0.6 mg/dL (2.6-4.7); PROTHROMBIN TIME PATIENT 13.8 SEC (11.7-14.0)
[2021-05-24 21:02] LABS: POTASSIUM 2.9 mmol/L (3.5-5.1)
[2021-05-24] MEDS: POTASSIUM CHLORIDE 20MEQ 100 ML IV PRN ×3 (21:24→23:37)
[2021-05-24] MEDS ORDERED: MAGNESIUM SULFATE 2GM 50 ML IV ONE (22:00)
[2021-05-24] MEDS ORDERED: NORMAL SALINE IV ONE (22:00)
[2021-05-24] MEDS ORDERED: SODIUM PHOSPHATE IV ONE (22:00)
[2021-05-24] MEDS ORDERED: SODIUM PHOSPHATE 20 MMOL in IV NORMAL SALINE 250ML 250 ML IV ONE (22:00)
[2021-05-25] VITALS (19 sets, daily range): BP systolic 68–143; BP diastolic 6–90
[2021-05-25 00:53] LABS: BASE EXCESS ABG -3 mmol/L (-3-3); HCO3 ABG 20 mmol/L (21-28); PCO2 ABG 30 mmHg (35-46); PO2 ABG 127 mmHg (65-108); SAT O2 ABG 98 % (92-99)
[2021-05-25] MEDS: POTASSIUM CHLORIDE 20MEQ 100 ML IV PRN (00:53)
[2021-05-25 00:54] LABS: CORRECTED PCO2 ABG 25 mmHg; CORRECTED PH ABG 7.51
[2021-05-25] MEDS: VECURONIUM BOLUS 10 MG VIAL. IV PRN (00:54)
[2021-05-25 00:55] LABS: CORRECTED PO2 ABG 104 mmHg; FIO2 ABG 40
--- NOTE | 2021-05-25 01:30 | NUR ---
Midnight ABG completed, RT decreased rate from 20 to 16 on vent. lard bleacher spoke with Dr. Robertson who agreed with vent changes. Vent order placed.
[2021-05-25 02:46] LABS: BASO % 0 % (0-3); EOS % 0 % (0-3); HEMATOCRIT 39.9 % (36.0-47.0); HEMOGLOBIN 12.9 g/dL (12.0-15.5); LYMPH # 1.3 x10^3/uL (1.0-4.8); LYMPH % 14 % (24-48); MEAN CORPUSCULAR HEMOGLOBIN 26 pg (25-35); MEAN CORPUSCULAR HGB CONC 32 g/dL (31-37); MEAN CORPUSCULAR VOLUME 82 fL (79-100); MONO # 0.6 x10^3/uL (0.0-1.1); MONO % 7 % (0-9); NEUT # 7.3 x10^3/uL (1.8-7.7); NEUT % 79 % (31-73); PLATELET COUNT 198 x10^3/uL (140-400); RED BLOOD COUNT 4.89 x10^6/uL (3.50-5.40); RED CELL DISTRIBUTION WIDTH 16.3 % (11.5-14.5); WHITE BLOOD COUNT 9.3 x10^3/uL (4.0-11.0)
[2021-05-25 03:00] LABS: CALCIUM 8.7 mg/dL (8.5-10.1); CREATININE 1.1 mg/dL (0.6-1.0); GFR 59.4; MAGNESIUM 2.8 mg/dL (1.8-2.4); PHOSPHORUS 1.7 mg/dL (2.6-4.7); POTASSIUM 4.1 mmol/L (3.5-5.1)
[2021-05-25 03:01] LABS: PROTHROMBIN TIME PATIENT 13.4 SEC (11.7-14.0)
[2021-05-25] MEDS ORDERED: MAGNESIUM SULFATE 1GM 100 ML IV ONE (03:30)
[2021-05-25] MEDS ORDERED: SODIUM PHOSPHATE IV ONE (03:30)
[2021-05-25] MEDS ORDERED: NORMAL SALINE IV ONE (03:30)
[2021-05-25] MEDS: busPIRone 10 MG TABLET. NG SCH ×2 (03:56→12:09)
[2021-05-25] MEDS: ACETAMINOPHEN 650 MG/20.3 ML SOLUTION. NG SCH ×3 (03:56→12:10)
[2021-05-25 06:04] LABS: DIRECT BILIRUBIN 0.3 mg/dL (0.0-0.2); TOTAL BILIRUBIN 1.1 mg/dL (0.2-1.0); TOTAL PROTEIN 6.3 g/dL (6.4-8.2)
[2021-05-25] MEDS: PIPERACILLIN/TAZOBACTAM 3.375 GM in IV NORMAL SALINE 50ML 50 ML IV SCH ×2 (06:07→12:10)
[2021-05-25] MEDS: POLYVINYL ALCOHOL 1.4% OPHTH SOLUTION 15ML BOTTLE. OU SCH ×2 (06:07→12:10)
[2021-05-25] MEDS: VANCOMYCIN PER PHARMACY MC PRN (07:36)
[2021-05-25] MEDS: INSULIN LISPRO 300 UNITS/3 ML VIAL. SQ SCH ×2 (08:00→12:00)
--- NOTE | 2021-05-25 08:43 | PDOC ---
PULMONARY PROGRESS NOTES DATE: 05/25/21 TIME: 08:43 Vitals Vital Signs Date Time Temp Pulse Resp B/P (MAP) Pulse Ox O2 Delivery O2 Flow Rate FiO2 05/25/21 08:00 91.6 60 16 102/69 100 Ventilator General: Alert, Oriented X4 Lungs: Wheezing Cardiovascular: S1 Abdomen: Soft Extremities: No Edema Labs Laboratory Tests Test 05/24/21 10:51 05/24/21 11:10 05/24/21 11:25 05/24/21 11:40 Glucose (Fingerstick) 125 mg/dL (70-99) White Blood Count 8.6 x10^3/uL (4.0-11.0) Red Blood Count 4.51 x10^6/uL (3.50-5.40) Hemoglobin 11.9 g/dL (12.0-15.5) Hematocrit 37.3 % (36.0-47.0) Mean Corpuscular Volume 83 fL (79-100) Mean Corpuscular Hemoglobin 26 pg (25-35) Mean Corpuscular Hemoglobin Concent 32 g/dL (31-37) Red Cell Distribution Width 16.6 % (11.5-14.5) Platelet Count 188 x10^3/uL (140-400) Neutrophils (%) (Auto) 22 % (31-73) Lymphocytes (%) (Auto) 74 % (24-48) Monocytes (%) (Auto) 2 % (0-9) Eosinophils (%) (Auto) 1 % (0-3) Basophils (%) (Auto) 1 % (0-3) Neutrophils # (Auto) 1.9 x10^3/uL (1.8-7.7) Lymphocytes # (Auto) 6.4 x10^3/uL (1.0-4.8) Monocytes # (Auto) 0.2 x10^3/uL (0.0-1.1) Eosinophils # (Auto) 0.1 x10^3/uL (0.0-0.7) Basophils # (Auto) 0.1 x10^3/uL (0.0-0.2) Prothrombin Time 14.2 SEC (11.7-14.0) Prothromb Time International Ratio 1.1 (0.8-1.1) Activated Partial Thromboplast Time 35 SEC (24-38) Sodium Level 145 mmol/L (136-145) Potassium Level 2.3 mmol/L (3.5-5.1) Chloride Level 107 mmol/L (98-107) Carbon Dioxide Level 25 mmol/L (21-32) Anion Gap 13 (6-14) Blood Urea Nitrogen 13 mg/dL (7-20) Creatinine 1.2 mg/dL (0.6-1.0) Estimated GFR (Cockcroft-Gault) 53.7 Glucose Level 275 mg/dL (70-99) Lactic Acid Level 8.1 mmol/L (0.4-2.0) Calcium Level 9.5 mg/dL (8.5-10.1) Phosphorus Level 4.7 mg/dL (2.6-4.7) Magnesium Level 3.0 mg/dL (1.8-2.4) Total Bilirubin 0.4 mg/dL (0.2-1.0) Direct Bilirubin 0.2 mg/dL (0.0-0.2) Aspartate Amino Transf (AST/SGOT) 667 U/L (15-37) Alanine Aminotransferase (ALT/SGPT) 560 U/L (14-59) Alkaline Phosphatase 71 U/L (46-116) Creatine Kinase 112 U/L (26-192) Troponin I High Sensitivity 15 ng/L (4-50) QH-Ype-G-Type Natriuretic Peptide 113 pg/mL (0-124) Total Protein 6.1 g/dL (6.4-8.2) Albumin 2.6 g/dL (3.4-5.0) Salicylates Level 1.0 mg/dL (2.8-20.0) Salicylate Last Dose Date Unknown Salicylate Last Dose Time Unknown Acetaminophen Level 2.4 mcg/ml (10-30) Acetaminophen Last Dose Date Unknown Acetaminophen Last Dose Time Unknown Ethyl Alcohol Level < 10 mg/dL (0-10) O2 Saturation 99 % (92-99) Arterial Blood pH 7.32 (7.35-7.45) Arterial Blood pCO2 at Patient Temp 40 mmHg (35-46) Arterial Blood pO2 at Patient Temp 374 mmHg (65-108) Arterial Blood HCO3 20 mmol/L (21-28) Arterial Blood Base Excess -5 mmol/L (-3-3) FiO2 100 Urine Collection Type U cath Urine Color Yellow Urine Clarity Clear Urine pH 7.5 (<5.0-8.0) Urine Specific [place] 1.015 (1.000-1.030) Urine Protein >=300 mg/dL (NEG-TRACE) Urine Glucose (UA) 500 mg/dL (NEG) Urine Ketones (Stick) Negative mg/dL (NEG) Urine Blood Moderate (NEG) Urine Nitrite Negative (NEG) Urine Bilirubin Negative (NEG) Urine Urobilinogen Dipstick 0.2 mg/dL (0.2 mg/dL) Urine Leukocyte Esterase Negative (NEG) Urine RBC 3-5 /HPF (0-2) Urine WBC 1-4 /HPF (0-4) Urine Squamous Epithelial Cells Occ /LPF Urine Bacteria 0 /HPF (0-FEW) Urine Mucus Slight /LPF Urine Opiates Screen Neg (NEG) Urine Methadone Screen Neg (NEG) Urine Barbiturates Neg (NEG) Urine Phencyclidine Screen Neg (NEG) Urine Amphetamine/Methamphetamine Neg (NEG) Urine Benzodiazepines Screen Pos (NEG) Urine Cocaine Screen Neg (NEG) Urine Cannabinoids Screen Neg (NEG) Urine Ethyl Alcohol Neg (NEG) Test 05/24/21 14:03 05/24/21 14:13 05/24/21 15:55 05/24/21 15:57 Glucose (Fingerstick) 252 mg/dL (70-99) 260 mg/dL (70-99) Lactic Acid Level 4.5 mmol/L (0.4-2.0) Sodium Level 142 mmol/L (136-145) Potassium Level 3.2 mmol/L (3.5-5.1) Chloride Level 104 mmol/L (98-107) Carbon Dioxide Level 23 mmol/L (21-32) Anion Gap 15 (6-14) Blood Urea Nitrogen 15 mg/dL (7-20) Creatinine 1.3 mg/dL (0.6-1.0) Estimated GFR (Cockcroft-Gault) 49.0 Glucose Level 267 mg/dL (70-99) Calcium Level 8.8 mg/dL (8.5-10.1) Test 05/24/21 17:05 05/24/21 18:06 05/24/21 19:13 05/24/21 20:25 Glucose (Fingerstick) 234 mg/dL (70-99) 187 mg/dL (70-99) 149 mg/dL (70-99) 138 mg/dL (70-99) Test 05/24/21 20:30 05/24/21 21:27 05/24/21 22:28 05/24/21 23:32 White Blood Count 11.7 x10^3/uL (4.0-11.0) Red Blood Count 4.87 x10^6/uL (3.50-5.40) Hemoglobin 12.9 g/dL (12.0-15.5) Hematocrit 39.7 % (36.0-47.0) Mean Corpuscular Volume 82 fL (79-100) Mean Corpuscular Hemoglobin 27 pg (25-35) Mean Corpuscular Hemoglobin Concent 33 g/dL (31-37) Red Cell Distribution Width 16.2 % (11.5-14.5) Platelet Count 204 x10^3/uL (140-400) Neutrophils (%) (Auto) 85 % (31-73) Lymphocytes (%) (Auto) 8 % (24-48) Monocytes (%) (Auto) 7 % (0-9) Eosinophils (%) (Auto) 0 % (0-3) Basophils (%) (Auto) 0 % (0-3) Neutrophils # (Auto) 10.0 x10^3/uL (1.8-7.7) Lymphocytes # (Auto) 0.9 x10^3/uL (1.0-4.8) Monocytes # (Auto) 0.8 x10^3/uL (0.0-1.1) Eosinophils # (Auto) 0.0 x10^3/uL (0.0-0.7) Basophils # (Auto) 0.0 x10^3/uL (0.0-0.2) Prothrombin Time 13.8 SEC (11.7-14.0) Prothromb Time International Ratio 1.1 (0.8-1.1) Activated Partial Thromboplast Time 31 SEC (24-38) Sodium Level 142 mmol/L (136-145) Potassium Level 2.9 mmol/L (3.5-5.1) Chloride Level 107 mmol/L (98-107) Carbon Dioxide Level 22 mmol/L (21-32) Anion Gap 13 (6-14) Blood Urea Nitrogen 15 mg/dL (7-20) Creatinine 1.3 mg/dL (0.6-1.0) Estimated GFR (Cockcroft-Gault) 49.0 Glucose Level 141 mg/dL (70-99) Calcium Level 9.0 mg/dL (8.5-10.1) Ionized Calcium 1.21 mmol/L (1.13-1.32) Phosphorus Level 0.6 mg/dL (2.6-4.7) Magnesium Level 2.1 mg/dL (1.8-2.4) Glucose (Fingerstick) 134 mg/dL (70-99) 146 mg/dL (70-99) 130 mg/dL (70-99) Test 05/25/21 00:05 05/25/21 00:50 05/25/21 01:55 05/25/21 02:30 O2 Saturation 98 % (92-99) Arterial Blood pH 7.44 (7.35-7.45) Arterial Blood pH (Temp corrected) 7.51 Arterial Blood pCO2 at Patient Temp 30 mmHg (35-46) Arterial Blood pCO2 (Temp correct) 25 mmHg Arterial Blood pO2 at Patient Temp 127 mmHg (65-108) Arterial Blood pO2 (Temp corrected) 104 mmHg Arterial Blood HCO3 20 mmol/L (21-28) Arterial Blood Base Excess -3 mmol/L (-3-3) FiO2 40 Glucose (Fingerstick) 107 mg/dL (70-99) 98 mg/dL (70-99) White Blood Count 9.3 x10^3/uL (4.0-11.0) Red Blood Count 4.89 x10^6/uL (3.50-5.40) Hemoglobin 12.9 g/dL (12.0-15.5) Hematocrit 39.9 % (36.0-47.0) Mean Corpuscular Volume 82 fL (79-100) Mean Corpuscular Hemoglobin 26 pg (25-35) Mean Corpuscular Hemoglobin Concent 32 g/dL (31-37) Red Cell Distribution Width 16.3 % (11.5-14.5) Platelet Count 198 x10^3/uL (140-400) Neutrophils (%) (Auto) 79 % (31-73) Lymphocytes (%) (Auto) 14 % (24-48) Monocytes (%) (Auto) 7 % (0-9) Eosinophils (%) (Auto) 0 % (0-3) Basophils (%) (Auto) 0 % (0-3) Neutrophils # (Auto) 7.3 x10^3/uL (1.8-7.7) Lymphocytes # (Auto) 1.3 x10^3/uL (1.0-4.8) Monocytes # (Auto) 0.6 x10^3/uL (0.0-1.1) Eosinophils # (Auto) 0.0 x10^3/uL (0.0-0.7) Basophils # (Auto) 0.0 x10^3/uL (0.0-0.2) Prothrombin Time 13.4 SEC (11.7-14.0) Prothromb Time International Ratio 1.0 (0.8-1.1) Activated Partial Thromboplast Time 34 SEC (24-38) Sodium Level 139 mmol/L (136-145) Potassium Level 4.1 mmol/L (3.5-5.1) Chloride Level 108 mmol/L (98-107) Carbon Dioxide Level 22 mmol/L (21-32) Anion Gap 9 (6-14) Blood Urea Nitrogen 14 mg/dL (7-20) Creatinine 1.1 mg/dL (0.6-1.0) Estimated GFR (Cockcroft-Gault) 59.4 Glucose Level 110 mg/dL (70-99) Calcium Level 8.7 mg/dL (8.5-10.1) Ionized Calcium 1.06 mmol/L (1.13-1.32) Phosphorus Level 1.7 mg/dL (2.6-4.7) Magnesium Level 2.8 mg/dL (1.8-2.4) Test 05/25/21 03:11 05/25/21 04:19 05/25/21 05:28 05/25/21 05:30 Glucose (Fingerstick) 111 mg/dL (70-99) 138 mg/dL (70-99) 122 mg/dL (70-99) Total Bilirubin 1.1 mg/dL (0.2-1.0) Direct Bilirubin 0.3 mg/dL (0.0-0.2) Aspartate Amino Transf (AST/SGOT) 494 U/L (15-37) Alanine Aminotransferase (ALT/SGPT) 534 U/L (14-59) Alkaline Phosphatase 69 U/L (46-116) Troponin I High Sensitivity 386 ng/L (4-50) Total Protein 6.3 g/dL (6.4-8.2) Albumin 3.0 g/dL (3.4-5.0) Test 05/25/21 06:34 05/25/21 07:31 05/25/21 08:39 Glucose (Fingerstick) 102 mg/dL (70-99) 110 mg/dL (70-99) 109 mg/dL (70-99) Laboratory Tests Test 05/24/21 10:51 05/24/21 11:10 05/24/21 11:25 05/24/21 11:40 Glucose (Fingerstick) 125 mg/dL (70-99) White Blood Count 8.6 x10^3/uL (4.0-11.0) Red Blood Count 4.51 x10^6/uL (3.50-5.40) Hemoglobin 11.9 g/dL (12.0-15.5) Hematocrit 37.3 % (36.0-47.0) Mean Corpuscular Volume 83 fL (79-100) Mean Corpuscular Hemoglobin 26 pg (25-35) Mean Corpuscular Hemoglobin Concent 32 g/dL (31-37) Red Cell Distribution Width 16.6 % (11.5-14.5) Platelet Count 188 x10^3/uL (140-400) Neutrophils (%) (Auto) 22 % (31-73) Lymphocytes (%) (Auto) 74 % (24-48) Monocytes (%) (Auto) 2 % (0-9) Eosinophils (%) (Auto) 1 % (0-3) Basophils (%) (Auto) 1 % (0-3) Neutrophils # (Auto) 1.9 x10^3/uL (1.8-7.7) Lymphocytes # (Auto) 6.4 x10^3/uL (1.0-4.8) Monocytes # (Auto) 0.2 x10^3/uL (0.0-1.1) Eosinophils # (Auto) 0.1 x10^3/uL (0.0-0.7) Basophils # (Auto) 0.1 x10^3/uL (0.0-0.2) Prothrombin Time 14.2 SEC (11.7-14.0) Prothromb Time International Ratio 1.1 (0.8-1.1) Activated Partial Thromboplast Time 35 SEC (24-38) Sodium Level 145 mmol/L (136-145) Potassium Level 2.3 mmol/L (3.5-5.1) Chloride Level 107 mmol/L (98-107) Carbon Dioxide Level 25 mmol/L (21-32) Anion Gap 13 (6-14) Blood Urea Nitrogen 13 mg/dL (7-20) Creatinine 1.2 mg/dL (0.6-1.0) Estimated GFR (Cockcroft-Gault) 53.7 Glucose Level 275 mg/dL (70-99) Lactic Acid Level 8.1 mmol/L (0.4-2.0) Calcium Level 9.5 mg/dL (8.5-10.1) Phosphorus Level 4.7 mg/dL (2.6-4.7) Magnesium Level 3.0 mg/dL (1.8-2.4) Total Bilirubin 0.4 mg/dL (0.2-1.0) Direct Bilirubin 0.2 mg/dL (0.0-0.2) Aspartate Amino Transf (AST/SGOT) 667 U/L (15-37) Alanine Aminotransferase (ALT/SGPT) 560 U/L (14-59) Alkaline Phosphatase 71 U/L (46-116) Creatine Kinase 112 U/L (26-192) Troponin I High Sensitivity 15 ng/L (4-50) HU-Cpq-V-Type Natriuretic Peptide 113 pg/mL (0-124) Total Protein 6.1 g/dL (6.4-8.2) Albumin 2.6 g/dL (3.4-5.0) Salicylates Level 1.0 mg/dL (2.8-20.0) Salicylate Last Dose Date Unknown Salicylate Last Dose Time Unknown Acetaminophen Level 2.4 mcg/ml (10-30) Acetaminophen Last Dose Date Unknown Acetaminophen Last Dose Time Unknown Ethyl Alcohol Level < 10 mg/dL (0-10) O2 Saturation 99 % (92-99) Arterial Blood pH 7.32 (7.35-7.45) Arterial Blood pCO2 at Patient Temp 40 mmHg (35-46) Arterial Blood pO2 at Patient Temp 374 mmHg (65-108) Arterial Blood HCO3 20 mmol/L (21-28) Arterial Blood Base Excess -5 mmol/L (-3-3) FiO2 100 Urine Collection Type U cath Urine Color Yellow Urine Clarity Clear Urine pH 7.5 (<5.0-8.0) Urine Specific [place] 1.015 (1.000-1.030) Urine Protein >=300 mg/dL (NEG-TRACE) Urine Glucose (UA) 500 mg/dL (NEG) Urine Ketones (Stick) Negative mg/dL (NEG) Urine Blood Moderate (NEG) Urine Nitrite Negative (NEG) Urine Bilirubin Negative (NEG) Urine Urobilinogen Dipstick 0.2 mg/dL (0.2 mg/dL) Urine Leukocyte Esterase Negative (NEG) Urine RBC 3-5 /HPF (0-2) Urine WBC 1-4 /HPF (0-4) Urine Squamous Epithelial Cells Occ /LPF Urine Bacteria 0 /HPF (0-FEW) Urine Mucus Slight /LPF Urine Opiates Screen Neg (NEG) Urine Methadone Screen Neg (NEG) Urine Barbiturates Neg (NEG) Urine Phencyclidine Screen Neg (NEG) Urine Amphetamine/Methamphetamine Neg (NEG) Urine Benzodiazepines Screen Pos (NEG) Urine Cocaine Screen Neg (NEG) Urine Cannabinoids Screen Neg (NEG) Urine Ethyl Alcohol Neg (NEG) Test 05/24/21 14:03 05/24/21 14:13 05/24/21 15:55 05/24/21 15:57 Glucose (Fingerstick) 252 mg/dL (70-99) 260 mg/dL (70-99) Lactic Acid Level 4.5 mmol/L (0.4-2.0) Sodium Level 142 mmol/L (136-145) Potassium Level 3.2 mmol/L (3.5-5.1) Chloride Level 104 mmol/L (98-107) Carbon Dioxide Level 23 mmol/L (21-32) Anion Gap 15 (6-14) Blood Urea Nitrogen 15 mg/dL (7-20) Creatinine 1.3 mg/dL (0.6-1.0) Estimated GFR (Cockcroft-Gault) 49.0 Glucose Level 267 mg/dL (70-99) Calcium Level 8.8 mg/dL (8.5-10.1) Test 05/24/21 17:05 05/24/21 18:06 05/24/21 19:13 05/24/21 20:25 Glucose (Fingerstick) 234 mg/dL (70-99) 187 mg/dL (70-99) 149 mg/dL (70-99) 138 mg/dL (70-99) Test 05/24/21 20:30 05/24/21 21:27 05/24/21 22:28 05/24/21 23:32 White Blood Count 11.7 x10^3/uL (4.0-11.0) Red Blood Count 4.87 x10^6/uL (3.50-5.40) Hemoglobin 12.9 g/dL (12.0-15.5) Hematocrit 39.7 % (36.0-47.0) Mean Corpuscular Volume 82 fL (79-100) Mean Corpuscular Hemoglobin 27 pg (25-35) Mean Corpuscular Hemoglobin Concent 33 g/dL (31-37) Red Cell Distribution Width 16.2 % (11.5-14.5) Platelet Count 204 x10^3/uL (140-400) Neutrophils (%) (Auto) 85 % (31-73) Lymphocytes (%) (Auto) 8 % (24-48) Monocytes (%) (Auto) 7 % (0-9) Eosinophils (%) (Auto) 0 % (0-3) Basophils (%) (Auto) 0 % (0-3) Neutrophils # (Auto) 10.0 x10^3/uL (1.8-7.7) Lymphocytes # (Auto) 0.9 x10^3/uL (1.0-4.8) Monocytes # (Auto) 0.8 x10^3/uL (0.0-1.1) Eosinophils # (Auto) 0.0 x10^3/uL (0.0-0.7) Basophils # (Auto) 0.0 x10^3/uL (0.0-0.2) Prothrombin Time 13.8 SEC (11.7-14.0) Prothromb Time International Ratio 1.1 (0.8-1.1) Activated Partial Thromboplast Time 31 SEC (24-38) Sodium Level 142 mmol/L (136-145) Potassium Level 2.9 mmol/L (3.5-5.1) Chloride Level 107 mmol/L (98-107) Carbon Dioxide Level 22 mmol/L (21-32) Anion Gap 13 (6-14) Blood Urea Nitrogen 15 mg/dL (7-20) Creatinine 1.3 mg/dL (0.6-1.0) Estimated GFR (Cockcroft-Gault) 49.0 Glucose Level 141 mg/dL (70-99) Calcium Level 9.0 mg/dL (8.5-10.1) Ionized Calcium 1.21 mmol/L (1.13-1.32) Phosphorus Level 0.6 mg/dL (2.6-4.7) Magnesium Level 2.1 mg/dL (1.8-2.4) Glucose (Fingerstick) 134 mg/dL (70-99) 146 mg/dL (70-99) 130 mg/dL (70-99) Test 05/25/21 00:05 05/25/21 00:50 05/25/21 01:55 05/25/21 02:30 O2 Saturation 98 % (92-99) Arterial Blood pH 7.44 (7.35-7.45) Arterial Blood pH (Temp corrected) 7.51 Arterial Blood pCO2 at Patient Temp 30 mmHg (35-46) Arterial Blood pCO2 (Temp correct) 25 mmHg Arterial Blood pO2 at Patient Temp 127 mmHg (65-108) Arterial Blood pO2 (Temp corrected) 104 mmHg Arterial Blood HCO3 20 mmol/L (21-28) Arterial Blood Base Excess -3 mmol/L (-3-3) FiO2 40 Glucose (Fingerstick) 107 mg/dL (70-99) 98 mg/dL (70-99) White Blood Count 9.3 x10^3/uL (4.0-11.0) Red Blood Count 4.89 x10^6/uL (3.50-5.40) Hemoglobin 12.9 g/dL (12.0-15.5) Hematocrit 39.9 % (36.0-47.0) Mean Corpuscular Volume 82 fL (79-100) Mean Corpuscular Hemoglobin 26 pg (25-35) Mean Corpuscular Hemoglobin Concent 32 g/dL (31-37) Red Cell Distribution Width 16.3 % (11.5-14.5) Platelet Count 198 x10^3/uL (140-400) Neutrophils (%) (Auto) 79 % (31-73) Lymphocytes (%) (Auto) 14 % (24-48) Monocytes (%) (Auto) 7 % (0-9) Eosinophils (%) (Auto) 0 % (0-3) Basophils (%) (Auto) 0 % (0-3) Neutrophils # (Auto) 7.3 x10^3/uL (1.8-7.7) Lymphocytes # (Auto) 1.3 x10^3/uL (1.0-4.8) Monocytes # (Auto) 0.6 x10^3/uL (0.0-1.1) Eosinophils # (Auto) 0.0 x10^3/uL (0.0-0.7) Basophils # (Auto) 0.0 x10^3/uL (0.0-0.2) Prothrombin Time 13.4 SEC (11.7-14.0) Prothromb Time International Ratio 1.0 (0.8-1.1) Activated Partial Thromboplast Time 34 SEC (24-38) Sodium Level 139 mmol/L (136-145) Potassium Level 4.1 mmol/L (3.5-5.1) Chloride Level 108 mmol/L (98-107) Carbon Dioxide Level 22 mmol/L (21-32) Anion Gap 9 (6-14) Blood Urea Nitrogen 14 mg/dL (7-20) Creatinine 1.1 mg/dL (0.6-1.0) Estimated GFR (Cockcroft-Gault) 59.4 Glucose Level 110 mg/dL (70-99) Calcium Level 8.7 mg/dL (8.5-10.1) Ionized Calcium 1.06 mmol/L (1.13-1.32) Phosphorus Level 1.7 mg/dL (2.6-4.7) Magnesium Level 2.8 mg/dL (1.8-2.4) Test 05/25/21 03:11 05/25/21 04:19 05/25/21 05:28 05/25/21 05:30 Glucose (Fingerstick) 111 mg/dL (70-99) 138 mg/dL (70-99) 122 mg/dL (70-99) Total Bilirubin 1.1 mg/dL (0.2-1.0) Direct Bilirubin 0.3 mg/dL (0.0-0.2) Aspartate Amino Transf (AST/SGOT) 494 U/L (15-37) Alanine Aminotransferase (ALT/SGPT) 534 U/L (14-59) Alkaline Phosphatase 69 U/L (46-116) Troponin I High Sensitivity 386 ng/L (4-50) Total Protein 6.3 g/dL (6.4-8.2) Albumin 3.0 g/dL (3.4-5.0) Test 05/25/21 06:34 05/25/21 07:31 05/25/21 08:39 Glucose (Fingerstick) 102 mg/dL (70-99) 110 mg/dL (70-99) 109 mg/dL (70-99) Medications Active Scripts Medications Dose Route/Sig Max Daily Dose Days Date Category Dose Instructions Guaifenesin-Codeine Syrup (Guaifenesin/Codeine Phosphate) 118 Ml Liquid 5 Ml PO Q6HRS 04/25/21 Rx Promethazine Hcl 25 Mg Tablet 1 Tab PO PRN Q6HRS 04/25/21 Rx Doxycycline Hyclate 100 Mg Tablet 1 Tab PO BID 04/25/21 Rx Proctosol-Hc (Hydrocortisone) 28.35 Gm Cream..g. 1 [place] TP BID PRN 15 01/10/20 Reported Amitriptyline Hcl 75 Mg Tablet 1 Tab PO QHS 01/10/20 Reported last dose 09/10 8:38pm next dose 09/11 9:00pm Miralax (Polyethylene Glycol 3350) 17 Gm Powd.pack 1 Packet PO DAILY 2 01/10/20 Reported dissolve in water Dok (Docusate Sodium) 100 Mg Capsule 100 Mg PO PRN BID PRN 30 09/09/19 Rx Aspirin Ec (Aspirin) 81 Mg Tablet.dr 81 Mg PO DAILYWBKFT 30 09/09/19 Rx Amlodipine Besylate 5 Mg Tablet 2.5 Mg PO DAILY 30 09/09/19 Rx Nitrostat (Nitroglycerin) 0.4 Mg Tab.subl 0.4 Mg SL PRN Q5MIN PRN 30 09/09/19 Rx Atorvastatin Calcium 20 Mg Tablet 20 Mg PO QHS 30 09/09/19 Rx Proair Hfa (Albuterol Sulfate) 8.5 Gm Hfa.aer.ad 2.5 Mg NEB PRN Q4HRS PRN 14 09/09/19 Rx Acetaminophen 500 Mg Tablet 2 Tab PO PRN Q6HRS PRN 15 09/04/19 Reported last dose 3 9:19am Symbicort 160-4.5 Mcg Inhaler (Budesonide/Formoterol Fumarate) 10.2 Gm Hfa.aer.ad 2 Puff IH BID 09/04/19 Reported Vitamin B-12 (Cyanocobalamin (Vitamin B-12)) 5,000 Mcg Capsule 5,000 Mcg PO DAILY 09/04/19 Reported Calcium 1,000 + D3 Caplet (Calcium Carbonate/Vitamin D3) 1 Each Tablet 1 Each PO DAILY 08/17/19 Reported Xyzal (Levocetirizine Dihydrochloride) 5 Mg Tablet 1 Tab PO DAILY 30 08/17/19 Reported Isosorbide Mononitrate Er (Isosorbide Mononitrate) 60 Mg Tab.er.24h 60 Mg PO DAILY 08/17/19 Reported Klor-Con 10 (Potassium Chloride) 10 Meq Tablet.er 20 Meq PO DAILY 08/17/19 Reported Ferrous Sulfate 325 Mg Tablet 1 Tab PO DAILY 08/28/18 Reported Estradiol 0.5 Mg Tablet 1 Tab PO DAILY 08/28/18 Reported Tramadol Hcl 50 Mg Tablet 100 Mg PO PRN Q12HR 02/05/15 Reported Tamsulosin Hcl 0.4 Mg Cap.er.24h 1 Cap PO DAILY 02/05/15 Reported Impression . Full note dictated [id number] cardiopulmonary arrest, leading to respiratory failure Continue current support See dictated note JADYN COON MD May 25, 2021 08:43
[2021-05-25] MEDS: HEPARIN for SUB-Q USE 5,000 UNIT/ML VIAL. SQ SCH (08:44)
[2021-05-25] MEDS: PANTOPRAZOLE IV PUSH 40 MG VIAL. IVP SCH (08:44)
--- NOTE | 2021-05-25 08:45 | PDOC ---
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 Muscle tone: normal. Muscle strength: Not responsive DTR: 0+ Plantar reflex: Silent Gait: not examined Sensory exam: Not cooperative Cerebellar: Not cooperative Review of Relevant I have reviewed the following items stephon (where applicable) has been applied. Labs Laboratory Tests Test 05/24/21 10:51 05/24/21 11:10 05/24/21 11:25 05/24/21 11:40 Glucose (Fingerstick) 125 mg/dL (70-99) White Blood Count 8.6 x10^3/uL (4.0-11.0) Red Blood Count 4.51 x10^6/uL (3.50-5.40) Hemoglobin 11.9 g/dL (12.0-15.5) Hematocrit 37.3 % (36.0-47.0) Mean Corpuscular Volume 83 fL (79-100) Mean Corpuscular Hemoglobin 26 pg (25-35) Mean Corpuscular Hemoglobin Concent 32 g/dL (31-37) Red Cell Distribution Width 16.6 % (11.5-14.5) Platelet Count 188 x10^3/uL (140-400) Neutrophils (%) (Auto) 22 % (31-73) Lymphocytes (%) (Auto) 74 % (24-48) Monocytes (%) (Auto) 2 % (0-9) Eosinophils (%) (Auto) 1 % (0-3) Basophils (%) (Auto) 1 % (0-3) Neutrophils # (Auto) 1.9 x10^3/uL (1.8-7.7) Lymphocytes # (Auto) 6.4 x10^3/uL (1.0-4.8) Monocytes # (Auto) 0.2 x10^3/uL (0.0-1.1) Eosinophils # (Auto) 0.1 x10^3/uL (0.0-0.7) Basophils # (Auto) 0.1 x10^3/uL (0.0-0.2) Prothrombin Time 14.2 SEC (11.7-14.0) Prothromb Time International Ratio 1.1 (0.8-1.1) Activated Partial Thromboplast Time 35 SEC (24-38) Sodium Level 145 mmol/L (136-145) Potassium Level 2.3 mmol/L (3.5-5.1) Chloride Level 107 mmol/L (98-107) Carbon Dioxide Level 25 mmol/L (21-32) Anion Gap 13 (6-14) Blood Urea Nitrogen 13 mg/dL (7-20) Creatinine 1.2 mg/dL (0.6-1.0) Estimated GFR (Cockcroft-Gault) 53.7 Glucose Level 275 mg/dL (70-99) Lactic Acid Level 8.1 mmol/L (0.4-2.0) Calcium Level 9.5 mg/dL (8.5-10.1) Phosphorus Level 4.7 mg/dL (2.6-4.7) Magnesium Level 3.0 mg/dL (1.8-2.4) Total Bilirubin 0.4 mg/dL (0.2-1.0) Direct Bilirubin 0.2 mg/dL (0.0-0.2) Aspartate Amino Transf (AST/SGOT) 667 U/L (15-37) Alanine Aminotransferase (ALT/SGPT) 560 U/L (14-59) Alkaline Phosphatase 71 U/L (46-116) Creatine Kinase 112 U/L (26-192) Troponin I High Sensitivity 15 ng/L (4-50) MD-Rfr-T-Type Natriuretic Peptide 113 pg/mL (0-124) Total Protein 6.1 g/dL (6.4-8.2) Albumin 2.6 g/dL (3.4-5.0) Salicylates Level 1.0 mg/dL (2.8-20.0) Salicylate Last Dose Date Unknown Salicylate Last Dose Time Unknown Acetaminophen Level 2.4 mcg/ml (10-30) Acetaminophen Last Dose Date Unknown Acetaminophen Last Dose Time Unknown Ethyl Alcohol Level < 10 mg/dL (0-10) O2 Saturation 99 % (92-99) Arterial Blood pH 7.32 (7.35-7.45) Arterial Blood pCO2 at Patient Temp 40 mmHg (35-46) Arterial Blood pO2 at Patient Temp 374 mmHg (65-108) Arterial Blood HCO3 20 mmol/L (21-28) Arterial Blood Base Excess -5 mmol/L (-3-3) FiO2 100 Urine Collection Type U cath Urine Color Yellow Urine Clarity Clear Urine pH 7.5 (<5.0-8.0) Urine Specific [place] 1.015 (1.000-1.030) Urine Protein >=300 mg/dL (NEG-TRACE) Urine Glucose (UA) 500 mg/dL (NEG) Urine Ketones (Stick) Negative mg/dL (NEG) Urine Blood Moderate (NEG) Urine Nitrite Negative (NEG) Urine Bilirubin Negative (NEG) Urine Urobilinogen Dipstick 0.2 mg/dL (0.2 mg/dL) Urine Leukocyte Esterase Negative (NEG) Urine RBC 3-5 /HPF (0-2) Urine WBC 1-4 /HPF (0-4) Urine Squamous Epithelial Cells Occ /LPF Urine Bacteria 0 /HPF (0-FEW) Urine Mucus Slight /LPF Urine Opiates Screen Neg (NEG) Urine Methadone Screen Neg (NEG) Urine Barbiturates Neg (NEG) Urine Phencyclidine Screen Neg (NEG) Urine Amphetamine/Methamphetamine Neg (NEG) Urine Benzodiazepines Screen Pos (NEG) Urine Cocaine Screen Neg (NEG) Urine Cannabinoids Screen Neg (NEG) Urine Ethyl Alcohol Neg (NEG) Test 05/24/21 14:03 05/24/21 14:13 05/24/21 15:55 05/24/21 15:57 Glucose (Fingerstick) 252 mg/dL (70-99) 260 mg/dL (70-99) Lactic Acid Level 4.5 mmol/L (0.4-2.0) Sodium Level 142 mmol/L (136-145) Potassium Level 3.2 mmol/L (3.5-5.1) Chloride Level 104 mmol/L (98-107) Carbon Dioxide Level 23 mmol/L (21-32) Anion Gap 15 (6-14) Blood Urea Nitrogen 15 mg/dL (7-20) Creatinine 1.3 mg/dL (0.6-1.0) Estimated GFR (Cockcroft-Gault) 49.0 Glucose Level 267 mg/dL (70-99) Calcium Level 8.8 mg/dL (8.5-10.1) Test 05/24/21 17:05 05/24/21 18:06 05/24/21 19:13 05/24/21 20:25 Glucose (Fingerstick) 234 mg/dL (70-99) 187 mg/dL (70-99) 149 mg/dL (70-99) 138 mg/dL (70-99) Test 05/24/21 20:30 05/24/21 21:27 05/24/21 22:28 05/24/21 23:32 White Blood Count 11.7 x10^3/uL (4.0-11.0) Red Blood Count 4.87 x10^6/uL (3.50-5.40) Hemoglobin 12.9 g/dL (12.0-15.5) Hematocrit 39.7 % (36.0-47.0) Mean Corpuscular Volume 82 fL (79-100) Mean Corpuscular Hemoglobin 27 pg (25-35) Mean Corpuscular Hemoglobin Concent 33 g/dL (31-37) Red Cell Distribution Width 16.2 % (11.5-14.5) Platelet Count 204 x10^3/uL (140-400) Neutrophils (%) (Auto) 85 % (31-73) Lymphocytes (%) (Auto) 8 % (24-48) Monocytes (%) (Auto) 7 % (0-9) Eosinophils (%) (Auto) 0 % (0-3) Basophils (%) (Auto) 0 % (0-3) Neutrophils # (Auto) 10.0 x10^3/uL (1.8-7.7) Lymphocytes # (Auto) 0.9 x10^3/uL (1.0-4.8) Monocytes # (Auto) 0.8 x10^3/uL (0.0-1.1) Eosinophils # (Auto) 0.0 x10^3/uL (0.0-0.7) Basophils # (Auto) 0.0 x10^3/uL (0.0-0.2) Prothrombin Time 13.8 SEC (11.7-14.0) Prothromb Time International Ratio 1.1 (0.8-1.1) Activated Partial Thromboplast Time 31 SEC (24-38) Sodium Level 142 mmol/L (136-145) Potassium Level 2.9 mmol/L (3.5-5.1) Chloride Level 107 mmol/L (98-107) Carbon Dioxide Level 22 mmol/L (21-32) Anion Gap 13 (6-14) Blood Urea Nitrogen 15 mg/dL (7-20) Creatinine 1.3 mg/dL (0.6-1.0) Estimated GFR (Cockcroft-Gault) 49.0 Glucose Level 141 mg/dL (70-99) Calcium Level 9.0 mg/dL (8.5-10.1) Ionized Calcium 1.21 mmol/L (1.13-1.32) Phosphorus Level 0.6 mg/dL (2.6-4.7) Magnesium Level 2.1 mg/dL (1.8-2.4) Glucose (Fingerstick) 134 mg/dL (70-99) 146 mg/dL (70-99) 130 mg/dL (70-99) Test 05/25/21 00:05 05/25/21 00:50 05/25/21 01:55 05/25/21 02:30 O2 Saturation 98 % (92-99) Arterial Blood pH 7.44 (7.35-7.45) Arterial Blood pH (Temp corrected) 7.51 Arterial Blood pCO2 at Patient Temp 30 mmHg (35-46) Arterial Blood pCO2 (Temp correct) 25 mmHg Arterial Blood pO2 at Patient Temp 127 mmHg (65-108) Arterial Blood pO2 (Temp corrected) 104 mmHg Arterial Blood HCO3 20 mmol/L (21-28) Arterial Blood Base Excess -3 mmol/L (-3-3) FiO2 40 Glucose (Fingerstick) 107 mg/dL (70-99) 98 mg/dL (70-99) White Blood Count 9.3 x10^3/uL (4.0-11.0) Red Blood Count 4.89 x10^6/uL (3.50-5.40) Hemoglobin 12.9 g/dL (12.0-15.5) Hematocrit 39.9 % (36.0-47.0) Mean Corpuscular Volume 82 fL (79-100) Mean Corpuscular Hemoglobin 26 pg (25-35) Mean Corpuscular Hemoglobin Concent 32 g/dL (31-37) Red Cell Distribution Width 16.3 % (11.5-14.5) Platelet Count 198 x10^3/uL (140-400) Neutrophils (%) (Auto) 79 % (31-73) Lymphocytes (%) (Auto) 14 % (24-48) Monocytes (%) (Auto) 7 % (0-9) Eosinophils (%) (Auto) 0 % (0-3) Basophils (%) (Auto) 0 % (0-3) Neutrophils # (Auto) 7.3 x10^3/uL (1.8-7.7) Lymphocytes # (Auto) 1.3 x10^3/uL (1.0-4.8) Monocytes # (Auto) 0.6 x10^3/uL (0.0-1.1) Eosinophils # (Auto) 0.0 x10^3/uL (0.0-0.7) Basophils # (Auto) 0.0 x10^3/uL (0.0-0.2) Prothrombin Time 13.4 SEC (11.7-14.0) Prothromb Time International Ratio 1.0 (0.8-1.1) Activated Partial Thromboplast Time 34 SEC (24-38) Sodium Level 139 mmol/L (136-145) Potassium Level 4.1 mmol/L (3.5-5.1) Chloride Level 108 mmol/L (98-107) Carbon Dioxide Level 22 mmol/L (21-32) Anion Gap 9 (6-14) Blood Urea Nitrogen 14 mg/dL (7-20) Creatinine 1.1 mg/dL (0.6-1.0) Estimated GFR (Cockcroft-Gault) 59.4 Glucose Level 110 mg/dL (70-99) Calcium Level 8.7 mg/dL (8.5-10.1) Ionized Calcium 1.06 mmol/L (1.13-1.32) Phosphorus Level 1.7 mg/dL (2.6-4.7) Magnesium Level 2.8 mg/dL (1.8-2.4) Test 05/25/21 03:11 05/25/21 04:19 05/25/21 05:28 05/25/21 05:30 Glucose (Fingerstick) 111 mg/dL (70-99) 138 mg/dL (70-99) 122 mg/dL (70-99) Total Bilirubin 1.1 mg/dL (0.2-1.0) Direct Bilirubin 0.3 mg/dL (0.0-0.2) Aspartate Amino Transf (AST/SGOT) 494 U/L (15-37) Alanine Aminotransferase (ALT/SGPT) 534 U/L (14-59) Alkaline Phosphatase 69 U/L (46-116) Troponin I High Sensitivity 386 ng/L (4-50) Total Protein 6.3 g/dL (6.4-8.2) Albumin 3.0 g/dL (3.4-5.0) Test 05/25/21 06:34 05/25/21 07:31 05/25/21 08:39 Glucose (Fingerstick) 102 mg/dL (70-99) 110 mg/dL (70-99) 109 mg/dL (70-99) Laboratory Tests Test 05/24/21 10:51 05/24/21 11:10 05/24/21 11:25 05/24/21 11:40 Glucose (Fingerstick) 125 mg/dL (70-99) White Blood Count 8.6 x10^3/uL (4.0-11.0) Red Blood Count 4.51 x10^6/uL (3.50-5.40) Hemoglobin 11.9 g/dL (12.0-15.5) Hematocrit 37.3 % (36.0-47.0) Mean Corpuscular Volume 83 fL (79-100) Mean Corpuscular Hemoglobin 26 pg (25-35) Mean Corpuscular Hemoglobin Concent 32 g/dL (31-37) Red Cell Distribution Width 16.6 % (11.5-14.5) Platelet Count 188 x10^3/uL (140-400) Neutrophils (%) (Auto) 22 % (31-73) Lymphocytes (%) (Auto) 74 % (24-48) Monocytes (%) (Auto) 2 % (0-9) Eosinophils (%) (Auto) 1 % (0-3) Basophils (%) (Auto) 1 % (0-3) Neutrophils # (Auto) 1.9 x10^3/uL (1.8-7.7) Lymphocytes # (Auto) 6.4 x10^3/uL (1.0-4.8) Monocytes # (Auto) 0.2 x10^3/uL (0.0-1.1) Eosinophils # (Auto) 0.1 x10^3/uL (0.0-0.7) Basophils # (Auto) 0.1 x10^3/uL (0.0-0.2) Prothrombin Time 14.2 SEC (11.7-14.0) Prothromb Time International Ratio 1.1 (0.8-1.1) Activated Partial Thromboplast Time 35 SEC (24-38) Sodium Level 145 mmol/L (136-145) Potassium Level 2.3 mmol/L (3.5-5.1) Chloride Level 107 mmol/L (98-107) Carbon Dioxide Level 25 mmol/L (21-32) Anion Gap 13 (6-14) Blood Urea Nitrogen 13 mg/dL (7-20) Creatinine 1.2 mg/dL (0.6-1.0) Estimated GFR (Cockcroft-Gault) 53.7 Glucose Level 275 mg/dL (70-99) Lactic Acid Level 8.1 mmol/L (0.4-2.0) Calcium Level 9.5 mg/dL (8.5-10.1) Phosphorus Level 4.7 mg/dL (2.6-4.7) Magnesium Level 3.0 mg/dL (1.8-2.4) Total Bilirubin 0.4 mg/dL (0.2-1.0) Direct Bilirubin 0.2 mg/dL (0.0-0.2) Aspartate Amino Transf (AST/SGOT) 667 U/L (15-37) Alanine Aminotransferase (ALT/SGPT) 560 U/L (14-59) Alkaline Phosphatase 71 U/L (46-116) Creatine Kinase 112 U/L (26-192) Troponin I High Sensitivity 15 ng/L (4-50) IV-Smf-G-Type Natriuretic Peptide 113 pg/mL (0-124) Total Protein 6.1 g/dL (6.4-8.2) Albumin 2.6 g/dL (3.4-5.0) Salicylates Level 1.0 mg/dL (2.8-20.0) Salicylate Last Dose Date Unknown Salicylate Last Dose Time Unknown Acetaminophen Level 2.4 mcg/ml (10-30) Acetaminophen Last Dose Date Unknown Acetaminophen Last Dose Time Unknown Ethyl Alcohol Level < 10 mg/dL (0-10) O2 Saturation 99 % (92-99) Arterial Blood pH 7.32 (7.35-7.45) Arterial Blood pCO2 at Patient Temp 40 mmHg (35-46) Arterial Blood pO2 at Patient Temp 374 mmHg (65-108) Arterial Blood HCO3 20 mmol/L (21-28) Arterial Blood Base Excess -5 mmol/L (-3-3) FiO2 100 Urine Collection Type U cath Urine Color Yellow Urine Clarity Clear Urine pH 7.5 (<5.0-8.0) Urine Specific [place] 1.015 (1.000-1.030) Urine Protein >=300 mg/dL (NEG-TRACE) Urine Glucose (UA) 500 mg/dL (NEG) Urine Ketones (Stick) Negative mg/dL (NEG) Urine Blood Moderate (NEG) Urine Nitrite Negative (NEG) Urine Bilirubin Negative (NEG) Urine Urobilinogen Dipstick 0.2 mg/dL (0.2 mg/dL) Urine Leukocyte Esterase Negative (NEG) Urine RBC 3-5 /HPF (0-2) Urine WBC 1-4 /HPF (0-4) Urine Squamous Epithelial Cells Occ /LPF Urine Bacteria 0 /HPF (0-FEW) Urine Mucus Slight /LPF Urine Opiates Screen Neg (NEG) Urine Methadone Screen Neg (NEG) Urine Barbiturates Neg (NEG) Urine Phencyclidine Screen Neg (NEG) Urine Amphetamine/Methamphetamine Neg (NEG) Urine Benzodiazepines Screen Pos (NEG) Urine Cocaine Screen Neg (NEG) Urine Cannabinoids Screen Neg (NEG) Urine Ethyl Alcohol Neg (NEG) Test 05/24/21 14:03 05/24/21 14:13 05/24/21 15:55 05/24/21 15:57 Glucose (Fingerstick) 252 mg/dL (70-99) 260 mg/dL (70-99) Lactic Acid Level 4.5 mmol/L (0.4-2.0) Sodium Level 142 mmol/L (136-145) Potassium Level 3.2 mmol/L (3.5-5.1) Chloride Level 104 mmol/L (98-107) Carbon Dioxide Level 23 mmol/L (21-32) Anion Gap 15 (6-14) Blood Urea Nitrogen 15 mg/dL (7-20) Creatinine 1.3 mg/dL (0.6-1.0) Estimated GFR (Cockcroft-Gault) 49.0 Glucose Level 267 mg/dL (70-99) Calcium Level 8.8 mg/dL (8.5-10.1) Test 05/24/21 17:05 05/24/21 18:06 05/24/21 19:13 05/24/21 20:25 Glucose (Fingerstick) 234 mg/dL (70-99) 187 mg/dL (70-99) 149 mg/dL (70-99) 138 mg/dL (70-99) Test 05/24/21 20:30 05/24/21 21:27 05/24/21 22:28 05/24/21 23:32 White Blood Count 11.7 x10^3/uL (4.0-11.0) Red Blood Count 4.87 x10^6/uL (3.50-5.40) Hemoglobin 12.9 g/dL (12.0-15.5) Hematocrit 39.7 % (36.0-47.0) Mean Corpuscular Volume 82 fL (79-100) Mean Corpuscular Hemoglobin 27 pg (25-35) Mean Corpuscular Hemoglobin Concent 33 g/dL (31-37) Red Cell Distribution Width 16.2 % (11.5-14.5) Platelet Count 204 x10^3/uL (140-400) Neutrophils (%) (Auto) 85 % (31-73) Lymphocytes (%) (Auto) 8 % (24-48) Monocytes (%) (Auto) 7 % (0-9) Eosinophils (%) (Auto) 0 % (0-3) Basophils (%) (Auto) 0 % (0-3) Neutrophils # (Auto) 10.0 x10^3/uL (1.8-7.7) Lymphocytes # (Auto) 0.9 x10^3/uL (1.0-4.8) Monocytes # (Auto) 0.8 x10^3/uL (0.0-1.1) Eosinophils # (Auto) 0.0 x10^3/uL (0.0-0.7) Basophils # (Auto) 0.0 x10^3/uL (0.0-0.2) Prothrombin Time 13.8 SEC (11.7-14.0) Prothromb Time International Ratio 1.1 (0.8-1.1) Activated Partial Thromboplast Time 31 SEC (24-38) Sodium Level 142 mmol/L (136-145) Potassium Level 2.9 mmol/L (3.5-5.1) Chloride Level 107 mmol/L (98-107) Carbon Dioxide Level 22 mmol/L (21-32) Anion Gap 13 (6-14) Blood Urea Nitrogen 15 mg/dL (7-20) Creatinine 1.3 mg/dL (0.6-1.0) Estimated GFR (Cockcroft-Gault) 49.0 Glucose Level 141 mg/dL (70-99) Calcium Level 9.0 mg/dL (8.5-10.1) Ionized Calcium 1.21 mmol/L (1.13-1.32) Phosphorus Level 0.6 mg/dL (2.6-4.7) Magnesium Level 2.1 mg/dL (1.8-2.4) Glucose (Fingerstick) 134 mg/dL (70-99) 146 mg/dL (70-99) 130 mg/dL (70-99) Test 05/25/21 00:05 05/25/21 00:50 05/25/21 01:55 05/25/21 02:30 O2 Saturation 98 % (92-99) Arterial Blood pH 7.44 (7.35-7.45) Arterial Blood pH (Temp corrected) 7.51 Arterial Blood pCO2 at Patient Temp 30 mmHg (35-46) Arterial Blood pCO2 (Temp correct) 25 mmHg Arterial Blood pO2 at Patient Temp 127 mmHg (65-108) Arterial Blood pO2 (Temp corrected) 104 mmHg Arterial Blood HCO3 20 mmol/L (21-28) Arterial Blood Base Excess -3 mmol/L (-3-3) FiO2 40 Glucose (Fingerstick) 107 mg/dL (70-99) 98 mg/dL (70-99) White Blood Count 9.3 x10^3/uL (4.0-11.0) Red Blood Count 4.89 x10^6/uL (3.50-5.40) Hemoglobin 12.9 g/dL (12.0-15.5) Hematocrit 39.9 % (36.0-47.0) Mean Corpuscular Volume 82 fL (79-100) Mean Corpuscular Hemoglobin 26 pg (25-35) Mean Corpuscular Hemoglobin Concent 32 g/dL (31-37) Red Cell Distribution Width 16.3 % (11.5-14.5) Platelet Count 198 x10^3/uL (140-400) Neutrophils (%) (Auto) 79 % (31-73) Lymphocytes (%) (Auto) 14 % (24-48) Monocytes (%) (Auto) 7 % (0-9) Eosinophils (%) (Auto) 0 % (0-3) Basophils (%) (Auto) 0 % (0-3) Neutrophils # (Auto) 7.3 x10^3/uL (1.8-7.7) Lymphocytes # (Auto) 1.3 x10^3/uL (1.0-4.8) Monocytes # (Auto) 0.6 x10^3/uL (0.0-1.1) Eosinophils # (Auto) 0.0 x10^3/uL (0.0-0.7) Basophils # (Auto) 0.0 x10^3/uL (0.0-0.2) Prothrombin Time 13.4 SEC (11.7-14.0) Prothromb Time International Ratio 1.0 (0.8-1.1) Activated Partial Thromboplast Time 34 SEC (24-38) Sodium Level 139 mmol/L (136-145) Potassium Level 4.1 mmol/L (3.5-5.1) Chloride Level 108 mmol/L (98-107) Carbon Dioxide Level 22 mmol/L (21-32) Anion Gap 9 (6-14) Blood Urea Nitrogen 14 mg/dL (7-20) Creatinine 1.1 mg/dL (0.6-1.0) Estimated GFR (Cockcroft-Gault) 59.4 Glucose Level 110 mg/dL (70-99) Calcium Level 8.7 mg/dL (8.5-10.1) Ionized Calcium 1.06 mmol/L (1.13-1.32) Phosphorus Level 1.7 mg/dL (2.6-4.7) Magnesium Level 2.8 mg/dL (1.8-2.4) Test 05/25/21 03:11 05/25/21 04:19 05/25/21 05:28 05/25/21 05:30 Glucose (Fingerstick) 111 mg/dL (70-99) 138 mg/dL (70-99) 122 mg/dL (70-99) Total Bilirubin 1.1 mg/dL (0.2-1.0) Direct Bilirubin 0.3 mg/dL (0.0-0.2) Aspartate Amino Transf (AST/SGOT) 494 U/L (15-37) Alanine Aminotransferase (ALT/SGPT) 534 U/L (14-59) Alkaline Phosphatase 69 U/L (46-116) Troponin I High Sensitivity 386 ng/L (4-50) Total Protein 6.3 g/dL (6.4-8.2) Albumin 3.0 g/dL (3.4-5.0) Test 05/25/21 06:34 05/25/21 07:31 05/25/21 08:39 Glucose (Fingerstick) 102 mg/dL (70-99) 110 mg/dL (70-99) 109 mg/dL (70-99) Medications Current Medications Amiodarone HCl 450 mg/Dextrose 259 ml @ 33 mls/hr 1X ONCE IV Last administere d on 05/24/21at 10:53; Start 05/24/21 at 11:00; Stop 05/24/21 at 17:50; Status DC Norepinephrine Bitartrate 8 mg/ Dextrose 258 ml @ 14.435 mls/ hr 1X ONCE IV Last administered on 05/24/21at 11:03; Start 05/24/21 at 11:00; Stop 05/24/21 at 11:01; Status DC Sodium Chloride 1,000 ml @ 1,000 mls/hr 1X ONCE IV Last administered on 05/24/21at 10:45; Start 05/24/21 at 11:00; Stop 05/24/21 at 12:05; Status DC Piperacillin Sod/ Tazobactam Sod 4.5 gm/Sodium Chloride 100 ml @ 200 mls/hr 1X ONCE IV Last administered on 05/24/21at 11:58; Start 05/24/21 at 11:00; Stop 05/24/21 at 11:29; Status DC Vancomycin HCl (Vanco Per Pharmacy) 1 each PRN DAILY PRN MC SEE COMMENTS; Start 05/24/21 at 11:00; Status Cancel Vancomycin HCl 1.75 gm/Sodium Chloride 500 ml @ 250 mls/hr 1X ONCE IV Last administered on 05/24/21at 13:00; Start 05/24/21 at 11:15; Stop 05/24/21 at 13:34; Status DC Fentanyl Citrate 30 ml @ 0 mls/hr CONT PRN IV SEE PROTOCOL; Start 05/24/21 at 11:15; Stop 05/24/21 at 13:36; Status DC Propofol 100 ml @ 2.22 mls/hr CONT PRN IV PER PROTOCOL; Start 05/24/21 at 11:15; Stop 05/24/21 at 13:37; Status DC Ringer's Solution 1,000 ml @ 75 mls/hr 1X ONCE IV ; Start 05/24/21 at 11:15; Stop 05/25/21 at 00:34; Status DC Midazolam HCl 100 ml @ 1 mls/hr CONT PRN IV SEE PROTOCOL Last administered on 05/24/21at 11:37; Start 05/24/21 at 11:30; Stop 05/24/21 at 13:37; Status DC Midazolam HCl (Versed) 5 mg 1X ONCE NS Last administered on 05/24/21at 11:03; Start 05/24/21 at 11:30; Stop 05/24/21 at 11:34; Status DC Lidocaine HCl (Lidocaine HCl 2% Abboject) 100 mg 1X ONCE IV Last administered on 05/24/21at 10:46; Start 05/24/21 at 11:30; Stop 05/24/21 at 11:34; Status DC Magnesium Sulfate/ Dextrose 100 ml @ 100 mls/hr 1X ONCE IV Last administered on 05/24/21at 10:48; Start 05/24/21 at 11:30; Stop 05/24/21 at 12:29; Status DC Fentanyl Citrate (Fentanyl 2ml Vial) 100 mcg STK-MED ONCE .ROUTE ; Start 05/24/21 at 11:43; Stop 05/24/21 at 11:43; Status DC Fentanyl Citrate (Fentanyl 2ml Vial) 100 mcg 1X ONCE IVP Last administered on 05/24/21at 11:49; Start 05/24/21 at 11:45; Stop 05/24/21 at 11:47; Status DC Potassium Chloride/Water 100 ml @ 100 mls/hr Q1H IV Last administered on 05/24/21at 12:45; Start 05/24/21 at 12:00; Stop 05/24/21 at 14:59; Status DC Fentanyl Citrate (Fentanyl 2ml Vial) 100 mcg 1X ONCE IV ; Start 05/24/21 at 11:45; Stop 05/24/21 at 12:05; Status DC Buspirone HCl (Buspar) 30 mg Q8H NG Last administered on 05/25/21at 03:56; Start 05/24/21 at 12:00; Stop 05/26/21 at 04:01 Acetaminophen (Tylenol) 650 mg Q4H NG Last administered on 05/25/21at 03:56; Start 05/24/21 at 11:45 Glycerin/ Hypromellose/ Polyethylene (Artificial Tears) 1 drop Q6HRS OU Last administered on 05/25/21at 06:07; Start 05/24/21 at 12:00 Glycerin/ Hypromellose/ Polyethylene (Artificial Tears) 1 drop PRN Q15MIN PRN OU DRY EYE; Start 05/24/21 at 11:45 Heparin Sodium (Porcine) (Heparin Sodium) 5,000 unit BID SQ Last administered on 05/24/21at 19:54; Start 05/24/21 at 12:00 Pantoprazole Sodium (PROTONIX VIAL for IV PUSH) 40 mg DAILY IVP Last administered on 05/24/21at 14:21; Start 05/24/21 at 12:00 Fentanyl Citrate 30 ml @ 0 mls/hr CONT PRN IV PER PROTOCOL.; Start 05/24/21 at 11:45; Stop 05/24/21 at 12:38; Status DC Propofol 100 ml @ 0 mls/hr CONT PRN IV PER PROTOCOL; Start 05/24/21 at 11:45; Stop 05/24/21 at 12:38; Status DC Midazolam HCl 100 ml @ 0 mls/hr CONT PRN IV PER PROTOCOL; Start 05/24/21 at 11:45; Stop 05/24/21 at 12:38; Status DC Vecuronium [employer] (Norcuron Bolus) 10 mg PRN Q1HR PRN IV VENTILATOR COMPLIANCE Last administered on 05/25/21at 00:54; Start 05/24/21 at 11:45 Sodium Chloride 1,000 ml @ 1,000 mls/hr 1X ONCE IV Last administered on 05/24/21at 12:00; Start 05/24/21 at 12:30; Stop 05/24/21 at 13:34; Status DC Propofol 100 ml @ 2.22 mls/hr CONT PRN IV PER PROTOCOL; Start 05/24/21 at 12:45 Midazolam HCl 100 ml @ 1 mls/hr CONT PRN IV PER PROTOCOL Last administered on 05/24/21at 22:29; Start 05/24/21 at 12:45 Fentanyl Citrate 30 ml @ 2.5 mls/hr CONT PRN IV PER PROTOCOL. Last administered on 05/24/21at 22:31; Start 05/24/21 at 12:45 Insulin Human Regular 100 unit/ Sodium Chloride 101 ml @ 0 mls/hr CONT PRN IV PER PROTOCOL Last administered on 05/24/21at 22:30; Start 05/24/21 at 14:30 Vancomycin HCl (Vanco Per Pharmacy) 1 each PRN DAILY PRN MC SEE COMMENTS Last administered on 05/25/21at 07:36; Start 05/24/21 at 15:30 Piperacillin Sod/ Tazobactam Sod (Zosyn Per Pharmacy) 1 each PRN DAILY PRN MC SEE COMMENTS; Start 05/24/21 at 15:30 Vancomycin HCl 1.25 gm/Sodium Chloride 250 ml @ 167 mls/hr Q24H IV ; Start 05/25/21 at 13:00 Vancomycin HCl (Vancomycin Trough Level) 1 each 1X ONCE MC ; Start 05/26/21 at 12:30; Stop 05/26/21 at 12:31 Piperacillin Sod/ Tazobactam Sod 3.375 gm/Sodium Chloride 50 ml @ 100 mls/hr Q6HRS IV Last administered on 05/25/21at 06:07; Start 05/24/21 at 18:00 Potassium Chloride/Water 100 ml @ 50 mls/hr Q2H IV Last administered on 05/24/21at 17:36; Start 05/24/21 at 17:00; Stop 05/24/21 at 20:59; Status DC Insulin Human Lispro (HumaLOG) 0-7 UNITS TIDWMEALS SQ ; Start 05/24/21 at 17:00 Dextrose (Dextrose 50%-Water Syringe) 12.5 gm PRN Q15MIN PRN IV SEE COMMENTS; Start 05/24/21 at 16:15 Potassium Chloride/Water 100 ml @ 100 mls/hr PRN Q1HR PRN IV SEE PROTOCOL; Start 05/24/21 at 16:15 Potassium Chloride/Water 100 ml @ 100 mls/hr PRN Q1HR PRN IV SEE PROTOCOL Last administered on 05/25/21at 00:53; Start 05/24/21 at 16:15; Stop 05/25/21 at 00:54; Status DC Insulin Glargine (Lantus Syringe) 6 unit DAILY16 SQ Last administered on 05/24/21at 16:34; Start 05/24/21 at 16:15 Amiodarone HCl 450 mg/Dextrose 259 ml @ 17 mls/hr CONT PRN IV SEE I/O RECORD Last administered on 05/24/21at 18:39; Start 05/24/21 at 18:00 Sodium Phosphate 20 mmol/Sodium Chloride 156.6667 ml @ 64.167 m... 1X ONCE IV ; Start 05/24/21 at 22:00; Stop 05/24/21 at 21:46; Status DC Sodium Phosphate 20 mmol/Sodium Chloride 256.6667 ml @ 64 mls/hr 1X ONCE IV Last administered on 05/24/21at 21:56; Start 05/24/21 at 22:00; Stop 05/25/21 at 02:00; Status DC Magnesium Sulfate 50 ml @ 25 mls/hr 1X ONCE IV Last administered on 05/24/21at 22:03; Start 05/24/21 at 22:00; Stop 05/24/21 at 23:59; Status DC Magnesium Sulfate/ Dextrose 100 ml @ 100 mls/hr 1X ONCE IV Last administered on 05/25/21at 03:31; Start 05/25/21 at 03:30; Stop 05/25/21 at 04:29; Status DC Sodium Phosphate 10 mmol/Sodium Chloride 103.3333 ml @ 105 mls/hr 1X ONCE IV Last administered on 05/25/21at 03:31; Start 05/25/21 at 03:30; Stop 05/25/21 at 04:29; Status DC Active Scripts Active Guaifenesin-Codeine Syrup (Guaifenesin/Codeine Phosphate) 118 Ml Liquid 5 Ml PO Q6HRS Promethazine Hcl 25 Mg Tablet 1 Tab PO PRN Q6HRS Doxycycline Hyclate 100 Mg Tablet 1 Tab PO BID Dok (Docusate Sodium) 100 Mg Capsule 100 Mg PO PRN BID PRN 30 Days Aspirin Ec (Aspirin) 81 Mg Tablet.dr 81 Mg PO [id number] 30 Days Amlodipine Besylate 5 Mg Tablet 2.5 Mg PO DAILY 30 Days Nitrostat (Nitroglycerin) 0.4 Mg Tab.subl 0.4 Mg SL PRN Q5MIN PRN 30 Days Atorvastatin Calcium 20 Mg Tablet 20 Mg PO QHS 30 Days Proair Hfa (Albuterol Sulfate) 8.5 Gm Hfa.aer.ad 2.5 Mg NEB PRN Q4HRS PRN 14 Days Reported Proctosol-Hc (Hydrocortisone) 28.35 Gm Cream..g. 1 Allyssa TP BID PRN 15 Days Amitriptyline Hcl 75 Mg Tablet 1 Tab PO QHS last dose 09/10 8:38pm next dose 09/11 9:00pm Miralax (Polyethylene Glycol 3350) 17 Gm Powd.pack 1 Packet PO DAILY 2 Days dissolve in water Acetaminophen 500 Mg Tablet 2 Tab PO PRN Q6HRS PRN 15 Days last dose 09/11 9:19am Symbicort 160-4.5 Mcg Inhaler (Budesonide/Formoterol Fumarate) 10.2 Gm Hfa.aer.ad 2 Puff IH BID Vitamin B-12 (Cyanocobalamin (Vitamin B-12)) 5,000 Mcg Capsule 5,000 Mcg PO DAILY Calcium 1,000 + D3 Caplet (Calcium Carbonate/Vitamin D3) 1 Each Tablet 1 Each PO DAILY Xyzal (Levocetirizine Dihydrochloride) 5 Mg Tablet 1 Tab PO DAILY 30 Days Isosorbide Mononitrate Er (Isosorbide Mononitrate) 60 Mg Tab.er.24h 60 Mg PO DAILY Klor-Con 10 (Potassium Chloride) 10 Meq Tablet.er 20 Meq PO DAILY Ferrous Sulfate 325 Mg Tablet 1 Tab PO DAILY Estradiol 0.5 Mg Tablet 1 Tab PO DAILY Tramadol Hcl 50 Mg Tablet 100 Mg PO PRN Q12HR Tamsulosin Hcl 0.4 Mg Cap.er.24h 1 Cap PO DAILY Vitals/I & O Vital Sign - Last 24 Hours 05/24/21 05/24/21 05/24/21 05/24/21 10:46 10:58 11:15 11:17 Pulse 0 108 B/P (MAP) 0/0 157/98 (117) Pulse Ox 100 100 100 O2 Delivery Ventilator Ventilator Ventilator 05/24/21 05/24/21 05/24/21 05/24/21 11:22 11:32 11:42 11:47 Pulse 92 92 90 94 B/P (MAP) 158/98 (118) 135/87 (103) 140/83 (102) 167/92 (117) Pulse Ox 100 100 98 100 O2 Delivery Ventilator Ventilator Ventilator Ventilator 05/24/21 05/24/21 05/24/21 05/24/21 11:57 12:07 12:12 12:17 Pulse 94 94 96 94 B/P (MAP) 137/89 (105) 158/92 (114) 147/92 (110) 144/92 (109) Pulse Ox 100 100 100 100 O2 Delivery Ventilator Ventilator Ventilator Ventilator 05/24/21 05/24/21 05/24/21 05/24/21 13:00 13:00 13:00 13:15 Temp 96.2 Pulse 88 Resp 20 B/P (MAP) 161/91 Pulse Ox 98 O2 Delivery Ventilator Mechanical Ventilator 05/24/21 05/24/21 05/24/21 05/24/21 13:15 13:23 13:30 13:30 Temp 96.1 95.7 Pulse 98 86 Resp 20 20 B/P (MAP) 158/86 148/90 Pulse Ox 98 97 100 O2 Delivery Ventilator Ventilator Ventilator 05/24/21 05/24/21 05/24/21 05/24/21 13:45 13:45 14:00 14:00 Temp 94.9 93.6 Pulse 88 75 Resp 20 20 B/P (MAP) 126/92 165/88 Pulse Ox 100 100 O2 Delivery Ventilator Ventilator 05/24/21 05/24/21 05/24/21 05/24/21 14:15 14:15 14:30 14:30 Temp 92.9 91.4 Pulse 74 71 Resp 20 20 B/P (MAP) 181/100 167/95 Pulse Ox 100 100 O2 Delivery Ventilator Ventilator 05/24/21 05/24/21 05/24/21 05/24/21 14:45 15:00 15:00 15:20 Temp 91.2 Pulse 71 Resp 20 B/P (MAP) 150/90 Pulse Ox 100 99 O2 Delivery Ventilator Ventilator 05/24/21 05/24/21 05/24/21 05/24/21 15:46 16:00 17:00 17:00 Temp 90.5 90.8 Pulse 62 67 Resp 20 20 B/P (MAP) 116/78 113/64 Pulse Ox 100 100 O2 Delivery Mechanical Ventilator Ventilator Ventilator 05/24/21 05/24/21 05/24/21 05/24/21 17:36 18:00 18:25 18:40 Temp 91.5 Pulse 66 Resp 20 B/P (MAP) 90/56 76/42 98/62 Pulse Ox 100 100 O2 Delivery Ventilator Ventilator 05/24/21 05/24/21 05/24/21 05/24/21 19:00 19:15 19:30 19:44 Temp 92.1 Pulse 60 Resp 20 B/P (MAP) 138/80 144/82 148/82 Pulse Ox 100 99 O2 Delivery Ventilator Ventilator 05/24/21 05/24/21 05/24/21 05/24/21 20:00 20:00 20:00 21:00 Temp 92.1 91.2 Pulse 60 60 Resp 20 20 B/P (MAP) 152/84 146/82 Pulse Ox 100 100 O2 Delivery Mechanical Ventilator Ventilator Ventilator 05/24/21 05/24/21 05/24/21 05/25/21 22:00 22:35 23:00 00:00 Temp 90.5 90.3 Pulse 60 60 Resp 20 20 B/P (MAP) 141/82 126/78 Pulse Ox 100 100 100 O2 Delivery Ventilator Ventilator Ventilator Mechanical Ventilator 05/25/21 05/25/21 05/25/21 05/25/21 00:00 00:01 00:25 01:00 Temp 90.9 91.6 Pulse 60 60 Resp 20 20 B/P (MAP) 112/76 116/72 Pulse Ox 100 100 100 O2 Delivery Ventilator Ventilator Ventilator 11/1505/25/21 05/25/21 05/25/21 02:00 02:30 03:00 04:00 Temp 92.9 91.8 Pulse 60 60 Resp 20 20 B/P (MAP) 143/88 138/86 Pulse Ox 100 100 100 O2 Delivery Ventilator Ventilator Ventilator Mechanical Ventilator 05/25/21 05/25/21 05/25/21 05/25/21 04:00 04:00 04:30 04:45 Temp 91.4 Pulse 60 Resp 20 B/P (MAP) 126/79 84/60 68/52 Pulse Ox 100 O2 Delivery Ventilator 05/25/21 05/25/21 05/25/21 05/25/21 05:00 05:00 05:15 05:20 Temp 90.9 Pulse 60 Resp 20 B/P (MAP) 134/84 97/68 96/68 Pulse Ox 100 100 O2 Delivery Ventilator Ventilator 05/25/21 05/25/21 05/25/21 05/25/21 05:30 05:45 06:00 06:00 Temp 90.7 Pulse 60 Resp 20 B/P (MAP) 142/90 98/68 88/64 114/77 Pulse Ox 100 O2 Delivery Ventilator 05/25/21 05/25/21 05/25/21 05/25/21 07:00 07:37 08:00 08:00 Temp 91.4 Pulse 60 Resp 16 B/P (MAP) 94/65 Pulse Ox 100 100 O2 Delivery Ventilator Ventilator Mechanical Ventilator 05/25/21 08:00 Temp 91.6 Pulse 60 Resp 16 B/P (MAP) 102/69 Pulse Ox 100 O2 Delivery Ventilator Intake and Output 05/24/21 05/24/21 05/25/21 15:00 23:00 07:00 Intake Total 900 ml 683 ml 1172 ml Output Total 1300 ml 1475 ml 825 ml Balance -400 ml -792 ml [address] HEAD/BRAIN WO dated 05/24/2021 12:26 PM. Comparison: CT 01/10/2020. Clinical Indication: Reason: cardiac arrest / Spl. Instructions: / History: Technical factors: Contiguous 5 mm axial images of the head were obtained from the skullbase to the vertex. No contrast was administered. Findings: There is no apparent intracranial mass, hemorrhage or abnormal extra-axial fluid collection. No new area of abnormal density is seen. The ventricles and basilar cisterns are normally positioned. Impression: No evidence of acute intracranial abnormality. Justicifation of Admission Dx: Justifications for Admission: Justification of Admission Dx: No TASNEEM TORIBIO MD May 25, 2021 08:45
[2021-05-25 08:56] LABS: BASO % 1 % (0-3); EOS % 0 % (0-3); HEMATOCRIT 37.6 % (36.0-47.0); HEMOGLOBIN 12.2 g/dL (12.0-15.5); LYMPH # 1.7 x10^3/uL (1.0-4.8); LYMPH % 19 % (24-48); MEAN CORPUSCULAR HEMOGLOBIN 26 pg (25-35); MEAN CORPUSCULAR HGB CONC 32 g/dL (31-37); MEAN CORPUSCULAR VOLUME 81 fL (79-100); MONO # 0.5 x10^3/uL (0.0-1.1); MONO % 6 % (0-9); NEUT # 6.8 x10^3/uL (1.8-7.7); NEUT % 75 % (31-73); PLATELET COUNT 188 x10^3/uL (140-400); RED BLOOD COUNT 4.63 x10^6/uL (3.50-5.40); RED CELL DISTRIBUTION WIDTH 16.3 % (11.5-14.5)
--- NOTE | 2021-05-25 09:01 | CONS ---
DATE OF CONSULTATION: 05/25/2021 ATTENDING PHYSICIAN: Bridget Weaver MD REASON FOR CONSULTATION: The patient is seen in pulmonary consultation at the request of Dr. Weaver for acute respiratory failure, [id number] cardiopulmonary arrest. HISTORY OF PRESENT ILLNESS: The patient is a 71-year-old who was complaining of shortness of breath, chest discomfort. Paramedics arrived, found her in cardiac arrest. The patient was noted to have ventricular fibrillation in the Emergency Department. She received multiple rounds of ACLS, was resuscitated. She had multiple attempts with defibrillation. She was started on IV amiodarone. She is currently on IV norepinephrine and amiodarone. I was asked to see her in consultation. She is on assist control ventilation, tidal volume of 450, rate of 16. Recent blood gas; pH of 7.44, PaCO2 of 30, pO2 of 127. Initially, she had an elevated lactic acid level. She had a low potassium. EKG showed no acute ST segment elevation. Chest x-ray revealed bilateral pulmonary infiltrates compatible with pulmonary edema. CT chest revealed no acute intracranial abnormalities. Past medical history is remarkable for previous code blue. Apparently, she had a code blue back in 08/2019. She was successfully resuscitated. Had a cardiac catheterization revealed no coronary artery disease with no significant coronary artery disease. She had ejection fraction at the time of 55%. Echo following that particular episode reveals some apical hypokinesis, pulmonary artery pressure was 41. She had a dual chamber pacemaker placed on 10/30/2019. PAST MEDICAL HISTORY: As indicated above. In addition, she has a history of coronary artery disease, hypertension, chronic heart failure, COPD, previous CVA. ALLERGIES: LISTED TO ALENDRONATE AND METHOCARBAMOL. SOCIAL HISTORY: She apparently is currently not smoking. PAST SURGICAL HISTORY: She has had previous hysterectomy, total hip replacement, tonsillectomy and pacemaker insertion. REVIEW OF SYSTEMS: Unobtainable secondary to the patient's condition. CURRENT MEDICATIONS: List was reviewed. PHYSICAL EXAMINATION: GENERAL: The patient was in the intensive care unit. She is undergoing hypothermic protocol. VITAL SIGNS: Stable at this time. She is on pressors. HEENT: Eyes: The sclerae were nonicteric. NECK: Trach in place. CHEST: Full expansion. LUNGS: Adequate flow with no wheezes. CARDIOVASCULAR: Regular rate and rhythm with S1, S2. No S3. ABDOMEN: Soft. EXTREMITIES: No clubbing, cyanosis. Minimal edema. NEUROLOGIC: The patient was sedated. LABORATORY DATA: Noted. White count was normal. Arterial blood gas as indicated above. INR was 1.0. Electrolytes were noted. AST and ALT were elevated. Albumin was low. Phosphorus was low. Upon admission, her potassium was 2.3. Chest x-ray once again revealed bilateral pulmonary infiltrates. ABG as indicated above. Toxicology screen was positive for benzodiazepine. Ethyl alcohol level was less than 10. IMPRESSION: 1. [id number] cardiopulmonary arrest. 2. Ventricular fibrillation. 3. Cardiogenic shock. 4. Acute on chronic pulmonary edema, suspect combination systolic, diastolic. 5. Pulmonary hypertension, previous echocardiogram revealed pulmonary artery pressure of 41. 6. Status post pacemaker. 7. Hypokalemia. 8. Shock liver. 9. Protein malnutrition, present upon admission. 10. Multifactorial encephalopathy. PLAN: 1. We will continue current support with assist control ventilation. 2. Follow Cardiology input. 3. We will discuss workup of the pulmonary hypertension with warm in. 4. The patient has not had an outpatient polysomnogram. Recommend outpatient polysomnogram. 5. Rule out myocardial infarction. 6. Replace potassium. 7. Initiate tube feeding. 8. Anticoagulation per Cardiology. 9. Wean pressors. 10. Complete course of hypothermic protocol. 11. Noted the patient is on empiric antibiotics, we will discontinue vancomycin for now, continue Zosyn. 12. I do appreciate the privilege in sharing in the patient's care. Total cumulative critical care time of 50 minutes, reviewing the current documentation, reviewing imaging studies, formulating an impression and plan. Case was discussed with RT and RN, case will be discussed with Cardiology. FRANKY DR: Curtsi TID: [id number]
[2021-05-25 09:10] LABS: CALCIUM 8.3 mg/dL (8.5-10.1); CREATININE 0.9 mg/dL (0.6-1.0); GFR 74.9; MAGNESIUM 2.6 mg/dL (1.8-2.4); POTASSIUM 3.5 mmol/L (3.5-5.1)
--- NOTE | 2021-05-25 09:36 | PDOC ---
MELIZA RANDALL [facility] ATTENDANT 05/25/21 0936: CARDIO Progress Notes Date and Time Date of Service 05/25/21 Time of Evaluation 0935 Subjective Subjective: Other (intubated ) Vitals Vitals Vital Signs Date Time Temp Pulse Resp B/P (MAP) Pulse Ox O2 Delivery O2 Flow Rate FiO2 05/25/21 09:04 100 Ventilator 05/25/21 09:00 92.5 60 18 107/68 Weight Weight [ ] Input and Output Intake and Output Intake and Output 05/25/21 07:00 Intake Total 2755 ml Output Total 3600 ml Balance -845 ml Intake IV Total 2755 ml Output Urine Total 3600 ml Laboratory Labs Laboratory Tests Test 05/24/21 10:51 05/24/21 11:10 05/24/21 11:25 05/24/21 11:40 Glucose (Fingerstick) 125 mg/dL (70-99) White Blood Count 8.6 x10^3/uL (4.0-11.0) Red Blood Count 4.51 x10^6/uL (3.50-5.40) Hemoglobin 11.9 g/dL (12.0-15.5) Hematocrit 37.3 % (36.0-47.0) Mean Corpuscular Volume 83 fL (79-100) Mean Corpuscular Hemoglobin 26 pg (25-35) Mean Corpuscular Hemoglobin Concent 32 g/dL (31-37) Red Cell Distribution Width 16.6 % (11.5-14.5) Platelet Count 188 x10^3/uL (140-400) Neutrophils (%) (Auto) 22 % (31-73) Lymphocytes (%) (Auto) 74 % (24-48) Monocytes (%) (Auto) 2 % (0-9) Eosinophils (%) (Auto) 1 % (0-3) Basophils (%) (Auto) 1 % (0-3) Neutrophils # (Auto) 1.9 x10^3/uL (1.8-7.7) Lymphocytes # (Auto) 6.4 x10^3/uL (1.0-4.8) Monocytes # (Auto) 0.2 x10^3/uL (0.0-1.1) Eosinophils # (Auto) 0.1 x10^3/uL (0.0-0.7) Basophils # (Auto) 0.1 x10^3/uL (0.0-0.2) Prothrombin Time 14.2 SEC (11.7-14.0) Prothromb Time International Ratio 1.1 (0.8-1.1) Activated Partial Thromboplast Time 35 SEC (24-38) Sodium Level 145 mmol/L (136-145) Potassium Level 2.3 mmol/L (3.5-5.1) Chloride Level 107 mmol/L (98-107) Carbon Dioxide Level 25 mmol/L (21-32) Anion Gap 13 (6-14) Blood Urea Nitrogen 13 mg/dL (7-20) Creatinine 1.2 mg/dL (0.6-1.0) Estimated GFR (Cockcroft-Gault) 53.7 Glucose Level 275 mg/dL (70-99) Lactic Acid Level 8.1 mmol/L (0.4-2.0) Calcium Level 9.5 mg/dL (8.5-10.1) Phosphorus Level 4.7 mg/dL (2.6-4.7) Magnesium Level 3.0 mg/dL (1.8-2.4) Total Bilirubin 0.4 mg/dL (0.2-1.0) Direct Bilirubin 0.2 mg/dL (0.0-0.2) Aspartate Amino Transf (AST/SGOT) 667 U/L (15-37) Alanine Aminotransferase (ALT/SGPT) 560 U/L (14-59) Alkaline Phosphatase 71 U/L (46-116) Creatine Kinase 112 U/L (26-192) Troponin I High Sensitivity 15 ng/L (4-50) VN-Phq-V-Type Natriuretic Peptide 113 pg/mL (0-124) Total Protein 6.1 g/dL (6.4-8.2) Albumin 2.6 g/dL (3.4-5.0) Salicylates Level 1.0 mg/dL (2.8-20.0) Salicylate Last Dose Date Unknown Salicylate Last Dose Time Unknown Acetaminophen Level 2.4 mcg/ml (10-30) Acetaminophen Last Dose Date Unknown Acetaminophen Last Dose Time Unknown Ethyl Alcohol Level < 10 mg/dL (0-10) O2 Saturation 99 % (92-99) Arterial Blood pH 7.32 (7.35-7.45) Arterial Blood pCO2 at Patient Temp 40 mmHg (35-46) Arterial Blood pO2 at Patient Temp 374 mmHg (65-108) Arterial Blood HCO3 20 mmol/L (21-28) Arterial Blood Base Excess -5 mmol/L (-3-3) FiO2 100 Urine Collection Type U cath Urine Color Yellow Urine Clarity Clear Urine pH 7.5 (<5.0-8.0) Urine Specific [place] 1.015 (1.000-1.030) Urine Protein >=300 mg/dL (NEG-TRACE) Urine Glucose (UA) 500 mg/dL (NEG) Urine Ketones (Stick) Negative mg/dL (NEG) Urine Blood Moderate (NEG) Urine Nitrite Negative (NEG) Urine Bilirubin Negative (NEG) Urine Urobilinogen Dipstick 0.2 mg/dL (0.2 mg/dL) Urine Leukocyte Esterase Negative (NEG) Urine RBC 3-5 /HPF (0-2) Urine WBC 1-4 /HPF (0-4) Urine Squamous Epithelial Cells Occ /LPF Urine Bacteria 0 /HPF (0-FEW) Urine Mucus Slight /LPF Urine Opiates Screen Neg (NEG) Urine Methadone Screen Neg (NEG) Urine Barbiturates Neg (NEG) Urine Phencyclidine Screen Neg (NEG) Urine Amphetamine/Methamphetamine Neg (NEG) Urine Benzodiazepines Screen Pos (NEG) Urine Cocaine Screen Neg (NEG) Urine Cannabinoids Screen Neg (NEG) Urine Ethyl Alcohol Neg (NEG) Test 05/24/21 14:03 05/24/21 14:13 05/24/21 15:55 05/24/21 15:57 Glucose (Fingerstick) 252 mg/dL (70-99) 260 mg/dL (70-99) Lactic Acid Level 4.5 mmol/L (0.4-2.0) Sodium Level 142 mmol/L (136-145) Potassium Level 3.2 mmol/L (3.5-5.1) Chloride Level 104 mmol/L (98-107) Carbon Dioxide Level 23 mmol/L (21-32) Anion Gap 15 (6-14) Blood Urea Nitrogen 15 mg/dL (7-20) Creatinine 1.3 mg/dL (0.6-1.0) Estimated GFR (Cockcroft-Gault) 49.0 Glucose Level 267 mg/dL (70-99) Calcium Level 8.8 mg/dL (8.5-10.1) Test 05/24/21 17:05 05/24/21 18:06 05/24/21 19:13 05/24/21 20:25 Glucose (Fingerstick) 234 mg/dL (70-99) 187 mg/dL (70-99) 149 mg/dL (70-99) 138 mg/dL (70-99) Test 05/24/21 20:30 05/24/21 21:27 05/24/21 22:28 05/24/21 23:32 White Blood Count 11.7 x10^3/uL (4.0-11.0) Red Blood Count 4.87 x10^6/uL (3.50-5.40) Hemoglobin 12.9 g/dL (12.0-15.5) Hematocrit 39.7 % (36.0-47.0) Mean Corpuscular Volume 82 fL (79-100) Mean Corpuscular Hemoglobin 27 pg (25-35) Mean Corpuscular Hemoglobin Concent 33 g/dL (31-37) Red Cell Distribution Width 16.2 % (11.5-14.5) Platelet Count 204 x10^3/uL (140-400) Neutrophils (%) (Auto) 85 % (31-73) Lymphocytes (%) (Auto) 8 % (24-48) Monocytes (%) (Auto) 7 % (0-9) Eosinophils (%) (Auto) 0 % (0-3) Basophils (%) (Auto) 0 % (0-3) Neutrophils # (Auto) 10.0 x10^3/uL (1.8-7.7) Lymphocytes # (Auto) 0.9 x10^3/uL (1.0-4.8) Monocytes # (Auto) 0.8 x10^3/uL (0.0-1.1) Eosinophils # (Auto) 0.0 x10^3/uL (0.0-0.7) Basophils # (Auto) 0.0 x10^3/uL (0.0-0.2) Prothrombin Time 13.8 SEC (11.7-14.0) Prothromb Time International Ratio 1.1 (0.8-1.1) Activated Partial Thromboplast Time 31 SEC (24-38) Sodium Level 142 mmol/L (136-145) Potassium Level 2.9 mmol/L (3.5-5.1) Chloride Level 107 mmol/L (98-107) Carbon Dioxide Level 22 mmol/L (21-32) Anion Gap 13 (6-14) Blood Urea Nitrogen 15 mg/dL (7-20) Creatinine 1.3 mg/dL (0.6-1.0) Estimated GFR (Cockcroft-Gault) 49.0 Glucose Level 141 mg/dL (70-99) Calcium Level 9.0 mg/dL (8.5-10.1) Ionized Calcium 1.21 mmol/L (1.13-1.32) Phosphorus Level 0.6 mg/dL (2.6-4.7) Magnesium Level 2.1 mg/dL (1.8-2.4) Glucose (Fingerstick) 134 mg/dL (70-99) 146 mg/dL (70-99) 130 mg/dL (70-99) Test 05/25/21 00:05 05/25/21 00:50 05/25/21 01:55 05/25/21 02:30 O2 Saturation 98 % (92-99) Arterial Blood pH 7.44 (7.35-7.45) Arterial Blood pH (Temp corrected) 7.51 Arterial Blood pCO2 at Patient Temp 30 mmHg (35-46) Arterial Blood pCO2 (Temp correct) 25 mmHg Arterial Blood pO2 at Patient Temp 127 mmHg (65-108) Arterial Blood pO2 (Temp corrected) 104 mmHg Arterial Blood HCO3 20 mmol/L (21-28) Arterial Blood Base Excess -3 mmol/L (-3-3) FiO2 40 Glucose (Fingerstick) 107 mg/dL (70-99) 98 mg/dL (70-99) White Blood Count 9.3 x10^3/uL (4.0-11.0) Red Blood Count 4.89 x10^6/uL (3.50-5.40) Hemoglobin 12.9 g/dL (12.0-15.5) Hematocrit 39.9 % (36.0-47.0) Mean Corpuscular Volume 82 fL (79-100) Mean Corpuscular Hemoglobin 26 pg (25-35) Mean Corpuscular Hemoglobin Concent 32 g/dL (31-37) Red Cell Distribution Width 16.3 % (11.5-14.5) Platelet Count 198 x10^3/uL (140-400) Neutrophils (%) (Auto) 79 % (31-73) Lymphocytes (%) (Auto) 14 % (24-48) Monocytes (%) (Auto) 7 % (0-9) Eosinophils (%) (Auto) 0 % (0-3) Basophils (%) (Auto) 0 % (0-3) Neutrophils # (Auto) 7.3 x10^3/uL (1.8-7.7) Lymphocytes # (Auto) 1.3 x10^3/uL (1.0-4.8) Monocytes # (Auto) 0.6 x10^3/uL (0.0-1.1) Eosinophils # (Auto) 0.0 x10^3/uL (0.0-0.7) Basophils # (Auto) 0.0 x10^3/uL (0.0-0.2) Prothrombin Time 13.4 SEC (11.7-14.0) Prothromb Time International Ratio 1.0 (0.8-1.1) Activated Partial Thromboplast Time 34 SEC (24-38) Sodium Level 139 mmol/L (136-145) Potassium Level 4.1 mmol/L (3.5-5.1) Chloride Level 108 mmol/L (98-107) Carbon Dioxide Level 22 mmol/L (21-32) Anion Gap 9 (6-14) Blood Urea Nitrogen 14 mg/dL (7-20) Creatinine 1.1 mg/dL (0.6-1.0) Estimated GFR (Cockcroft-Gault) 59.4 Glucose Level 110 mg/dL (70-99) Calcium Level 8.7 mg/dL (8.5-10.1) Ionized Calcium 1.06 mmol/L (1.13-1.32) Phosphorus Level 1.7 mg/dL (2.6-4.7) Magnesium Level 2.8 mg/dL (1.8-2.4) Test 05/25/21 03:11 05/25/21 04:19 05/25/21 05:28 05/25/21 05:30 Glucose (Fingerstick) 111 mg/dL (70-99) 138 mg/dL (70-99) 122 mg/dL (70-99) Total Bilirubin 1.1 mg/dL (0.2-1.0) Direct Bilirubin 0.3 mg/dL (0.0-0.2) Aspartate Amino Transf (AST/SGOT) 494 U/L (15-37) Alanine Aminotransferase (ALT/SGPT) 534 U/L (14-59) Alkaline Phosphatase 69 U/L (46-116) Troponin I High Sensitivity 386 ng/L (4-50) Total Protein 6.3 g/dL (6.4-8.2) Albumin 3.0 g/dL (3.4-5.0) Test 05/25/21 06:34 05/25/21 07:31 05/25/21 08:30 05/25/21 08:39 Glucose (Fingerstick) 102 mg/dL (70-99) 110 mg/dL (70-99) 109 mg/dL (70-99) White Blood Count 9.0 x10^3/uL (4.0-11.0) Red Blood Count 4.63 x10^6/uL (3.50-5.40) Hemoglobin 12.2 g/dL (12.0-15.5) Hematocrit 37.6 % (36.0-47.0) Mean Corpuscular Volume 81 fL (79-100) Mean Corpuscular Hemoglobin 26 pg (25-35) Mean Corpuscular Hemoglobin Concent 32 g/dL (31-37) Red Cell Distribution Width 16.3 % (11.5-14.5) Platelet Count 188 x10^3/uL (140-400) Neutrophils (%) (Auto) 75 % (31-73) Lymphocytes (%) (Auto) 19 % (24-48) Monocytes (%) (Auto) 6 % (0-9) Eosinophils (%) (Auto) 0 % (0-3) Basophils (%) (Auto) 1 % (0-3) Neutrophils # (Auto) 6.8 x10^3/uL (1.8-7.7) Lymphocytes # (Auto) 1.7 x10^3/uL (1.0-4.8) Monocytes # (Auto) 0.5 x10^3/uL (0.0-1.1) Eosinophils # (Auto) 0.0 x10^3/uL (0.0-0.7) Basophils # (Auto) 0.0 x10^3/uL (0.0-0.2) Sodium Level 142 mmol/L (136-145) Potassium Level 3.5 mmol/L (3.5-5.1) Chloride Level 106 mmol/L (98-107) Carbon Dioxide Level 21 mmol/L (21-32) Anion Gap 15 (6-14) Blood Urea Nitrogen 13 mg/dL (7-20) Creatinine 0.9 mg/dL (0.6-1.0) Estimated GFR (Cockcroft-Gault) 74.9 Glucose Level 117 mg/dL (70-99) Calcium Level 8.3 mg/dL (8.5-10.1) Phosphorus Level 4.0 mg/dL (2.6-4.7) Magnesium Level 2.6 mg/dL (1.8-2.4) Test 05/25/21 09:30 Glucose (Fingerstick) 116 mg/dL (70-99) Physical Exam HEENT: Neck Supple W Full Motion Chest: Symmetric LUNGS: Other (MV) Heart: RRR (100% A-paced ), no murmurs Abdomen: Other (soft ) Extremities: No Edema Neurology: other (sedated) Assessment Assessment 1. Cardiac arrest secondary to VT/VF in the setting of profound hypokalemia. on IV amiodarone. No further arrhythmias noted on tele. Echo with preserved LV systolic function with an EF of 50-55%. Hypothermia protocol; rewarming today 2. Acute respiratory failure secondary to above. s/p intubation. 3. Severe hypokalemia; replaced 4. Mild troponin elevation; high sensitivity highest 386. Most probably type II, demand ischemic in setting of above 5. CAD; nonobstructive per cath 08/30 6. SSS s/p PPM (Biotronik). Device check showed normal device function. VT/VF noted 7. H/o hypertension with present hypotension. BP remains low end 8. Hyperlipidemia 9. H/o NICM; most recent echo with LV recovery. 10. Elevated LFTs Recommendations Discontinue amiodarone. Monitor rhythm closely Electrolyte replacement to keep K > 4.0 and Mg > 2.0 Add ASA therapy Hold statin with elevated LFTs Ongoing pulmonary optimization Supportive care from a CV standpoint Probable outpatient ischemic evaluation Justicifation of Admission Dx: Justifications for Admission: Justification of Admission Dx: No ESSENCE COX MD 05/25/21 1535: CARDIO Progress Notes Assessment Assessment Patient seen and examined I agree with our nurse practitioners assessment and plan. Cardiac arrest secondary to VT/VF in the setting of profound hypokalemia. on IV amiodarone. No further arrhythmias noted on tele. Echo with preserved LV sys tolic function with an EF of 50-55%. Hypothermia protocol; rewarming today Acute respiratory failure secondary to above. s/p intubation. Management as per the pulmonary service. Severe hypokalemia; replaced Mild troponin elevation; high sensitivity highest 386. Most probably type II, demand ischemic in setting of above CAD; nonobstructive per cath 08/30 SSS s/p PPM (Biotronik). Device check showed normal device function. VT/VF noted H/o hypertension with present hypotension. BP remains low end Hyperlipidemia. Holding statins with elevated LFTs. H/o NICM; most recent echo with LV recovery. Elevated LFTs. Holding amiodarone. MELIZA RANDALL APRN May 25, 2021 09:36 ESSENCE COX MD May 25, 2021 15:35
[2021-05-25] MEDS ORDERED: EPINEPHrine SYRINGE 1 MG/10 ML SYRINGE ONE (10:00)
[2021-05-25] MEDS ORDERED: DEXTROSE 50% 25 GM / 50ML DISP.SYRIN. IV ONE (10:00)
[2021-05-25] MEDS ORDERED: SODIUM BICARB ADULT 8.4% 50 MEQ/50 ML DISP.SYRIN. ONE (10:00)
[2021-05-25] MEDS ORDERED: LIDOCAINE 2% 100 MG/5 ML SYRINGE. ONE (10:00)
[2021-05-25] MEDS ORDERED: CALCIUM CHLORIDE 1,000 MG/10 ML DISP.SYRIN ONE (10:00)
--- NOTE | 2021-05-25 10:15 | NUR ---
SS following for discharge planning. SS reviewed pt chart and discussed with pt RN. Pt is from home with spouse and is currently on the vent at 40%. Pt on IV Zosyn. Cardiac arrest in the ER. Cardiology and Pulmonology following. Pt on Fentanyl, Versed, and Amiodarone. Hypothermia protocol. SS will continue to follow for discharge planning.
[2021-05-25] MEDS: AMIODARONE 450 MG in IV DEXTROSE 5% 250 ML IV PRN (10:44)
[2021-05-25 11:27] LABS: BASE EXCESS ABG -5 mmol/L (-3-3); HCO3 ABG 21 mmol/L (21-28); PCO2 ABG 44 mmHg (35-46); PO2 ABG 141 mmHg (65-108); SAT O2 ABG 98 % (92-99)
[2021-05-25 11:28] LABS: CORRECTED PCO2 ABG 38 mmHg; CORRECTED PH ABG 7.35; CORRECTED PO2 ABG 123 mmHg
[2021-05-25] MEDS ORDERED: POTASSIUM CHLORIDE 20MEQ 100 ML IV SCH (12:00)
--- NOTE | 2021-05-25 12:23 | PDOC ---
[employer] PROGRESS NOTE Date of Service DOS: DATE: 05/25/21 TIME: 12:18 Chief Complaint Chief Complaint Cardiac arrest secondary to VT/VF chest pain r/o ACS PEA arrest critical hypokalemia Hemodynamic stability due to ventricular fibrillation acute hypoxia from arrest hx tachybrady syndrome, has pacer, HTN, CVA, HTN, asthma, COPD , GERD, rheumatoid arthritis, Continue ICU care Continue hypothermia protocol Neuro consult for apnea test after hypothermia protocol completed Appreciate cardiology recommendationsstop amiodarone and replace potassium to greater than 4 Add aspirin and hold statin Heparin for DVT prophylaxis Protonix while intubated GI prophylaxis ADA diet CODE STATUS full Discussed with RN and SW Disposition continue ICU care while intubated DPOA: A total of 35 minutes of critical care time was spent in reviewing chart, labs, and images. Discussed with RN and SW. History of Present Illness History of Present Illness 71 yo Female that was brought to ER in private car for acute chest pain, worse rosmery on the way, because less responsive, was pulseless when the ride stopped, was brought in and CPR started in the ER waiting room. Agressvie chest compression and shock, Vib, and PEA cardiac arrest. ATLS protocol started upon ED arrival. return of circulation was attained and pt intubated, and central line placed in the ER, i eval there and the ICU. 05/25/2021 Patient seen and examined bedside. Intubated and sedated. Currently on minimal vent settings. Currently on Levophed at 0.02. Vitals/I&O Vitals/I&O: Vital Signs Date Time Temp Pulse Resp B/P (MAP) Pulse Ox O2 Delivery O2 Flow Rate FiO2 05/25/21 11:21 100 Ventilator 05/25/21 11:11 16 05/25/21 11:00 92.8 60 96/63 I & O 05/24/21 05/24/21 05/25/21 15:00 23:00 07:00 Intake Total 900 ml 683 ml 1172 ml Output Total 1300 ml 1475 ml 825 ml Balance -400 ml -792 ml 347 ml Physical Exam General: Other (Sedated on a ventilator) Heart: Other (Regular rhythm rate 110) Lungs: Wheezing Abdomen: Soft Extremities: No clubbing, Normal pulses Skin: No rashes, No breakdown, No significant lesion Labs Labs: Laboratory Tests Test 05/24/21 14:03 05/24/21 14:13 05/24/21 15:55 05/24/21 15:57 Glucose (Fingerstick) 252 mg/dL (70-99) 260 mg/dL (70-99) Lactic Acid Level 4.5 mmol/L (0.4-2.0) Sodium Level 142 mmol/L (136-145) Potassium Level 3.2 mmol/L (3.5-5.1) Chloride Level 104 mmol/L (98-107) Carbon Dioxide Level 23 mmol/L (21-32) Anion Gap 15 (6-14) Blood Urea Nitrogen 15 mg/dL (7-20) Creatinine 1.3 mg/dL (0.6-1.0) Estimated GFR (Cockcroft-Gault) 49.0 Glucose Level 267 mg/dL (70-99) Calcium Level 8.8 mg/dL (8.5-10.1) Test 05/24/21 17:05 05/24/21 18:06 05/24/21 19:13 05/24/21 20:25 Glucose (Fingerstick) 234 mg/dL (70-99) 187 mg/dL (70-99) 149 mg/dL (70-99) 138 mg/dL (70-99) Test 05/24/21 20:30 05/24/21 21:27 05/24/21 22:28 05/24/21 23:32 White Blood Count 11.7 x10^3/uL (4.0-11.0) Red Blood Count 4.87 x10^6/uL (3.50-5.40) Hemoglobin 12.9 g/dL (12.0-15.5) Hematocrit 39.7 % (36.0-47.0) Mean Corpuscular Volume 82 fL (79-100) Mean Corpuscular Hemoglobin 27 pg (25-35) Mean Corpuscular Hemoglobin Concent 33 g/dL (31-37) Red Cell Distribution Width 16.2 % (11.5-14.5) Platelet Count 204 x10^3/uL (140-400) Neutrophils (%) (Auto) 85 % (31-73) Lymphocytes (%) (Auto) 8 % (24-48) Monocytes (%) (Auto) 7 % (0-9) Eosinophils (%) (Auto) 0 % (0-3) Basophils (%) (Auto) 0 % (0-3) Neutrophils # (Auto) 10.0 x10^3/uL (1.8-7.7) Lymphocytes # (Auto) 0.9 x10^3/uL (1.0-4.8) Monocytes # (Auto) 0.8 x10^3/uL (0.0-1.1) Eosinophils # (Auto) 0.0 x10^3/uL (0.0-0.7) Basophils # (Auto) 0.0 x10^3/uL (0.0-0.2) Prothrombin Time 13.8 SEC (11.7-14.0) Prothromb Time International Ratio 1.1 (0.8-1.1) Activated Partial Thromboplast Time 31 SEC (24-38) Sodium Level 142 mmol/L (136-145) Potassium Level 2.9 mmol/L (3.5-5.1) Chloride Level 107 mmol/L (98-107) Carbon Dioxide Level 22 mmol/L (21-32) Anion Gap 13 (6-14) Blood Urea Nitrogen 15 mg/dL (7-20) Creatinine 1.3 mg/dL (0.6-1.0) Estimated GFR (Cockcroft-Gault) 49.0 Glucose Level 141 mg/dL (70-99) Calcium Level 9.0 mg/dL (8.5-10.1) Ionized Calcium 1.21 mmol/L (1.13-1.32) Phosphorus Level 0.6 mg/dL (2.6-4.7) Magnesium Level 2.1 mg/dL (1.8-2.4) Glucose (Fingerstick) 134 mg/dL (70-99) 146 mg/dL (70-99) 130 mg/dL (70-99) Test 05/25/21 00:05 05/25/21 00:50 05/25/21 01:55 05/25/21 02:30 O2 Saturation 98 % (92-99) Arterial Blood pH 7.44 (7.35-7.45) Arterial Blood pH (Temp corrected) 7.51 Arterial Blood pCO2 at Patient Temp 30 mmHg (35-46) Arterial Blood pCO2 (Temp correct) 25 mmHg Arterial Blood pO2 at Patient Temp 127 mmHg (65-108) Arterial Blood pO2 (Temp corrected) 104 mmHg Arterial Blood HCO3 20 mmol/L (21-28) Arterial Blood Base Excess -3 mmol/L (-3-3) FiO2 40 Glucose (Fingerstick) 107 mg/dL (70-99) 98 mg/dL (70-99) White Blood Count 9.3 x10^3/uL (4.0-11.0) Red Blood Count 4.89 x10^6/uL (3.50-5.40) Hemoglobin 12.9 g/dL (12.0-15.5) Hematocrit 39.9 % (36.0-47.0) Mean Corpuscular Volume 82 fL (79-100) Mean Corpuscular Hemoglobin 26 pg (25-35) Mean Corpuscular Hemoglobin Concent 32 g/dL (31-37) Red Cell Distribution Width 16.3 % (11.5-14.5) Platelet Count 198 x10^3/uL (140-400) Neutrophils (%) (Auto) 79 % (31-73) Lymphocytes (%) (Auto) 14 % (24-48) Monocytes (%) (Auto) 7 % (0-9) Eosinophils (%) (Auto) 0 % (0-3) Basophils (%) (Auto) 0 % (0-3) Neutrophils # (Auto) 7.3 x10^3/uL (1.8-7.7) Lymphocytes # (Auto) 1.3 x10^3/uL (1.0-4.8) Monocytes # (Auto) 0.6 x10^3/uL (0.0-1.1) Eosinophils # (Auto) 0.0 x10^3/uL (0.0-0.7) Basophils # (Auto) 0.0 x10^3/uL (0.0-0.2) Prothrombin Time 13.4 SEC (11.7-14.0) Prothromb Time International Ratio 1.0 (0.8-1.1) Activated Partial Thromboplast Time 34 SEC (24-38) Sodium Level 139 mmol/L (136-145) Potassium Level 4.1 mmol/L (3.5-5.1) Chloride Level 108 mmol/L (98-107) Carbon Dioxide Level 22 mmol/L (21-32) Anion Gap 9 (6-14) Blood Urea Nitrogen 14 mg/dL (7-20) Creatinine 1.1 mg/dL (0.6-1.0) Estimated GFR (Cockcroft-Gault) 59.4 Glucose Level 110 mg/dL (70-99) Calcium Level 8.7 mg/dL (8.5-10.1) Ionized Calcium 1.06 mmol/L (1.13-1.32) Phosphorus Level 1.7 mg/dL (2.6-4.7) Magnesium Level 2.8 mg/dL (1.8-2.4) Test 05/25/21 03:11 05/25/21 04:19 05/25/21 05:28 05/25/21 05:30 Glucose (Fingerstick) 111 mg/dL (70-99) 138 mg/dL (70-99) 122 mg/dL (70-99) Total Bilirubin 1.1 mg/dL (0.2-1.0) Direct Bilirubin 0.3 mg/dL (0.0-0.2) Aspartate Amino Transf (AST/SGOT) 494 U/L (15-37) Alanine Aminotransferase (ALT/SGPT) 534 U/L (14-59) Alkaline Phosphatase 69 U/L (46-116) Troponin I High Sensitivity 386 ng/L (4-50) Total Protein 6.3 g/dL (6.4-8.2) Albumin 3.0 g/dL (3.4-5.0) Test 05/25/21 06:34 05/25/21 07:31 05/25/21 08:30 05/25/21 08:39 Glucose (Fingerstick) 102 mg/dL (70-99) 110 mg/dL (70-99) 109 mg/dL (70-99) White Blood Count 9.0 x10^3/uL (4.0-11.0) Red Blood Count 4.63 x10^6/uL (3.50-5.40) Hemoglobin 12.2 g/dL (12.0-15.5) Hematocrit 37.6 % (36.0-47.0) Mean Corpuscular Volume 81 fL (79-100) Mean Corpuscular Hemoglobin 26 pg (25-35) Mean Corpuscular Hemoglobin Concent 32 g/dL (31-37) Red Cell Distribution Width 16.3 % (11.5-14.5) Platelet Count 188 x10^3/uL (140-400) Neutrophils (%) (Auto) 75 % (31-73) Lymphocytes (%) (Auto) 19 % (24-48) Monocytes (%) (Auto) 6 % (0-9) Eosinophils (%) (Auto) 0 % (0-3) Basophils (%) (Auto) 1 % (0-3) Neutrophils # (Auto) 6.8 x10^3/uL (1.8-7.7) Lymphocytes # (Auto) 1.7 x10^3/uL (1.0-4.8) Monocytes # (Auto) 0.5 x10^3/uL (0.0-1.1) Eosinophils # (Auto) 0.0 x10^3/uL (0.0-0.7) Basophils # (Auto) 0.0 x10^3/uL (0.0-0.2) Activated Partial Thromboplast Time 37 SEC (24-38) Sodium Level 142 mmol/L (136-145) Potassium Level 3.5 mmol/L (3.5-5.1) Chloride Level 106 mmol/L (98-107) Carbon Dioxide Level 21 mmol/L (21-32) Anion Gap 15 (6-14) Blood Urea Nitrogen 13 mg/dL (7-20) Creatinine 0.9 mg/dL (0.6-1.0) Estimated GFR (Cockcroft-Gault) 74.9 Glucose Level 117 mg/dL (70-99) Calcium Level 8.3 mg/dL (8.5-10.1) Phosphorus Level 4.0 mg/dL (2.6-4.7) Magnesium Level 2.6 mg/dL (1.8-2.4) Test 05/25/21 09:30 05/25/21 09:40 05/25/21 10:33 05/25/21 11:20 Glucose (Fingerstick) 116 mg/dL (70-99) 108 mg/dL (70-99) Ionized Calcium 1.13 mmol/L (1.13-1.32) O2 Saturation 98 % (92-99) Arterial Blood pH 7.30 (7.35-7.45) Arterial Blood pH (Temp corrected) 7.35 Arterial Blood pCO2 at Patient Temp 44 mmHg (35-46) Arterial Blood pCO2 (Temp correct) 38 mmHg Arterial Blood pO2 at Patient Temp 141 mmHg (65-108) Arterial Blood pO2 (Temp corrected) 123 mmHg Arterial Blood HCO3 21 mmol/L (21-28) Arterial Blood Base Excess -5 mmol/L (-3-3) FiO2 40 vent Assessment and Plan Assessmemt and Plan Problems Medical Problems: (1) Cardiac arrest with ventricular fibrillation Status: Acute (2) Cardiac arrest with ventricular fibrillation Status: Acute (3) Hypermagnesemia Status: Acute (4) Hypermagnesemia Status: Acute (5) Hypokalemia Status: Acute (6) Lactic acidosis Status: Acute (7) Transaminitis Status: Acute Comment Review of Relevant I have reviewed the following items stephon (where applicable) has been applied. Medications: Current Medications Medications (Trade) Dose Ordered Sig/Carlos Route PRN Reason Start Time Stop Time Status Last Admin Dose Admin Sodium Chloride 1,000 ml @ 1,000 mls/hr 1X ONCE IV 05/24/21 12:30 05/24/21 13:34 DC 05/24/21 12:00 Midazolam HCl 100 ml @ 1 mls/hr CONT PRN IV PER PROTOCOL 05/24/21 12:45 05/24/21 22:29 Fentanyl Citrate 30 ml @ 2.5 mls/hr CONT PRN IV PER PROTOCOL. 05/24/21 12:45 05/25/21 10:43 Insulin Human Regular 100 unit/ Sodium Chloride 101 ml @ 0 mls/hr CONT PRN IV PER PROTOCOL 05/24/21 14:30 05/24/21 22:30 Vancomycin HCl (Vanco Per Pharmacy) 1 each PRN DAILY PRN MC SEE COMMENTS 05/24/21 15:30 05/25/21 08:44 DC 05/25/21 07:36 Piperacillin Sod/ Tazobactam Sod 3.375 gm/Sodium Chloride 50 ml @ 100 mls/hr Q6HRS IV 05/24/21 18:00 05/25/21 12:10 Potassium Chloride/Water 100 ml @ 50 mls/hr Q2H IV 05/24/21 17:00 05/24/21 20:59 DC 05/24/21 17:36 Potassium Chloride/Water 100 ml @ 100 mls/hr PRN Q1HR PRN IV SEE PROTOCOL 05/24/21 16:15 05/25/21 00:54 DC 05/25/21 00:53 Insulin Glargine (Lantus Syringe) 6 unit DAILY16 SQ 05/24/21 16:15 05/24/21 16:34 Amiodarone HCl 450 mg/Dextrose 259 ml @ 17 mls/hr CONT PRN IV SEE I/O RECORD 05/24/21 18:00 05/25/21 12:03 DC 05/25/21 10:44 Sodium Phosphate 20 mmol/Sodium Chloride 256.6667 ml @ 64 mls/hr 1X ONCE IV 05/24/21 22:00 05/25/21 02:00 DC 05/24/21 21:56 Magnesium Sulfate 50 ml @ 25 mls/hr 1X ONCE IV 05/24/21 22:00 05/24/21 23:59 DC 05/24/21 22:03 Magnesium Sulfate/ Dextrose 100 ml @ 100 mls/hr 1X ONCE IV 05/25/21 03:30 05/25/21 04:29 DC 05/25/21 03:31 Sodium Phosphate 10 mmol/Sodium Chloride 103.3333 ml @ 105 mls/hr 1X ONCE IV 05/25/21 03:30 05/25/21 04:29 DC 05/25/21 03:31 Aspirin (Aspirin Chewable) 81 mg [id number] PO 05/25/21 12:30 05/25/21 12:09 Potassium Chloride/Water 100 ml @ 100 mls/hr Q1H IV 05/25/21 12:00 05/25/21 13:59 05/25/21 12:13 Justifications for Admission Other Justification ERNESTINA JUARES MD May 25, 2021 12:23
[2021-05-25] MEDS ORDERED: ASPIRIN CHEWABLE 81 MG TABLET. PO SCH (12:30)
--- NOTE | 2021-05-25 12:39 | EKG ---
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
[2021-05-25] MEDS ORDERED: VANCOMYCIN 1.25 GM in IV NORMAL SALINE 250ML 250 ML IV SCH (13:00)
--- NOTE | 2021-05-25 13:53 | PDOC5 ---
CODE REPORT CODE REPORT CODE BLUE was activated in the ICU, concern for V. fib arrest. ACLS protocol initiated, ambu bagging per respiratory with equal and bilateral breath sounds. Epinephrine, lidocaine, sodium bicarb, and D50 given. Multiple defibrillations. Electrolytes wnl this am. Unable to obtain ROSC-patient remained in fine refractory V. fib. Time of was called at 1335. was notified by RN. Please see nursing documentation regarding specifics of medication dosing at times. TELMA HUYNH DO May 25, 2021 13:53
--- NOTE | 2021-05-25 14:36 | NUR ---
At 1319 this RN noticed patients arterial line was flat but the patient had an organized rhythm AV paced on the hallway monitor. Upon entering the patients room less than 30 seconds later, I noticed the monitor was reading the patient in VTach/VFib. The arterial line was still not reading. Upon this assessment a Code Blue was called and this RN immediately started CPR. Code personnel arrived to room. See Code Blue sheet for an in depth report. At 1336, the reported to Dr. Krishnan that he did not want to continue CPR and to end the Code. Code stopped at 1336 and pt pronounced at that time. was in a nearby conference room at the time and was updated on patient expiration. Patient was cleaned up and appropriate tubes/lines were removed. Patients is at bedside at this time. MTN notified at 1338 of patient expiration. Pt is a candidate and not to be released to home at this time. This information was passed on to the Nursing Web Press Roll Tender.
== END 2021-05-25 13:35 | DRG 208 ==
LOC: ER 10:35 → 1 WEST ICU 12:21 → ER 12:33
PROVIDERS: ADMIT Internal Medicine; ATTEND Internal Medicine
PROC: 5A1945Z Respiratory Ventilation, 24-96 Consecutive Hours (ICD-10-PCS; principal; 2021-05-24)
PROC: 0BH17EZ Insertion of Endotracheal Airway into Trachea, Via Natural or Artificial Opening (ICD-10-PCS; 2021-05-24)
PROC: 03HY32Z Insertion of Monitoring Device into Upper Artery, Percutaneous Approach (ICD-10-PCS; 2021-05-24)
PROC: 5A12012 Performance of Cardiac Output, Single, Manual (ICD-10-PCS; 2021-05-25)
DX: J96.01 Acute respiratory failure with hypoxia (principal); K72.00 Acute and subacute hepatic failure without coma; E46 Unspecified protein-calorie malnutrition; E87.2 Acidosis; G93.1 Anoxic brain damage, not elsewhere classified; I42.8 Other cardiomyopathies; I47.2 Ventricular tachycardia; I49.01 Ventricular fibrillation; E78.5 Hyperlipidemia, unspecified; E83.41 Hypermagnesemia; E87.6 Hypokalemia; I11.0 Hypertensive heart disease with heart failure; I25.10 Atherosclerotic heart disease of native coronary artery without angina pectoris; I27.20 Pulmonary hypertension, unspecified; I46.2 Cardiac arrest due to underlying cardiac condition; I49.5 Sick sinus syndrome; I50.9 Heart failure, unspecified; J44.9 Chronic obstructive pulmonary disease, unspecified; K21.9 Gastro-esophageal reflux disease without esophagitis; M06.9 Rheumatoid arthritis, unspecified; R57.0 Cardiogenic shock; Z82.49 Family history of ischemic heart disease and other diseases of the circulatory system; Z86.73 Personal history of transient ischemic attack (TIA), and cerebral infarction without residual deficits; Z87.891 Personal history of nicotine dependence; Z90.710 Acquired absence of both cervix and uterus; Z95.0 Presence of cardiac pacemaker; D64.9 Anemia, unspecified; F32.A Depression, unspecified; F41.9 Anxiety disorder, unspecified; M19.90 Unspecified osteoarthritis, unspecified site; Z68.29 Body mass index [BMI] 29.0-29.9, adult; Z88.8 Allergy status to other drugs, medicaments and biological substances
CPT/HCPCS: 36415; 36600; 70450; 71045; 80048; 80076; 80307; 80329; 81001; 82310; 82550; 82805; 82962; 83605; 83735; 83880; 83930; 84100; 84484; 85025; 85610; 85730; 87040; 93005; 93306; 94002; 94003; 94760; 96365; 96367; 96375; C9113; G0480; J0171; J0282; J1644; J1815; J2250; J2543; J3010; J3370; J3475; J3480; J3490; J7030; J7040; J7050; J7060; 99291-25; G0378